=== PATIENT | male | born 1940 | race Caucasian/White ===

== ENCOUNTER → 2016-07-16 | Outpatient (CLI) | payer BC, OTHER ==
[~2016-07-16] MED LIST: ACET-1311 PO; ALUMSUS2 PO; ASPI1TAB83 PO; BISA10SU3 PR; CLOP1TAB5 PO; CYAN10002 IM; DOCU-94 PO; DONE10TA12 PO; HALO5INJ IM; ISOS-11 PO; LPR25 PO; MELATAB2 PO; MOML PO; MULT-260 PO; PRT/20 PO; QUET1TAB34 PO; QUET1TAB37 PO; SODIENE PR
[2016-07-16 10:56] LABS: ALT/SGPT 56 U/L (12-78); BLOOD UREA NITROGEN 22 mg/dl (7-18); BUN/CREATININE RATIO 13.4 (10-20); CARBON DIOXIDE 26 mmol/L (21-32); CHLORIDE 104 mmol/L (98-107); CHOLESTEROL 128 mg/dl (0-200); GLUCOSE 92 mg/dl (70-99); POTASSIUM 3.9 mmol/L (3.5-5.1); SODIUM 143 mmol/L (136-145); TRIGLYCERIDES 216 mg/dl (0-150); VERY LOW DENSITY LIPOPROT CALC 43 mg/dl
[2016-07-16 11:06] LABS: ALKALINE PHOSPHATASE 90 U/L (45-117); AST/SGOT 75 U/L (15-37); CHOLESTEROL/HDL RATIO 3.7; HDL CHOLESTEROL 35 mg/dl; LDL CHOLESTEROL CALCULATED 50 mg/dl
[2016-07-16 11:24] LABS: ESTIMATED AVERAGE GLUCOSE 134 mg/dl; HA1C FLAG Normal (Normal)
--- NOTE | 2016-07-20 09:55 | CODING QUERY MEDICAL NECESSITY ---
SUPPORTING DIAGNOSIS NEEDED A supporting diagnosis is required for the test/procedure performed on this patient in order for us to be reimbursed by the patient's insurance. Please provide a supporting diagnosis for the following test/procedure listed below next to the test name along with your signature. *If there is no additional diagnosis for this patient that would support the following test/procedure please document that below next to the test/procedure. Test(s)/Procedure(s) that require a supporting diagnosis: DOS 07/16 * Vitamin D DIAGNOSIS: * Vitamin B12 DIAGNOSIS: * Hba1c DIAGNOSIS: Provider Signature: Date: Thank you Marina Eaton Health Information Management Once completed, please kindly fax back to [phone] For questions please call [phone]
== END ==
LOC: C.LABUPUNI 10:24
PROVIDERS: ATTEND Family Medicine
DX: R68.2 Dry mouth, unspecified (principal); R26.2 Difficulty in walking, not elsewhere classified; E78.5 Hyperlipidemia, unspecified; F29 Unspecified psychosis not due to a substance or known physiological condition; M62.81 Muscle weakness (generalized)

== ENCOUNTER → 2016-08-03 | Outpatient (CLI) | payer BC, OTHER ==
[2016-08-03 09:04] LABS: BLOOD UREA NITROGEN 28 mg/dl (7-18); BUN/CREATININE RATIO 18.3 (10-20); CALCIUM 9.1 mg/dl (8.5-10.1); CARBON DIOXIDE 25 mmol/L (21-32); CHLORIDE 105 mmol/L (98-107); GLUCOSE 105 mg/dl (70-99); POTASSIUM 4.1 mmol/L (3.5-5.1); SODIUM 141 mmol/L (136-145)
== END | disposition home or self-care (01) ==
LOC: C.LABUPUNI 08:30
PROVIDERS: ATTEND Family Medicine
DX: L10.9 Pemphigus, unspecified (principal)

== ENCOUNTER → 2016-10-29 | Outpatient (CLI) | payer BC, OTHER ==
[2016-10-29 08:49] LABS: HEMATOCRIT 37.1 % (42-52); MEAN CELL VOLUME 99.2 fL (80-100); MEAN CORPUSCULAR HEMOGLOBIN 33.7 pg (25-34); MEAN PLATELET VOLUME 9.7 fL (7.4-10.4); PLATELET COUNT 204 K/uL (130-400); RED BLOOD COUNT 3.74 M/uL (4.7-6.1); WHITE BLOOD COUNT 5.19 K/uL (4.8-10.8)
[2016-10-29 08:53] LABS: ALT/SGPT 33 U/L (12-78); BLOOD UREA NITROGEN 23 mg/dl (7-18); CARBON DIOXIDE 28 mmol/L (21-32); CHLORIDE 106 mmol/L (98-107); CHOLESTEROL 122 mg/dl (0-200); GLUCOSE 93 mg/dl (70-99); POTASSIUM 3.8 mmol/L (3.5-5.1); SODIUM 142 mmol/L (136-145); TRIGLYCERIDES 188 mg/dl (0-150); VERY LOW DENSITY LIPOPROT CALC 38 mg/dl
[2016-10-29 09:04] LABS: ALB/GLOB RATIO 1.2 (0.9-2); ALKALINE PHOSPHATASE 68 U/L (45-117); AST/SGOT 50 U/L (15-37); CHOLESTEROL/HDL RATIO 3.4; HDL CHOLESTEROL 36 mg/dl; LDL CHOLESTEROL CALCULATED 48 mg/dl
--- NOTE | 2016-11-03 12:05 | CODING QUERY MEDICAL NECESSITY ---
SUPPORTING DIAGNOSIS NEEDED A supporting diagnosis is required for the test/procedure performed on this patient in order for us to be reimbursed by the patient's insurance. Please provide a supporting diagnosis for the following test/procedure listed below next to the test name along with your signature. *If there is no additional diagnosis for this patient that would support the following test/procedure please document that below next to the test/procedure. Test(s)/Procedure(s) that require a supporting diagnosis: DOS 10/29 * Vitamin D DIAGNOSIS: Provider Signature: Date: Thank you Marina Eaton Health Information Management Once completed, please kindly fax back to [phone] For questions please call [phone]
== END ==
LOC: C.LABUPUNI 08:14
PROVIDERS: ATTEND Family Medicine
DX: I10 Essential (primary) hypertension (principal); E78.5 Hyperlipidemia, unspecified; E56.8 Deficiency of other vitamins; E55.9 Vitamin D deficiency, unspecified

== ENCOUNTER → 2017-07-20 | Outpatient (CLI) | payer BC, OTHER ==
[2017-07-20 08:24] LABS: HEMATOCRIT 38.9 % (42-52); HEMOGLOBIN 13.3 g/dL (14.0-18.0); MEAN CELL VOLUME 97.3 fL (80-100); MEAN CORPUSCULAR HEMOGLOBIN 33.3 pg (25-34); MEAN CORPUSCULAR HGB CONC 34.2 g/dl (32-36); MEAN PLATELET VOLUME 9.7 fL (7.4-10.4); PLATELET COUNT 205 K/uL (130-400); RED CELL DISTRIBUTION WIDTH CV 13.7 % (11.5-14.5); RED CELL DISTRIBUTION WIDTH SD 48.7 fL (36.4-46.3); WHITE BLOOD COUNT 7.14 K/uL (4.8-10.8)
[2017-07-20 09:11] LABS: HEMOGLOBIN A1C 6.1 % (4.5-5.6)
[2017-07-20 10:36] LABS: ALBUMIN 3.5 gm/dl (3.4-5.0); ALT/SGPT 37 U/L (12-78); AST/SGOT 48 U/L (15-37); BLOOD UREA NITROGEN 23 mg/dl (7-18); CALCIUM 8.8 mg/dl (8.5-10.1); CARBON DIOXIDE 28 mmol/L (21-32); CREATININE 1.48 mg/dl (0.60-1.40); GLUCOSE 98 mg/dl (70-99); POTASSIUM 3.5 mmol/L (3.5-5.1); SODIUM 138 mmol/L (136-145)
[2017-07-20 10:47] LABS: ALKALINE PHOSPHATASE 73 U/L (45-117); TOTAL PROTEIN 6.9 gm/dl (6.4-8.2)
== END | disposition home or self-care (01) ==
LOC: C.LABUPUNI 08:09
PROVIDERS: ATTEND Nurse Practitioner Family
DX: M62.81 Muscle weakness (generalized) (principal); I10 Essential (primary) hypertension; I25.10 Atherosclerotic heart disease of native coronary artery without angina pectoris; E56.8 Deficiency of other vitamins

== ENCOUNTER → 2017-08-19 | Outpatient (CLI) | payer BC, OTHER | LOC: C.LABUPUNI 08:56 | PROVIDERS: ATTEND Nurse Practitioner Family | DX: I10 Essential (primary) hypertension (principal) ==

== ENCOUNTER → 2017-11-03 | Outpatient (CLI) | payer BC, OTHER ==
[2017-11-03 08:27] LABS: HEMATOCRIT 42.2 % (42-52); HEMOGLOBIN 14.5 g/dL (14.0-18.0); MEAN CELL VOLUME 96.6 fL (80-100); MEAN CORPUSCULAR HEMOGLOBIN 33.2 pg (25-34); MEAN CORPUSCULAR HGB CONC 34.4 g/dl (32-36); PLATELET COUNT 231 K/uL (130-400); RED CELL DISTRIBUTION WIDTH CV 13.4 % (11.5-14.5); RED CELL DISTRIBUTION WIDTH SD 47.4 fL (36.4-46.3); WHITE BLOOD COUNT 7.96 K/uL (4.8-10.8)
[2017-11-03 08:37] LABS: ALBUMIN 3.5 gm/dl (3.4-5.0); ALT/SGPT 51 U/L (12-78); AST/SGOT 67 U/L (15-37); BLOOD UREA NITROGEN 21 mg/dl (7-18); CALCIUM 8.9 mg/dl (8.5-10.1); CARBON DIOXIDE 26 mmol/L (21-32); CREATININE 1.52 mg/dl (0.60-1.40); GLUCOSE 110 mg/dl (70-99); POTASSIUM 3.7 mmol/L (3.5-5.1); SODIUM 141 mmol/L (136-145)
[2017-11-03 08:47] LABS: ALKALINE PHOSPHATASE 76 U/L (45-117)
== END | disposition home or self-care (01) ==
LOC: C.LABUPUNI 08:01
PROVIDERS: ATTEND Nurse Practitioner Family
DX: F33.8 Other recurrent depressive disorders (principal); I25.10 Atherosclerotic heart disease of native coronary artery without angina pectoris; M62.81 Muscle weakness (generalized); E56.8 Deficiency of other vitamins

== ENCOUNTER → 2017-11-11 | Outpatient (CLI) | payer BC, OTHER ==
[2017-11-11 10:35] LABS: ALBUMIN 3.2 gm/dl (3.4-5.0); TOTAL PROTEIN 6.9 gm/dl (6.4-8.2)
== END | disposition home or self-care (01) ==
LOC: C.LABUPUNI 09:02
PROVIDERS: ATTEND Nurse Practitioner Family
DX: G89.29 Other chronic pain (principal)

== ENCOUNTER → 2018-02-22 | Outpatient (CLI) | payer BC, OTHER ==
[2018-02-22 08:31] LABS: HEMOGLOBIN 13.8 g/dL (14.0-18.0); MEAN CELL VOLUME 97.1 fL (80-100); MEAN CORPUSCULAR HEMOGLOBIN 33.5 pg (25-34); MEAN CORPUSCULAR HGB CONC 34.5 g/dl (32-36); MEAN PLATELET VOLUME 10.3 fL (7.4-10.4); PLATELET COUNT 197 K/uL (130-400); RED CELL DISTRIBUTION WIDTH CV 14.1 % (11.5-14.5); RED CELL DISTRIBUTION WIDTH SD 50.1 fL (36.4-46.3); WHITE BLOOD COUNT 15.12 K/uL (4.8-10.8)
[2018-02-22 08:35] LABS: BLOOD UREA NITROGEN 21 mg/dl (7-18); CALCIUM 8.9 mg/dl (8.5-10.1); CARBON DIOXIDE 26 mmol/L (21-32); CREATININE 1.64 mg/dl (0.60-1.40); GLUCOSE 130 mg/dl (70-99); POTASSIUM 3.4 mmol/L (3.5-5.1); SODIUM 139 mmol/L (136-145)
== END ==
LOC: C.LABUPUNI 07:41
PROVIDERS: ATTEND Nurse Practitioner Family
DX: R50.9 Fever, unspecified (principal); I25.10 Atherosclerotic heart disease of native coronary artery without angina pectoris; I10 Essential (primary) hypertension

== ENCOUNTER 2020-05-02 16:29 | Inpatient (IN) ==
--- NOTE | 2020-05-02 16:46 | Emergency Department Note ---
Impression & Plan Acute respiratory failure with hypoxia, Elevated troponin, COVID-19, Acute hypernatremia, Elevated lactic acid level ED Provider Note NAME: DIPIKA LOZANO AGE: 79 SEX: M : 1940 ARRIVES VIA: Ambulance INFORMANT: Patient ED PROVIDER(S): Joey Gordon DO CHIEF COMPLAINT: Shortness of breath HPI: Patient is an 79-year-old gentleman with a past medical history of Alzheimer's and psychosis the presents the ER for hypoxia. He was diagnosed with coronavirus and has had respiratory symptoms for the past 7 days per report. He was found to be lethargic and confused today. He was hypoxic and placed on 15 L nonrebreather and brought in by EMS. They note he has been unresponsive. He is a full code per report from EMS. He got Decadron which started yesterday. He has been on antibiotics at the [facility]. Remainder of history is fairly limited as he is able to say yes and no but uncertain to the validity of his answers. ROS: Limited secondary to mentation PAST MEDICAL HISTORY:See Below PAST SURGICAL HISTORY:See Below FAMILY HISTORY:See Below SOCIAL HISTORY:See Below HOME MEDICATIONS:See Below ALLERGIES:See Below VITALS:See Below PHYSICAL EXAMINATION: GENERAL: Sitting up in bed, alert, ill-appearing, answering yes/no questions on nonrebreather EYE EXAM: normal conjunctiva. PERRL and EOM's grossly intact. OROPHARYNX: mucous membranes are dry NECK: supple, no nuchal rigidity, no adenopathy, non-tender LUNGS: Diminished bilaterally. Normal chest wall mechanics HEART: no murmurs, S1 normal and S2 normal ABDOMEN: abdomen soft, non-tender, normo-active bowel sounds, no masses, no rebound or guarding. SKIN: no rashes and no bruising UPPER EXTREMITIES: upper extremities are grossly normal. LOWER EXTREMITIES: No pitting edema. NEURO EXAM: Awake oriented to person and place answering yes and no moving extremities MEDICAL DECISION MAKING: Patient is an 79-year-old male who presents ER from heart side. He was Covid positive. He has had increased confusion and shortness of breathFor the past 24 to 48 hours. He was brought in by EMS on a 15 L nasal cannula. He was still hypoxic at about 86%. IV was established blood work was obtained. He was placed on Covid precautions. Appropriate PPE was worn throughout the entire stay. Labs showed no significant leukocytosis but a mild anemia. VBG was fairly unremarkable with a pH of 7.45. BMP with a significant hyponatremia 154. Creatinine was significantly elevated at 3. Do favor that this is consistent with dehydration. Previous creatinines around 1. He was given IV fluids. Lactate was up as well likely consistent with dehydration. Question if the troponin secondary to SHERRIE versus demand ischemia from the hypoxia; Favor this is multifactorial. LFTs bilirubin was unremarkable. UA was negative. Chest x-ray with multifocal pneumonia. Upon arrival he was placed on high flow nasal cannula at 100% FiO2 and 40 L/min. On high flow patient was 92%. Prolonged conversation with his son who wants him to be a full code. Patient was given IV Decadron and IV Levaquin as well. Updated admitted after discussion with Dr. Young. Triage Nursing notes reviewed. Prior medical records reviewed Vital Signs: reviewed and remarkable for no significant abnormalities Differential diagnosis: Differential diagnosis includes etiologies such as sepsis, UTI, pneumonia, metabolic, electrolyte abnormalities, cardiac sources, intracerebral event, toxicologic, neurological, as well as others were entertained. ER treatment provided: See below Diagnostics interpreted by me: ECG: Sinus rhythm rate of 66 first-degree AV block No PVCs. Normal QTC Cardiac Monitoring: An order was placed for continuous cardiac monitoring. The monitor shows a rate of 70 with sinus rhythm. Laboratory studies: As stated above and show below. Imaging studies: Portable AP upright 1 view of the chest shows multifocal pneumonia Consultation(s): Discussed with Dr. Abilio Young for further evaluation ED COURSE: Procedures: none Critical Care: I have personally spent 50 minutes of critical care time in the direct management of this patient. This includes bedside care, interpretation of diagnostic studies, and testing, discussion with consultants, patient, and family members, and other required patient management activities. This 50 minutes is in excess of all separately billable procedures. Past Med/Surg History Social History (Updated 05/02/20 @ 19:52 by Eduin Young MD) Smoking Status: Unknown if ever smoked Preferred Language: Irish Allergies Allergies Allergy/AdvReac Type Severity Reaction Status Date / Time sulfadiazine Allergy Unknown Unknown Verified 05/02/20 17:55 Home Meds Home Medications Medication Instructions Recorded Confirmed acetaminophen 650 mg PO BID MDD 3 GMS APAP/24 05/02/20 05/02/20 HOURS acetaminophen 650 mg PO Q6H PRN MDD 3 GMS 05/02/20 05/02/20 APAP/24 HOURS amlodipine 5 mg PO DAILY 05/02/20 05/02/20 aspirin [Aspirin Low Dose] 81 mg PO DAILY 05/02/20 05/02/20 azithromycin 250 mg PO DAILY 05/02/20 05/02/20 bisacodyl [Dulcolax (bisacodyl)] 10 mg FL DIRECTED PRN 05/02/20 05/02/20 cholecalciferol (vitamin D3) 5,000 unit PO DAILY 05/02/20 05/02/20 [Vitamin D3] dexamethasone sodium phosphate 6 mg IV DIRECTED 05/02/20 05/02/20 divalproex 250 mg PO HS 05/02/20 05/02/20 duloxetine 20 mg PO DAILY 05/02/20 05/02/20 isosorbide mononitrate 30 mg PO HS 05/02/20 05/02/20 magnesium hydroxide [Milk Of 10 ml PO DIRECTED PRN 05/02/20 05/02/20 Magnesia Concentrated] meloxicam 7.5 mg PO QAM 05/02/20 05/02/20 metoprolol tartrate 25 mg PO BID 05/02/20 05/02/20 multivitamin,tx-minerals [Thera M] 1 tab PO DAILY 05/02/20 05/02/20 ondansetron HCl 4 mg PO Q6H PRN 05/02/20 05/02/20 potassium chloride 20 meq PO DAILY 05/02/20 05/02/20 pregabalin 100 mg PO TID 05/02/20 05/02/20 quetiapine 50 mg PO BID 05/02/20 05/02/20 sennosides [senna] 8.6 mg PO DAILY 05/02/20 05/02/20 sodium phosphates [Fleet Enema] 197 ml FL DIRECTED PRN 05/02/20 05/02/20 zinc 100 mg PO DAILY 05/02/20 05/02/20 Results & Data (ED) Vital Signs Vital Signs - 24 hr 05/02/20 16:48 05/02/20 17:04 05/02/20 17:31 Temperature 36.5 C Temperature Source Oral Pulse Rate 71 66 Pulse Rate [Right Finger] 68 Pulse Rate from SpO2 Sensor 65 Pulse Rhythm Regular Pulse Strength Normal Respiratory Rate 26 H 16 22 Respiratory Effort / Characteristics Spontaneous Short of Breath Non-Labored Spontaneous Blood Pressure 133/74 139/68 Blood Pressure Mean 93 87 Blood Pressure Position Sitting Pulse Oximetry 86 L 93 93 Oxygen Delivery Method High Flow Nasal Cannula Non-rebreather High Flow Nasal Cannula High Flow Nasal Cannula Oxygen Flow Rate 15 40 40 Fraction of Inspired Oxygen 100 100 SaO2/FiO2 Ratio 95 Sepsis Recent Fever Within 48 Hours No Sepsis New/Unexplained Change in Mental Status Yes Sepsis Action Taken by Nursing Physician Notified Oxygen Flow Rate - Titration 40 Fraction of Inspired Oxygen - Titration 100 Pulse Oximetry Post Tiitration 93 05/02/20 17:45 05/02/20 18:00 05/02/20 18:15 Temperature Temperature Source Pulse Rate 64 66 61 Pulse Rate [Right Finger] Pulse Rate from SpO2 Sensor 61 Pulse Rhythm Pulse Strength Respiratory Rate 19 23 15 Respiratory Effort / Characteristics Blood Pressure 126/84 120/64 119/60 Blood Pressure Mean 99 71 83 Blood Pressure Position Pulse Oximetry 98 Oxygen Delivery Method High Flow Nasal Cannula Oxygen Flow Rate 40 Fraction of Inspired Oxygen 100 SaO2/FiO2 Ratio Sepsis Recent Fever Within 48 Hours Sepsis New/Unexplained Change in Mental Status Sepsis Action Taken by Nursing Oxygen Flow Rate - Titration Fraction of Inspired Oxygen - Titration Pulse Oximetry Post Tiitration 05/02/20 18:16 05/02/20 18:30 05/02/20 19:01 Temperature Temperature Source Pulse Rate 65 66 66 Pulse Rate [Right Finger] Pulse Rate from SpO2 Sensor 61 64 66 Pulse Rhythm Pulse Strength Respiratory Rate 29 H 20 26 H Respiratory Effort / Characteristics Blood Pressure 126/87 123/62 Blood Pressure Mean 102 92 Blood Pressure Position Pulse Oximetry 96 93 96 Oxygen Delivery Method High Flow Nasal Cannula Oxygen Flow Rate 40 Fraction of Inspired Oxygen 100 SaO2/FiO2 Ratio Sepsis Recent Fever Within 48 Hours Sepsis New/Unexplained Change in Mental Status Sepsis Action Taken by Nursing Oxygen Flow Rate - Titration Fraction of Inspired Oxygen - Titration Pulse Oximetry Post Tiitration 05/02/20 19:15 05/02/20 19:30 05/02/20 19:57 Temperature Temperature Source Pulse Rate 66 66 61 Pulse Rate [Right Finger] Pulse Rate from SpO2 Sensor 66 67 62 Pulse Rhythm Pulse Strength Respiratory Rate 29 H 23 20 Respiratory Effort / Characteristics Blood Pressure 112/76 180/80 H Blood Pressure Mean 87 135 Blood Pressure Position Pulse Oximetry 92 90 94 Oxygen Delivery Method High Flow Nasal Cannula Oxygen Flow Rate 40 Fraction of Inspired Oxygen 100 SaO2/FiO2 Ratio Sepsis Recent Fever Within 48 Hours Sepsis New/Unexplained Change in Mental Status Sepsis Action Taken by Nursing Oxygen Flow Rate - Titration Fraction of Inspired Oxygen - Titration Pulse Oximetry Post Tiitration 05/02/20 20:00 Temperature Temperature Source Pulse Rate 63 Pulse Rate [Right Finger] Pulse Rate from SpO2 Sensor 62 Pulse Rhythm Pulse Strength Respiratory Rate 21 Respiratory Effort / Characteristics Blood Pressure 165/78 H Blood Pressure Mean 131 Blood Pressure Position Pulse Oximetry 94 Oxygen Delivery Method High Flow Nasal Cannula Oxygen Flow Rate 40 Fraction of Inspired Oxygen 100 SaO2/FiO2 Ratio Sepsis Recent Fever Within 48 Hours Sepsis New/Unexplained Change in Mental Status Sepsis Action Taken by Nursing Oxygen Flow Rate - Titration Fraction of Inspired Oxygen - Titration Pulse Oximetry Post Tiitration Laboratory Data Result diagrams: 05/02/20 17:15 05/02/20 17:15 Lab Results 05/02/20 05/02/20 05/02/20 Range/Units 17:15 17:15 17:15 WBC 6.34 (4.8-10.8) K/uL RBC 3.50 L (4.7-6.1) M/uL Hgb 11.4 L (14.0-18.0) g/dL Hct 34.7 L (42-52) % MCV 99.1 (80-100) fL MCH 32.6 (25-34) pg MCHC 32.9 (32-36) g/dL RDW Std Deviation 55.8 H (36.4-46.3) fL RDW Coeff of Ailin 15.6 H (11.5-14.5) % Plt Count 225 (130-400) K/uL MPV 10.7 H (7.4-10.4) fL Immature Gran % (Auto) 0.8 % Neut % (Auto) 71.4 % Lymph % (Auto) 19.9 % [place] % (Auto) 7.4 % Eos % (Auto) 0.0 % Baso % (Auto) 0.5 % Neut # (Auto) 4.53 (1.4-6.5) K/uL Lymph # (Auto) 1.26 (1.2-3.4) K/uL [place] # (Auto) 0.47 (0.11-0.59) K/uL Eos # (Auto) 0.00 (0-0.5) K/uL Baso # (Auto) 0.03 (0-0.2) K/uL Immature Gran # (Auto) 0.05 H (0.00-0.02) K/uL Absolute Nucleated RBC 0.15 H (0-0) K/uL Nucleated RBC % (auto) 2.4 % RBC Morphology Unremarkable PT 11.4 (9.0-12.0) Seconds INR 1.1 (0.9-1.1) APTT 26.8 (21.0-31.0) Seconds PTT Ratio 1.0 VBG pH (7.36-7.41) VBG pCO2 (38-50) mmHg VBG pO2 mmHg VBG HCO3 mmol/L VBG O2 Saturation % VBG Base Excess mEq/L Barometric Pressure mm/Hg Sodium 154 H (136-145) mmol/L Potassium 3.6 (3.5-5.1) mmol/L Chloride 122 H (98-107) mmol/L Carbon Dioxide 26 (21-32) mmol/L Anion Gap 6.0 (3-11) BUN 73 H (7-18) mg/dl Creatinine 3.10 H (0.6-1.4) mg/dl Est Cr Clr Drug Dosing 23.7 ml/min Est GFR ( Amer) 20.9 Est GFR (Non-Af Amer) 18.0 BUN/Creatinine Ratio 23.5 H (10-20) Glucose 130 H (70-99) mg/dl Lactate (0.4-2.0) mmol/L Calcium 9.4 (8.5-10.1) mg/dl Magnesium 3.6 H (1.8-2.4) mg/dl Total Bilirubin 0.6 (0.2-1) mg/dl AST 156 H (15-37) U/L ALT 70 (12-78) U/L Alkaline Phosphatase 72 (45-117) U/L Troponin I 0.062 H* (0-0.045) ng/ml Total Protein 8.2 (6.4-8.2) gm/dl Albumin 3.3 L (3.4-5.0) gm/dl Globulin 4.9 H (2.5-4.0) gm/dl Albumin/Globulin Ratio 0.7 L (0.9-2) Urine Color Urine Appearance (Clear) Urine pH (4.5-7.5) Ur Specific [place] (1.000-1.030) Urine Protein (Negative) Urine Glucose (UA) (Negative) Urine Ketones (Negative) Urine Blood (Negative) Urine Nitrite (Negative) Urine Bilirubin (Negative) Urine Urobilinogen (Negative) Ur Leukocyte Esterase (Negative) Urine WBC (Auto) (0-5) /hpf Urine RBC (Auto) (0-4) /hpf U Hyaline Cast (Auto) (0-5) /lpf U Epithel Cells (Auto) (0-5) /lpf Urine Bacteria (Auto) (Negative) 05/02/20 05/02/20 05/02/20 Range/Units 17:15 17:15 19:27 WBC (4.8-10.8) K/uL RBC (4.7-6.1) M/uL Hgb (14.0-18.0) g/dL Hct (42-52) % MCV (80-100) fL MCH (25-34) pg MCHC (32-36) g/dL RDW Std Deviation (36.4-46.3) fL RDW Coeff of Ailin (11.5-14.5) % Plt Count (130-400) K/uL MPV (7.4-10.4) fL Immature Gran % (Auto) % Neut % (Auto) % Lymph % (Auto) % [place] % (Auto) % Eos % (Auto) % Baso % (Auto) % Neut # (Auto) (1.4-6.5) K/uL Lymph # (Auto) (1.2-3.4) K/uL [place] # (Auto) (0.11-0.59) K/uL Eos # (Auto) (0-0.5) K/uL Baso # (Auto) (0-0.2) K/uL Immature Gran # (Auto) (0.00-0.02) K/uL Absolute Nucleated RBC (0-0) K/uL Nucleated RBC % (auto) % RBC Morphology PT (9.0-12.0) Seconds INR (0.9-1.1) APTT (21.0-31.0) Seconds PTT Ratio VBG pH 7.45 H (7.36-7.41) VBG pCO2 38 (38-50) mmHg VBG pO2 60 mmHg VBG HCO3 26 mmol/L VBG O2 Saturation 89.1 % VBG Base Excess 1.7 mEq/L Barometric Pressure 737.5 mm/Hg Sodium (136-145) mmol/L Potassium (3.5-5.1) mmol/L Chloride (98-107) mmol/L Carbon Dioxide (21-32) mmol/L Anion Gap (3-11) BUN (7-18) mg/dl Creatinine (0.6-1.4) mg/dl Est Cr Clr Drug Dosing ml/min Est GFR ( Amer) Est GFR (Non-Af Amer) BUN/Creatinine Ratio (10-20) Glucose (70-99) mg/dl Lactate 2.1 H* (0.4-2.0) mmol/L Calcium (8.5-10.1) mg/dl Magnesium (1.8-2.4) mg/dl Total Bilirubin (0.2-1) mg/dl AST (15-37) U/L ALT (12-78) U/L Alkaline Phosphatase (45-117) U/L Troponin I (0-0.045) ng/ml Total Protein (6.4-8.2) gm/dl Albumin (3.4-5.0) gm/dl Globulin (2.5-4.0) gm/dl Albumin/Globulin Ratio (0.9-2) Urine Color Dark Yellow Urine Appearance Clear (Clear) Urine pH 5.0 (4.5-7.5) Ur Specific [place] 1.028 (1.000-1.030) Urine Protein 1+ H (Negative) Urine Glucose (UA) Negative (Negative) Urine Ketones Trace H (Negative) Urine Blood Negative (Negative) Urine Nitrite Negative (Negative) Urine Bilirubin Negative (Negative) Urine Urobilinogen Negative (Negative) Ur Leukocyte Esterase Negative (Negative) Urine WBC (Auto) 1-5 (0-5) /hpf Urine RBC (Auto) 0-4 (0-4) /hpf U Hyaline Cast (Auto) 10-30 H (0-5) /lpf U Epithel Cells (Auto) 20-30 H (0-5) /lpf Urine Bacteria (Auto) Negative (Negative) Administered Medications Dextrose (D5w) 1,000 mls @ 80 mls/hr IV .[id number] BECCA Stop: 05/03/20 19:29 Last Admin: 05/02/20 19:19 Dose: 80 mls/hr Documented by: [id number] Discontinued Medications Dexamethasone (Dexamethasone Sod Inj 10 Mg/Ml Vial) 6 mg IV NOW ONE Stop: 05/02/20 17:01 Last Admin: 05/02/20 18:07 Dose: 6 mg Documented by: [id number] Levofloxacin/Dextrose (Levaquin/D5w) 750 mg in 150 mls @ 100 mls/hr IV NOW STA Stop: 05/02/20 18:29 Last Infusion: 05/02/20 19:49 Dose: 0 mls/hr Documented by: [id number] Admin: 05/02/20 18:08 Dose: 100 mls/hr Documented by: [id number] Sodium Chloride (Nss 1000ml) 1,000 mls @ 999 mls/hr IV .Q1H1M ONE Stop: 05/02/20 19:01 Last Infusion: 05/02/20 19:49 Dose: 0 mls/hr Documented by: [id number] Admin: 05/02/20 18:08 Dose: 999 mls/hr Documented by: [id number] Discharge Plan Visit Data Chief Complaint: Shortness of Breath/Dyspnea Stated Complaint: SOB, COVID + ED Provider: Joey Gordon Discharge Problem: Acute respiratory failure with hypoxia, Elevated troponin, COVID-19, Acute hypernatremia, Elevated lactic acid level Forms Stand Alone Forms: My [facility] Prescriptions Prescriptions: No Action sennosides [senna] 8.6 mg Tablet 8.6 mg PO DAILY RF: 0 acetaminophen 325 mg Tablet 650 mg PO Q6H MDD 3 GMS APAP/24 HOURS PRN (Reason: Fever Or Pain) RF: 0 acetaminophen 325 mg Tablet 650 mg PO BID MDD 3 GMS APAP/24 HOURS RF: 0 divalproex 250 mg tablet,delayed release (DR/EC) 250 mg PO HS RF: 0 azithromycin 250 mg tablet 250 mg PO DAILY RF: 0 ondansetron HCl 4 mg tablet 4 mg PO Q6H PRN (Reason: Nausea) RF: 0 isosorbide mononitrate 30 mg tablet extended release 24 hr 30 mg PO HS RF: 0 amlodipine 5 mg tablet 5 mg PO DAILY RF: 0 aspirin [Aspirin Low Dose] 81 mg Tablet,Delayed Release (Dr/Ec) 81 mg PO DAILY RF: 0 meloxicam 7.5 mg tablet 7.5 mg PO QAM RF: 0 potassium chloride 20 mEq tablet,ER particles/crystals 20 meq PO DAILY RF: 0 zinc 50 mg Tablet 100 mg PO DAILY RF: 0 dexamethasone sodium phosphate 4 mg/mL solution 6 mg IV DIRECTED RF: 0 Thera M Tablet 1 tab PO DAILY RF: 0 metoprolol tartrate 25 mg tablet 25 mg PO BID RF: 0 duloxetine 20 mg capsule,delayed release(DR/EC) 20 mg PO DAILY RF: 0 pregabalin 100 mg capsule 100 mg PO TID RF: 0 quetiapine 50 mg tablet 50 mg PO BID RF: 0 cholecalciferol (vitamin D3) [Vitamin D3] 125 mcg (5,000 unit) Tablet 5,000 unit PO DAILY RF: 0 bisacodyl [Dulcolax (bisacodyl)] 10 mg Suppository 10 mg FL DIRECTED PRN (Reason: Constipation) RF: 0 Fleet Enema 19-7 gram/118 mL Enema 197 ml FL DIRECTED PRN (Reason: Constipation) RF: 0 magnesium hydroxide [Milk Of Magnesia Concentrated] 2,400 mg/10 mL Suspension 10 ml PO DIRECTED PRN (Reason: Constipation) RF: 0
--- NOTE | 2020-05-02 16:54 | XRay Report ---
XR chest 1V portable CLINICAL HISTORY: SEPSIS COMPARISON STUDY: 01/23/2015 FINDINGS: The heart is borderline enlarged. There are bilateral mixed interstitial and alveolar airsp myra opacities. Clinical correlation in regards to an atypical infectious process is recommended. Ther e are no significant pleural effusions.[ IMPRESSION: 1. Bilateral mixed interstitial and alveolar airspace opacities, suspicious for a multifocal pneumoni a. Clinical and radiographic follow-up is recommended. ACT 112: Negative or not required by law. Electronically signed by: Marc Dunaway M.D. 05/02/2020 4:53 PM
[2020-05-02] MEDS ORDERED: DEXAMETHASONE SOD INJ 10 MG/ML VIAL IV ONE (17:00)
[2020-05-02] MEDS ORDERED: levoFLOXacin/D5W 750 MG/150 ML BAG IV STA (17:00)
[2020-05-02 17:34] LABS: Basophils # (auto) 0.03 K/uL (0-0.2); Basophils % (auto) 0.5 %; Hematocrit (blood only) 34.7 % (42-52); Hemoglobin 11.4 g/dL (14.0-18.0); Immature Granulocytes # (auto) 0.05 K/uL (0.00-0.02); Immature Granulocytes % (auto) 0.8 %; Lymphocytes # (auto) 1.26 K/uL (1.2-3.4); Lymphocytes % (auto) 19.9 %; Mean Corpuscular Hemoglobin 32.6 pg (25-34); Mean Corpuscular Hgb Conc 32.9 g/dL (32-36); Mean Corpuscular Volume 99.1 fL (80-100); Mean Platelet Volume 10.7 fL (7.4-10.4); Monocytes # (auto) 0.47 K/uL (0.11-0.59); Monocytes % (auto) 7.4 %; Neutrophils # (auto) 4.53 K/uL (1.4-6.5); Neutrophils % (auto) 71.4 %; Nucleated RBC # (auto) 0.15 K/uL (0-0); Nucleated RBC % (auto) 2.4 %; Platelet Count 225 K/uL (130-400); RDW Coefficient of Variation 15.6 % (11.5-14.5); RDW Standard Deviation 55.8 fL (36.4-46.3); White Blood Count 6.34 K/uL (4.8-10.8)
[2020-05-02 17:36] LABS: Base Excess VBG 1.7 mEq/L; Oxygen Saturation VBG 89.1 %; pH VBG 7.45 (7.36-7.41)
[2020-05-02 17:48] LABS: INR 1.1 (0.9-1.1); Partial Thromboplastin Time 26.8 Seconds (21.0-31.0); Prothrombin Time 11.4 Seconds (9.0-12.0)
[2020-05-02 17:52] LABS: Albumin Level 3.3 gm/dl (3.4-5.0); BUN Creatinine Ratio 23.5 (10-20); Calcium 9.4 mg/dl (8.5-10.1); Creatinine Clr Calc Pharmacy 23.7 ml/min; Est GFR (African American) 20.9; Magnesium 3.6 mg/dl (1.8-2.4); Potassium 3.6 mmol/L (3.5-5.1)
[2020-05-02 17:59] LABS: RBC Morphology Unremarkable
[2020-05-02 18:01] LABS: Albumin Globulin Ratio 0.7 (0.9-2); Bilirubin,Total 0.6 mg/dl (0.2-1); Globulin 4.9 gm/dl (2.5-4.0); Total Protein 8.2 gm/dl (6.4-8.2); Troponin I 0.062 ng/ml (0-0.045)
[2020-05-02] MEDS ORDERED: SODIUM CHLORIDE 0.9% 1000ML 1,000 ML IV ONE (18:01)
[2020-05-02] MEDS ORDERED: DEXTROSE 5% 1,000 ML IV SCH (19:15)
[2020-05-02] MEDS: DEXTROSE 5% 1,000 ML IV SCH (19:19)
[2020-05-02] MEDS ORDERED: ASCORBIC ACID 1,500 MG, THIAMINE HCL 100 MG in 0.9 % SODIUM CHLORIDE 100 ML IV SCH (19:30)
[2020-05-02 19:47] LABS: Appearance Urine Clear (Clear); Bacteria Urine Automated Negative (Negative); Bilirubin Urine Negative (Negative); Blood Urine Negative (Negative); Color Urine Dark Yellow; Epithelial Cell Urine Auto 20-30 /lpf (0-5); Glucose Urine UA Negative (Negative); Ketones Urine Trace (Negative); Leukocyte Esterase Urine Negative (Negative); Nitrite Urine Negative (Negative); Protein Urine 1+ (Negative); RBC Urine Automated 0-4 /hpf (0-4); Specific Gravity Urine 1.028 (1.000-1.030); Urobilinogen Urine Negative (Negative)
--- NOTE | 2020-05-02 20:01 | History & Physical Report ---
Date of Service May 02, 2020 Assessment & Plan (1) Acute respiratory failure with hypoxia: Patient with acute hypoxic respiratory failure secondary to COVID-19 pneumonia. Patient is acute kidney injury prohibits him from using remdesivir. Patient supported with high flow oxygen he will be given convalescent plasma dexamethasone and zinc family confirms he is a full code at this time believe his mental status will permit us to do prone breathing. Patient (2) Coronary artery disease: Patient be maintained on his metoprolol to prevent rebound tachycardia however if his blood pressure is low this will also be held isosorbide will be held with variable blood pressure currently (3) Hypertension: In addition to above medications patient is also amlodipine this will be held (4) Alzheimer disease: Patient has some previous history of dementia there is also psychosis with a suicide attempt. He is frequently on doses of Seroquel duloxetine due to his mental status we will try to minimize oral medications at this time these are all being held (5) Elevated troponin: Patient has a mildly elevated troponin 0 0.062. He is on isosorbide. We do not have any significant records on this patient. Subsequently is felt he may have coronary disease. He however denies any chest discomfort but his profound hypoxia could make this demand ischemia. We will repeat a troponin in the morning. As mentioned below anticoagulation may be considered an EKG is also not been present on his admitting orders we will try to minimize exposure of staff to Covid but if he develops continued trending upward of his troponin or chest pain we will perform an EKG (6) DVT prophylaxis: Patient currently on Lovenox 40 every 12 hours there is a pending D-dimer if it significantly elevated consideration for therapeutic anticoagulation will be undertaken History of Present Illness Primary Care Provider: [facility] 79-year-old male from outside retirement who was diagnosed with Covid 04/26. According to the family did not start exhibiting symptoms until 04/29. Unclear why was tested so much earlier. He presents tonight with profound hypoxic respiratory failure is now on high flow oxygen 40 L 100% does have some bibasilar chest infiltrates got marked hypernatremia of 154 and creatinine 3.1 with previous creatinine in February of this year of 1.3 troponin is elevated 0.062 early pending D-dimer Allergies Allergy/AdvReac Type Severity Reaction Status Date / Time sulfadiazine Allergy Unknown Unknown Verified 05/02/20 17:55 Home Medications Home Medications Medication Instructions Recorded Confirmed Type acetaminophen 650 mg PO BID MDD 3 GMS APAP/24 05/02/20 05/02/20 History HOURS acetaminophen 650 mg PO Q6H PRN MDD 3 GMS 05/02/20 05/02/20 History APAP/24 HOURS amlodipine 5 mg PO DAILY 05/02/20 05/02/20 History aspirin [Aspirin Low Dose] 81 mg PO DAILY 05/02/20 05/02/20 History azithromycin 250 mg PO DAILY 05/02/20 05/02/20 History bisacodyl [Dulcolax (bisacodyl)] 10 mg OR DIRECTED PRN 05/02/20 05/02/20 History cholecalciferol (vitamin D3) 5,000 unit PO DAILY 05/02/20 05/02/20 History [Vitamin D3] dexamethasone sodium phosphate 6 mg IV DIRECTED 05/02/20 05/02/20 History divalproex 250 mg PO HS 05/02/20 05/02/20 History duloxetine 20 mg PO DAILY 05/02/20 05/02/20 History isosorbide mononitrate 30 mg PO HS 05/02/20 05/02/20 History magnesium hydroxide [Milk Of 10 ml PO DIRECTED PRN 05/02/20 05/02/20 History Magnesia Concentrated] meloxicam 7.5 mg PO QAM 05/02/20 05/02/20 History metoprolol tartrate 25 mg PO BID 05/02/20 05/02/20 History multivitamin,tx-minerals [Thera M] 1 tab PO DAILY 05/02/20 05/02/20 History ondansetron HCl 4 mg PO Q6H PRN 05/02/20 05/02/20 History potassium chloride 20 meq PO DAILY 05/02/20 05/02/20 History pregabalin 100 mg PO TID 05/02/20 05/02/20 History quetiapine 50 mg PO BID 05/02/20 05/02/20 History sennosides [senna] 8.6 mg PO DAILY 05/02/20 05/02/20 History sodium phosphates [Fleet Enema] 197 ml OR DIRECTED PRN 05/02/20 05/02/20 History zinc 100 mg PO DAILY 05/02/20 05/02/20 History Past Med/Surg History Social History (Updated 05/02/20 @ 19:52 by Eduin Young MD) Smoking Status: Unknown if ever smoked Preferred Language: Maltese Review of Systems Review of Systems: Unobtainable due to cognitive status Physical Exam Physical Exam: The patient appeared bewildered hard of hearing Vital signs as documented. Marked hypoxia requiring high flow oxygen Head exam is normocephalic atraumatic no scleral icterus Neck is without JVD, thyromegaly, or carotid bruits. Lungs are bibasilar rales accessory muscles or respiration are being used patient is also belly breathing at this time Cardiac exam, Rhythm is regular.. No murmurs, rubs or gallops. Abdominal exam reveals normal bowel sounds, soft non tender, no masses Extremities are nonedematous and both pedal pulses are present Neurologic exam is alert and spots to questioning and voice is confused hard of hearing Results & Data Results & Data ([facility]) Vital Signs (Past 12 Hours) Vital Signs Temp Pulse Pulse Resp BP Pulse Ox 05/02/20 19:30 66 23 90 05/02/20 19:15 66 29 H 112/76 92 05/02/20 19:01 66 26 H 123/62 96 05/02/20 18:30 66 20 126/87 93 05/02/20 18:16 65 29 H 96 05/02/20 18:15 61 15 119/60 98 05/02/20 18:00 66 23 120/64 05/02/20 17:45 64 19 126/84 05/02/20 17:31 66 22 139/68 93 05/02/20 17:04 68 16 93 05/02/20 16:48 97.7 F 71 26 H 133/74 86 L chest x-ray shows bibasilar infiltrates Code Status & VTE Plan VTE Prophylaxis Plan VTE Prophylaxis will be ordered: Yes PG Care Time/CCT Total # of Minutes Spent Total Time Spent with Patient: Total time spent is greater than 50% in coordination of care (as documented) at patient's floor/unit and/or counseling patient: Coding Level of Care Code 30625 Initial Inpt Care Lvl 3 Diagnoses Acute respiratory failure with hypoxia J96.01 Coronary artery disease I25.10 Hypertension I10 Alzheimer disease G30.9; F02.80 Elevated troponin R77.8 DVT prophylaxis Z29.9
[2020-05-02] MEDS ORDERED: ENOXAPARIN INJ 40 MG/0.4 ML SYR SQ SCH (23:00)
[2020-05-02] MEDS: ENOXAPARIN INJ 30 MG/0.3 ML SYR SQ SCH (23:42)
[2020-05-03 00:02] LABS: Fibrinogen 522 mg/dl (184-400)
[2020-05-03 00:09] LABS: D Dimer 1390 ug/L FEU (0-500)
[2020-05-03] MEDS: ENOXAPARIN INJ 30 MG/0.3 ML SYR SQ SCH ×2 (08:12→20:58)
[2020-05-03] MEDS: DEXAMETHASONE SOD PHOSPHATE 6 MG in SYRINGE 0 ML IV SCH (08:13)
[2020-05-03] MEDS: ZINC SULFATE 220 MG CAPSULE PO SCH (08:13)
[2020-05-03] MEDS: DEXTROSE 5% 1,000 ML IV SCH ×2 (08:22→22:41)
--- NOTE | 2020-05-03 08:28 | Electrocardiogram Report ---
Test Reason : Blood Pressure : / mmHG Vent. Rate : 066 BPM Atrial Rate : 066 BPM P-R Int : 154 ms QRS Dur : 096 ms QT Int : 426 ms P-R-T Axes : -03 011 080 degrees QTc Int : 446 ms Normal sinus rhythm Diffuse Nonspecific T wave abnormality Abnormal ECG When compared with ECG of 23-JAN-2015 15:37, Nonspecific T wave abnormality now present Confirmed by Mahesh Van ([id number]) on 05/03/2020 8:28:05 AM Referred By: [facility] Confirmed By:Mahesh Van
[2020-05-03 08:45] LABS: Basophils # (auto) 0.02 K/uL (0-0.2); Basophils % (auto) 0.2 %; Hemoglobin 10.9 g/dL (14.0-18.0); Immature Granulocytes # (auto) 0.18 K/uL (0.00-0.02); Immature Granulocytes % (auto) 1.4 %; Lymphocytes # (auto) 1.33 K/uL (1.2-3.4); Lymphocytes % (auto) 10.5 %; Mean Corpuscular Hemoglobin 32.4 pg (25-34); Mean Corpuscular Hgb Conc 32.1 g/dL (32-36); Mean Corpuscular Volume 101.2 fL (80-100); Mean Platelet Volume 11.1 fL (7.4-10.4); Monocytes # (auto) 0.37 K/uL (0.11-0.59); Monocytes % (auto) 2.9 %; Neutrophils # (auto) 10.79 K/uL (1.4-6.5); Nucleated RBC # (auto) 0.17 K/uL (0-0); Nucleated RBC % (auto) 1.3 %; Platelet Count 252 K/uL (130-400); RDW Coefficient of Variation 15.6 % (11.5-14.5); RDW Standard Deviation 56.8 fL (36.4-46.3); Red Blood Count 3.36 M/uL (4.7-6.1); White Blood Count 12.69 K/uL (4.8-10.8)
[2020-05-03 08:54] LABS: iSTAT Allen Test Pass; iSTAT Arterial Blood Gas HCO3 23 meg/L (19-24); iSTAT Arterial Blood Gas pCO2 35 mmHg (35-46); iSTAT Arterial Blood Gas pH 7.42 (7.35-7.45); iSTAT Arterial Blood Gas pO2 61 mmHg (80-95); iSTAT Carbon Dioxide 24 mmol/L (24-31); iSTAT FiO2 100 %; iSTAT Site L Radial
[2020-05-03 08:55] LABS: Albumin Level 2.9 gm/dl (3.4-5.0); C Reactive Protein 6.61 mg/dl (0-0.29); Calcium 8.8 mg/dl (8.5-10.1); Creatinine Clr Calc Pharmacy 28.4 ml/min; Est GFR (African American) 26.3; Est GFR (Non-African American) 22.7; Magnesium 3.3 mg/dl (1.8-2.4); Potassium 3.6 mmol/L (3.5-5.1)
[2020-05-03 08:59] LABS: Albumin Globulin Ratio 0.6 (0.9-2); Bilirubin,Total 0.5 mg/dl (0.2-1); Globulin 4.7 gm/dl (2.5-4.0); Phosphorus 2.9 mg/dl (2.5-4.9); Total Protein 7.6 gm/dl (6.4-8.2)
[2020-05-03] MEDS ORDERED: DEXAMETHASONE SOD INJ 10 MG/ML VIAL IV SCH (09:00)
[2020-05-03 09:22] LABS: D Dimer 1810 ug/L FEU (0-500)
--- NOTE | 2020-05-03 09:25 | Pulmonary Consultation ---
Date of Consultation May 03, 2020 Assessment & Plan (1) COVID-19: 79-year-old male with dementia and a history of psychosis presenting to the hospital with acute metabolic encephalopathy and acute hypoxemic respiratory failure secondary to COVID-19 pneumonia. Continue Decadron 6 mg daily for 10 days. He is not a candidate for remdesivir given his renal failure and his transaminitis. Continue high-dose Lovenox. His D-dimer is elevated. He is unstable for transport to a CT chest. I suspect that his severe hypoxemia is related to multifocal opacities from the COVID-19 pneumonitis. An order is placed for convalescent plasma and will likely arrive later today. He is at high risk for aspiration given his altered mental status and his underlying dementia. I think his overall prognosis is very poor. He appears to be ventilating reasonably well based on the most recent blood gas. Aim for a PO2 of 55-80 on the ABG and oxygen saturations of 88 to 92%. Hopefully, we can avoid intubation or mechanical ventilation unless absolutely necessary. We are hoping that his mental status continues to clear as his sodium improves and BUN improves. I tried to get a hold of the son to discuss CODE STATUS further. Palliative care consultation will be ordered. I discussed the case with the respiratory therapist, bedside RN and hospitalist. (2) Acute hypernatremia: (3) Elevated lactic acid level: (4) Acute respiratory failure with hypoxia: (5) Coronary artery disease: History of Present Illness Reason for Consultation: Covid pneumonitis Requesting Physician: Dr. Rebecca Saba Attending Physician: Rebecca Saba MD History of Present Illness 79-year-old male with a past medical history of dementia and coronary artery disease who [facility] due to increasing shortness of breath and confusion. History was obtained from chart review and discussion with the hospitalist due to the COVID-19 pandemic and due to the patient's acute encephalopathy. It appears that he was diagnosed with coronavirus and has had respiratory symptoms for the past 7 days. He was lethargic and confused yesterday. He was brought by EMS and was requiring 15 L nonrebreather. He received Decadron in the [facility]. He was desaturating on 100% FiO2 and 40 L high flow nasal cannula and he is now currently on BiPAP. Most recent ABG suggest a respiratory alkalosis with severe hypoxemia with a PaO2 of 61 on 100% BiPAP. Chest x-ray from yesterday demonstrated bilateral mixed interstitial and alveolar airspace opacities suspicious for multifocal pneumonia. His labs are concerning for leukocytosis of 12,690. D-dimer is elevated to 1390. His creatinine is elevated to 2.56 and BUN of 72. Sodium is 153. Ferritin was 1840. Lactate of 2.1. Procalcitonin 0.38. CRP of 6.61. He is receiving Decadron. He has not yet received convalescent plasma. He is not a candidate for remdesivir given his renal failure and given that he is at least 7 days out from acute symptoms. Allergies Allergy/AdvReac Type Severity Reaction Status Date / Time sulfadiazine Allergy Unknown Unknown Verified 05/02/20 17:55 Home Medications Home Medications Medication Instructions Recorded Confirmed Type acetaminophen 650 mg PO BID MDD 3 GMS APAP/24 05/02/20 05/02/20 History HOURS acetaminophen 650 mg PO Q6H PRN MDD 3 GMS 05/02/20 05/02/20 History APAP/24 HOURS amlodipine 5 mg PO DAILY 05/02/20 05/02/20 History aspirin [Aspirin Low Dose] 81 mg PO DAILY 05/02/20 05/02/20 History azithromycin 250 mg PO DAILY 05/02/20 05/02/20 History bisacodyl [Dulcolax (bisacodyl)] 10 mg [place] DIRECTED PRN 05/02/20 05/02/20 History cholecalciferol (vitamin D3) 5,000 unit PO DAILY 05/02/20 05/02/20 History [Vitamin D3] dexamethasone sodium phosphate 6 mg IV DIRECTED 05/02/20 05/02/20 History divalproex 250 mg PO HS 05/02/20 05/02/20 History duloxetine 20 mg PO DAILY 05/02/20 05/02/20 History isosorbide mononitrate 30 mg PO HS 05/02/20 05/02/20 History magnesium hydroxide [Milk Of 10 ml PO DIRECTED PRN 05/02/20 05/02/20 History Magnesia Concentrated] meloxicam 7.5 mg PO QAM 05/02/20 05/02/20 History metoprolol tartrate 25 mg PO BID 05/02/20 05/02/20 History multivitamin,tx-minerals [Thera M] 1 tab PO DAILY 05/02/20 05/02/20 History ondansetron HCl 4 mg PO Q6H PRN 05/02/20 05/02/20 History potassium chloride 20 meq PO DAILY 05/02/20 05/02/20 History pregabalin 100 mg PO TID 05/02/20 05/02/20 History quetiapine 50 mg PO BID 05/02/20 05/02/20 History sennosides [senna] 8.6 mg PO DAILY 05/02/20 05/02/20 History sodium phosphates [Fleet Enema] 197 ml [place] DIRECTED PRN 05/02/20 05/02/20 History zinc 100 mg PO DAILY 05/02/20 05/02/20 History Patient History Social History Smoking Status: Unknown if ever smoked Preferred Language: Malian 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 The patient is also notably encephalopathic. Physical Exam Physical Exam: Physical exam is deferred due to the COVID-19 pandemic. I did evaluate the patient through the doorway and he looked to be tachypneic. He had a BiPAP in place. Results & Data Results & Data ([facility]) Vital Signs (Past 12 Hours) Vital Signs Temp Pulse Pulse Pulse Resp BP BP 05/03/20 08:50 79 21 05/03/20 08:09 73 18 05/03/20 07:27 97.9 F 69 18 164/86 H 05/03/20 06:30 18 05/03/20 05:51 18 05/03/20 05:30 05/03/20 05:00 18 05/03/20 04:30 18 05/03/20 04:00 05/03/20 03:35 69 22 05/03/20 03:30 20 05/03/20 03:17 97.9 F 67 20 155/84 H 05/03/20 03:00 18 05/03/20 02:30 18 05/03/20 02:00 20 05/03/20 01:43 70 20 05/03/20 01:30 20 05/03/20 01:00 20 05/03/20 00:30 18 05/03/20 00:00 20 05/02/20 23:48 65 05/02/20 23:30 20 05/02/20 23:23 97.5 F L 62 14 151/85 H 05/02/20 22:30 97.7 F 66 20 165/82 H 05/02/20 22:25 97.9 F 65 20 05/02/20 22:00 20 05/02/20 21:31 65 23 193/81 H Pulse Ox 05/03/20 08:50 92 05/03/20 08:09 82 L 05/03/20 07:27 85 L 05/03/20 06:30 05/03/20 05:51 90 05/03/20 05:30 88 L 05/03/20 05:00 90 05/03/20 04:30 91 05/03/20 04:00 90 05/03/20 03:35 88 L 05/03/20 03:30 94 05/03/20 03:17 90 05/03/20 03:00 91 05/03/20 02:30 91 05/03/20 02:00 91 05/03/20 01:43 92 05/03/20 01:30 83 L 05/03/20 01:00 93 05/03/20 00:30 91 05/03/20 00:00 93 05/02/20 23:48 05/02/20 23:30 92 05/02/20 23:23 100 05/02/20 22:30 89 L 05/02/20 22:25 92 05/02/20 22:00 100 05/02/20 21:31 93 I reviewed the vital signs, labs and imaging PG Care Time/CCT Total # of Minutes Spent Total Time Spent with Patient: Total time spent is greater than 50% in coordination of care (as documented) at patient's floor/unit and/or counseling patient: Coding Level of Care Code 56499 Inpt Consult Level 4 Diagnoses COVID-19 U07.1 Acute hypernatremia E87.0 Elevated lactic acid level R79.89 Acute respiratory failure with hypoxia J96.01 Coronary artery disease I25.10 Time Spent (min) 53
--- NOTE | 2020-05-03 17:53 | Hospitalist Progress Note ---
Date of Service May 03, 2020 Assessment & Plan (1) Acute respiratory failure with hypoxia: Patient with acute hypoxic respiratory failure secondary to COVID-19 pneumonia. -Worsening this morning with pulse ox of 82% on high flow nasal cannula 40 L with 100% FiO2 Transitioned to BiPAP initially and then CPAP ABG on BiPAP 7.4 on 100% FiO2 After much discussion with son/healthcare power of propagation manager, he would like him to be intubated if needed Consulted pulmonary/critical care-appreciate consultation-no need for intubation at this time Aim for PaO2 of 55-80 and oxygen saturation 88-92% Follow ABG in the morning Follow chest x-ray periodically (2) COVID-19: Diagnosed with Covid-19 on 04/26 on a screening test-he was asymptomatic at that time Developed symptoms of shortness of breath and hypoxia at the snf on 04/29 Presented to the hospital on 05/02 with altered mental status and worsening hypoxia requiring 15 L nonrebreather With pneumonia present on chest x-ray Procalcitonin is only minimally elevated at 0.63 on admission and now down to 0.38, doubt secondary bacterial pneumonia-he did receive 1 dose of levofloxacin in the ER -we will follow procalcitonin and if becomes elevated, would consider adding on antibiotics With elevated markers of inflammation i.e. ferritin, ESR, D-dimer, LDH, CRP all significantly elevated. Increase in transaminases as well Now on BiPAP as above With acute kidney injury, not a candidate for remdesivir Received 1 dose of convalescent plasma on 05/03 Continue on dexamethasone 6 mg IV once daily x10-day course Zinc is ordered but is not able to take p.o. right now -Continue enoxaparin 30 mg SQ every 12 hours for high-dose DVT prophylaxis -Overall prognosis quite poor-discussed care with son and peplaoas-jj-joe on the phone multiple times (3) Acute metabolic encephalopathy: Metabolic encephalopathy in setting of COVID pneumonia, acute hypoxic respiratory failure and sepsis -Continue to treat hypoxia, supportive care for Covid Follow (4) Sepsis: Sepsis in setting of COVID19 pneumonia e/b a SOFA score >4 79-year-old male who was found lethargic, confused, and hypoxic. Found to be positive for Covid pneumonia. The medical record reflects the following clinical evidence: Clinical Indicators: O2 SAT 86% on 15 L nonrebreather, Creatinine 3.10, serum lactate 2.1, Troponin 0.062, paO2 / FIO2= 52.0, SOFA score >4 Was given IV fluids, IV Dexamethasone, IV Levaquin, IV Vitamin C and Thiamine, Convalescent Plasma, and Remdesivir for Covid as above (5) SHERRIE (acute kidney injury): Creatinine up to 3 on admission, BUN 73, along with hypernatremia with sodium 154 likely secondary to severe dehydration, prerenal SHERRIE Continue D5W Creatinine improved to 2.56 Follow BMP in the morning Renally dose medications (6) Acute hypernatremia: As above secondary to severe dehydration Slightly improved today Continue D5W Follow BMP in the morning (7) Elevated troponin: Patient has a mildly elevated troponin 0 0.062 and now down to normal range Likely myocardial demand ischemia in the setting of sepsis with underlying known severe CAD Patient is unable to say if he has chest pain as he is altered in his mental status ECG with normal sinus rhythm, rate 66, nonspecific T wave flattening throughout leads I, 2, 3, aVL, aVF, and precordial leads (8) Elevated lactic acid level: Lactate elevated 2.1, likely secondary to hypoxia and sepsis (9) Mood disorder: Presumably he is on Depakote, duloxetine, Seroquel, and Lyrica for some sort of mood disorder Holding all medications at this time as he cannot take p.o. Unclear if the Depakote is as a mood stabilizer. His family did not mention that he has any history of seizure disorder when I reviewed his history today (10) Coronary artery disease: Family reports patient had cardiac catheterization several years ago which showed severe coronary artery disease and stents were not able to be placed at that time He is medically managed Typically he is on aspirin, metoprolol, amlodipine These are all held right now as he is unable to take p.o. Start IV Lopressor 2.5 mg IV every 4 hours scheduled (11) Hypertension: Holding home medications as above IV Lopressor scheduled while n.p.o. (12) Alzheimer disease: Sounds moderate to severe in nature At baseline, can recognize family members, is mostly nonambulatory, resides in a snf Has a history of agitation and auditory hallucinations Requiring a one-to-one right now to keep BiPAP on his face Supportive care (13) DVT prophylaxis: Lovenox 30 mg SQ every 12 hours Disposition-continued stay in PCU and Covid precaution room Overall prognosis is quite guarded which was discussed with the family and hide dyer in detail Remains full code at this time as per multiple discussions with family Admission and Anticipated Discharge Date Admission Date: May 02, 2020 Subjective I was contacted by respiratory therapy early this morning when the patient was with a pulse ox of 82% on 100% FiO2 on high flow nasal cannula. An ABG was obtained which was significant for a PaO2 of 61 on 100% FiO2 on BiPAP. After being on BiPAP, his oxygenation did improve but he was requiring 80-100% FiO2 all day long. He remained obtunded when I saw him. I discussed his care on multiple occasions with the hide dyer today. I also discussed his care with his son, Lacho and his kjuzkolb-ee-ezw Sanaz on 3 different occasions on the phone. Ultimately, his son decided that he wanted his dad to be a full code and to go on the ventilator if needed. Son reports that typically at baseline with his dementia, patient can still recognize his own family members, but does have episodes of agitation and auditory hallucinations. He is ambulatory dysfunction and a history of multiple falls. Review of Systems Review of Systems: Unobtainable due to reduced consciousness Physical Exam Constitutional: WD/WN, vitals as above ENMT: BiPAP in place Neck: trachea midline, no thyromegaly Respiratory: no respiratory distress and does not use accessory muscles Auscultation: + diminished lung sounds (Bilaterally) and + rhonchi (Bilaterally at the bases); no wheezes Cardiovascular: RRR, no murmur, no edema Chest (Breasts): Chest: normal inspection of chest Gastrointestinal (Abdomen): normal bowel sounds, soft, nontender, no hepatosplenomegaly Musculoskeletal: Extremities: extremities normal to inspection; no cyanosis and no clubbing Skin: no rashes, warm and dry Neurologic: + not awake (Does stir to verbal stimulus but I did not 1 to wake him up as he is been pulling his BiPAP mask off when he is awake) Genitourinary: Kasper catheter in place draining dark yellow urine Lymphatic: no lymphedema Results & Data Results & Data ([facility]) Vital Signs (Past 12 Hours) Vital Signs Temp Pulse Pulse Pulse Resp BP BP 05/03/20 17:24 65 28 H 163/86 H 05/03/20 15:57 76 05/03/20 15:29 68 05/03/20 15:23 36.4 C L 64 24 05/03/20 15:13 36.4 C L 73 24 163/90 H 05/03/20 15:01 65 18 05/03/20 14:46 68 18 05/03/20 14:30 68 70 18 05/03/20 14:20 36.4 C L 68 28 H 163/90 H 05/03/20 14:10 72 26 H 163/89 H 05/03/20 14:05 36.6 C 70 24 154/68 H 05/03/20 13:54 36.6 C 70 24 05/03/20 12:36 69 14 05/03/20 12:01 70 20 05/03/20 11:39 68 20 05/03/20 08:50 79 21 05/03/20 08:09 73 18 05/03/20 08:00 68 05/03/20 07:27 36.6 C 69 18 05/03/20 06:30 18 BP Pulse Ox Pulse Ox 05/03/20 17:24 100 05/03/20 15:57 100 05/03/20 15:29 05/03/20 15:23 163/90 H 100 05/03/20 15:13 97 05/03/20 15:01 168/82 H 100 05/03/20 14:46 180/83 H 99 05/03/20 14:30 153/80 H 99 05/03/20 14:20 97 05/03/20 14:10 99 05/03/20 14:05 96 05/03/20 13:54 154/80 H 96 05/03/20 12:36 96 05/03/20 12:01 156/84 H 96 05/03/20 11:39 99 05/03/20 08:50 92 05/03/20 08:09 82 L 05/03/20 08:00 82 L 05/03/20 07:27 164/86 H 85 L 05/03/20 06:30 Laboratory Results 05/03/20 05/03/20 05/03/20 Range/Units 08:40 08:25 07:42 WBC (4.8-10.8) K/uL RBC (4.7-6.1) M/uL Hgb (14.0-18.0) g/dL Hct (42-52) % MCV (80-100) fL MCH (25-34) pg MCHC (32-36) g/dL RDW Std Deviation (36.4-46.3) fL RDW Coeff of Ailin (11.5-14.5) % Plt Count (130-400) K/uL MPV (7.4-10.4) fL Immature Gran % (Auto) % Neut % (Auto) % Lymph % (Auto) % Mcmullen % (Auto) % Eos % (Auto) % Baso % (Auto) % Neut # (Auto) (1.4-6.5) K/uL Lymph # (Auto) (1.2-3.4) K/uL Mcmullen # (Auto) (0.11-0.59) K/uL Eos # (Auto) (0-0.5) K/uL Baso # (Auto) (0-0.2) K/uL Immature Gran # (Auto) (0.00-0.02) K/uL Absolute Nucleated RBC (0-0) K/uL Nucleated RBC % (auto) % ESR (0-14) mm/hr Fibrinogen (184-400) mg/dl D-Dimer (0-500) ug/L FEU Sample Site L Radial POC pH 7.42 (7.35-7.45) POC pCO2 35 (35-46) mmHg POC pO2 61 L (80-95) mmHg POC HCO3 23 (19-24) tracey/L POC Total CO2 24 (24-31) mmol/L POC Base Excess -2.0 (-9-1.8) tracey/L POC ABG O2 Sat 92.0 (90-95) % Vaibhav Test Pass O2 Delivery Device BIPAP POC O2 Rate 12 POC FiO2 100 % IPAP 15 Sodium (136-145) mmol/L Potassium (3.5-5.1) mmol/L Chloride (98-107) mmol/L Carbon Dioxide (21-32) mmol/L Anion Gap (3-11) BUN (7-18) mg/dl Creatinine (0.6-1.4) mg/dl Est Cr Clr Drug Dosing ml/min Est GFR ( Amer) Est GFR (Non-Af Amer) BUN/Creatinine Ratio (10-20) Glucose (70-99) mg/dl Calcium (8.5-10.1) mg/dl Phosphorus (2.5-4.9) mg/dl Magnesium (1.8-2.4) mg/dl Ferritin (8-388) ng/ml Total Bilirubin (0.2-1) mg/dl AST (15-37) U/L ALT (12-78) U/L Alkaline Phosphatase (45-117) U/L Lactate Dehydrogenase (87-241) U/L Troponin I (0-0.045) ng/ml C-Reactive Protein (0-0.29) mg/dl Total Protein (6.4-8.2) gm/dl Albumin (3.4-5.0) gm/dl Globulin (2.5-4.0) gm/dl Albumin/Globulin Ratio (0.9-2) Procalcitonin 0.38 (0-0.5) ng/ml Nasal Screen MRSA (PCR) Negative (Negative) Blood Type Antibody Screen 05/03/20 05/03/20 05/03/20 Range/Units 07:42 07:42 07:42 WBC (4.8-10.8) K/uL RBC (4.7-6.1) M/uL Hgb (14.0-18.0) g/dL Hct (42-52) % MCV (80-100) fL MCH (25-34) pg MCHC (32-36) g/dL RDW Std Deviation (36.4-46.3) fL RDW Coeff of Ailin (11.5-14.5) % Plt Count (130-400) K/uL MPV (7.4-10.4) fL Immature Gran % (Auto) % Neut % (Auto) % Lymph % (Auto) % Mcmullen % (Auto) % Eos % (Auto) % Baso % (Auto) % Neut # (Auto) (1.4-6.5) K/uL Lymph # (Auto) (1.2-3.4) K/uL Mcmullen # (Auto) (0.11-0.59) K/uL Eos # (Auto) (0-0.5) K/uL Baso # (Auto) (0-0.2) K/uL Immature Gran # (Auto) (0.00-0.02) K/uL Absolute Nucleated RBC (0-0) K/uL Nucleated RBC % (auto) % ESR 90 H (0-14) mm/hr Fibrinogen (184-400) mg/dl D-Dimer 1810 H* (0-500) ug/L FEU Sample Site POC pH (7.35-7.45) POC pCO2 (35-46) mmHg POC pO2 (80-95) mmHg POC HCO3 (19-24) tracey/L POC Total CO2 (24-31) mmol/L POC Base Excess (-9-1.8) tracey/L POC ABG O2 Sat (90-95) % Vaibhav Test O2 Delivery Device POC O2 Rate POC FiO2 % IPAP Sodium (136-145) mmol/L Potassium (3.5-5.1) mmol/L Chloride (98-107) mmol/L Carbon Dioxide (21-32) mmol/L Anion Gap (3-11) BUN (7-18) mg/dl Creatinine (0.6-1.4) mg/dl Est Cr Clr Drug Dosing ml/min Est GFR ( Amer) Est GFR (Non-Af Amer) BUN/Creatinine Ratio (10-20) Glucose (70-99) mg/dl Calcium (8.5-10.1) mg/dl Phosphorus (2.5-4.9) mg/dl Magnesium (1.8-2.4) mg/dl Ferritin (8-388) ng/ml Total Bilirubin (0.2-1) mg/dl AST (15-37) U/L ALT (12-78) U/L Alkaline Phosphatase (45-117) U/L Lactate Dehydrogenase 940 H (87-241) U/L Troponin I (0-0.045) ng/ml C-Reactive Protein (0-0.29) mg/dl Total Protein (6.4-8.2) gm/dl Albumin (3.4-5.0) gm/dl Globulin (2.5-4.0) gm/dl Albumin/Globulin Ratio (0.9-2) Procalcitonin (0-0.5) ng/ml Nasal Screen MRSA (PCR) (Negative) Blood Type Antibody Screen 05/03/20 05/03/20 05/03/20 Range/Units 07:42 07:42 07:34 WBC 12.69 H (4.8-10.8) K/uL RBC 3.36 L (4.7-6.1) M/uL Hgb 10.9 L (14.0-18.0) g/dL Hct 34.0 L (42-52) % MCV 101.2 H (80-100) fL MCH 32.4 (25-34) pg MCHC 32.1 (32-36) g/dL RDW Std Deviation 56.8 H (36.4-46.3) fL RDW Coeff of Ailin 15.6 H (11.5-14.5) % Plt Count 252 (130-400) K/uL MPV 11.1 H (7.4-10.4) fL Immature Gran % (Auto) 1.4 % Neut % (Auto) 85.0 % Lymph % (Auto) 10.5 % Mcmullen % (Auto) 2.9 % Eos % (Auto) 0.0 % Baso % (Auto) 0.2 % Neut # (Auto) 10.79 H (1.4-6.5) K/uL Lymph # (Auto) 1.33 (1.2-3.4) K/uL Mcmullen # (Auto) 0.37 (0.11-0.59) K/uL Eos # (Auto) 0.00 (0-0.5) K/uL Baso # (Auto) 0.02 (0-0.2) K/uL Immature Gran # (Auto) 0.18 H (0.00-0.02) K/uL Absolute Nucleated RBC 0.17 H (0-0) K/uL Nucleated RBC % (auto) 1.3 % ESR (0-14) mm/hr Fibrinogen (184-400) mg/dl D-Dimer (0-500) ug/L FEU Sample Site POC pH (7.35-7.45) POC pCO2 (35-46) mmHg POC pO2 (80-95) mmHg POC HCO3 (19-24) tracey/L POC Total CO2 (24-31) mmol/L POC Base Excess (-9-1.8) tracey/L POC ABG O2 Sat (90-95) % Vaibhav Test O2 Delivery Device POC O2 Rate POC FiO2 % IPAP Sodium 153 H (136-145) mmol/L Potassium 3.6 (3.5-5.1) mmol/L Chloride 121 H (98-107) mmol/L Carbon Dioxide 24 (21-32) mmol/L Anion Gap 8.0 (3-11) BUN 72 H (7-18) mg/dl Creatinine 2.56 H D (0.6-1.4) mg/dl Est Cr Clr Drug Dosing 28.4 ml/min Est GFR ( Amer) 26.3 Est GFR (Non-Af Amer) 22.7 BUN/Creatinine Ratio 28.0 H (10-20) Glucose 181 H (70-99) mg/dl Calcium 8.8 (8.5-10.1) mg/dl Phosphorus 2.9 (2.5-4.9) mg/dl Magnesium 3.3 H (1.8-2.4) mg/dl Ferritin 1840.0 H (8-388) ng/ml Total Bilirubin 0.5 (0.2-1) mg/dl AST 141 H (15-37) U/L ALT 60 (12-78) U/L Alkaline Phosphatase 74 (45-117) U/L Lactate Dehydrogenase (87-241) U/L Troponin I 0.037 (0-0.045) ng/ml C-Reactive Protein 6.61 H (0-0.29) mg/dl Total Protein 7.6 (6.4-8.2) gm/dl Albumin 2.9 L (3.4-5.0) gm/dl Globulin 4.7 H (2.5-4.0) gm/dl Albumin/Globulin Ratio 0.6 L (0.9-2) Procalcitonin (0-0.5) ng/ml Nasal Screen MRSA (PCR) (Negative) Blood Type Antibody Screen 05/02/20 05/02/20 05/02/20 Range/Units 23:30 23:30 17:15 WBC (4.8-10.8) K/uL RBC (4.7-6.1) M/uL Hgb (14.0-18.0) g/dL Hct (42-52) % MCV (80-100) fL MCH (25-34) pg MCHC (32-36) g/dL RDW Std Deviation (36.4-46.3) fL RDW Coeff of Ailin (11.5-14.5) % Plt Count (130-400) K/uL MPV (7.4-10.4) fL Immature Gran % (Auto) % Neut % (Auto) % Lymph % (Auto) % Mcmullen % (Auto) % Eos % (Auto) % Baso % (Auto) % Neut # (Auto) (1.4-6.5) K/uL Lymph # (Auto) (1.2-3.4) K/uL Mcmullen # (Auto) (0.11-0.59) K/uL Eos # (Auto) (0-0.5) K/uL Baso # (Auto) (0-0.2) K/uL Immature Gran # (Auto) (0.00-0.02) K/uL Absolute Nucleated RBC (0-0) K/uL Nucleated RBC % (auto) % ESR (0-14) mm/hr Fibrinogen 522 H (184-400) mg/dl D-Dimer 1390 H* (0-500) ug/L FEU Sample Site POC pH (7.35-7.45) POC pCO2 (35-46) mmHg POC pO2 (80-95) mmHg POC HCO3 (19-24) tracey/L POC Total CO2 (24-31) mmol/L POC Base Excess (-9-1.8) tracey/L POC ABG O2 Sat (90-95) % Vaibhav Test O2 Delivery Device POC O2 Rate POC FiO2 % IPAP Sodium (136-145) mmol/L Potassium (3.5-5.1) mmol/L Chloride (98-107) mmol/L Carbon Dioxide (21-32) mmol/L Anion Gap (3-11) BUN (7-18) mg/dl Creatinine (0.6-1.4) mg/dl Est Cr Clr Drug Dosing ml/min Est GFR ( Amer) Est GFR (Non-Af Amer) BUN/Creatinine Ratio (10-20) Glucose (70-99) mg/dl Calcium (8.5-10.1) mg/dl Phosphorus (2.5-4.9) mg/dl Magnesium (1.8-2.4) mg/dl Ferritin (8-388) ng/ml Total Bilirubin (0.2-1) mg/dl AST (15-37) U/L ALT (12-78) U/L Alkaline Phosphatase (45-117) U/L Lactate Dehydrogenase (87-241) U/L Troponin I (0-0.045) ng/ml C-Reactive Protein (0-0.29) mg/dl Total Protein (6.4-8.2) gm/dl Albumin (3.4-5.0) gm/dl Globulin (2.5-4.0) gm/dl Albumin/Globulin Ratio (0.9-2) Procalcitonin 0.63 H (0-0.5) ng/ml Nasal Screen MRSA (PCR) (Negative) Blood Type A Positive Antibody Screen NEGATIVE PG Care Time/CCT Total # of Minutes Spent Total Time Spent with Patient: Total time spent is greater than 50% in coordination of care (as documented) at patient's floor/unit and/or counseling patient: Coding Level of Care Code 58498 Subseq Hosp Care Lvl 3 Diagnoses Acute respiratory failure with hypoxia J96.01 COVID-19 U07.1 Acute metabolic encephalopathy G93.41 Sepsis A41.9 SHERRIE (acute kidney injury) N17.9 Acute hypernatremia E87.0 Elevated troponin R77.8 Elevated lactic acid level R79.89 Mood disorder F39 Coronary artery disease I25.10 Hypertension I10 Alzheimer disease G30.9; F02.80 DVT prophylaxis Z29.9
[2020-05-03] MEDS ORDERED: METOPROLOL TARTRATE 1 MG/ML VIAL IV ONE (18:15)
[2020-05-03] MEDS: METOPROLOL TARTRATE 1 MG/ML VIAL IV SCH ×2 (20:50→23:32)
[2020-05-04] MEDS: METOPROLOL TARTRATE 1 MG/ML VIAL IV SCH ×6 (04:39→23:30)
[2020-05-04 06:30] LABS: Hematocrit (blood only) 32.6 % (42-52); Hemoglobin 10.7 g/dL (14.0-18.0); Mean Corpuscular Hemoglobin 32.7 pg (25-34); Mean Corpuscular Hgb Conc 32.8 g/dL (32-36); Mean Corpuscular Volume 99.7 fL (80-100); Nucleated RBC # (auto) 0.15 K/uL (0-0); Platelet Count 261 K/uL (130-400); RDW Coefficient of Variation 15.4 % (11.5-14.5); RDW Standard Deviation 55.3 fL (36.4-46.3); Red Blood Count 3.27 M/uL (4.7-6.1); White Blood Count 14.16 K/uL (4.8-10.8)
[2020-05-04 06:34] LABS: Base Excess ABG 0.8 mEq/L (-9-1.8); HCO3 ABG 24 mmol/L (19-24); Oxygen Saturation ABG 89.5 % (90-95); PCO2 ABG 34 mmHg (35-46); PO2 ABG 58 mmHg (80-95); pH ABG 7.47 (7.35-7.45)
[2020-05-04 06:39] LABS: Allen Test Y (Pos)
[2020-05-04 07:05] LABS: BUN Creatinine Ratio 30.9 (10-20); C Reactive Protein 5.91 mg/dl (0-0.29); Calcium 8.8 mg/dl (8.5-10.1); Creatinine Clr Calc Pharmacy 37.9 ml/min; Est GFR (African American) 37.3; Est GFR (Non-African American) 32.2; Magnesium 3.2 mg/dl (1.8-2.4); Potassium 3.3 mmol/L (3.5-5.1)
[2020-05-04 07:17] LABS: INR 1.1 (0.9-1.1); Prothrombin Time 11.3 Seconds (9.0-12.0)
[2020-05-04 07:20] LABS: Albumin Globulin Ratio 0.6 (0.9-2); Bilirubin,Total 0.8 mg/dl (0.2-1); Ferritin 2232.8 ng/ml (8-388); Globulin 4.8 gm/dl (2.5-4.0); Phosphorus 3.2 mg/dl (2.5-4.9); Total Protein 7.8 gm/dl (6.4-8.2)
[2020-05-04] MEDS: ENOXAPARIN INJ 30 MG/0.3 ML SYR SQ SCH ×2 (07:25→19:59)
[2020-05-04 07:32] LABS: Basophils # (auto) 0.03 K/uL (0-0.2); Basophils % (auto) 0.2 %; Immature Granulocytes # (auto) 0.09 K/uL (0.00-0.02); Immature Granulocytes % (auto) 0.6 %; Lymphocytes # (auto) 1.18 K/uL (1.2-3.4); Lymphocytes % (auto) 8.3 %; Monocytes % (auto) 2.8 %; Neutrophils # (auto) 12.46 K/uL (1.4-6.5); Neutrophils % (auto) 88.1 %
[2020-05-04 07:39] LABS: D Dimer 2070 ug/L FEU (0-500)
[2020-05-04] MEDS: DEXAMETHASONE SOD PHOSPHATE 6 MG in SYRINGE 0 ML IV SCH (08:47)
[2020-05-04] MEDS: ZINC SULFATE 220 MG CAPSULE PO SCH (08:49)
[2020-05-04] MEDS: DEXTROSE 5% 1,000 ML IV SCH ×2 (09:56→19:59)
[2020-05-04] MEDS: POTASSIUM CHLORIDE / WTR 10 MEQ/100 ML PLCT IV SCH ×2 (09:57→10:58)
[2020-05-04] MEDS ORDERED: LORazepam 0.5 MG/1 ML VIAL IV STA ×2 (14:53→15:12)
[2020-05-04] MEDS ORDERED: LORazepam 2 MG/4 ML VIAL ONE (14:56)
[2020-05-04] MEDS: HALOPERIDOL LACTATE 5 MG/ML 1 ML VIAL IM PRN (19:58)
--- NOTE | 2020-05-04 19:58 | Hospitalist Progress Note ---
Date of Service May 04, 2020 Assessment & Plan (1) Acute respiratory failure with hypoxia: Patient with acute hypoxic respiratory failure secondary to COVID-19 pneumonia. -Worsened on the morning of 05/03 with pulse ox of 82% on high flow nasal cannula 40 L with 100% FiO2 Transitioned to BiPAP initially and then CPAP ABG on BiPAP 7.4 on 100% FiO2 After much discussion with son/healthcare power of employment attorney, he would like him to be intubated if needed Patient is more agitated today and when he pulls his CPAP off, his pulse ox at 1 point was 51% today and he was cyanotic Using sedation with IV Ativan and Haldol as needed in order to keep CPAP mask in place Consulted pulmonary/critical care-appreciate consultation-no need for intubation at this time, FiO2 has been weaned down today while on CPAP Aim for PaO2 of 55-80 and oxygen saturation 88-92% ABG this morning 7.4 Follow ABG again in the morning Follow chest x-ray periodically -Asked respiratory therapy to attempt high flow nasal cannula again to give his face of break from the CPAP however he was not oxygenating well enough on this previously (2) COVID-19: Diagnosed with Covid-19 on 04/26 on a screening test-he was asymptomatic at that time Developed symptoms of shortness of breath and hypoxia at the assisted on 04/29 Presented to the hospital on 05/02 with altered mental status and worsening hypoxia requiring 15 L nonrebreather and now on CPAP as above With pneumonia present on chest x-ray Procalcitonin is only minimally elevated at 0.63 on admission and now down to 0.24, doubt secondary bacterial pneumonia-he did receive 1 dose of levofloxacin in the ER -we will follow procalcitonin and if becomes elevated, would consider adding on antibiotics With elevated markers of inflammation i.e. ferritin, ESR, D-dimer, LDH, CRP all significantly elevated. Increase in transaminases as well Now on CPAP as above With acute kidney injury, not a candidate for remdesivir Received 1 dose of convalescent plasma on 05/03 Continue on dexamethasone 6 mg IV once daily x10-day course Zinc is ordered but is not able to take p.o. right now -Continue enoxaparin 30 mg SQ every 12 hours for high-dose DVT prophylaxis -Overall prognosis quite poor-discussed care with son and [id number] on the phone multiple times (3) Acute metabolic encephalopathy: Metabolic encephalopathy in setting of COVID pneumonia, acute hypoxic respiratory failure and sepsis -Continue to treat hypoxia, supportive care for Covid With agitation and is very strong, taking swings at nurses and wrapping his CPAP mask off and becoming severely hypoxic IV Ativan was given and was not helpful Haldol 2.5 mg IM twice daily as needed agitation as ordered (4) Sepsis: Sepsis in setting of COVID19 pneumonia e/b a SOFA score >4 79-year-old male who was found lethargic, confused, and hypoxic. Found to be positive for Covid pneumonia. The medical record reflects the following clinical evidence: Clinical Indicators: O2 SAT 86% on 15 L nonrebreather, Creatinine 3.10, serum lactate 2.1, Troponin 0.062, paO2 / FIO2= 52.0, SOFA score >4 Was given IV fluids, IV Dexamethasone, IV Levaquin, IV Vitamin C and Thiamine, Convalescent Plasma for Covid as above -Son is requesting that patient be continued on IV vitamin C-we will give IV thiamine/vitamin C 1 dose now (5) SHERRIE (acute kidney injury): Creatinine up to 3 on admission, BUN 73, along with hypernatremia with sodium 154 likely secondary to severe dehydration, prerenal SHERRIE Continue D5W Creatinine improved to 1.9 today, sodium continues to improve slightly to 151 Follow BMP in the morning Renally dose medications (6) Acute hypernatremia: As above secondary to severe dehydration Continues to improve today Continue D5W Follow BMP in the morning (7) Coronary artery disease: Family reports patient had cardiac catheterization several years ago which showed severe coronary artery disease and stents were not able to be placed at that time He is medically managed Typically he is on aspirin, metoprolol, amlodipine These are all held right now as he is unable to take p.o. -Continue IV Lopressor but will increase to 5 mg IV every 4 hours scheduled as blood pressure is quite elevated (8) Hypertension: Holding home medications as above IV Lopressor scheduled while n.p.o. BPs elevated likely secondary to agitation-increase IV Lopressor (9) Alzheimer disease: Sounds moderate to severe in nature At baseline, can recognize family members, is mostly nonambulatory, resides in a assisted Has a history of agitation and auditory hallucinations Requiring a one-to-one right now to keep BiPAP on his face and antipsychotics and benzodiazepines for severe agitation for safety Supportive care (10) Hypokalemia: Replace with IV potassium chloride Follow potassium and magnesium levels in the morning and replace as needed (11) Hyperglycemia: With some hyperglycemia here secondary to corticosteroids We will hold off on Accu-Cheks now as this may cause more agitation If remains significantly elevated on morning lab work, could start low-dose Lantus once daily (12) Elevated troponin: Patient has a mildly elevated troponin 0 0.062 and now down to normal range Likely myocardial demand ischemia in the setting of sepsis with underlying known severe CAD Patient is unable to say if he has chest pain as he is altered in his mental status ECG with normal sinus rhythm, rate 66, nonspecific T wave flattening throughout leads I, 2, 3, aVL, aVF, and precordial leads (13) Elevated lactic acid level: Lactate elevated 2.1, likely secondary to hypoxia and sepsis (14) Mood disorder: Presumably he is on Depakote, duloxetine, Seroquel, and Lyrica for some sort of mood disorder Holding all medications at this time as he cannot take p.o. Unclear if the Depakote is as a mood stabilizer. His family did not mention that he has any history of seizure disorder when I reviewed his history with him Given son's reports of significant agitation, suspect this is used as a mood stabilizer -We will hold off on Depakote for now anyway given renal failure (15) DVT prophylaxis: Lovenox 30 mg SQ every 12 hours Disposition-continued stay in PCU and Covid precaution room Overall prognosis is quite guarded which was discussed with the son again in detail on the phone 05/04 Remains full code at this time as per multiple discussions with family Admission and Anticipated Discharge Date Admission Date: May 02, 2020 Subjective Patient is a little bit more awake today and quite agitated at times. He has been taking swings at staff and ripping his CPAP mask off and becoming extremely hypoxic with doing so. He remains on CPAP all day and was given IV Ativan later in the day which did not help a whole lot. He remains on one-to-one. When I saw him, he did open his eyes but did not answer any questions. He was able to be redirected to not grab at the facemask. He had a bowel movement today. He has not eaten or drank all day as he is n .p.o. He will not keep his telemetry leads on but prior to that, he was in normal sinus rhythm with PVCs, rates in the 70s with a burst of atrial tachycardia I discussed his care with his son on the phone. When told that his father had been agitated, he stated "that sounds like him." He was in agreement with giving a sedative as needed to keep the BiPAP in place. Patient son was also requesting that he be put back on IV vitamin C. I discussed his care with the pulmonary/critical care physician Review of Systems Review of Systems: Unobtainable due to cognitive status Physical Exam Constitutional: WD/WN, vitals as above Eyes: + anicteric sclerae ENMT: Ears: no external ear abnormality Nose: no external nose abnormality (CPAP facemask in place) Neck: trachea midline, no thyromegaly Respiratory: no respiratory distress and does not use accessory muscles Auscultation: + diminished lung sounds (Bilaterally); no wheezes Cardiovascular: RRR, no murmur, no edema Chest (Breasts): Chest: normal inspection of chest Gastrointestinal (Abdomen): normal bowel sounds, soft, nontender, no hepatosp lenomegaly Musculoskeletal: Extremities: extremities normal to inspection; no cyanosis and no clubbing Skin: no rashes, warm and dry Neurologic: awake and + confused Speech / Cognition: + abnormal cognition Motor/Sensory: no tremor Genitourinary: Kasper catheter in place draining clear yellow urine Lymphatic: no lymphedema Results & Data Results & Data ([facility]) Vital Signs (Past 12 Hours) Vital Signs Temp Pulse Pulse Pulse Resp BP BP 05/04/20 19:03 73 41 H 05/04/20 19:02 74 36 H 05/04/20 18:27 74 28 H 05/04/20 16:05 74 151/119 H 05/04/20 15:31 74 41 H 05/04/20 15:26 36.4 C L 76 22 151/119 H 05/04/20 13:21 69 164/83 H 05/04/20 12:06 36.5 C 69 22 164/83 H 05/04/20 11:56 69 24 05/04/20 08:48 67 160/87 H 05/04/20 08:29 36.8 C 67 16 160/87 H 05/04/20 08:00 71 Pulse Ox 05/04/20 19:03 91 05/04/20 19:02 83 L 05/04/20 18:27 89 L 05/04/20 16:05 05/04/20 15:31 94 05/04/20 15:26 92 05/04/20 13:21 05/04/20 12:06 94 05/04/20 11:56 94 05/04/20 08:48 05/04/20 08:29 92 05/04/20 08:00 Laboratory Results 05/04/20 05/04/20 05/04/20 Range/Units 06:11 06:11 06:11 WBC (4.8-10.8) K/uL RBC (4.7-6.1) M/uL Hgb (14.0-18.0) g/dL Hct (42-52) % MCV (80-100) fL MCH (25-34) pg MCHC (32-36) g/dL RDW Std Deviation (36.4-46.3) fL RDW Coeff of Ailin (11.5-14.5) % Plt Count (130-400) K/uL MPV (7.4-10.4) fL Immature Gran % (Auto) % Neut % (Auto) % Lymph % (Auto) % Titus % (Auto) % Eos % (Auto) % Baso % (Auto) % Neut # (Auto) (1.4-6.5) K/uL Lymph # (Auto) (1.2-3.4) K/uL Titus # (Auto) (0.11-0.59) K/uL Eos # (Auto) (0-0.5) K/uL Baso # (Auto) (0-0.2) K/uL Immature Gran # (Auto) (0.00-0.02) K/uL Absolute Nucleated RBC (0-0) K/uL Nucleated RBC % (auto) % ESR (0-14) mm/hr PT (9.0-12.0) Seconds INR (0.9-1.1) D-Dimer (0-500) ug/L FEU ABG pH 7.47 H (7.35-7.45) ABG pCO2 34 L (35-46) mmHg ABG pO2 58 L (80-95) mmHg ABG HCO3 24 (19-24) mmol/L ABG O2 Saturation 89.5 L (90-95) % ABG Base Excess 0.8 (-9-1.8) mEq/L Vaibhav Test Y (Pos) Barometric Pressure 732.6 mm/Hg Oxygen Given 50% Sodium (136-145) mmol/L Potassium (3.5-5.1) mmol/L Chloride (98-107) mmol/L Carbon Dioxide (21-32) mmol/L Anion Gap (3-11) BUN (7-18) mg/dl Creatinine (0.6-1.4) mg/dl Est Cr Clr Drug Dosing ml/min Est GFR ( Amer) Est GFR (Non-Af Amer) BUN/Creatinine Ratio (10-20) Glucose (70-99) mg/dl Calcium (8.5-10.1) mg/dl Phosphorus (2.5-4.9) mg/dl Magnesium (1.8-2.4) mg/dl Ferritin (8-388) ng/ml Total Bilirubin (0.2-1) mg/dl AST (15-37) U/L ALT (12-78) U/L Alkaline Phosphatase (45-117) U/L Lactate Dehydrogenase 1050 H (87-241) U/L Total Creatine Kinase (39-308) U/L C-Reactive Protein (0-0.29) mg/dl Total Protein (6.4-8.2) gm/dl Albumin (3.4-5.0) gm/dl Globulin (2.5-4.0) gm/dl Albumin/Globulin Ratio (0.9-2) Procalcitonin 0.24 (0-0.5) ng/ml 05/04/20 05/04/20 05/04/20 Range/Units 06:11 06:11 06:11 WBC (4.8-10.8) K/uL RBC (4.7-6.1) M/uL Hgb (14.0-18.0) g/dL Hct (42-52) % MCV (80-100) fL MCH (25-34) pg MCHC (32-36) g/dL RDW Std Deviation (36.4-46.3) fL RDW Coeff of Ailin (11.5-14.5) % Plt Count (130-400) K/uL MPV (7.4-10.4) fL Immature Gran % (Auto) % Neut % (Auto) % Lymph % (Auto) % Titus % (Auto) % Eos % (Auto) % Baso % (Auto) % Neut # (Auto) (1.4-6.5) K/uL Lymph # (Auto) (1.2-3.4) K/uL Titus # (Auto) (0.11-0.59) K/uL Eos # (Auto) (0-0.5) K/uL Baso # (Auto) (0-0.2) K/uL Immature Gran # (Auto) (0.00-0.02) K/uL Absolute Nucleated RBC (0-0) K/uL Nucleated RBC % (auto) % ESR 85 H (0-14) mm/hr PT 11.3 (9.0-12.0) Seconds INR 1.1 (0.9-1.1) D-Dimer 2070 H* (0-500) ug/L FEU ABG pH (7.35-7.45) ABG pCO2 (35-46) mmHg ABG pO2 (80-95) mmHg ABG HCO3 (19-24) mmol/L ABG O2 Saturation (90-95) % ABG Base Excess (-9-1.8) mEq/L Vaibhav Test (Pos) Barometric Pressure mm/Hg Oxygen Given Sodium 151 H (136-145) mmol/L Potassium 3.3 L (3.5-5.1) mmol/L Chloride 119 H (98-107) mmol/L Carbon Dioxide 26 (21-32) mmol/L Anion Gap 7.0 (3-11) BUN 59 H (7-18) mg/dl Creatinine 1.92 H D (0.6-1.4) mg/dl Est Cr Clr Drug Dosing 37.9 ml/min Est GFR ( Amer) 37.3 Est GFR (Non-Af Amer) 32.2 BUN/Creatinine Ratio 30.9 H (10-20) Glucose 175 H (70-99) mg/dl Calcium 8.8 (8.5-10.1) mg/dl Phosphorus 3.2 (2.5-4.9) mg/dl Magnesium 3.2 H (1.8-2.4) mg/dl Ferritin 2232.8 H (8-388) ng/ml Total Bilirubin 0.8 (0.2-1) mg/dl AST 146 H (15-37) U/L ALT 64 (12-78) U/L Alkaline Phosphatase 81 (45-117) U/L Lactate Dehydrogenase (87-241) U/L Total Creatine Kinase 193 (39-308) U/L C-Reactive Protein 5.91 H (0-0.29) mg/dl Total Protein 7.8 (6.4-8.2) gm/dl Albumin 3.0 L (3.4-5.0) gm/dl Globulin 4.8 H (2.5-4.0) gm/dl Albumin/Globulin Ratio 0.6 L (0.9-2) Procalcitonin (0-0.5) ng/ml 05/04/20 Range/Units 06:11 WBC 14.16 H (4.8-10.8) K/uL RBC 3.27 L (4.7-6.1) M/uL Hgb 10.7 L (14.0-18.0) g/dL Hct 32.6 L (42-52) % MCV 99.7 (80-100) fL MCH 32.7 (25-34) pg MCHC 32.8 (32-36) g/dL RDW Std Deviation 55.3 H (36.4-46.3) fL RDW Coeff of Ailin 15.4 H (11.5-14.5) % Plt Count 261 (130-400) K/uL MPV 11.0 H (7.4-10.4) fL Immature Gran % (Auto) 0.6 % Neut % (Auto) 88.1 % Lymph % (Auto) 8.3 % Titus % (Auto) 2.8 % Eos % (Auto) 0.0 % Baso % (Auto) 0.2 % Neut # (Auto) 12.46 H (1.4-6.5) K/uL Lymph # (Auto) 1.18 L (1.2-3.4) K/uL Titus # (Auto) 0.40 (0.11-0.59) K/uL Eos # (Auto) 0.00 (0-0.5) K/uL Baso # (Auto) 0.03 (0-0.2) K/uL Immature Gran # (Auto) 0.09 H (0.00-0.02) K/uL Absolute Nucleated RBC 0.15 H (0-0) K/uL Nucleated RBC % (auto) 1.0 % ESR (0-14) mm/hr PT (9.0-12.0) Seconds INR (0.9-1.1) D-Dimer (0-500) ug/L FEU ABG pH (7.35-7.45) ABG pCO2 (35-46) mmHg ABG pO2 (80-95) mmHg ABG HCO3 (19-24) mmol/L ABG O2 Saturation (90-95) % ABG Base Excess (-9-1.8) mEq/L Vaibhav Test (Pos) Barometric Pressure mm/Hg Oxygen Given Sodium (136-145) mmol/L Potassium (3.5-5.1) mmol/L Chloride (98-107) mmol/L Carbon Dioxide (21-32) mmol/L Anion Gap (3-11) BUN (7-18) mg/dl Creatinine (0.6-1.4) mg/dl Est Cr Clr Drug Dosing ml/min Est GFR ( Amer) Est GFR (Non-Af Amer) BUN/Creatinine Ratio (10-20) Glucose (70-99) mg/dl Calcium (8.5-10.1) mg/dl Phosphorus (2.5-4.9) mg/dl Magnesium (1.8-2.4) mg/dl Ferritin (8-388) ng/ml Total Bilirubin (0.2-1) mg/dl AST (15-37) U/L ALT (12-78) U/L Alkaline Phosphatase (45-117) U/L Lactate Dehydrogenase (87-241) U/L Total Creatine Kinase (39-308) U/L C-Reactive Protein (0-0.29) mg/dl Total Protein (6.4-8.2) gm/dl Albumin (3.4-5.0) gm/dl Globulin (2.5-4.0) gm/dl Albumin/Globulin Ratio (0.9-2) Procalcitonin (0-0.5) ng/ml PG Care Time/CCT Total # of Minutes Spent Total Time Spent with Patient: Total time spent is greater than 50% in coordination of care (as documented) at patient's floor/unit and/or counseling patient: Coding Level of Care Code 22517 Subseq Hosp Care Lvl 3 Diagnoses Acute respiratory failure with hypoxia J96.01 COVID-19 U07.1 Acute metabolic encephalopathy G93.41 Sepsis A41.9 SHERRIE (acute kidney injury) N17.9 Acute hypernatremia E87.0 Coronary artery disease I25.10 Hypertension I10 Alzheimer disease G30.9; F02.80 Hypokalemia E87.6 Hyperglycemia R73.9 Elevated troponin R77.8 Elevated lactic acid level R79.89 Mood disorder F39 DVT prophylaxis Z29.9
[2020-05-04] MEDS ORDERED: ASCORBIC ACID 1,500 MG, THIAMINE HCL 100 MG in 0.9 % SODIUM CHLORIDE 100 ML IV SCH (20:15)
[2020-05-05] MEDS: LORazepam 1 MG/2 ML VIAL IV PRN ×3 (03:03→15:51)
[2020-05-05] MEDS: METOPROLOL TARTRATE 1 MG/ML VIAL IV SCH ×6 (04:44→23:13)
[2020-05-05 05:49] LABS: Hematocrit (blood only) 29.9 % (42-52); Hemoglobin 10.4 g/dL (14.0-18.0); Mean Corpuscular Hemoglobin 33.9 pg (25-34); Mean Corpuscular Hgb Conc 34.8 g/dL (32-36); Mean Corpuscular Volume 97.4 fL (80-100); Nucleated RBC # (auto) 0.13 K/uL (0-0); Nucleated RBC % (auto) 0.9 %; Platelet Count 246 K/uL (130-400); RDW Coefficient of Variation 15.4 % (11.5-14.5); RDW Standard Deviation 53.7 fL (36.4-46.3); Red Blood Count 3.07 M/uL (4.7-6.1); White Blood Count 14.18 K/uL (4.8-10.8)
[2020-05-05 05:52] LABS: Base Excess ABG 0.4 mEq/L (-9-1.8); HCO3 ABG 23 mmol/L (19-24); Oxygen Saturation ABG 92.4 % (90-95); PCO2 ABG 31 mmHg (35-46); PO2 ABG 65 mmHg (80-95); pH ABG 7.49 (7.35-7.45)
[2020-05-05 05:54] LABS: Allen Test Pos (Pos)
[2020-05-05 06:19] LABS: Albumin Level 2.9 gm/dl (3.4-5.0); BUN Creatinine Ratio 29.2 (10-20); C Reactive Protein 5.17 mg/dl (0-0.29); Calcium 8.5 mg/dl (8.5-10.1); Est GFR (African American) 47.5; Potassium 3.5 mmol/L (3.5-5.1)
[2020-05-05 06:22] LABS: D Dimer 2840 ug/L FEU (0-500)
[2020-05-05 06:29] LABS: ALC (manual) 0.37 K/uL (1.2-3.4); ANC (manual) 13.19 K/uL (1.4-6.5); Lymphocytes # (manual) 0.37 K/uL (1.2-3.4); Lymphocytes % (manual) 2.6 %; Monocytes % (manual) 3.5 %; Myelocytes # (manual) 0.13 K/uL (0-0); Myelocytes % (manual) 0.9 %; Neutrophils # (manual) 13.19 K/uL (1.4-6.5); RBC Morphology Unremarkable
[2020-05-05 06:42] LABS: Albumin Globulin Ratio 0.6 (0.9-2); Bilirubin,Total 1.1 mg/dl (0.2-1); Ferritin 2397.2 ng/ml (8-388); Globulin 4.6 gm/dl (2.5-4.0); Phosphorus 2.3 mg/dl (2.5-4.9); Total Protein 7.5 gm/dl (6.4-8.2)
[2020-05-05] MEDS: HALOPERIDOL LACTATE 5 MG/ML 1 ML VIAL IM PRN (07:33)
[2020-05-05] MEDS ORDERED: HALOPERIDOL LACTATE 5 MG/ML 1 ML VIAL IM PRN (07:47)
[2020-05-05] MEDS ORDERED: HALOPERIDOL LACTATE 5 MG/ML 1 ML VIAL IM STA (07:47)
[2020-05-05] MEDS ORDERED: POTASSIUM PHOS 3 MMOL/1 ML INFUSION IV STA (07:54)
[2020-05-05] MEDS ORDERED: POTASSIUM PHOSPHATE 21 MMOL in SODIUM CHLORIDE 0.9% 500 ML IV ONE (08:30)
[2020-05-05] MEDS: ENOXAPARIN INJ 30 MG/0.3 ML SYR SQ SCH ×2 (08:33→20:46)
[2020-05-05] MEDS: DEXAMETHASONE SOD PHOSPHATE 6 MG in SYRINGE 0 ML IV SCH (08:34)
[2020-05-05] MEDS: ZINC SULFATE 220 MG CAPSULE PO SCH (08:41)
[2020-05-05] MEDS: DEXTROSE 5% 1,000 ML IV SCH ×2 (09:34→20:46)
[2020-05-05] MEDS ORDERED: STAT IV Infusion **Titration per Protocol STA (15:55)
--- NOTE | 2020-05-05 15:59 | Hospitalist Progress Note ---
Date of Service May 05, 2020 Assessment & Plan (1) Acute respiratory failure with hypoxia: Patient with acute hypoxic respiratory failure secondary to COVID-19 pneumonia. -Worsened on the morning of 05/03 with pulse ox of 82% on high flow nasal cannula 40 L with 100% FiO2 Transitioned to BiPAP initially and then CPAP at 14 cm H2O ABG on BiPAP 7.42/35/61 on 100% FiO2 initially, now somewhat improved oxygenation with ABG 7.49/31/65 on 50% FiO2 After much discussion with son/healthcare power of research attorney, he would like him to be intubated if needed Patient continues to be severely agitated today and becomes significantly hypoxic when tries to pull off CPAP mask and was taking swings at nursing and staff Using sedation with IV Ativan and Haldol as needed was not effective. He is in soft restraints and decision was made to place him on Precedex drip on afternoon of 05/04 as he was significantly tachypneic/respiratory distress, hypertensive, tachycardic Now much improved on Precedex drip, keeping CPAP mask in place and oxygenating well Consulted pulmonary/critical care-appreciate consultation Aim for PaO2 of 55-80 and oxygen saturation 88-92% Follow ABG again in the morning Follow chest x-ray in the morning -If calm on Precedex, can try switching to high flow nasal cannula again to give his face of break from the CPAP which he has been on since the morning of 05/03 Monitor for need for intubation (2) COVID-19: Diagnosed with Covid-19 on 04/26 on a screening test at his senior care- he was asymptomatic at that time Developed symptoms of shortness of breath and hypoxia at the senior care on 04/29 Presented to the hospital on 05/02 with altered mental status and worsening hypoxia requiring 15 L nonrebreather and now on CPAP as above With pneumonia present on chest x-ray Procalcitonin is only minimally elevated at 0.63 on admission and then down to 0.24, doubt secondary bacterial pneumonia-he did receive 1 dose of levofloxacin in the ER No antibiotics indicated With elevated markers of inflammation i.e. ferritin, ESR, D-dimer, LDH, CRP all significantly elevated but now starting to trend downward. Increase in transaminases as well Now on CPAP as above With acute kidney injury, not a candidate for remdesivir Received 1 dose of convalescent plasma on 05/03 Continue on dexamethasone 6 mg IV once daily x10-day course Zinc is ordered but is not able to take p.o. right now -Continue enoxaparin 30 mg SQ every 12 hours for high-dose DVT prophylaxis -Overall prognosis quite poor-discussed care with son and [id number] on the phone multiple times on 05/03 on 05/04 -Follow CBC, CMP, ESR, CRP, D-dimer, LDH, ferritin (3) Acute metabolic encephalopathy: Metabolic encephalopathy in setting of COVID pneumonia, acute hypoxic respiratory failure and sepsis. Also with underlying dementia -Continue to treat hypoxia, supportive care for Covid With ongoing severe agitation and is very strong, taking swings at nurses and taking his CPAP mask off and becoming severely hypoxic IV Ativan was given on multiple occasions and was not helpful Haldol 5 mg IM was given without much effect Now on Precedex drip (4) Sepsis: Sepsis in setting of COVID19 pneumonia e/b a SOFA score >4 -Son is requesting that patient be continued on IV vitamin C-he has received 2 doses of IV thiamine/vitamin C (5) SHERRIE (acute kidney injury): Creatinine up to 3 on admission, BUN 73, along with hypernatremia with sodium 154 likely secondary to severe dehydration, prerenal SHERRIE Creatinine improving today further down to 1.57, making urine, other electrolytes acceptable Continue D5W Follow BMP in the morning Renally dose medications (6) Acute hypernatremia: As above secondary to severe dehydration Continues to improve today down to 150 Continue D5W but increase to 100 mL/h Follow BMP in the morning (7) Coronary artery disease: Family reports patient had cardiac catheterization several years ago which showed severe coronary artery disease and stents were not able to be placed at that time He is medically managed as an outpatient Typically he is on aspirin, metoprolol, amlodipine These are all held right now as he is unable to take p.o. -Continue IV Lopressor but will increase to 5 mg IV every 4 hours scheduled as blood pressure is quite elevated-hold for while on Precedex (8) Hypertension: Holding home medications as above IV Lopressor scheduled while n.p.o. BPs elevated likely secondary to agitation-now improved on Precedex (9) Alzheimer disease: Sounds moderate to severe in nature At baseline, can recognize family members, is mostly nonambulatory, resides in a senior care Has a history of agitation and auditory hallucinations Requiring a one-to-one right now for safety Supportive care (10) Hypokalemia: Replaced and resolved Follow potassium and magnesium levels in the morning and replace as needed (11) Hyperglycemia: With some hyperglycemia here secondary to corticosteroids We will hold off on Accu-Cheks now as this may cause more agitation If remains significantly elevated greater than 180 on morning lab work, could start low-dose Lantus once daily (12) Elevated troponin: Patient has a mildly elevated troponin 0.062 and then down to normal range Likely myocardial demand ischemia in the setting of sepsis with underlying known severe CAD Patient is unable to say if he has chest pain as he is altered in his mental status ECG with normal sinus rhythm, rate 66, nonspecific T wave flattening throughout leads I, 2, 3, aVL, aVF, and precordial leads (13) Elevated lactic acid level: Lactate elevated 2.1, likely secondary to hypoxia and sepsis (14) Mood disorder: Presumably he is on Depakote, duloxetine, Seroquel, and Lyrica for some sort of mood disorder Holding all medications at this time as he cannot take p.o. Unclear if the Depakote is as a mood stabilizer. His family did not mention that he has any history of seizure disorder when I reviewed his history with him Given son's reports of significant agitation, suspect this is used as a mood stabilizer -We will hold off on Depakote for now anyway given renal failure (15) Hypomagnesemia: Magnesium low at 1.6 today Replace with magnesium sulfate 1 g IV x1 Follow magnesium level in the morning (16) Hypophosphatemia: Phosphorus low today at 2.3 Replace with potassium phosphate Follow phosphorus level in the morning (17) DVT prophylaxis: Lovenox 30 mg SQ every 12 hours Disposition-transition to ICU status, continue Covid-19 precautions Overall prognosis remains quite guarded Care was discussed with his son, Lacho, in detail on the phone 05/04 Remains full code at this time as per multiple discussions with family Admission and Anticipated Discharge Date Admission Date: May 02, 2020 Subjective Patient remained severely agitated and restless this morning and was in respiratory distress with it. He was given Haldol and 3 doses of Ativan throughout the day without much relief. He was placed in soft restraints as he was a danger to himself and others around him. He continuously tries to take off his BiPAP and pulling at leads and tubing delivering his medications and fluids. He continued to be tachypneic, tachycardic, and hypertensive. I discussed his care with the medical transcription supervisor/critical care physician and decision was made to place him on Precedex drip and transferred to ICU status. Patient was unable to answer any my questions and was continuously moaning and was lethargic, kept his eyes closed Review of Systems Review of Systems: Unobtainable due to cognitive status Physical Exam Constitutional: WD/WN, vitals as above + acute distress, + ill appearing, + altered mental status and + lethargic Eyes: + anicteric sclerae ENMT: Ears: no external ear abnormality Nose: no external nose abnormality (CPAP facemask in place) Neck: trachea midline, no thyromegaly Respiratory: + respiratory distress, + labored breathing, + tachypneic and + grunting Auscultation: + crackles (Bilaterally); no wheezes Cardiovascular: Rate/Rhythm: regular rhythm and + tachycardic Heart Sounds: no murmur Extremities: no edema Gastrointestinal (Abdomen): normal bowel sounds, soft, nontender, no hepatosplenomegaly Musculoskeletal: Extremities: extremities normal to inspection; no cyanosis and no clubbing Skin: no rashes, warm and dry Neurologic: Motor/Sensory: no tremor Psychiatric: Orientation: + not alert and + uncooperative Eye Contact: + poor eye contact Genitourinary: Kasper catheter in place draining medium yellow clear urine Lymphatic: no lymphedema Results & Data Results & Data ([facility]) Vital Signs (Past 12 Hours) Vital Signs Temp Pulse Pulse Pulse Resp BP BP 05/05/20 15:53 89 26 H 175/88 H 05/05/20 13:30 75 33 H 05/05/20 13:21 67 179/84 H 05/05/20 11:34 67 34 H 05/05/20 11:22 36.5 C 70 20 179/84 H 05/05/20 08:32 105 H 180/94 H 05/05/20 08:00 88 05/05/20 07:41 105 H 05/05/20 07:33 37.1 C 88 18 180/94 H 05/05/20 04:44 87 180/79 H Pulse Ox Pulse Ox 05/05/20 15:53 91 05/05/20 13:30 93 05/05/20 13:21 05/05/20 11:34 96 05/05/20 11:22 95 05/05/20 08:32 05/05/20 08:00 93 05/05/20 07:41 95 05/05/20 07:33 93 05/05/20 04:44 Laboratory Results 05/05/20 05/05/20 05/05/20 Range/Units 05:26 05:26 05:26 WBC (4.8-10.8) K/uL RBC (4.7-6.1) M/uL Hgb (14.0-18.0) g/dL Hct (42-52) % MCV (80-100) fL MCH (25-34) pg MCHC (32-36) g/dL RDW Std Deviation (36.4-46.3) fL RDW Coeff of Ailin (11.5-14.5) % Plt Count (130-400) K/uL MPV (7.4-10.4) fL Absolute Nucleated RBC (0-0) K/uL Nucleated RBC % (auto) % Neutrophils % (Manual) % Lymphocytes % (Manual) % Monocytes % (Manual) % Myelocytes % (Man) % Neutrophils # (Manual) (1.4-6.5) K/uL Total Absolute Neuts (1.4-6.5) K/uL Lymphocytes # (Manual) (1.2-3.4) K/uL Total Abs Lymphocytes (1.2-3.4) K/uL Monocytes # (Manual) (0.11-0.59) K/uL Myelocytes # (Manual) (0-0) K/uL RBC Morphology ESR (0-14) mm/hr D-Dimer 2840 H* (0-500) ug/L FEU ABG pH 7.49 H (7.35-7.45) ABG pCO2 31 L (35-46) mmHg ABG pO2 65 L (80-95) mmHg ABG HCO3 23 (19-24) mmol/L ABG O2 Saturation 92.4 (90-95) % ABG Base Excess 0.4 (-9-1.8) mEq/L Vaibhav Test Pos (Pos) Barometric Pressure 739.0 mm/Hg Oxygen Given 50% Sodium 150 H (136-145) mmol/L Potassium 3.5 (3.5-5.1) mmol/L Chloride 118 H (98-107) mmol/L Carbon Dioxide 24 (21-32) mmol/L Anion Gap 8.0 (3-11) BUN 46 H (7-18) mg/dl Creatinine 1.57 H D (0.6-1.4) mg/dl Est Cr Clr Drug Dosing 46.0 ml/min Est GFR ( Amer) 47.5 Est GFR (Non-Af Amer) 41.0 BUN/Creatinine Ratio 29.2 H (10-20) Glucose 162 H (70-99) mg/dl Calcium 8.5 (8.5-10.1) mg/dl Phosphorus 2.3 L (2.5-4.9) mg/dl Magnesium 3.0 H (1.8-2.4) mg/dl Ferritin 2397.2 H (8-388) ng/ml Total Bilirubin 1.1 H (0.2-1) mg/dl AST 179 H (15-37) U/L ALT 83 H (12-78) U/L Alkaline Phosphatase 84 (45-117) U/L Total Creatine Kinase 500 H (39-308) U/L C-Reactive Protein 5.17 H (0-0.29) mg/dl Total Protein 7.5 (6.4-8.2) gm/dl Albumin 2.9 L (3.4-5.0) gm/dl Globulin 4.6 H (2.5-4.0) gm/dl Albumin/Globulin Ratio 0.6 L (0.9-2) 05/05/20 05/05/20 Range/Units 05:26 05:26 WBC 14.18 H (4.8-10.8) K/uL RBC 3.07 L (4.7-6.1) M/uL Hgb 10.4 L (14.0-18.0) g/dL Hct 29.9 L (42-52) % MCV 97.4 (80-100) fL MCH 33.9 (25-34) pg MCHC 34.8 (32-36) g/dL RDW Std Deviation 53.7 H (36.4-46.3) fL RDW Coeff of Ailin 15.4 H (11.5-14.5) % Plt Count 246 (130-400) K/uL MPV 11.0 H (7.4-10.4) fL Absolute Nucleated RBC 0.13 H (0-0) K/uL Nucleated RBC % (auto) 0.9 % Neutrophils % (Manual) 93.0 % Lymphocytes % (Manual) 2.6 % Monocytes % (Manual) 3.5 % Myelocytes % (Man) 0.9 % Neutrophils # (Manual) 13.19 H (1.4-6.5) K/uL Total Absolute Neuts 13.19 H (1.4-6.5) K/uL Lymphocytes # (Manual) 0.37 L (1.2-3.4) K/uL Total Abs Lymphocytes 0.37 L (1.2-3.4) K/uL Monocytes # (Manual) 0.50 (0.11-0.59) K/uL Myelocytes # (Manual) 0.13 H (0-0) K/uL RBC Morphology Unremarkable ESR 64 H (0-14) mm/hr D-Dimer (0-500) ug/L FEU ABG pH (7.35-7.45) ABG pCO2 (35-46) mmHg ABG pO2 (80-95) mmHg ABG HCO3 (19-24) mmol/L ABG O2 Saturation (90-95) % ABG Base Excess (-9-1.8) mEq/L Vaibhav Test (Pos) Barometric Pressure mm/Hg Oxygen Given Sodium (136-145) mmol/L Potassium (3.5-5.1) mmol/L Chloride (98-107) mmol/L Carbon Dioxide (21-32) mmol/L Anion Gap (3-11) BUN (7-18) mg/dl Creatinine (0.6-1.4) mg/dl Est Cr Clr Drug Dosing ml/min Est GFR ( Amer) Est GFR (Non-Af Amer) BUN/Creatinine Ratio (10-20) Glucose (70-99) mg/dl Calcium (8.5-10.1) mg/dl Phosphorus (2.5-4.9) mg/dl Magnesium (1.8-2.4) mg/dl Ferritin (8-388) ng/ml Total Bilirubin (0.2-1) mg/dl AST (15-37) U/L ALT (12-78) U/L Alkaline Phosphatase (45-117) U/L Total Creatine Kinase (39-308) U/L C-Reactive Protein (0-0.29) mg/dl Total Protein (6.4-8.2) gm/dl Albumin (3.4-5.0) gm/dl Globulin (2.5-4.0) gm/dl Albumin/Globulin Ratio (0.9-2) PG Care Time/CCT Total # of Minutes Spent Total Time Spent with Patient: Total time spent is greater than 50% in nutrition coordinator rdination of care (as documented) at patient's floor/unit and/or counseling patient: Critical Care Time: Yes Total Critical Care Time: 60 Coding Level of Care Code 67243 Subseq Hosp Care Lvl 3 (25 - SIGNIFICANT, SEPARATELY IDENTIFIABLE ) Diagnoses Acute respiratory failure with hypoxia J96.01 COVID-19 U07.1 Acute metabolic encephalopathy G93.41 Sepsis A41.9 SHERRIE (acute kidney injury) N17.9 Acute hypernatremia E87.0 Coronary artery disease I25.10 Hypertension I10 Alzheimer disease G30.9; F02.80 Hypokalemia E87.6 Hyperglycemia R73.9 Elevated troponin R77.8 Elevated lactic acid level R79.89 Mood disorder F39 Hypomagnesemia E83.42 Hypophosphatemia E83.39 DVT prophylaxis Z29.9 Additional Codes Critical Care Time - Critical Care Time: Yes ([id number])
[2020-05-05] MEDS: DEXMEDETOMIDINE HCL 200 MCG in SODIUM CHLORIDE 0.9% 48 ML IV SCH ×3 (16:45→23:13)
[2020-05-05] MEDS ORDERED: MAGNESIUM SULFATE / D5W 1 GM/100 ML BAG IV ONE (21:47)
[2020-05-06] MEDS: DEXMEDETOMIDINE HCL 200 MCG in SODIUM CHLORIDE 0.9% 48 ML IV SCH ×3 (04:16→20:04)
[2020-05-06] MEDS: METOPROLOL TARTRATE 1 MG/ML VIAL IV SCH ×2 (04:18→08:20)
[2020-05-06] MEDS: DEXTROSE 5% 1,000 ML IV SCH (06:13)
[2020-05-06 06:38] LABS: Hematocrit (blood only) 30.6 % (42-52); Hemoglobin 10.2 g/dL (14.0-18.0); Mean Corpuscular Hemoglobin 32.6 pg (25-34); Mean Corpuscular Hgb Conc 33.3 g/dL (32-36); Mean Corpuscular Volume 97.8 fL (80-100); Nucleated RBC # (auto) 0.06 K/uL (0-0); Nucleated RBC % (auto) 0.8 %; Platelet Count 231 K/uL (130-400); RDW Coefficient of Variation 15.3 % (11.5-14.5); RDW Standard Deviation 53.7 fL (36.4-46.3); Red Blood Count 3.13 M/uL (4.7-6.1); White Blood Count 6.84 K/uL (4.8-10.8)
[2020-05-06 06:39] LABS: Base Excess ABG 0.3 mEq/L (-9-1.8); HCO3 ABG 23 mmol/L (19-24); Oxygen Saturation ABG 87.4 % (90-95); PCO2 ABG 31 mmHg (35-46); PO2 ABG 52 mmHg (80-95)
[2020-05-06 06:42] LABS: Allen Test Pos (Pos)
[2020-05-06 06:59] LABS: Basophils # (auto) 0.02 K/uL (0-0.2); Basophils % (auto) 0.3 %; Immature Granulocytes # (auto) 0.08 K/uL (0.00-0.02); Immature Granulocytes % (auto) 1.2 %; Lymphocytes # (auto) 0.98 K/uL (1.2-3.4); Lymphocytes % (auto) 14.3 %; Monocytes # (auto) 0.33 K/uL (0.11-0.59); Monocytes % (auto) 4.8 %; Neutrophils # (auto) 5.43 K/uL (1.4-6.5); Neutrophils % (auto) 79.4 %
[2020-05-06 07:04] LABS: D Dimer 1940 ug/L FEU (0-500)
[2020-05-06 07:16] LABS: Albumin Level 2.8 gm/dl (3.4-5.0); BUN Creatinine Ratio 31.2 (10-20); Calcium 8.4 mg/dl (8.5-10.1); Creatinine Clr Calc Pharmacy 58.7 ml/min; Est GFR (African American) 63.2; Est GFR (Non-African American) 54.6; Magnesium 3.3 mg/dl (1.8-2.4); Potassium 3.5 mmol/L (3.5-5.1)
[2020-05-06 07:31] LABS: Albumin Globulin Ratio 0.6 (0.9-2); Bilirubin,Total 1.5 mg/dl (0.2-1); C Reactive Protein 4.13 mg/dl (0-0.29); Ferritin 2337.4 ng/ml (8-388); Globulin 4.5 gm/dl (2.5-4.0); Phosphorus 2.7 mg/dl (2.5-4.9); Total Protein 7.3 gm/dl (6.4-8.2)
[2020-05-06] MEDS: ENOXAPARIN INJ 30 MG/0.3 ML SYR SQ SCH ×2 (08:21→19:25)
[2020-05-06] MEDS: ZINC SULFATE 220 MG CAPSULE PO SCH (08:22)
[2020-05-06] MEDS: DEXAMETHASONE SOD PHOSPHATE 6 MG in SYRINGE 0 ML IV SCH (08:23)
--- NOTE | 2020-05-06 09:09 | Palliative Care Consultation ---
Date of Consultation May 06, 2020 Assessment & Plan (1) Palliative care encounter: This is an 79 year old patient who presented to the [facility] from [facility] with hypoxia. He was diagnosed with COVID-19 on 04/26 but did not start having symptoms until 04/29. He has been evaluated by Pulmonology and started on a 10 day course of Decadron. Additionally, he received convalescent plasma. He initially was on HiFlow O2 is now on BiPAP. He has become agitated pulling at his mask and is now requiring a 1:1. Haldol and Ativan were not effective for his behavioral disturbances, so he was started on Precedex. His creatinine levels are poor and therefore he was not a candidate for Remdesivir. Per hospitalist discussion with the family, patient to remain a Full Code. The Hospitalist had details conversation these past few days and they family indicated they wished for him to be intubated if necessary,, for which he did decline from a respiratory standpoint and was intubated this morning. Palliative Care was consulted to discuss goals of care. I did actually see the patient in the hallway as the patient was being transferred from the COVID unit to the ICU bed 105, negative pressure room. The patient was intubated, pallor, and sedated. No further assessment performed, de ferred to motor pool driver. The patient is currently receiving IV Decadron x 10 days. Due to SHERRIE, he was not a candidate for Remdesivir. I was able to have a lengthy conversation with Megan [phone] who stated that his brother, Lacho Bassett is the POA. Discussed care with him on the phone who did confirm that he would like to continue aggressive measures at this time, including vas oactive medications and hemodialysis if necessary. Pt to remain a Full Code. His uncle was in a covid unit for 30 days, the patients son states he has been 'through this ride before'. Advised that we would continue monitoring his progress with ventilator support. Set the expectation that his prognosis is poor and we would continue to offer supportive care as things progress. Set expectation that we would readdress goals of care over the next 48 hours. Lacho works third shift, but he said he is available any time to discuss his Dad's care. Anticipate that it is unlikely that he will show improvement and further discussions will be helpful. We will follow. PPS: 20% (2) COVID-19: (3) SHERRIE (acute kidney injury): (4) Mood disorder: History of Present Illness Reason for Consultation: Goals of care Requesting Physician: Dr. Milner Attending Physician: Grant Denny, DO History of Present Illness This is an 79 year old patient who presented to the [facility] from [facility] with hypoxia. He was diagnosed with COVID-19 on 04/26 but did not start having symptoms until 04/29. He has been evaluated by Pulmonology and started on a 10 day course of Decadron. Additionally, he received convalescent plasma. He initially was on HiFlow O2 is now on BiPAP. He has become agitated pulling at his mask and is now requiring a 1:1. Haldol and Ativan were not effective for his behavioral disturbances, so he was started on Precedex. His creatinine levels are poor and therefore he was not a candidate for Remdesivir. Per hospitalist discussion with the family, patient to remain a Full Code. The Hospitalist had details conversation these past few days and they family indicated they wished for him to be intubated if necessary, which he did decline from a respiratory standpoint and was intubated this morning. Palliative Care was consulted to discuss goals of care. Please see A/P for further details. Thank you kindly for involving the palliative care consultation service in the care of this patient. Allergies Allergy/AdvReac Type Severity Reaction Status Date / Time sulfadiazine Allergy Unknown Unknown Verified 05/02/20 17:55 Home Medications Home Medications Medication Instructions Recorded Confirmed Type acetaminophen 650 mg PO BID MDD 3 GMS APAP/24 05/02/20 05/02/20 History HOURS acetaminophen 650 mg PO Q6H PRN MDD 3 GMS 05/02/20 05/02/20 History APAP/24 HOURS amlodipine 5 mg PO DAILY 05/02/20 05/02/20 History aspirin [Aspirin Low Dose] 81 mg PO DAILY 05/02/20 05/02/20 History azithromycin 250 mg PO DAILY 05/02/20 05/02/20 History bisacodyl [Dulcolax (bisacodyl)] 10 mg NE DIRECTED PRN 05/02/20 05/02/20 History cholecalciferol (vitamin D3) 5,000 unit PO DAILY 05/02/20 05/02/20 History [Vitamin D3] dexamethasone sodium phosphate 6 mg IV DIRECTED 05/02/20 05/02/20 History divalproex 250 mg PO HS 05/02/20 05/02/20 History duloxetine 20 mg PO DAILY 05/02/20 05/02/20 History isosorbide mononitrate 30 mg PO HS 05/02/20 05/02/20 History magnesium hydroxide [Milk Of 10 ml PO DIRECTED PRN 05/02/20 05/02/20 History Magnesia Concentrated] meloxicam 7.5 mg PO QAM 05/02/20 05/02/20 History metoprolol tartrate 25 mg PO BID 05/02/20 05/02/20 History multivitamin,tx-minerals [Thera M] 1 tab PO DAILY 05/02/20 05/02/20 History ondansetron HCl 4 mg PO Q6H PRN 05/02/20 05/02/20 History potassium chloride 20 meq PO DAILY 05/02/20 05/02/20 History pregabalin 100 mg PO TID 05/02/20 05/02/20 History quetiapine 50 mg PO BID 05/02/20 05/02/20 History sennosides [senna] 8.6 mg PO DAILY 05/02/20 05/02/20 History sodium phosphates [Fleet Enema] 197 ml NE DIRECTED PRN 05/02/20 05/02/20 History zinc 100 mg PO DAILY 05/02/20 05/02/20 History Patient History Medical History Alzheimer disease Coronary artery disease Hypertension Mood disorder Palliative care encounter Social History Smoking Status: Unknown if ever smoked Preferred Language: Maltese Communication Ability: Impaired Repacker Required: No Beliefs That Will Affect Care: None Current Living Situation: Correction Other Information That Helps Us Care for You: No Feels Safe at Home: Yes Safety Concerns: Feels Safe At This Time Assistive Devices: CPAP Review of Systems Review of Systems: Unobtainable due to endotracheal tube deferred assessment as patient is covid + Physical Exam Physical Exam: deferred assessment and discussed with motor pool driver as patient is covid + and specialists are to avoid direct contact Results & Data ([place]) Vital Signs (Past 12 Hours) Vital Signs Temp Pulse Pulse Pulse Resp BP BP 05/06/20 08:20 46 L 190/76 H 05/06/20 08:01 76 29 H 05/06/20 08:00 36.9 C 63 46 L 24 190/76 H 05/06/20 06:00 50 L 31 H 135/71 05/06/20 05:52 44 L 31 H 130/70 05/06/20 05:07 48 L 26 H 05/06/20 04:18 43 L 145/79 H 05/06/20 04:00 36.9 C 41 L 31 H 145/79 H 05/06/20 03:00 51 L 31 H 148/78 H 05/06/20 02:31 22 05/06/20 02:00 36.6 C 49 L 31 H 158/81 H 05/06/20 01:29 24 05/06/20 01:00 36.6 C 44 L 37 H 164/80 H 05/06/20 00:00 36.8 C 45 L 45 L 22 155/85 H 05/05/20 23:13 47 L 164/84 H 05/05/20 22:00 36.6 C 47 L 47 L 28 H 163/83 H 05/05/20 21:50 53 L 18 Pulse Ox Pulse Ox 05/06/20 08:20 05/06/20 08:01 93 05/06/20 08:00 93 93 05/06/20 06:00 95 05/06/20 05:52 94 05/06/20 05:07 94 05/06/20 04:18 05/06/20 04:00 94 05/06/20 03:00 94 05/06/20 02:31 94 05/06/20 02:00 95 05/06/20 01:29 93 05/06/20 01:00 94 05/06/20 00:00 95 05/05/20 23:13 05/05/20 22:00 96 05/05/20 21:50 96 PG Care Time/CCT Total # of Minutes Spent Total Time Spent with Patient: Total time spent is greater than 50% in coordination of care (as documented) at patient's floor/unit and/or counseling patient: 100 Coding Level of Care Code 09832 Inpt Consult Level 4 Diagnoses Palliative care encounter Z51.5 COVID-19 U07.1 SHERRIE (acute kidney injury) N17.9 Mood disorder F39 Time Spent (min) 100 Time Spent Midlevel Total time spent 100 minutes with > 50% of that time spent assessing the patient, discussing goals of care with the family and collaborating with the IDT.
[2020-05-06] MEDS ORDERED: RAPID SEQUENCE INDUCTION BAG ONE (09:17)
[2020-05-06] MEDS ORDERED: STAT IV Infusion **Titration per Protocol STA (10:25)
[2020-05-06] MEDS ORDERED: fentaNYL citrate 100 MCG/2 ML VIAL ONE (10:28)
--- NOTE | 2020-05-06 10:35 | XRay Report ---
XR chest 1V portable CLINICAL HISTORY: Follow-up pneumonia COMPARISON STUDY: 05/02/2020 FINDINGS: The cardiac and mediastinal contours remain stable. There is been interval insertion of an endotracheal tube positioned 5.7 cm above the elke. There are persistent and slightly progressive b ilateral pulmonary airspace opacities.[There are equivocal trace pleural effusions. IMPRESSION: 1. Interval placement of endotracheal tube 5.7 cm above the elke 2. Persistent and minimally progressive bilateral pulmonary airspace opacities ACT 112: Negative or not required by law. Electronically signed by: Marc Dunaway M.D. 05/06/2020 10:33 AM
[2020-05-06] MEDS: propofoL 1,000 MG/100 ML VIAL IV SCH ×4 (10:43→23:57)
[2020-05-06] MEDS: SODIUM CHLORIDE 0.45 % 1,000 ML IV SCH ×2 (10:44→23:01)
--- NOTE | 2020-05-06 10:44 | Procedure Note ---
Procedure Note Date of Service May 06, 2020 Note INTUBATION PROCEDURE NOTE: Dr. Papa Milner A time-out was completed verifying correct patient, procedure, site, positioning. Patient was evaluated and required intubation for hypoxemic respiratory failure and altered mental status. Sedative agent used: 20 mg etomidate Paralysis agent used: 50 mg rocuronium Emergent consent was implied given patients rapidly declining clinical status and need for airway protection. Number of attempts: 1 Video laryngoscope was utilized The patient was prepared in the appropriate fashion. Sedation was achieved utilizing 20 mg etomidate and 50 mg rocuronium. The patient was easily caroline tilated using [id number] to achieve adequate oxygenation. A 7.5 Nepali endotracheal tube was placed under video laryngoscope to 22 cm at the lip. The stylette was removed and balloon was inflated with 10mL of air. Appropriate Colorimetric change was appreciated. Bilateral breath sounds were heard without air sounds in the abdomen. Post Intubation Chest X-ray ordered Patient tolerated the procedure well and there were no immediate complications. Coding CPT Codes Resuscitation - Resuscitation: 60762 Endotracheal Intubation, emergency ([id number]) [facility] [place] Procedure Codes (Charges) Resuscitation Resuscitation: 93913 Endotracheal Intubation, emergency
--- NOTE | 2020-05-06 10:55 | Critical Care Consultation ---
Date of Consultation May 06, 2020 Assessment & Plan (1) COVID-19: Neurologic: Patient with evidence of acute encephalopathy. Likely related to sepsis and hypernatremia. He does have dementia. Continue to correct the hyper natremia. We will start him on propofol and fentanyl for control of his agitation while intubated. Pulmonary: Continue ventilator. We will proceed with lung protective ventilation. Continue Decadron for a total of 10 days. DuoNebs as needed every 4 hours. We will obtain a blood gas after intubation. Cardiovascular: Blood pressure is severely elevated due to agitation discomfort from the endotracheal tube. This should be better controlled with propofol. Gastrointestinal: We will try to place an NG tube and start him on tube feeds. Continue Protonix 40 mg IV daily. Renal: Continue to correct hypernatremia. I started her on 80 mL of half-normal saline. Kidney function is stable. Infectious disease: He has Covid pneumonia. We are continuing Decadron. He received convalescent plasma. Procalcitonin was negative at 0.24 today. Holding broad-spectrum antibiotics at this time. Inflammatory markers are elevated. He is not a candidate for remdesivir at this time due to his initially elevated creatinine. He is now he is out of the window for remdesivir. Hematologic: Mild anemia likely of chronic disease. No significant issues otherwise. Continue Lovenox 30 mg twice daily. Endocrine: Hyperglycemia protocol. F/E/N: NPO. Will attempt OG placement after he is more sedated. We will likely start tube feeds once OG was placed. Lines and tubes: Peripheral IVs and Kasper in place VTE prophylaxis: Lovenox twice daily as noted above CODE STATUS: Full code Family at bedside: None available bedside due to the COVID-19 pandemic Disposition: Remain in the ICU. I have personally spent 57 minutes of critical care time in the direct management of this patient. This is a life/limb threatening event. This includes time spent evaluating patient, direct bedside care, chart review, placing orders, interpretation of diagnostic studies, discussion with consultants, patient, and family members, as well as other required patient management activities. This time is exclusive of all separately billable procedures, and teaching time and separate from and in addition to any other critical care service time. Thank you for allowing us to participate in the care of this patient. (2) Acute hypernatremia: (3) Elevated lactic acid level: (4) Acute respiratory failure with hypoxia: (5) Coronary artery disease: History of Present Illness Reason for Consultation: Acute respiratory failure related to COVID-19 Requesting Physician: Dr. Grant Denny Attending Physician: Grant Denny, DO History of Present Illness This is an 79-year-old male with a past medical history of dementia, hypertension and mood disorder who was previously seen by me on pulmonary consultation. Due to worsening mental status and increasing oxygen demands, the patient was emergently intubated. Patient was unable to give any history. He was on a Precedex drip. He was breathing very rapidly with a respiratory rate of 40-50. Nursing notes that he had a heart rate in the 40s. He is currently on CPAP of 14 with an FiO2 of 50% saturating in the mid 80s. Allergies Allergy/AdvReac Type Severity Reaction Status Date / Time sulfadiazine Allergy Unknown Unknown Verified 05/02/20 17:55 Home Medications Home Medications Medication Instructions Recorded Confirmed Type acetaminophen 650 mg PO BID MDD 3 GMS APAP/24 05/02/20 05/02/20 History HOURS acetaminophen 650 mg PO Q6H PRN MDD 3 GMS 05/02/20 05/02/20 History APAP/24 HOURS amlodipine 5 mg PO DAILY 05/02/20 05/02/20 History aspirin [Aspirin Low Dose] 81 mg PO DAILY 05/02/20 05/02/20 History azithromycin 250 mg PO DAILY 05/02/20 05/02/20 History bisacodyl [Dulcolax (bisacodyl)] 10 mg MD DIRECTED PRN 05/02/20 05/02/20 History cholecalciferol (vitamin D3) 5,000 unit PO DAILY 05/02/20 05/02/20 History [Vitamin D3] dexamethasone sodium phosphate 6 mg IV DIRECTED 05/02/20 05/02/20 History divalproex 250 mg PO HS 05/02/20 05/02/20 History duloxetine 20 mg PO DAILY 05/02/20 05/02/20 History isosorbide mononitrate 30 mg PO HS 05/02/20 05/02/20 History magnesium hydroxide [Milk Of 10 ml PO DIRECTED PRN 05/02/20 05/02/20 History Magnesia Concentrated] meloxicam 7.5 mg PO QAM 05/02/20 05/02/20 History metoprolol tartrate 25 mg PO BID 05/02/20 05/02/20 History multivitamin,tx-minerals [Thera M] 1 tab PO DAILY 05/02/20 05/02/20 History ondansetron HCl 4 mg PO Q6H PRN 05/02/20 05/02/20 History potassium chloride 20 meq PO DAILY 05/02/20 05/02/20 History pregabalin 100 mg PO TID 05/02/20 05/02/20 History quetiapine 50 mg PO BID 05/02/20 05/02/20 History sennosides [senna] 8.6 mg PO DAILY 05/02/20 05/02/20 History sodium phosphates [Fleet Enema] 197 ml MD DIRECTED PRN 05/02/20 05/02/20 History zinc 100 mg PO DAILY 05/02/20 05/02/20 History Patient History Medical History Alzheimer disease Coronary artery disease Hypertension Mood disorder Palliative care encounter Social History Smoking Status: Unknown if ever smoked Preferred Language: Wolof Communication Ability: Impaired Intermediate Project Manager Required: No Beliefs That Will Affect Care: None Current Living Situation: Prison Other Information That Helps Us Care for You: No Feels Safe at Home: Yes Safety Concerns: Feels Safe At This Time Assistive Devices: CPAP Review of Systems Review of Systems: Unobtainable due to cognitive status Physical Exam Constitutional: Patient has BiPAP in place. He is breathing at a rate of 40- 50. He is moaning at times and trying to sit up. Eyes: PERRL, conjunctivae normal, anicteric sclerae ENMT: external ear and nose normal, oropharynx normal Neck: normal visual inspection Respiratory: Diffuse rhonchi and wheezes bilaterally. Tachypneic. Cardiovascular: RRR, no murmur, no edema Gastrointestinal (Abdomen): normal bowel sounds, soft, nontender, no hepatosplenomegaly Musculoskeletal: no cyanosis or clubbing, extremities motor strength 5/5 Skin: no rashes, warm and dry Neurologic: Unable to assess fully due to altered mental status Psychiatric: Unable to assess due to altered mental status Results & Data Results & Data ([facility]) Vital Signs (Past 12 Hours) Vital Signs Temp Pulse Pulse Pulse Resp BP BP 05/06/20 10:32 05/06/20 09:40 106 H 21 05/06/20 08:20 46 L 190/76 H 05/06/20 08:01 76 29 H 05/06/20 08:00 98.4 F 63 46 L 24 190/76 H 05/06/20 06:00 50 L 31 H 135/71 05/06/20 05:52 44 L 31 H 130/70 05/06/20 05:07 48 L 26 H 05/06/20 04:18 43 L 145/79 H 05/06/20 04:00 98.4 F 41 L 31 H 145/79 H 05/06/20 03:00 51 L 31 H 148/78 H 05/06/20 02:31 22 05/06/20 02:00 97.9 F 49 L 31 H 158/81 H 05/06/20 01:29 24 05/06/20 01:00 97.9 F 44 L 37 H 164/80 H 05/06/20 00:00 98.2 F 45 L 45 L 22 155/85 H 05/05/20 23:13 47 L 164/84 H BP Pulse Ox Pulse Ox 05/06/20 10:32 215/110 H 05/06/20 09:40 91 05/06/20 08:20 05/06/20 08:01 93 05/06/20 08:00 93 93 05/06/20 06:00 95 05/06/20 05:52 94 05/06/20 05:07 94 05/06/20 04:18 05/06/20 04:00 94 05/06/20 03:00 94 05/06/20 02:31 94 05/06/20 02:00 95 05/06/20 01:29 93 05/06/20 01:00 94 05/06/20 00:00 95 05/05/20 23:13 I reviewed vital signs, labs and imaging Coding Level of Care Code Critical Care 1st 30-74 mins Diagnoses COVID-19 U07.1 Acute hypernatremia E87.0 Elevated lactic acid level R79.89 Acute respiratory failure with hypoxia J96.01 Coronary artery disease I25.10 Time Spent (min) 57
[2020-05-06] MEDS: fentaNYL DRIP 1,250 MCG/250 ML BAG IV SCH (11:12)
[2020-05-06 12:31] LABS: iSTAT Allen Test Pass; iSTAT Art Bld Gas pCO2 Correct 32 mmHg (35-46); iSTAT Art Bld Gas pH Corrected 7.445 (7.35-7.45); iSTAT Arterial Blood Gas HCO3 22 meg/L (19-24); iSTAT Arterial Blood Gas pCO2 33 mmHg (35-46); iSTAT Arterial Blood Gas pH 7.44 (7.35-7.45); iSTAT Arterial Blood Gas pO2 74 mmHg (80-95); iSTAT Arterial Blood Gas pO2 C 71; iSTAT Carbon Dioxide 23 mmol/L (24-31); iSTAT FiO2 100 %; iSTAT Hematocrit 29 % (42-52); iSTAT Hemoglobin 9.9 g/dl (14.0-18.0); iSTAT Potassium 3.3 mmol/L (3.3-5.0); iSTAT Site R Radial; iSTAT Sodium 147 mmol/L (135-144)
[2020-05-06] MEDS ORDERED: INSULIN PROTOCOL GOAL RANGE ONE (12:48)
[2020-05-06] MEDS ORDERED: SEVERE STRESS LEVEL ONE (12:48)
[2020-05-06] MEDS ORDERED: NovoLIN-R BOLUS FROM BAG IV ONE (13:15)
[2020-05-06] MEDS ORDERED: INSULIN REGULAR 250 UNITS in SODIUM CHLORIDE 0.9% 247.5 ML IV SCH (13:15)
[2020-05-06] MEDS: PANTOprazole 40 MG in SYRINGE 0 ML IV SCH (13:29)
[2020-05-06] MEDS ORDERED: PEPTAMEN 1.5 CAL 1,000 ML BAG PO SCH (13:30)
[2020-05-06] MEDS ORDERED: ROCURONIUM BROMIDE 10 MG/ML 5 ML VIAL IV ONE (13:54)
[2020-05-06] MEDS ORDERED: fentaNYL citrate 100 MCG/2 ML CARP IV ONE (13:54)
[2020-05-06] MEDS ORDERED: ETOMIDATE 2 MG/ML 20 ML VIAL IV ONE (13:54)
[2020-05-06] MEDS: INSULIN ASPART 100 UNITS/ML 3 ML PEN SC SCH ×2 (16:27→21:13)
--- NOTE | 2020-05-06 17:07 | XRay Report ---
KUB HISTORY: kub [place] sump check placement COMPARISON: Chest radiograph of same day FINDINGS: Urinary frequency project of the right inguinal tissues. There is a catheter lead projectin g over the midline lower pelvis soft tissues. Endotracheal tube distal tip terminates over the expect ed location of the mid gastric lumen. Cholecystectomy. Moderate fecal retention. Nonobstructive bowel gas pattern. No definite urolith, pneumatosis or pneumoperitoneum. Degenerative changes of the pelvi s, hips and spine. IMPRESSION: 1. Moderate fecal retention with nonobstructive bowel gas pattern. 2. Distal tips of enteric tube projects over the expected location of the mid gastric body. ACT 112: Negative or not required by law. The above report was generated using voice recognition software. It may contain grammatical, syntax o r spelling errors. Electronically signed by: Wally Meza M.D. 05/06/2020 5:05 PM
--- NOTE | 2020-05-06 17:08 | Hospitalist Progress Note ---
Date of Service May 06, 2020 Assessment & Plan (1) Acute respiratory failure with hypoxia: Patient with acute hypoxic respiratory failure secondary to COVID-19 pneumonia. -Worsened on the morning of 05/03 with pulse ox of 82% on high flow nasal cannula 40 L with 100% FiO2 Transitioned to BiPAP initially and then CPAP at 14 cm H2O ABG on BiPAP 7.42/35/61 on 100% FiO2 initially, now somewhat improved oxygenation with ABG 7.49/31/65 on 50% FiO2 After much discussion with son/healthcare power of mergers and acquisitions attorney, he would like him to be intubated if needed patient intubated by Dr. Milner morning of 05/06, transferred to ICU sedation per ICU management per ICU staff palliative care spoke with patient's son, continue aggressive care at this time (2) COVID-19: Diagnosed with Covid-19 on 04/26 on a screening test at his snf- he was asymptomatic at that time Developed symptoms of shortness of breath and hypoxia at the snf on 04/29 Presented to the hospital on 05/02 with altered mental status and worsening hypoxia requiring 15 L nonrebreather and now on CPAP as above With pneumonia present on chest x-ray Procalcitonin is only minimally elevated at 0.63 on admission and then down to 0.24, doubt secondary bacterial pneumonia-he did receive 1 dose of levofloxacin in the ER No antibiotics indicated With elevated markers of inflammation i.e. ferritin, ESR, D-dimer, LDH, CRP all significantly elevated but now starting to trend downward. Increase in transaminases as well intubated on 05/06 and moved to ICU With acute kidney injury, not a candidate for remdesivir Received 1 dose of convalescent plasma on 05/03 Continue on dexamethasone 6 mg IV once daily x10-day course -Continue enoxaparin 30 mg SQ every 12 hours for high-dose DVT prophylaxis -Overall prognosis quite poor- care was discussed by palliative care on 05/06, family wants to continue all care at this time (3) Acute metabolic encephalopathy: Metabolic encephalopathy in setting of COVID pneumonia, acute hypoxic respiratory failure and sepsis. Also with underlying dementia -Continue to treat hypoxia, supportive care for Covid now that he is intubated, full sedation (4) Sepsis: Sepsis in setting of COVID19 pneumonia e/b a SOFA score >4 -Son is requesting that patient be continued on IV vitamin C-he has received 2 doses of IV thiamine/vitamin C (5) SHERRIE (acute kidney injury): Creatinine up to 3 on admission, BUN 73, along with hypernatremia with sodium 154 likely secondary to severe dehydration, prerenal SHERRIE Creatinine improved to 1.2 with IV fluids, continue Follow BMP in the morning Renally dose medications (6) Acute hypernatremia: As above secondary to severe dehydration Continues to improve today down to 148 Continue D5W Follow BMP in the morning (7) Coronary artery disease: Family reports patient had cardiac catheterization several years ago which showed severe coronary artery disease and stents were not able to be placed at that time He is medically managed as an outpatient Typically he is on aspirin, metoprolol, amlodipine These are all held right now as he is unable to take p.o. -Continue IV Lopressor but will increase to 5 mg IV every 4 hours scheduled as blood pressure is quite elevated-hold for while on Precedex (8) Hypertension: Holding home medications as above IV Lopressor scheduled while n.p.o. (9) Alzheimer disease: Sounds moderate to severe in nature At baseline, can recognize family members, is mostly nonambulatory, resides in a snf Has a history of agitation and auditory hallucinations Supportive care certainly would make prognosis poor, wean from ventilator would be difficult with constant confusion and agitation (10) Hypokalemia: Replaced and resolved Follow potassium and magnesium levels in the morning and replace as needed (11) Hyperglycemia: With some hyperglycemia here secondary to corticosteroids We will hold off on Accu-Cheks now as this may cause more agitation If remains significantly elevated greater than 180 on morning lab work, could start low-dose Lantus once daily (12) Elevated troponin: Patient has a mildly elevated troponin 0.062 and then down to normal range Likely myocardial demand ischemia in the setting of sepsis with underlying known severe CAD Patient is unable to say if he has chest pain as he is altered in his mental status ECG with normal sinus rhythm, rate 66, nonspecific T wave flattening throughout leads I, 2, 3, aVL, aVF, and precordial leads (13) Elevated lactic acid level: Lactate elevated 2.1, likely secondary to hypoxia and sepsis (14) Mood disorder: Presumably he is on Depakote, duloxetine, Seroquel, and Lyrica for some sort of mood disorder Holding all medications at this time as he cannot take p.o. could resume some of them via OG tube if possible (15) Hypophosphatemia: Phosphorus low today at 2.3 Replace with potassium phosphate Follow phosphorus level in the morning (16) DVT prophylaxis: Lovenox 30 mg SQ every 12 hours Disposition-transition to ICU status, continue Covid-19 precautions Overall prognosis remains quite guarded Admission and Anticipated Discharge Date Admission Date: May 02, 2020 Subjective patient intubated this morning as he was on CPAP and RR was in the 40's he was sedated and transferred to ICU defer management to Dr. Milner, I spoke with him at the bedside discussed with Alexa with palliative care, she spoke with the patient's son, he wants everything done for patient reviewed chart, reviewed labs Review of Systems Review of Systems: Unobtainable due to endotracheal tube and Unobtainable due to reduced consciousness Physical Exam Constitutional: + ill appearing, + thin and + mechanically ventilated; no acute distress Neck: trachea midline, no thyromegaly Respiratory: no respiratory distress Auscultation: no crackles, no rhonchi and no wheezes Cardiovascular: RRR, no murmur, no edema Gastrointestinal (Abdomen): normal bowel sounds, soft, nontender, no hepatosplenomegaly Musculoskeletal: Head/Neck/Chest: normocephalic, head atraumatic and neck supple Skin: no rashes, warm and dry Neurologic: + obtunded; no focal motor deficits Psychiatric: Orientation: + not oriented x 3 Results & Data Results & Data ([facility]) Vital Signs (Past 12 Hours) Vital Signs Temp Pulse Pulse Resp BP BP BP 05/06/20 16:00 55 L 05/06/20 15:15 77 27 H 05/06/20 15:00 35.9 C L 59 L 23 96/58 L 05/06/20 14:00 35.5 C L 62 24 96/58 L 05/06/20 13:00 35.8 C L 59 L 25 H 93/58 L 05/06/20 12:30 35.9 C L 73 28 H 97/58 L 05/06/20 12:25 77 31 H 05/06/20 12:10 80 33 H 117/72 05/06/20 11:10 36.5 C 114 H 47 H 131/80 05/06/20 11:00 116 H 32 H 175/88 H 05/06/20 10:35 124 H 25 H 179/88 H 05/06/20 10:32 215/110 H 05/06/20 10:20 124 H 27 H 215/110 H 05/06/20 10:05 129 H 32 H 227/139 H 05/06/20 09:50 122 H 24 238/142 H 05/06/20 09:40 106 H 21 05/06/20 09:35 123 H 20 238/142 H 05/06/20 08:20 46 L 190/76 H 05/06/20 08:01 76 29 H 05/06/20 08:00 36.9 C 63 46 L 24 190/76 H 05/06/20 06:00 50 L 31 H 135/71 05/06/20 05:52 44 L 31 H 130/70 05/06/20 05:07 48 L 26 H Pulse Ox Pulse Ox 05/06/20 16:00 05/06/20 15:15 91 05/06/20 15:00 91 05/06/20 14:00 96 05/06/20 13:00 97 05/06/20 12:30 94 05/06/20 12:25 94 05/06/20 12:10 95 05/06/20 11:10 88 L 05/06/20 11:00 86 L 05/06/20 10:35 89 L 05/06/20 10:32 05/06/20 10:20 97 05/06/20 10:05 95 05/06/20 09:50 94 05/06/20 09:40 91 05/06/20 09:35 94 05/06/20 08:20 05/06/20 08:01 93 05/06/20 08:00 93 93 05/06/20 06:00 95 05/06/20 05:52 94 05/06/20 05:07 94 Laboratory Results Laboratory Results - last 24 hr 05/06/20 05/06/20 05/06/20 05:54 05:54 05:54 WBC 6.84 RBC 3.13 L Hgb 10.2 L POC Hgb Hct 30.6 L POC Hct MCV 97.8 MCH 32.6 MCHC 33.3 RDW Std Deviation 53.7 H RDW Coeff of Ailin 15.3 H Plt Count 231 MPV 11.0 H Immature Gran % (Auto) 1.2 Neut % (Auto) 79.4 Lymph % (Auto) 14.3 [place] % (Auto) 4.8 Eos % (Auto) 0.0 Baso % (Auto) 0.3 Neut # (Auto) 5.43 Lymph # (Auto) 0.98 L [place] # (Auto) 0.33 Eos # (Auto) 0.00 Baso # (Auto) 0.02 Immature Gran # (Auto) 0.08 H Absolute Nucleated RBC 0.06 H Nucleated RBC % (auto) 0.8 ESR 58 H D-Dimer 1940 H* Sample Site POC pH POC pCO2 POC pO2 POC HCO3 POC Total CO2 POC Base Excess ABG pH ABG pH (Temp Correct) ABG pCO2 ABG pCO2 (Temp Corrct ABG pO2 POC ABG pO2 at Pt Temp ABG HCO3 POC ABG O2 Sat ABG O2 Saturation ABG Base Excess Vaibhav Test Barometric Pressure Oxygen Given O2 Delivery Device POC O2 Rate POC FiO2 Tidal Volume PEEP POC Sodium Sodium POC Potassium Potassium Chloride Carbon Dioxide Anion Gap BUN Creatinine Est Cr Clr Drug Dosing Est GFR ( Amer) Est GFR (Non-Af Amer) BUN/Creatinine Ratio Glucose POC Glucose Calcium Phosphorus Magnesium Ferritin Total Bilirubin AST ALT Alkaline Phosphatase Lactate Dehydrogenase C-Reactive Protein Total Protein Albumin Globulin Albumin/Globulin Ratio Procalcitonin 05/06/20 05/06/20 05/06/20 05:54 05:54 05:54 WBC RBC Hgb POC Hgb Hct POC Hct MCV MCH MCHC RDW Std Deviation RDW Coeff of Ailin Plt Count MPV Immature Gran % (Auto) Neut % (Auto) Lymph % (Auto) [place] % (Auto) Eos % (Auto) Baso % (Auto) Neut # (Auto) Lymph # (Auto) [place] # (Auto) Eos # (Auto) Baso # (Auto) Immature Gran # (Auto) Absolute Nucleated RBC Nucleated RBC % (auto) ESR D-Dimer Sample Site POC pH POC pCO2 POC pO2 POC HCO3 POC Total CO2 POC Base Excess ABG pH ABG pH (Temp Correct) ABG pCO2 ABG pCO2 (Temp Corrct ABG pO2 POC ABG pO2 at Pt Temp ABG HCO3 POC ABG O2 Sat ABG O2 Saturation ABG Base Excess Vaibhav Test Barometric Pressure Oxygen Given O2 Delivery Device POC O2 Rate POC FiO2 Tidal Volume PEEP POC Sodium Sodium 148 H POC Potassium Potassium 3.5 Chloride 114 H Carbon Dioxide 26 Anion Gap 8.0 BUN 39 H Creatinine 1.24 D Est Cr Clr Drug Dosing 58.7 Est GFR ( Amer) 63.2 Est GFR (Non-Af Amer) 54.6 BUN/Creatinine Ratio 31.2 H Glucose 184 H POC Glucose Calcium 8.4 L Phosphorus 2.7 Magnesium 3.3 H Ferritin 2337.4 H Total Bilirubin 1.5 H AST 128 H ALT 87 H Alkaline Phosphatase 84 Lactate Dehydrogenase 1034 H C-Reactive Protein 4.13 H Total Protein 7.3 Albumin 2.8 L Globulin 4.5 H Albumin/Globulin Ratio 0.6 L Procalcitonin 0.24 05/06/20 05/06/20 05/06/20 06:22 07:53 12:16 WBC RBC Hgb POC Hgb Hct POC Hct MCV MCH MCHC RDW Std Deviation RDW Coeff of Ailin Plt Count MPV Immature Gran % (Auto) Neut % (Auto) Lymph % (Auto) [place] % (Auto) Eos % (Auto) Baso % (Auto) Neut # (Auto) Lymph # (Auto) [place] # (Auto) Eos # (Auto) Baso # (Auto) Immature Gran # (Auto) Absolute Nucleated RBC Nucleated RBC % (auto) ESR D-Dimer Sample Site POC pH POC pCO2 POC pO2 POC HCO3 POC Total CO2 POC Base Excess ABG pH 7.50 H ABG pH (Temp Correct) ABG pCO2 31 L ABG pCO2 (Temp Corrct ABG pO2 52 L POC ABG pO2 at Pt Temp ABG HCO3 23 POC ABG O2 Sat ABG O2 Saturation 87.4 L ABG Base Excess 0.3 Vaibhav Test Pos Barometric Pressure 738.0 Oxygen Given 50% FiO2 O2 Delivery Device POC O2 Rate POC FiO2 Tidal Volume PEEP POC Sodium Sodium POC Potassium Potassium Chloride Carbon Dioxide Anion Gap BUN Creatinine Est Cr Clr Drug Dosing Est GFR ( Amer) Est GFR (Non-Af Amer) BUN/Creatinine Ratio Glucose POC Glucose 163 H 236 H Calcium Phosphorus Magnesium Ferritin Total Bilirubin AST ALT Alkaline Phosphatase Lactate Dehydrogenase C-Reactive Protein Total Protein Albumin Globulin Albumin/Globulin Ratio Procalcitonin 05/06/20 05/06/20 05/06/20 12:18 13:54 14:55 WBC RBC Hgb POC Hgb 9.9 L Hct POC Hct 29 L MCV MCH MCHC RDW Std Deviation RDW Coeff of Ailin Plt Count MPV Immature Gran % (Auto) Neut % (Auto) Lymph % (Auto) [place] % (Auto) Eos % (Auto) Baso % (Auto) Neut # (Auto) Lymph # (Auto) [place] # (Auto) Eos # (Auto) Baso # (Auto) Immature Gran # (Auto) Absolute Nucleated RBC Nucleated RBC % (auto) ESR D-Dimer Sample Site R Radial POC pH 7.44 POC pCO2 33 L POC pO2 74 L POC HCO3 22 POC Total CO2 23 L POC Base Excess -2.0 ABG pH ABG pH (Temp Correct) 7.445 ABG pCO2 ABG pCO2 (Temp Corrct 32 L ABG pO2 POC ABG pO2 at Pt Temp 71 ABG HCO3 POC ABG O2 Sat 95.0 ABG O2 Saturation ABG Base Excess Vaibhav Test Pass Barometric Pressure Oxygen Given O2 Delivery Device Ventilator POC O2 Rate 20 POC FiO2 100 Tidal Volume 450 PEEP 5 POC Sodium 147 H Sodium POC Potassium 3.3 Potassium Chloride Carbon Dioxide Anion Gap BUN Creatinine Est Cr Clr Drug Dosing Est GFR ( Amer) Est GFR (Non-Af Amer) BUN/Creatinine Ratio Glucose POC Glucose 217 H 192 H Calcium Phosphorus Magnesium Ferritin Total Bilirubin AST ALT Alkaline Phosphatase Lactate Dehydrogenase C-Reactive Protein Total Protein Albumin Globulin Albumin/Globulin Ratio Procalcitonin 05/06/20 15:52 WBC RBC Hgb POC Hgb Hct POC Hct MCV MCH MCHC RDW Std Deviation RDW Coeff of Ailin Plt Count MPV Immature Gran % (Auto) Neut % (Auto) Lymph % (Auto) [place] % (Auto) Eos % (Auto) Baso % (Auto) Neut # (Auto) Lymph # (Auto) [place] # (Auto) Eos # (Auto) Baso # (Auto) Immature Gran # (Auto) Absolute Nucleated RBC Nucleated RBC % (auto) ESR D-Dimer Sample Site POC pH POC pCO2 POC pO2 POC HCO3 POC Total CO2 POC Base Excess ABG pH ABG pH (Temp Correct) ABG pCO2 ABG pCO2 (Temp Corrct ABG pO2 POC ABG pO2 at Pt Temp ABG HCO3 POC ABG O2 Sat ABG O2 Saturation ABG Base Excess Vaibhav Test Barometric Pressure Oxygen Given O2 Delivery Device POC O2 Rate POC FiO2 Tidal Volume PEEP POC Sodium Sodium POC Potassium Potassium Chloride Carbon Dioxide Anion Gap BUN Creatinine Est Cr Clr Drug Dosing Est GFR ( Amer) Est GFR (Non-Af Amer) BUN/Creatinine Ratio Glucose POC Glucose 176 H Calcium Phosphorus Magnesium Ferritin Total Bilirubin AST ALT Alkaline Phosphatase Lactate Dehydrogenase C-Reactive Protein Total Protein Albumin Globulin Albumin/Globulin Ratio Procalcitonin Medications Administered Current Inpatient Medications Enoxaparin Sodium (Enoxaparin Inj 30 Mg/0.3 Ml Syr) 30 mg SQ Q12H [facility] Stop: 06/01/20 22:59 Last Admin: 05/06/20 08:21 Dose: 30 mg Documented by: Enteral Nutritional Formula (Peptamen 1.5 Gus 1,000 Ml Bag) 1,000 ml PO UD [facility]; Protocol Stop: 06/05/20 13:29 Fentanyl Citrate (Fentanyl Bolus From Bag) 50 mcg IV Q60M PRN PRN Reason: Pain or Agitation Stop: 05/20/20 10:24 Dexamethasone Sodium Phosphate (6 mg/ Syringe) 1.5 mls @ 1 mls/min IV DAILY [facility] Stop: 06/02/20 08:59 Last Admin: 05/06/20 08:23 Dose: 1 mls/min Documented by: Propofol (Diprivan) 1,000 mg in 100 mls @ 24.504 mls/hr IV .Q4H5M [facility]; Protocol Stop: 05/09/20 10:29 Last Titration: 05/06/20 16:27 Dose: 30 mcg/kg/min, 18.4 mls/hr Documented by: Fentanyl Citrate (Fentanyl Drip) 1,250 mcg in 250 mls @ 5 mls/hr IV .Q50H [facility]; Protocol Stop: 05/20/20 10:29 Last Admin: 05/06/20 11:12 Dose: 25 mcg/hr, 5 mls/hr Documented by: Sodium Chloride (1/2 Nss) 1,000 mls @ 80 mls/hr IV .[id number] [facility] Stop: 06/05/20 10:29 Last Admin: 05/06/20 10:44 Dose: 80 mls/hr Documented by: Pantoprazole Sodium 40 mg/ (Syringe) 10 mls @ 5 mls/min IV DAILY@1100 [facility] Stop: 06/05/20 10:59 Last Admin: 05/06/20 13:29 Dose: 5 mls/min Documented by: Insulin Human Regular 250 (units/ Sodium Chloride) 250 mls @ 3.8 mls/hr IV .Q24H [facility]; Protocol Stop: 06/05/20 13:14 Last Admin: 05/06/20 13:29 Dose: 3.8 units/hr, 3.8 mls/hr Documented by: Insulin Aspart (Insulin Aspart 100 Units/Ml 3 Ml Pen) 0 units SC ACHS [facility] Stop: 06/05/20 16:29 Last Admin: 05/06/20 16:27 Dose: Not Given Documented by: Propofol (Propofol Bolus From Bag) 20 mg IV Q5M PRN PRN Reason: Sedation Stop: 05/09/20 10:24 PG Care Time/CCT Total # of Minutes Spent Total Time Spent with Patient: Total time spent is greater than 50% in coord ination of care (as documented) at patient's floor/unit and/or counseling patient: Coding Level of Care Code 81882 Subseq Hosp Care Lvl 2 Diagnoses Acute respiratory failure with hypoxia J96.01 COVID-19 U07.1 Acute metabolic encephalopathy G93.41 Sepsis A41.9 SHERRIE (acute kidney injury) N17.9 Acute hypernatremia E87.0 Coronary artery disease I25.10 Hypertension I10 Alzheimer disease G30.9; F02.80 Hypokalemia E87.6 Hyperglycemia R73.9 Elevated troponin R77.8 Elevated lactic acid level R79.89 Mood disorder F39 Hypophosphatemia E83.39 DVT prophylaxis Z29.9
[2020-05-06] MEDS ORDERED: PEPTAMEN INTENSE VHP 1.0 CAL 1,000 ML BAG OG SCH (18:00)
[2020-05-06] MEDS: SENNA 8.6 MG TAB PO SCH (18:25)
[2020-05-06] MEDS: PEPTAMEN INTENSE VHP 1.0 CAL 1,000 ML BAG OG SCH (18:26)
[2020-05-07] MEDS: PROPOFOL BOLUS FROM BAG IV PRN ×2 (01:30→02:07)
[2020-05-07] MEDS: propofoL 1,000 MG/100 ML VIAL IV SCH ×4 (04:26→20:21)
[2020-05-07 04:57] LABS: Basophils # (auto) 0.02 K/uL (0-0.2); Basophils % (auto) 0.2 %; Hematocrit (blood only) 26.7 % (42-52); Hemoglobin 8.9 g/dL (14.0-18.0); Immature Granulocytes % (auto) 1.1 %; Lymphocytes # (auto) 0.89 K/uL (1.2-3.4); Lymphocytes % (auto) 9.7 %; Mean Corpuscular Hemoglobin 32.7 pg (25-34); Mean Corpuscular Hgb Conc 33.3 g/dL (32-36); Mean Corpuscular Volume 98.2 fL (80-100); Mean Platelet Volume 11.2 fL (7.4-10.4); Monocytes # (auto) 0.24 K/uL (0.11-0.59); Monocytes % (auto) 2.6 %; Neutrophils % (auto) 86.4 %; Nucleated RBC % (auto) 2.2 %; Platelet Count 226 K/uL (130-400); RDW Coefficient of Variation 15.5 % (11.5-14.5); RDW Standard Deviation 54.7 fL (36.4-46.3); Red Blood Count 2.72 M/uL (4.7-6.1); White Blood Count 9.15 K/uL (4.8-10.8)
[2020-05-07 05:22] LABS: BUN Creatinine Ratio 33.4 (10-20); Calcium 7.6 mg/dl (8.5-10.1); Creatinine Clr Calc Pharmacy 50.6 ml/min; Est GFR (African American) 52.8; Est GFR (Non-African American) 45.5; Magnesium 3.2 mg/dl (1.8-2.4); Potassium 3.5 mmol/L (3.5-5.1)
[2020-05-07 05:52] LABS: RBC Morphology Unremarkable
[2020-05-07 06:25] LABS: Phosphorus 3.6 mg/dl (2.5-4.9)
[2020-05-07] MEDS: INSULIN ASPART 100 UNITS/ML 3 ML PEN SC SCH ×5 (08:42→20:22)
[2020-05-07] MEDS: ENOXAPARIN INJ 30 MG/0.3 ML SYR SQ SCH ×2 (08:42→20:20)
[2020-05-07] MEDS: SENNA 8.6 MG TAB PO SCH (08:43)
[2020-05-07] MEDS: DEXAMETHASONE SOD PHOSPHATE 6 MG in SYRINGE 0 ML IV SCH (08:45)
--- NOTE | 2020-05-07 10:29 | Critical Care Progress Note ---
Date of Service May 07, 2020 Assessment & Plan (1) COVID-19: Neurologic: Patient with evidence of acute encephalopathy. Likely related to sepsis and hypernatremia. Hypernatremia is improving. He does have dementia. Continue propofol and fentanyl. Pulmonary: Continue ventilator. I have decreased his FiO2 to 65% and increase PEEP to 10. Continue Decadron for a total of 10 days. DuoNebs as needed every 4 hours. Maintain O2 sats of 90 to 92%. Cardiovascular: No significant issues currently. Will defer obtaining an echocardiogram for the time being. Maintain mean interpressure above 65. Gastrointestinal: Continue tube feeds. Continue Protonix 40 mg IV daily. He does have evidence of mild LFT derangements that are improving. Likely related to Covid. Renal: Continue to correct hypernatremia. Renal function slightly worsened today. Hypernatremia improving. Holding IV fluids at this time as tube feeds were initiated. Trend BMP. Replace electrolytes as needed. Infectious disease: He has Covid pneumonia. We are continuing Decadron. He received convalescent plasma. Negative procalcitonin. Holding broad-spectrum antibiotics at this time. Inflammatory markers are elevated. He is not a candidate for remdesivir at this time due to his initially elevated creatinine. He is now he is out of the window for remdesivir. Hematologic: Recheck a hemoglobin as his hemoglobin 1 g. If his hemoglobin is stable, we will start him on half a milligram per kilogram of Lovenox twice daily which would be an intermediate dose of Lovenox. Endocrine: Hyperglycemia protocol. F/E/N: Continue tube feeds. Lines and tubes: Peripheral IVs and condom catheter in place. Will place intraurethral [place]. VTE prophylaxis: Lovenox twice daily as noted above CODE STATUS: Full code Family at bedside: None available bedside due to the COVID-19 pandemic Disposition: Remain in the ICU. Prognosis remains very poor. I have personally spent 44 minutes of critical care time in the direct management of this patient. This is a life/limb threatening event. This includes time spent evaluating patient, direct bedside care, chart review, placing orders, interpretation of diagnostic studies, discussion with consultants, patient, and family members, as well as other required patient management activities. This time is exclusive of all separately billable procedures, and teaching time and separate from and in addition to any other critical care service time. Thank you for allowing us to participate in the care of this patient. (2) Acute hypernatremia: (3) Elevated lactic acid level: (4) Acute respiratory failure with hypoxia: (5) Coronary artery disease: Admission and Anticipated Discharge Date Admission Date: May 02, 2020 Subjective Patient is currently intubated and sedated. He is not responsive to commands. He is on propofol and fentanyl. I wean down his FiO2 to 65%. PEEP of 10. No significant events overnight. Review of Systems Review of Systems: Unobtainable due to endotracheal tube and Unobtainable due to reduced consciousness Physical Exam Constitutional: Patient has BiPAP in place. He is breathing at a rate of 40- 50. He is moaning at times and trying to sit up. Eyes: PERRL, conjunctivae normal, anicteric sclerae ENMT: external ear and nose normal, oropharynx normal Neck: normal visual inspection Respiratory: Diffuse rhonchi and wheezes bilaterally. Tachypneic. Cardiovascular: RRR, no murmur, no edema Gastrointestinal (Abdomen): normal bowel sounds, soft, nontender, no hepatosplenomegaly Musculoskeletal: no cyanosis or clubbing, extremities motor strength 5/5 Skin: no rashes, warm and dry Neurologic: Unable to assess fully due to altered mental status Psychiatric: Unable to assess due to altered mental status Results & Data Results & Data ([facility]) Vital Signs (Past 12 Hours) Vital Signs Temp Pulse Resp BP Pulse Ox 05/07/20 07:12 55 L 24 95 05/07/20 07:00 98.1 F 56 L 16 95 05/07/20 06:57 98.1 F 56 L 20 105/60 95 05/07/20 06:30 98.1 F 57 L 19 94 05/07/20 06:27 98.1 F 56 L 19 114/53 L 94 05/07/20 06:00 98.1 F 66 24 95 05/07/20 05:57 97.9 F 65 21 123/57 L 94 05/07/20 05:30 97.9 F 60 15 95 05/07/20 05:27 97.9 F 61 17 118/62 94 05/07/20 05:10 59 L 25 H 94 05/07/20 05:00 98.1 F 59 L 17 94 05/07/20 04:57 97.9 F 57 L 18 112/62 94 05/07/20 04:30 98.1 F 60 15 94 05/07/20 04:27 98.1 F 56 L 20 114/61 94 05/07/20 04:00 98.1 F 60 19 95 05/07/20 03:57 98.1 F 60 18 119/64 95 05/07/20 03:30 98.1 F 61 18 94 05/07/20 03:27 98.1 F 58 L 20 110/57 L 94 05/07/20 03:00 98.1 F 61 17 94 05/07/20 02:57 98.1 F 63 20 105/54 L 94 05/07/20 02:32 70 35 H 92 05/07/20 02:30 98.1 F 69 26 H 91 05/07/20 02:27 97.9 F 69 28 H 134/69 92 05/07/20 02:00 97.9 F 74 30 H 92 05/07/20 01:57 97.7 F 73 43 H 142/73 H 91 05/07/20 01:30 97.7 F 66 28 H 93 05/07/20 01:27 97.5 F L 61 18 124/61 95 05/07/20 01:00 97.5 F L 69 32 H 96 05/07/20 00:57 97.5 F L 65 27 H 133/83 97 05/07/20 00:27 97.3 F L 57 L 16 106/62 96 05/07/20 00:20 57 L 24 96 05/06/20 23:57 97.3 F L 58 L 22 114/61 96 05/06/20 23:27 97.5 F L 57 L 19 99/57 L 94 05/06/20 23:21 59 L 05/06/20 23:00 97.5 F L 61 24 93 05/06/20 22:57 97.5 F L 65 27 H 118/60 94 05/06/20 22:52 97.3 F L 62 26 H 93/70 L 94 05/06/20 22:28 97.3 F L 72 41 H 93/70 L 95 I reviewed the vital signs, labs and imaging Coding Level of Care Code Critical Care 1st 30-74 mins Diagnoses COVID-19 U07.1 Acute hypernatremia E87.0 Elevated lactic acid level R79.89 Acute respiratory failure with hypoxia J96.01 Coronary artery disease I25.10 Time Spent (min) 44
[2020-05-07 10:52] LABS: Hematocrit (blood only) 26.3 % (42-52); Hemoglobin 8.6 g/dL (14.0-18.0); Mean Corpuscular Hemoglobin 32.2 pg (25-34); Mean Corpuscular Hgb Conc 32.7 g/dL (32-36); Mean Corpuscular Volume 98.5 fL (80-100); Mean Platelet Volume 11.1 fL (7.4-10.4); Nucleated RBC # (auto) 0.21 K/uL (0-0); Nucleated RBC % (auto) 2.4 %; Platelet Count 238 K/uL (130-400); RDW Coefficient of Variation 15.5 % (11.5-14.5); RDW Standard Deviation 55.4 fL (36.4-46.3); Red Blood Count 2.67 M/uL (4.7-6.1)
[2020-05-07] MEDS ORDERED: POTASSIUM CHLORIDE PWD 20 MEQ PACK PO STA (11:04)
[2020-05-07] MEDS ORDERED: GLUCAGON FOR INJ 1 MG VIAL IM PRN (12:15)
[2020-05-07] MEDS ORDERED: CARBOHYDRATES FOR HYPOGLYCEMIA PO PRN (12:15)
[2020-05-07] MEDS ORDERED: DEXTROSE 50% 50 ML SYRINGE IV PRN (12:15)
[2020-05-07] MEDS ORDERED: GLUCOSE 10 TABS/TUBE PO PRN (12:15)
[2020-05-07] MEDS ORDERED: GLUCOSE 40% GEL 15 GM TUBE PO PRN (12:15)
[2020-05-07] MEDS: PANTOprazole 40 MG in SYRINGE 0 ML IV SCH (12:29)
[2020-05-07 12:45] LABS: Basophils # (auto) 0.02 K/uL (0-0.2); Basophils % (auto) 0.2 %; Hematocrit (blood only) 28.1 % (42-52); Hemoglobin 9.5 g/dL (14.0-18.0); Immature Granulocytes # (auto) 0.15 K/uL (0.00-0.02); Immature Granulocytes % (auto) 1.4 %; Lymphocytes # (auto) 0.79 K/uL (1.2-3.4); Lymphocytes % (auto) 7.6 %; Mean Corpuscular Hemoglobin 33.1 pg (25-34); Mean Corpuscular Hgb Conc 33.8 g/dL (32-36); Mean Corpuscular Volume 97.9 fL (80-100); Mean Platelet Volume 11.1 fL (7.4-10.4); Monocytes # (auto) 0.45 K/uL (0.11-0.59); Monocytes % (auto) 4.3 %; Neutrophils # (auto) 8.94 K/uL (1.4-6.5); Neutrophils % (auto) 86.5 %; Nucleated RBC # (auto) 0.32 K/uL (0-0); Nucleated RBC % (auto) 3.1 %; Platelet Count 212 K/uL (130-400); RDW Coefficient of Variation 15.5 % (11.5-14.5); RDW Standard Deviation 54.2 fL (36.4-46.3); Red Blood Count 2.87 M/uL (4.7-6.1); White Blood Count 10.35 K/uL (4.8-10.8)
[2020-05-07 13:19] LABS: Rouleaux 1+
[2020-05-07] MEDS: PEPTAMEN INTENSE VHP 1.0 CAL 1,000 ML BAG OG SCH (14:59)
[2020-05-07] MEDS: fentaNYL DRIP 1,250 MCG/250 ML BAG IV SCH ×2 (14:59→16:50)
--- NOTE | 2020-05-07 15:57 | Hospitalist Progress Note ---
Date of Service May 07, 2020 Assessment & Plan (1) Acute respiratory failure with hypoxia: Patient with acute hypoxic respiratory failure secondary to COVID-19 pneumonia. -Worsened on the morning of 05/03 with pulse ox of 82% on high flow nasal cannula 40 L with 100% FiO2 Transitioned to BiPAP initially and then CPAP at 14 cm H2O patient intubated by Dr. Milner morning of 05/06, transferred to ICU sedation per ICU management per ICU staff lung protective ventilation, FiO2 down to 65%, PEEP increased to 10 palliative care spoke with patient's son, continue aggressive care at this time (2) COVID-19: Diagnosed with Covid-19 on 04/26 on a screening test at his senior care- he was asymptomatic at that time Developed symptoms of shortness of breath and hypoxia at the senior care on 04/29 Presented to the hospital on 05/02 with altered mental status and worsening hypoxia requiring 15 L nonrebreather and now on CPAP as above With pneumonia present on chest x-ray intubated on 05/06 and moved to ICU With acute kidney injury, not a candidate for remdesivir Received 1 dose of convalescent plasma on 05/03 Continue on dexamethasone 6 mg IV once daily x10-day course -Continue enoxaparin 30 mg SQ every 12 hours for high-dose DVT prophylaxis -Overall prognosis quite poor- care was discussed by palliative care on 05/06, family wants to continue all care at this time will continue to update family (3) Acute metabolic encephalopathy: Metabolic encephalopathy in setting of COVID pneumonia, acute hypoxic respiratory failure and sepsis. Also with underlying dementia -Continue to treat hypoxia, supportive care for Covid now that he is intubated, full sedation (4) Sepsis: Sepsis in setting of COVID19 pneumonia e/b a SOFA score >4 (5) SHERRIE (acute kidney injury): Creatinine up to 3 on admission, BUN 73, along with hypernatremia with sodium 154 likely secondary to severe dehydration, prerenal SHERRIE Creatinine up slightly to 1.44 from 1.2, stop fluids, on tube feeds for hydration Follow BMP in the morning (6) Acute hypernatremia: As above secondary to severe dehydration Continues to improve today down to 146 Follow BMP in the morning (7) Coronary artery disease: Family reports patient had cardiac catheterization several years ago which showed severe coronary artery disease and stents were not able to be placed at that time He is medically managed as an outpatient Typically he is on aspirin, metoprolol, amlodipine These are all held right now as he is unable to take p.o. (8) Hypertension: Holding home medications as above (9) Alzheimer disease: Sounds moderate to severe in nature At baseline, can recognize family members, is mostly nonambulatory, resides in a senior care Has a history of agitation and auditory hallucinations Supportive care certainly would make prognosis poor, wean from ventilator would be difficult with constant confusion and agitation (10) Hypokalemia: Replaced and resolved Follow potassium and magnesium levels in the morning and replace as needed (11) Hyperglycemia: With some hyperglycemia here secondary to corticosteroids We will hold off on Accu-Cheks now as this may cause more agitation If remains significantly elevated greater than 180 on morning lab work, could start low-dose Lantus once daily (12) Elevated troponin: Patient has a mildly elevated troponin 0.062 and then down to normal range Likely myocardial demand ischemia in the setting of sepsis with underlying known severe CAD Patient is unable to say if he has chest pain as he is altered in his mental status ECG with normal sinus rhythm, rate 66, nonspecific T wave flattening throughout leads I, 2, 3, aVL, aVF, and precordial leads (13) Elevated lactic acid level: initial Lactate elevated 2.1, likely secondary to hypoxia and sepsis (14) Mood disorder: Presumably he is on Depakote, duloxetine, Seroquel, and Lyrica for some sort of mood disorder Holding all medications at this time as he cannot take p.o. could resume some of them via OG tube if possible (15) Hypophosphatemia: repleted, not checked today (16) DVT prophylaxis: Lovenox 30 mg SQ every 12 hours Disposition-transition to ICU status, continue Covid-19 precautions Overall prognosis remains poor Admission and Anticipated Discharge Date Admission Date: May 02, 2020 Subjective patient remains intubated decreased FiO2 and increased PEEP to 10 reviewed labs spoke with ICU staff, managing patient Review of Systems Review of Systems: Unobtainable due to endotracheal tube and Unobtainable due to reduced consciousness Physical Exam Constitutional: + ill appearing, + thin and + mechanically ventilated; no acute distress Neck: trachea midline, no thyromegaly Respiratory: no respiratory distress Auscultation: no crackles, no rhonchi and no wheezes Cardiovascular: RRR, no murmur, no edema Gastrointestinal (Abdomen): normal bowel sounds, soft, nontender, no hepatosplenomegaly Musculoskeletal: Head/Neck/Chest: normocephalic, head atraumatic and neck supple Skin: no rashes, warm and dry Neurologic: + obtunded; no focal motor deficits Psychiatric: Orientation: + not oriented x 3 Results & Data Results & Data ([facility]) Vital Signs (Past 12 Hours) Vital Signs Temp Pulse Resp BP Pulse Ox 05/07/20 14:27 36.8 C 56 L 17 113/58 L 93 05/07/20 14:00 36.7 C 57 L 16 92 05/07/20 13:58 36.7 C 58 L 15 113/60 91 05/07/20 13:28 36.6 C 98 H 37 H 172/73 H 92 05/07/20 12:58 36.5 C 69 26 H 143/60 H 92 05/07/20 12:27 36.5 C 65 29 H 154/93 H 95 05/07/20 12:00 36.5 C 53 L 16 93 05/07/20 11:57 36.5 C 54 L 15 114/55 L 93 05/07/20 11:27 36.5 C 53 L 17 106/59 L 93 05/07/20 11:15 54 L 23 93 05/07/20 10:57 36.5 C 54 L 19 111/54 L 93 05/07/20 10:27 36.5 C 56 L 17 115/59 L 93 05/07/20 10:00 36.5 C 55 L 20 91 05/07/20 09:57 36.5 C 55 L 19 104/56 L 91 05/07/20 09:28 36.5 C 58 L 20 123/59 L 91 05/07/20 08:58 36.6 C 80 30 H 156/79 H 95 05/07/20 08:27 36.6 C 58 L 20 126/61 92 05/07/20 08:00 36.6 C 56 L 17 95 05/07/20 07:57 36.6 C 57 L 17 121/60 95 05/07/20 07:27 36.7 C 56 L 17 115/62 95 05/07/20 07:12 55 L 24 95 05/07/20 07:00 36.7 C 56 L 16 95 05/07/20 06:57 36.7 C 56 L 20 105/60 95 05/07/20 06:30 36.7 C 57 L 19 94 05/07/20 06:27 36.7 C 56 L 19 114/53 L 94 05/07/20 06:00 36.7 C 66 24 95 05/07/20 05:57 36.6 C 65 21 123/57 L 94 05/07/20 05:30 36.6 C 60 15 95 05/07/20 05:27 36.6 C 61 17 118/62 94 05/07/20 05:10 59 L 25 H 94 05/07/20 05:00 36.7 C 59 L 17 94 05/07/20 04:57 36.6 C 57 L 18 112/62 94 05/07/20 04:30 36.7 C 60 15 94 05/07/20 04:27 36.7 C 56 L 20 114/61 94 05/07/20 04:00 36.7 C 60 19 95 05/07/20 03:57 36.7 C 60 18 119/64 95 Laboratory Results Laboratory Results - last 24 hr 05/06/20 05/06/20 05/06/20 15:52 18:01 19:19 WBC RBC Hgb Hct MCV MCH MCHC RDW Std Deviation RDW Coeff of Ailin Plt Count MPV Immature Gran % (Auto) Neut % (Auto) Lymph % (Auto) [place] % (Auto) Eos % (Auto) Baso % (Auto) Neut # (Auto) Lymph # (Auto) [place] # (Auto) Eos # (Auto) Baso # (Auto) Immature Gran # (Auto) Absolute Nucleated RBC Nucleated RBC % (auto) RBC Morphology Rouleaux Sodium Potassium Chloride Carbon Dioxide Anion Gap BUN Creatinine Est Cr Clr Drug Dosing Est GFR ( Amer) Est GFR (Non-Af Amer) BUN/Creatinine Ratio Glucose POC Glucose 176 H 115 H 100 H Calcium Phosphorus Magnesium 05/06/20 05/06/20 05/06/20 20:08 21:01 21:57 WBC RBC Hgb Hct MCV MCH MCHC RDW Std Deviation RDW Coeff of Ailin Plt Count MPV Immature Gran % (Auto) Neut % (Auto) Lymph % (Auto) [place] % (Auto) Eos % (Auto) Baso % (Auto) Neut # (Auto) Lymph # (Auto) [place] # (Auto) Eos # (Auto) Baso # (Auto) Immature Gran # (Auto) Absolute Nucleated RBC Nucleated RBC % (auto) RBC Morphology Rouleaux Sodium Potassium Chloride Carbon Dioxide Anion Gap BUN Creatinine Est Cr Clr Drug Dosing Est GFR ( Amer) Est GFR (Non-Af Amer) BUN/Creatinine Ratio Glucose POC Glucose 92 117 H 113 H Calcium Phosphorus Magnesium 05/06/20 05/07/20 05/07/20 23:03 00:05 01:08 WBC RBC Hgb Hct MCV MCH MCHC RDW Std Deviation RDW Coeff of Ailin Plt Count MPV Immature Gran % (Auto) Neut % (Auto) Lymph % (Auto) [place] % (Auto) Eos % (Auto) Baso % (Auto) Neut # (Auto) Lymph # (Auto) [place] # (Auto) Eos # (Auto) Baso # (Auto) Immature Gran # (Auto) Absolute Nucleated RBC Nucleated RBC % (auto) RBC Morphology Rouleaux Sodium Potassium Chloride Carbon Dioxide Anion Gap BUN Creatinine Est Cr Clr Drug Dosing Est GFR ( Amer) Est GFR (Non-Af Amer) BUN/Creatinine Ratio Glucose POC Glucose 94 109 H 114 H Calcium Phosphorus Magnesium 05/07/20 05/07/20 05/07/20 02:02 03:02 04:17 WBC 9.15 RBC 2.72 L Hgb 8.9 L Hct 26.7 L MCV 98.2 MCH 32.7 MCHC 33.3 RDW Std Deviation 54.7 H RDW Coeff of Ailin 15.5 H Plt Count 226 MPV 11.2 H Immature Gran % (Auto) 1.1 Neut % (Auto) 86.4 Lymph % (Auto) 9.7 [place] % (Auto) 2.6 Eos % (Auto) 0.0 Baso % (Auto) 0.2 Neut # (Auto) 7.90 H Lymph # (Auto) 0.89 L [place] # (Auto) 0.24 Eos # (Auto) 0.00 Baso # (Auto) 0.02 Immature Gran # (Auto) 0.10 H Absolute Nucleated RBC 0.20 H Nucleated RBC % (auto) 2.2 RBC Morphology Unremarkable Rouleaux Sodium Potassium Chloride Carbon Dioxide Anion Gap BUN Creatinine Est Cr Clr Drug Dosing Est GFR ( Amer) Est GFR (Non-Af Amer) BUN/Creatinine Ratio Glucose POC Glucose 115 H 113 H Calcium Phosphorus Magnesium 05/07/20 05/07/20 05/07/20 04:17 05:06 06:00 WBC RBC Hgb Hct MCV MCH MCHC RDW Std Deviation RDW Coeff of Ailin Plt Count MPV Immature Gran % (Auto) Neut % (Auto) Lymph % (Auto) [place] % (Auto) Eos % (Auto) Baso % (Auto) Neut # (Auto) Lymph # (Auto) [place] # (Auto) Eos # (Auto) Baso # (Auto) Immature Gran # (Auto) Absolute Nucleated RBC Nucleated RBC % (auto) RBC Morphology Rouleaux Sodium 146 H Potassium 3.5 Chloride 116 H Carbon Dioxide 25 Anion Gap 5.0 BUN 48 H Creatinine 1.44 H Est Cr Clr Drug Dosing 50.6 Est GFR ( Amer) 52.8 Est GFR (Non-Af Amer) 45.5 BUN/Creatinine Ratio 33.4 H Glucose 98 POC Glucose 104 H 121 H Calcium 7.6 L Phosphorus 3.6 Magnesium 3.2 H 05/07/20 05/07/20 05/07/20 07:00 09:22 10:36 WBC 8.80 RBC 2.67 L Hgb 8.6 L Hct 26.3 L MCV 98.5 MCH 32.2 MCHC 32.7 RDW Std Deviation 55.4 H RDW Coeff of Ailin 15.5 H Plt Count 238 MPV 11.1 H Immature Gran % (Auto) Neut % (Auto) Lymph % (Auto) [place] % (Auto) Eos % (Auto) Baso % (Auto) Neut # (Auto) Lymph # (Auto) [place] # (Auto) Eos # (Auto) Baso # (Auto) Immature Gran # (Auto) Absolute Nucleated RBC 0.21 H Nucleated RBC % (auto) 2.4 RBC Morphology Rouleaux Sodium Potassium Chloride Carbon Dioxide Anion Gap BUN Creatinine Est Cr Clr Drug Dosing Est GFR ( Amer) Est GFR (Non-Af Amer) BUN/Creatinine Ratio Glucose POC Glucose 113 H 125 H Calcium Phosphorus Magnesium 05/07/20 05/07/20 05/07/20 12:28 12:36 15:20 WBC 10.35 RBC 2.87 L Hgb 9.5 L Hct 28.1 L MCV 97.9 MCH 33.1 MCHC 33.8 RDW Std Deviation 54.2 H RDW Coeff of Ailin 15.5 H Plt Count 212 MPV 11.1 H Immature Gran % (Auto) 1.4 Neut % (Auto) 86.5 Lymph % (Auto) 7.6 [place] % (Auto) 4.3 Eos % (Auto) 0.0 Baso % (Auto) 0.2 Neut # (Auto) 8.94 H Lymph # (Auto) 0.79 L [place] # (Auto) 0.45 Eos # (Auto) 0.00 Baso # (Auto) 0.02 Immature Gran # (Auto) 0.15 H Absolute Nucleated RBC 0.32 H Nucleated RBC % (auto) 3.1 RBC Morphology Rouleaux 1+ Sodium Potassium Chloride Carbon Dioxide Anion Gap BUN Creatinine Est Cr Clr Drug Dosing Est GFR ( Amer) Est GFR (Non-Af Amer) BUN/Creatinine Ratio Glucose POC Glucose 161 H 206 H Calcium Phosphorus Magnesium Medications Administered Current Inpatient Medications Dextrose (Dextrose 50% 50 Ml Syringe) 25 - 50 ml IV UD PRN; Protocol PRN Reason: Hypoglycemia Protocol Stop: 06/06/20 12:14 Enoxaparin Sodium (Enoxaparin Inj 30 Mg/0.3 Ml Syr) 30 mg SQ Q12H BECCA Stop: 06/01/20 22:59 Last Admin: 05/07/20 08:42 Dose: 30 mg Documented by: Fentanyl Citrate (Fentanyl Bolus From Bag) 50 mcg IV Q60M PRN PRN Reason: Pain or Agitation Stop: 05/20/20 10:24 Glucagon (Glucagon For Inj 1 Mg Vial) 1 mg IM UD PRN; Protocol PRN Reason: Hypoglycemia Protocol Stop: 06/06/20 12:14 Glucose (Glucose 40% Gel 15 Gm Tube) 15 - 30 gm PO UD PRN; Protocol PRN Reason: Hypoglycemia Protocol Stop: 06/06/20 12:14 Glucose (Glucose 10 Tabs/Tube) 4 - 8 tabs PO UD PRN; Protocol PRN Reason: Hypoglycemia Protocol Stop: 06/06/20 12:14 Dexamethasone Sodium Phosphate (6 mg/ Syringe) 1.5 mls @ 1 mls/min IV DAILY BECCA Stop: 05/12/20 09:02 Last Admin: 05/07/20 08:45 Dose: 1 mls/min Documented by: Propofol (Diprivan) 1,000 mg in 100 mls @ 18.378 mls/hr IV .Q5H27M [facility] [place]; Pro tocol Stop: 05/09/20 10:29 Last Admin: 05/07/20 08:47 Dose: 30 mcg/kg/min, 18.4 mls/hr Documented by: Fentanyl Citrate (Fentanyl Drip) 1,250 mcg in 250 mls @ 10 mls/hr IV .Q25H [facility] [place]; Protocol Stop: 05/20/20 10:29 Last Titration: 05/07/20 07:23 Dose: 50 mcg/hr, 10 mls/hr Documented by: Pantoprazole Sodium 40 mg/ (Syringe) 10 mls @ 5 mls/min IV DAILY@1100 [facility] [place] Stop: 06/05/20 10:59 Last Admin: 05/07/20 12:29 Dose: 5 mls/min Documented by: Insulin Aspart (Insulin Aspart 100 Units/Ml 3 Ml Pen) 0 units SC Q4 [facility] [place] Stop: 06/06/20 12:29 Last Admin: 05/07/20 12:52 Dose: 2 units Documented by: Miscellaneous (Carbohydrates For Hypoglycemia ) 15 - 30 gm PO UD PRN PRN Reason: Hypoglycemia Treatment Stop: 06/06/20 12:14 Nutritional Formula (Peptamen Intense Vhp 1.0 Gus 1,000 Ml Bag) 1,000 ml OG TODAY@1800 [facility] [place]; Protocol Stop: 06/05/20 17:59 Last Admin: 05/06/20 18:26 Dose: 1,000 ml Documented by: Propofol (Propofol Bolus From Bag) 20 mg IV Q5M PRN PRN Reason: Sedation Stop: 05/09/20 10:24 Last Admin: 05/07/20 02:07 Dose: 20 mg Documented by: Sennosides (Senna 8.6 Mg Tab) 17.2 mg PO DAILY [facility] Stop: 06/05/20 17:44 Last Admin: 05/07/20 08:43 Dose: Not Given Documented by: PG Care Time/CCT Total # of Minutes Spent Total Time Spent with Patient: Total time spent is greater than 50% in coordination of care (as documented) at patient's floor/unit and/or counseling patient: Coding Level of Care Code 00626 Subseq Hosp Care Lvl 2 Diagnoses Acute respiratory failure with hypoxia J96.01 COVID-19 U07.1 Acute metabolic encephalopathy G93.41 Sepsis A41.9 SHERRIE (acute kidney injury) N17.9 Acute hypernatremia E87.0 Coronary artery disease I25.10 Hypertension I10 Alzheimer disease G30.9; F02.80 Hypokalemia E87.6 Hyperglycemia R73.9 Elevated troponin R77.8 Elevated lactic acid level R79.89 Mood disorder F39 Hypophosphatemia E83.39 DVT prophylaxis Z29.9
[2020-05-08] MEDS: propofoL 1,000 MG/100 ML VIAL IV SCH ×14 (00:08→22:59)
[2020-05-08] MEDS: INSULIN ASPART 100 UNITS/ML 3 ML PEN SC SCH ×6 (00:10→19:49)
[2020-05-08] MEDS: PEPTAMEN INTENSE VHP 1.0 CAL 1,000 ML BAG OG SCH (04:48)
[2020-05-08 05:13] LABS: Basophils # (auto) 0.01 K/uL (0-0.2); Basophils % (auto) 0.1 %; Hematocrit (blood only) 26.3 % (42-52); Hemoglobin 8.5 g/dL (14.0-18.0); Immature Granulocytes # (auto) 0.16 K/uL (0.00-0.02); Immature Granulocytes % (auto) 1.9 %; Lymphocytes # (auto) 0.63 K/uL (1.2-3.4); Lymphocytes % (auto) 7.6 %; Mean Corpuscular Hemoglobin 32.1 pg (25-34); Mean Corpuscular Hgb Conc 32.3 g/dL (32-36); Mean Corpuscular Volume 99.2 fL (80-100); Mean Platelet Volume 11.4 fL (7.4-10.4); Monocytes # (auto) 0.25 K/uL (0.11-0.59); Neutrophils % (auto) 87.4 %; Nucleated RBC # (auto) 0.37 K/uL (0-0); Nucleated RBC % (auto) 4.5 %; Platelet Count 252 K/uL (130-400); RDW Coefficient of Variation 15.4 % (11.5-14.5); RDW Standard Deviation 54.6 fL (36.4-46.3); Red Blood Count 2.65 M/uL (4.7-6.1); White Blood Count 8.25 K/uL (4.8-10.8)
[2020-05-08 05:35] LABS: BUN Creatinine Ratio 32.1 (10-20); Calcium 7.7 mg/dl (8.5-10.1); Creatinine Clr Calc Pharmacy 48.2 ml/min; Est GFR (African American) 48.7; Magnesium 3.4 mg/dl (1.8-2.4); Phosphorus 3.5 mg/dl (2.5-4.9)
[2020-05-08 05:37] LABS: iSTAT Allen Test Pass; iSTAT Art Bld Gas pCO2 Correct 40 mmHg (35-46); iSTAT Art Bld Gas pH Corrected 7.375 (7.35-7.45); iSTAT Arterial Blood Gas HCO3 24 meg/L (19-24); iSTAT Arterial Blood Gas pCO2 42 mmHg (35-46); iSTAT Arterial Blood Gas pH 7.36 (7.35-7.45); iSTAT Arterial Blood Gas pO2 72 mmHg (80-95); iSTAT Arterial Blood Gas pO2 C 68; iSTAT Carbon Dioxide 25 mmol/L (24-31); iSTAT FiO2 70 %; iSTAT Hematocrit 44 % (42-52); iSTAT Potassium 3.8 mmol/L (3.3-5.0); iSTAT Site R Radial; iSTAT Sodium 142 mmol/L (135-144)
[2020-05-08 05:53] LABS: RBC Morphology Unremarkable
[2020-05-08 05:57] LABS: Estimated Average Glucose 137 mg/dl; Hemoglobin A1C 6.4 % (4.5-5.6)
[2020-05-08] MEDS: fentaNYL DRIP 1,250 MCG/250 ML BAG IV SCH ×3 (07:52→19:39)
[2020-05-08] MEDS: DEXAMETHASONE SOD PHOSPHATE 6 MG in SYRINGE 0 ML IV SCH (07:53)
[2020-05-08] MEDS: SENNA 8.6 MG TAB PO SCH (07:53)
[2020-05-08] MEDS: ENOXAPARIN INJ 30 MG/0.3 ML SYR SQ SCH (07:53)
[2020-05-08] MEDS: PANTOprazole 40 MG in SYRINGE 0 ML IV SCH (11:29)
--- NOTE | 2020-05-08 13:05 | Critical Care Progress Note ---
Date of Service May 08, 2020 Assessment & Plan (1) COVID-19: Neurologic: Unable to fully assess mental status at this present time given that he is sedated with propofol and fentanyl. He was very agitated and delirious prior to the intubation. He does have a history of significant dementia and resides in a prison for the last 4 years. Continue daily sedation vacations as able and as oxygenation allows. Pulmonary: Continue full ventilatory support. We will try to maintain saturations of 86 to 90%. He has excellent lung compliance at present. He does have profound hypoxemia from his COVID-19 infection. Continue Decadron for a total of 10 days. DuoNebs as needed every 4 hours. Cardiovascular: No significant issues currently. Will defer obtaining an echocardiogram for the time being. Maintain mean arterial pressures above 65 millimeters Hg. Gastrointestinal: Continue tube feeds. Continue Protonix 40 mg IV daily. He does have evidence of mild LFT derangements that are improving. Likely related to Covid. Renal: His hyponatremia has improved. His renal function has worsened slightly. Continue to follow trend. Follow urine output. Infectious disease: He has Covid pneumonia. We are continuing Decadron. He received convalescent plasma. Negative procalcitonin. Holding broad-spectrum antibiotics at this time. Inflammatory markers are elevated. He is not a candidate for remdesivir at this time due to his initially elevated creatinine. He is now he is out of the window for remdesivir, regardless. Hematologic: Hemoglobin is stable. Continue prophylactic Lovenox. We decreased it from 30 mg twice daily. D-dimer is trending downwards. Unclear whether a higher dose of Lovenox would be beneficial at this time. His oxygenation is stable. Endocrine: Hyperglycemia protocol. F/E/N: Continue tube feeds. Lines and tubes: Peripheral IVs and condom catheter in place. Will place intraurethral [place]. VTE prophylaxis: Lovenox 40 mg daily CODE STATUS: Full code, will need to continue to address CODE STATUS with the family Family at bedside: None available bedside due to the COVID-19 pandemic Disposition: Remain in the ICU. Prognosis remains very poor and he is unlikely to survive this hospitalization without very significant deficits. I have personally spent 32 minutes of critical care time in the direct management of this patient. This is a life/limb threatening event. This includes time spent evaluating patient, direct bedside care, chart review, placing orders, interpretation of diagnostic studies, discussion with consultants, patient, and family members, as well as other required patient management activities. This time is exclusive of all separately billable procedures, and teaching time and separate from and in addition to any other critical care service time. Thank you for allowing us to participate in the care of this patient. (2) Acute hypernatremia: (3) Elevated lactic acid level: (4) Acute respiratory failure with hypoxia: (5) Coronary artery disease: Admission and Anticipated Discharge Date Admission Date: May 02, 2020 Subjective Patient continues to be intubated and sedated on propofol/fentanyl. No significant event overnight. He was desaturating to the mid 80s on 60% FiO2 and a PEEP of 10. Hemodynamically stable overnight. Review of Systems Review of Systems: Unobtainable due to endotracheal tube Physical Exam Constitutional: Patient is intubated and sedated. No apparent distress currently. Appears elderly. Eyes: PERRL, conjunctivae normal, anicteric sclerae ENMT: Endotracheal tube in place. Neck: normal visual inspection Respiratory: Course breath sounds bilaterally on the ventilator. Cardiovascular: Rate/Rhythm: + bradycardic Heart Sounds: normal S1 and normal S2 Extremities: no edema Gastrointestinal (Abdomen): normal bowel sounds, soft, nontender, no hepatosplenomegaly Musculoskeletal: no cyanosis or clubbing, extremities motor strength 5/5 Skin: no rashes, warm and dry Neurologic: + obtunded Psychiatric: Unable to assess due to the patient intubated status. Results & Data Results & Data ([facility]) Vital Signs (Past 12 Hours) Vital Signs Temp Pulse Resp BP Pulse Ox Pulse Ox 05/08/20 11:28 97.9 F 54 L 17 132/65 94 05/08/20 10:58 97.7 F 55 L 16 127/63 92 05/08/20 10:45 58 L 23 92 05/08/20 10:28 97.7 F 59 L 16 136/66 87 L 05/08/20 09:58 97.5 F L 56 L 17 125/63 87 L 05/08/20 09:28 97.5 F L 55 L 17 131/75 85 L 05/08/20 08:58 97.3 F L 56 L 18 127/61 86 L 05/08/20 08:50 97.3 F L 05/08/20 08:28 97.3 F L 54 L 17 125/57 L 90 05/08/20 08:00 56 L 87 L 05/08/20 07:58 97.5 F L 62 17 131/58 L 87 L 05/08/20 07:28 97.3 F L 54 L 17 127/60 92 05/08/20 07:27 55 L 23 92 05/08/20 05:05 54 L 22 92 05/08/20 04:58 97.3 F L 53 L 19 128/58 L 91 05/08/20 04:28 97.3 F L 53 L 17 120/57 L 90 05/08/20 03:58 97.3 F L 53 L 22 113/56 L 91 05/08/20 03:28 97.5 F L 54 L 19 120/58 L 92 05/08/20 02:58 97.5 F L 53 L 15 120/56 L 93 05/08/20 02:28 97.5 F L 52 L 19 127/59 L 92 05/08/20 01:58 97.7 F 54 L 21 123/59 L 92 05/08/20 01:30 58 L 24 92 05/08/20 01:28 97.7 F 54 L 18 120/59 L 90 05/08/20 00:58 97.7 F 54 L 21 122/64 91 I reviewed the vital signs, labs and imaging Coding Level of Care Code Critical Care 1st 30-74 mins Diagnoses COVID-19 U07.1 Acute hypernatremia E87.0 Elevated lactic acid level R79.89 Acute respiratory failure with hypoxia J96.01 Coronary artery disease I25.10 Time Spent (min) 32
[2020-05-08] MEDS: PROPOFOL BOLUS FROM BAG IV PRN (13:23)
[2020-05-08] MEDS ORDERED: CISATRACURIUM BESYLATE IV SOLN 2 MG/ML 10 ML VIAL IV STA (15:48)
[2020-05-08] MEDS ORDERED: VECURONIUM BROMIDE 10 MG VIAL IV ONE (15:51)
[2020-05-08] MEDS ORDERED: VECURONIUM BROMIDE 10 MG VIAL IV STA ×2 (15:52→16:40)
[2020-05-08] MEDS ORDERED: LABETALOL HCL IV 5 MG/ML 20ML IV STA (16:18)
[2020-05-08] MEDS: CISATRACURIUM BESYLATE 40 MG in 0.9 % SODIUM CHLORIDE 80 ML IV SCH (16:21)
[2020-05-08 16:48] LABS: iSTAT Allen Test Pass; iSTAT Arterial Blood Gas HCO3 24 meg/L (19-24); iSTAT Arterial Blood Gas pCO2 51 mmHg (35-46); iSTAT Arterial Blood Gas pH 7.28 (7.35-7.45); iSTAT Arterial Blood Gas pO2 80 mmHg (80-95); iSTAT Carbon Dioxide 25 mmol/L (24-31); iSTAT FiO2 70 %; iSTAT Site R Radial
--- NOTE | 2020-05-08 16:50 | XRay Report ---
XR chest 1V portable HISTORY: 79 years-old Male hypoxia acute hypoxia COMPARISON: Chest radiograph 05/06/2020 TECHNIQUE: Supine AP view of the chest FINDINGS: Endotracheal tube overlies the midline, 5.2 cm superior to the elke. Enteric tube courses below the diaphragm outside the [id number]. Cardiac silhouette is mildly enlarged. Pulmonary vascular conge stion with interstitial coarsening. Superimposed airspace opacities of the mid and lower lung zones r edemonstrated along with mild right hemidiaphragmatic elevation. Small pleural effusions. Degenerativ e changes of the shoulders and spine. IMPRESSION: 1. Endotracheal and enteric tubes as above. 2. Bilateral mixed interstitial and alveolar opacities redemonstrated. 3. Small pleural effusions. ACT 112: Negative or not required by law. The above report was generated using voice recognition software. It may contain grammatical, syntax o r spelling errors. Electronically signed by: aWlly Meza M.D. 05/08/2020 4:48 PM
--- NOTE | 2020-05-08 16:52 | Hospitalist Progress Note ---
Date of Service May 08, 2020 Assessment & Plan (1) Acute respiratory failure with hypoxia: Patient with acute hypoxic respiratory failure secondary to COVID-19 pneumonia. -Worsened on the morning of 05/03 with pulse ox of 82% on high flow nasal cannula 40 L with 100% FiO2 Transitioned to BiPAP initially and then CPAP at 14 cm H2O patient intubated by Dr. Milner morning of 05/06, transferred to ICU sedation per ICU, propofol and fentanyl management per ICU staff lung protective ventilation, lung compliance is good, very hypoxic palliative care spoke with patient's son, continue aggressive care at this time (2) COVID-19: Diagnosed with Covid-19 on 04/26 on a screening test at his group home- he was asymptomatic at that time Developed symptoms of shortness of breath and hypoxia at the group home on 04/29 Presented to the hospital on 05/02 with altered mental status and worsening hypoxia requiring 15 L nonrebreather and now on CPAP as above With pneumonia present on chest x-ray intubated on 05/06 and moved to ICU With acute kidney injury, not a candidate for remdesivir Received 1 dose of convalescent plasma on 05/03 Continue on dexamethasone 6 mg IV once daily x10-day course -Continue enoxaparin 30 mg SQ every 12 hours for high-dose DVT prophylaxis -Overall prognosis quite poor- care was discussed by palliative care on 05/06, family wants to continue all care at this time will continue to update family (3) Acute metabolic encephalopathy: Metabolic encephalopathy in setting of COVID pneumonia, acute hypoxic respiratory failure and sepsis. Also with underlying dementia -Continue to treat hypoxia, supportive care for Covid now that he is intubated, full sedation (4) Sepsis: Sepsis in setting of COVID19 pneumonia e/b a SOFA score >4 (5) SHERRIE (acute kidney injury): Creatinine up to 3 on admission, BUN 73, along with hypernatremia with sodium 154 likely secondary to severe dehydration, prerenal SHERRIE Creatinine up slightly to 1.44 from 1.2, stop fluids, on tube feeds for hydration Follow BMP in the morning (6) Acute hypernatremia: As above secondary to severe dehydration Continues to improve today down to 146 Follow BMP in the morning (7) Coronary artery disease: Family reports patient had cardiac catheterization several years ago which showed severe coronary artery disease and stents were not able to be placed at that time He is medically managed as an outpatient Typically he is on aspirin, metoprolol, amlodipine These are all held right now as he is unable to take p.o. (8) Hypertension: Holding home medications as above (9) Alzheimer disease: Sounds moderate to severe in nature At baseline, can recognize family members, is mostly nonambulatory, resides in a group home Has a history of agitation and auditory hallucinations Supportive care certainly would make prognosis poor, wean from ventilator would be difficult with constant confusion and agitation (10) Hypokalemia: Replaced and resolved Follow potassium and magnesium levels in the morning and replace as needed (11) Hyperglycemia: With some hyperglycemia here secondary to corticosteroids We will hold off on Accu-Cheks now as this may cause more agitation If remains significantly elevated greater than 180 on morning lab work, could start low-dose Lantus once daily (12) Elevated troponin: Patient has a mildly elevated troponin 0.062 and then down to normal range Likely myocardial demand ischemia in the setting of sepsis with underlying known severe CAD Patient is unable to say if he has chest pain as he is altered in his mental status ECG with normal sinus rhythm, rate 66, nonspecific T wave flattening throughout leads I, 2, 3, aVL, aVF, and precordial leads (13) Elevated lactic acid level: initial Lactate elevated 2.1, likely secondary to hypoxia and sepsis (14) Mood disorder: Presumably he is on Depakote, duloxetine, Seroquel, and Lyrica for some sort of mood disorder Holding all medications at this time as he cannot take p.o. could resume some of them via OG tube if possible (15) Hypophosphatemia: repleted, not checked today (16) DVT prophylaxis: Lovenox 30 mg SQ every 12 hours Disposition-transition to ICU status, continue Covid-19 precautions Overall prognosis remains poor Admission and Anticipated Discharge Date Admission Date: May 02, 2020 Subjective no major changes today labs reviewed discussed with ICU staff, they are managing Review of Systems Review of Systems: Unobtainable due to cognitive status and Unobtainable due to endotracheal tube Physical Exam Constitutional: + ill appearing, + thin and + mechanically ventilated; no acute distress Neck: trachea midline, no thyromegaly Respiratory: no respiratory distress Auscultation: no crackles, no rhonchi and no wheezes Cardiovascular: RRR, no murmur, no edema Gastrointestinal (Abdomen): normal bowel sounds, soft, nontender, no hepatosplenomegaly Musculoskeletal: Head/Neck/Chest: normocephalic, head atraumatic and neck supple Skin: no rashes, warm and dry Neurologic: + obtunded; no focal motor deficits Psychiatric: Orientation: + not oriented x 3 Results & Data Results & Data ([facility]) Vital Signs (Past 12 Hours) Vital Signs Temp Pulse Resp BP Pulse Ox Pulse Ox 05/08/20 16:00 100 H 18 92 05/08/20 15:00 36.9 C 69 140/64 92 05/08/20 14:29 37.0 C 66 149/76 H 90 05/08/20 13:59 37.0 C 70 154/107 H 88 L 05/08/20 13:28 36.9 C 66 143/68 H 89 L 05/08/20 13:26 68 20 89 L 05/08/20 12:59 36.8 C 78 161/72 H 88 L 05/08/20 12:28 36.7 C 62 131/58 L 91 05/08/20 11:58 36.7 C 57 L 137/65 92 05/08/20 11:28 36.6 C 54 L 17 132/65 94 05/08/20 10:58 36.5 C 55 L 16 127/63 92 05/08/20 10:45 58 L 23 92 05/08/20 10:28 36.5 C 59 L 16 136/66 87 L 05/08/20 09:58 36.4 C L 56 L 17 125/63 87 L 05/08/20 09:28 36.4 C L 55 L 17 131/75 85 L 05/08/20 08:58 36.3 C L 56 L 18 127/61 86 L 05/08/20 08:50 36.3 C L 05/08/20 08:28 36.3 C L 54 L 17 125/57 L 90 05/08/20 08:00 56 L 87 L 05/08/20 07:58 36.4 C L 62 17 131/58 L 87 L 05/08/20 07:28 36.3 C L 54 L 17 127/60 92 05/08/20 07:27 55 L 23 92 05/08/20 05:05 54 L 22 92 05/08/20 04:58 36.3 C L 53 L 19 128/58 L 91 Laboratory Results Laboratory Results - last 24 hr 05/08/20 05/08/20 05/08/20 00:14 04:23 04:32 WBC 8.25 RBC 2.65 L Hgb 8.5 L POC Hgb Hct 26.3 L POC Hct MCV 99.2 MCH 32.1 MCHC 32.3 RDW Std Deviation 54.6 H RDW Coeff of Ailin 15.4 H Plt Count 252 MPV 11.4 H Immature Gran % (Auto) 1.9 Neut % (Auto) 87.4 Lymph % (Auto) 7.6 [place] % (Auto) 3.0 Eos % (Auto) 0.0 Baso % (Auto) 0.1 Neut # (Auto) 7.20 H Lymph # (Auto) 0.63 L [place] # (Auto) 0.25 Eos # (Auto) 0.00 Baso # (Auto) 0.01 Immature Gran # (Auto) 0.16 H Absolute Nucleated RBC 0.37 H Nucleated RBC % (auto) 4.5 RBC Morphology Unremarkable Sample Site POC pH POC pCO2 POC pO2 POC HCO3 POC Total CO2 POC Base Excess ABG pH (Temp Correct) ABG pCO2 (Temp Corrct POC ABG pO2 at Pt Temp POC ABG O2 Sat Vaibhav Test O2 Delivery Device POC O2 Rate Minute Ventilation POC FiO2 Tidal Volume PEEP POC Sodium Sodium POC Potassium Potassium Chloride Carbon Dioxide Anion Gap BUN Creatinine Est Cr Clr Drug Dosing Est GFR ( Amer) Est GFR (Non-Af Amer) BUN/Creatinine Ratio Glucose POC Glucose 215 H 192 H Estimat Average Glucose Hemoglobin A1c Lactate Calcium Phosphorus Magnesium Lactate Dehydrogenase Troponin I NT-Pro-B Natriuret Pep 05/08/20 05/08/20 05/08/20 04:32 04:32 05:23 WBC RBC Hgb POC Hgb 15.0 Hct POC Hct 44 MCV MCH MCHC RDW Std Deviation RDW Coeff of Ailin Plt Count MPV Immature Gran % (Auto) Neut % (Auto) Lymph % (Auto) [place] % (Auto) Eos % (Auto) Baso % (Auto) Neut # (Auto) Lymph # (Auto) [place] # (Auto) Eos # (Auto) Baso # (Auto) Immature Gran # (Auto) Absolute Nucleated RBC Nucleated RBC % (auto) RBC Morphology Sample Site R Radial POC pH 7.36 POC pCO2 42 POC pO2 72 L POC HCO3 24 POC Total CO2 25 POC Base Excess -2.0 ABG pH (Temp Correct) 7.375 ABG pCO2 (Temp Corrct 40 POC ABG pO2 at Pt Temp 68 POC ABG O2 Sat 94.0 Vaibhav Test Pass O2 Delivery Device Ventilator POC O2 Rate 20 Minute Ventilation 8.6 POC FiO2 70 Tidal Volume 450 PEEP 10 POC Sodium 142 Sodium 144 POC Potassium 3.8 Potassium 4.0 Chloride 115 H Carbon Dioxide 24 Anion Gap 5.0 BUN 49 H Creatinine 1.54 H Est Cr Clr Drug Dosing 48.2 Est GFR ( Amer) 48.7 Est GFR (Non-Af Amer) 42.0 BUN/Creatinine Ratio 32.1 H Glucose 185 H POC Glucose Estimat Average Glucose 137 Hemoglobin A1c 6.4 H Lactate Calcium 7.7 L Phosphorus 3.5 Magnesium 3.4 H Lactate Dehydrogenase Troponin I NT-Pro-B Natriuret Pep 05/08/20 05/08/20 05/08/20 08:05 11:34 15:27 WBC RBC Hgb POC Hgb Hct POC Hct MCV MCH MCHC RDW Std Deviation RDW Coeff of Ailin Plt Count MPV Immature Gran % (Auto) Neut % (Auto) Lymph % (Auto) [place] % (Auto) Eos % (Auto) Baso % (Auto) Neut # (Auto) Lymph # (Auto) [place] # (Auto) Eos # (Auto) Baso # (Auto) Immature Gran # (Auto) Absolute Nucleated RBC Nucleated RBC % (auto) RBC Morphology Sample Site POC pH POC pCO2 POC pO2 POC HCO3 POC Total CO2 POC Base Excess ABG pH (Temp Correct) ABG pCO2 (Temp Corrct POC ABG pO2 at Pt Temp POC ABG O2 Sat Vaibhav Test O2 Delivery Device POC O2 Rate Minute Ventilation POC FiO2 Tidal Volume PEEP POC Sodium Sodium POC Potassium Potassium Chloride Carbon Dioxide Anion Gap BUN Creatinine Est Cr Clr Drug Dosing Est GFR ( Amer) Est GFR (Non-Af Amer) BUN/Creatinine Ratio Glucose POC Glucose 186 H 203 H 202 H Estimat Average Glucose Hemoglobin A1c Lactate Calcium Phosphorus Magnesium Lactate Dehydrogenase Troponin I NT-Pro-B Natriuret Pep 05/08/20 05/08/20 05/08/20 16:31 16:40 16:40 WBC 15.49 H RBC 3.40 L Hgb 11.3 L POC Hgb Hct 33.8 L POC Hct MCV 99.4 MCH 33.2 MCHC 33.4 RDW Std Deviation 54.3 H RDW Coeff of Ailin 15.7 H Plt Count 315 MPV 11.5 H Immature Gran % (Auto) Neut % (Auto) Lymph % (Auto) [place] % (Auto) Eos % (Auto) Baso % (Auto) Neut # (Auto) Lymph # (Auto) [place] # (Auto) Eos # (Auto) Baso # (Auto) Immature Gran # (Auto) Absolute Nucleated RBC 0.58 H Nucleated RBC % (auto) 3.7 RBC Morphology Sample Site R Radial POC pH 7.28 L POC pCO2 51 H POC pO2 80 POC HCO3 24 POC Total CO2 25 POC Base Excess -3.0 ABG pH (Temp Correct) ABG pCO2 (Temp Corrct POC ABG pO2 at Pt Temp POC ABG O2 Sat 94.0 Vaibhav Test Pass O2 Delivery Device Ventilator POC O2 Rate 18 Minute Ventilation POC FiO2 70 Tidal Volume 450 PEEP 12 POC Sodium Sodium 142 POC Potassium Potassium 4.2 Chloride 112 H Carbon Dioxide 25 Anion Gap 5.0 BUN 49 H Creatinine 1.62 H Est Cr Clr Drug Dosing 45.8 Est GFR ( Amer) 45.8 Est GFR (Non-Af Amer) 39.5 BUN/Creatinine Ratio 30.3 H Glucose 199 H POC Glucose Estimat Average Glucose Hemoglobin A1c Lactate Calcium 8.7 Phosphorus 3.5 Magnesium 3.1 H Lactate Dehydrogenase Troponin I < 0.015 NT-Pro-B Natriuret Pep 652 05/08/20 05/08/20 05/08/20 16:40 16:40 19:47 WBC RBC Hgb POC Hgb Hct POC Hct MCV MCH MCHC RDW Std Deviation RDW Coeff of Ailin Plt Count MPV Immature Gran % (Auto) Neut % (Auto) Lymph % (Auto) [place] % (Auto) Eos % (Auto) Baso % (Auto) Neut # (Auto) Lymph # (Auto) [place] # (Auto) Eos # (Auto) Baso # (Auto) Immature Gran # (Auto) Absolute Nucleated RBC Nucleated RBC % (auto) RBC Morphology Sample Site POC pH POC pCO2 POC pO2 POC HCO3 POC Total CO2 POC Base Excess ABG pH (Temp Correct) ABG pCO2 (Temp Corrct POC ABG pO2 at Pt Temp POC ABG O2 Sat Vaibhav Test O2 Delivery Device POC O2 Rate Minute Ventilation POC FiO2 Tidal Volume PEEP POC Sodium Sodium POC Potassium Potassium Chloride Carbon Dioxide Anion Gap BUN Creatinine Est Cr Clr Drug Dosing Est GFR ( Amer) Est GFR (Non-Af Amer) BUN/Creatinine Ratio Glucose POC Glucose 191 H Estimat Average Glucose Hemoglobin A1c Lactate 1.3 Calcium Phosphorus Magnesium Lactate Dehydrogenase 928 H Troponin I NT-Pro-B Natriuret Pep Medications Administered Current Inpatient Medications Dextrose (Dextrose 50% 50 Ml Syringe) 25 - 50 ml IV UD PRN; Protocol PRN Reason: Hypoglycemia Protocol Stop: 06/06/20 12:14 Enoxaparin Sodium (Enoxaparin Inj 40 Mg/0.4 Ml Syr) 40 mg SQ QAM BECCA Stop: 06/08/20 08:59 Fentanyl Citrate (Fentanyl Bolus From Bag) 50 mcg IV Q60M PRN PRN Reason: Pain or Agitation Stop: 05/20/20 10:24 Last Admin: 05/08/20 16:03 Dose: 50 mcg Documented by: Glucagon (Glucagon For Inj 1 Mg Vial) 1 mg IM UD PRN; Protocol PRN Reason: Hypoglycemia Protocol Stop: 06/06/20 12:14 Glucose (Glucose 40% Gel 15 Gm Tube) 15 - 30 gm PO UD PRN; Protocol PRN Reason: Hypoglycemia Protocol Stop: 06/06/20 12:14 Glucose (Glucose 10 Tabs/Tube) 4 - 8 tabs PO UD PRN; Protocol PRN Reason: Hypoglycemia Protocol Stop: 06/06/20 12:14 Dexamethasone Sodium Phosphate (6 mg/ Syringe) 1.5 mls @ 1 mls/min IV DAILY BECCA Stop: 05/12/20 09:02 Last Admin: 05/08/20 07:53 Dose: 1 mls/min Documented by: Propofol (Diprivan) 1,000 mg in 100 mls @ 24.504 mls/hr IV .Q4H5M BECCA; Protocol Stop: 05/10/20 10:29 Last Titration: 05/08/20 20:25 Dose: 40 mcg/kg/min, 24.5 mls/hr Documented by: Fentanyl Citrate (Fentanyl Drip) 1,250 mcg in 250 mls @ 25 mls/hr IV .Q10H BECCA; Protocol Stop: 05/20/20 10:29 Last Admin: 05/08/20 19:39 Dose: 125 mcg/hr, 25 mls/hr Documented by: Pantoprazole Sodium 40 mg/ (Syringe) 10 mls @ 5 mls/min IV DAILY@1100 BECCA Stop: 06/05/20 10:59 Last Admin: 05/08/20 11:29 Dose: 5 mls/min Documented by: Cisatracurium Besylate 40 mg/ (Sodium Chloride) 100 mls @ 5.82 mls/hr IV .[id number] [facility], [facility]1983; Protocol Stop: 06/07/20 15:59 Last Titration: 05/08/20 19:45 Dose: 0.5 mcg/kg/min, 5.8 mls/hr Documented by: Insulin Aspart (Insulin Aspart 100 Units/Ml 3 Ml Pen) 0 units SC Q4 [facility], [facility]1983 Stop: 06/06/20 12:29 Last Admin: 05/08/20 19:49 Dose: 3 units Documented by: Miscellaneous (Carbohydrates For Hypoglycemia ) 15 - 30 gm PO UD PRN PRN Reason: Hypoglycemia Treatment Stop: 06/06/20 12:14 Nutritional Formula (Peptamen Intense Vhp 1.0 Gus 1,000 Ml Bag) 1,000 ml OG TODAY@1800 [facility], [facility]1983; Protocol Stop: 06/05/20 17:59 Last Admin: 05/08/20 04:48 Dose: 1,000 ml Documented by: Propofol (Propofol Bolus From Bag) 20 mg IV Q5M PRN PRN Reason: Sedation Stop: 05/10/20 10:24 Last Admin: 05/08/20 13:23 Dose: 20 mg Documented by: Sennosides (Senna 8.6 Mg Tab) 17.2 mg PO DAILY [facility], [facility]1983 Stop: 06/05/20 17:44 Last Admin: 05/08/20 07:53 Dose: 17.2 mg Documented by: PG Care Time/CCT Total # of Minutes Spent Total Time Spent with Patient: Total time spent is greater than 50% in coordination of care (as documented) at patient's floor/unit and/or counseling patient: Coding Level of Care Code 97341 Subseq Hosp Care Lvl 1 Diagnoses Acute respiratory failure with hypoxia J96.01 COVID-19 U07.1 Acute metabolic encephalopathy G93.41 Sepsis A41.9 SHERRIE (acute kidney injury) N17.9 Acute hypernatremia E87.0 Coronary artery disease I25.10 Hypertension I10 Alzheimer disease G30.9; F02.80 Hypokalemia E87.6 Hyperglycemia R73.9 Elevated troponin R77.8 Elevated lactic acid level R79.89 Mood disorder F39 Hypophosphatemia E83.39 DVT prophylaxis Z29.9
[2020-05-08 16:55] LABS: Hematocrit (blood only) 33.8 % (42-52); Hemoglobin 11.3 g/dL (14.0-18.0); Mean Corpuscular Hemoglobin 33.2 pg (25-34); Mean Corpuscular Volume 99.4 fL (80-100); Mean Platelet Volume 11.5 fL (7.4-10.4); Nucleated RBC # (auto) 0.58 K/uL (0-0); Nucleated RBC % (auto) 3.7 %; Platelet Count 315 K/uL (130-400); RDW Coefficient of Variation 15.7 % (11.5-14.5); RDW Standard Deviation 54.3 fL (36.4-46.3); White Blood Count 15.49 K/uL (4.8-10.8)
[2020-05-08 16:57] LABS: Mean Corpuscular Hgb Conc 33.4 g/dL (32-36)
[2020-05-08 17:19] LABS: BUN Creatinine Ratio 30.3 (10-20); Blood Urea Nitrogen 49 mg/dl (7-18); Calcium 8.7 mg/dl (8.5-10.1); Carbon Dioxide 25 mmol/L (21-32); Chloride 112 mmol/L (98-107); Creatinine Clr Calc Pharmacy 45.8 ml/min; Est GFR (African American) 45.8; Est GFR (Non-African American) 39.5; Glucose 199 mg/dl (70-99); Magnesium 3.1 mg/dl (1.8-2.4); NT Pro B Type Natriuretic Pept 652 pg/ml (0-1800); Phosphorus 3.5 mg/dl (2.5-4.9); Potassium 4.2 mmol/L (3.5-5.1); Sodium 142 mmol/L (136-145); Troponin I < 0.015 ng/ml (0-0.045)
[2020-05-08] MEDS ORDERED: LABETALOL HCL IV 5 MG/ML 20ML IV ONE (21:04)
[2020-05-08] MEDS: LABETALOL HCL IV 5 MG/ML 20ML IV PRN (21:12)
[2020-05-09] MEDS: INSULIN ASPART 100 UNITS/ML 3 ML PEN SC SCH ×7 (00:09→23:53)
[2020-05-09] MEDS: CISATRACURIUM BESYLATE 40 MG in 0.9 % SODIUM CHLORIDE 80 ML IV SCH ×7 (00:46→23:45)
[2020-05-09 03:25] LABS: iSTAT Allen Test Pass; iSTAT Art Bld Gas pCO2 Correct 39 mmHg (35-46); iSTAT Art Bld Gas pH Corrected 7.365 (7.35-7.45); iSTAT Arterial Blood Gas HCO3 23 meg/L (19-24); iSTAT Arterial Blood Gas pCO2 41 mmHg (35-46); iSTAT Arterial Blood Gas pH 7.35 (7.35-7.45); iSTAT Arterial Blood Gas pO2 59 mmHg (80-95); iSTAT Arterial Blood Gas pO2 C 55; iSTAT Carbon Dioxide 24 mmol/L (24-31); iSTAT FiO2 60 %; iSTAT Hematocrit 25 % (42-52); iSTAT Hemoglobin 8.5 g/dl (14.0-18.0); iSTAT Potassium 4.2 mmol/L (3.3-5.0); iSTAT Site R Radial; iSTAT Sodium 145 mmol/L (135-144)
[2020-05-09] MEDS: propofoL 1,000 MG/100 ML VIAL IV SCH ×3 (03:56→10:57)
[2020-05-09] MEDS: fentaNYL DRIP 1,250 MCG/250 ML BAG IV SCH ×3 (05:36→23:45)
[2020-05-09 05:50] LABS: Hematocrit (blood only) 27.2 % (42-52); Mean Corpuscular Hemoglobin 33.2 pg (25-34); Mean Corpuscular Hgb Conc 33.1 g/dL (32-36); Mean Corpuscular Volume 100.4 fL (80-100); Mean Platelet Volume 11.5 fL (7.4-10.4); Nucleated RBC # (auto) 0.32 K/uL (0-0); Nucleated RBC % (auto) 3.1 %; Platelet Count 233 K/uL (130-400); RDW Standard Deviation 56.2 fL (36.4-46.3); Red Blood Count 2.71 M/uL (4.7-6.1); White Blood Count 10.62 K/uL (4.8-10.8)
[2020-05-09 06:09] LABS: BUN Creatinine Ratio 31.6 (10-20); Calcium 7.8 mg/dl (8.5-10.1); Creatinine Clr Calc Pharmacy 51.9 ml/min; Est GFR (African American) 53.2; Est GFR (Non-African American) 45.9; Potassium 4.3 mmol/L (3.5-5.1)
[2020-05-09 06:19] LABS: Phosphorus 4.3 mg/dl (2.5-4.9)
[2020-05-09 06:35] LABS: ANC (manual) 9.49 K/uL (1.4-6.5); Lymphocytes % (manual) 6.6 %; Metamyelocytes # (manual) 0.17 K/uL (0-0); Metamyelocytes % (manual) 1.6 %; Monocytes # (manual) 0.08 K/uL (0.11-0.59); Monocytes % (manual) 0.8 %; Myelocytes # (manual) 0.17 K/uL (0-0); Myelocytes % (manual) 1.6 %; Neutrophils # (manual) 9.49 K/uL (1.4-6.5); Neutrophils % (manual) 89.4 %; Tear Drop Cells 1+
--- NOTE | 2020-05-09 08:29 | Critical Care Progress Note ---
Date of Service May 09, 2020 Assessment & Plan (1) COVID-19: Neurologic: Acute metabolic encephalopathy: Secondary to SIRS Sedation converted from propofol to Versed given hypertriglyceridemia Longstanding history of Alzheimer's disease Pulmonary: Severe hypoxemic respiratory failure secondary to COVID-19 Proning protocol: 18 hours Continue Nimbex for additional 24 hours to facilitate proning High PEEP low FiO2 -Has moved down boxes since prone positioning. Cardiovascular: Coronary artery disease: Medical management Hypertension: Metoprolol as needed Gastrointestinal: Hypertriglyceridemia secondary to propofol N.p.o given proning protocol. Transaminitis: Likely secondary to Covid 19 Renal: Acute kidney injury: Mild improvement Hypermagnesemia secondary to acute kidney injury Infectious disease: Sepsis: Secondary to COVID-19 Pneumonia: Viral: COVID-19 -Received convalescent plasma -Negative procalcitonin, continue to hold broad-spectrum antibiotics, inflammatory markers elevated -Not a candidate for remdesivir at time due to elevated creatinine now out of window Hematologic: Anemia secondary to sepsis Endocrine: Hyperglycemia Hyperglycemia protocol. -Increase correction factor to 30 units Lines and tubes: Kasper and peripheral IVs -Contacted son to discuss central line and arterial line given aggressive measures VTE prophylaxis: Lovenox 40 mg daily CODE STATUS: Full code Family at bedside: None available bedside due to the COVID-19 pandemic Disposition: Remain in the ICU. Prognosis remains very poor and he is unlikely to survive this hospitalization without very significant deficits. (2) Acute hypernatremia: (3) Elevated lactic acid level: (4) Acute respiratory failure with hypoxia: (5) Coronary artery disease: Admission and Anticipated Discharge Date Admission Date: May 02, 2020 Subjective No significant overnight events Review of Systems Review of Systems: Unobtainable due to reduced consciousness Physical Exam Physical Exam: General: GCS 3 TP Skin: Small area of stage I decubiti in the upper gluteal cleft Head: Atraumatic Ears, nose, mouth and throat: Obscured by endotracheal tube Cardiovascular: Normal peripheral perfusion Respiratory: Coarse sounds Gastrointestinal: Non distended Musculoskeletal: No deformity Results & Data Results & Data ([facility]) Vital Signs (Past 12 Hours) Vital Signs Pulse Resp Pulse Ox 05/09/20 03:28 56 L 22 93 05/08/20 23:26 56 L 22 90 05/08/20 20:40 66 22 93 Coding Level of Care Code Critical Care 1st 30-74 mins Diagnoses COVID-19 U07.1 Acute hypernatremia E87.0 Elevated lactic acid level R79.89 Acute respiratory failure with hypoxia J96.01 Coronary artery disease I25.10 Time Spent (min) 105
[2020-05-09] MEDS: ENOXAPARIN INJ 40 MG/0.4 ML SYR SQ SCH (09:27)
[2020-05-09] MEDS: DEXAMETHASONE SOD PHOSPHATE 6 MG in SYRINGE 0 ML IV SCH (09:27)
[2020-05-09] MEDS ORDERED: STAT IV Infusion **Titration per Protocol STA (10:49)
[2020-05-09] MEDS: SENNA 8.6 MG TAB PO SCH (10:50)
[2020-05-09] MEDS: MIDAZOLAM HCL 125 MG/250 ML BAG IV SCH (10:53)
[2020-05-09] MEDS: PANTOprazole 40 MG in SYRINGE 0 ML IV SCH (10:54)
--- NOTE | 2020-05-09 11:12 | Palliative Care Progress Note ---
Date of Service May 09, 2020 Assessment & Plan (1) Palliative care encounter: The patient remains intubated and ventilated in the ICU. He is sedated and was showing agitation, delirium, and stacking ventilator breaths; therefore was started on Nimbix as a paralytic. He also has a BIS monitor in the 40s and is 2/4 on train of four. He continues to have profound hypoxic episodes related to COVID-19. This gentleman was discussed at ICU rounds, including the families frustration with the treatment protocols and wish for him to remain a full code and receive aggressive measures. As we are unable to wean his ventilation, it was discussed and planned that he will be placed in a proning position to assist with treatment of his ARDS and he plan is to prone this individual until tomorrow 05/10/20 at 0630. Depending on how this patient tolerates and progresses, will be additional information for us to all discuss with the patients Megan yee and Lacho Tineo. To recap; he continues to receive Decadron. He has received convalescent plasma. His procalcitonin is negative. He continues to not be a candidate for Remdesivir as he is out of the treatment window. Prognosis remains very poor and he is unlikely to survive this hospitalization without very significant deficits. For now, patient to remain a Full Code. Will readdress patients progress over the next 24 hours and will reach out to family to continue goals of care discussion at that time. Addendum: Patient seen with ANDRÉS Bradley. Discussed with ICU attending physician. Prognosis is poor despite aggressive treatment. Will continue to work with family during this difficult time. Kalli Emmanuel MD (2) COVID-19: (3) SHERRIE (acute kidney injury): (4) Mood disorder: Admission and Anticipated Discharge Date Admission Date: May 02, 2020 Subjective Pt intubated. Patient requiring paralytics. Family wishes he remain a Full Code. Plan to prone patient today until 630 on 05/10 See A/P for further details Review of Systems Review of Systems: deferred assessment as patient is covid + Physical Exam Physical Exam: deferred assessment and discussed with oyster shucker as patient is covid + and specialists are to avoid direct contact Results & Data ([facility]) Vital Signs (Past 12 Hours) Vital Signs Temp Pulse Resp BP Pulse Ox 05/09/20 08:46 36.6 C 58 L 136/65 89 L 05/09/20 08:17 36.6 C 60 139/67 90 05/09/20 07:47 36.6 C 60 145/71 H 90 05/09/20 07:46 36.6 C 61 145/71 H 90 05/09/20 07:26 62 23 90 05/09/20 07:16 36.6 C 58 L 122/59 L 89 L 05/09/20 03:28 56 L 22 93 05/08/20 23:26 56 L 22 90 PG Care Time/CCT Total # of Minutes Spent Total Time Spent with Patient: Total time spent is greater than 50% in coordination of care (as documented) at patient's floor/unit and/or counseling patient: 25 Coding Level of Care Code 62720 Subseq Hosp Care Lvl 2 Diagnoses Palliative care encounter Z51.5 COVID-19 U07.1 SHERRIE (acute kidney injury) N17.9 Mood disorder F39 Time Spent (min) 25 Time Spent Midlevel Total time spent 25 minutes with > 50 % of that time spent assessing the patient from the window and discussing plan of care with IDT
[2020-05-09] MEDS: ARTIFICIAL TEARS OP OINT 3.5 GM TUBE OP PRN (11:41)
[2020-05-09] MEDS: MIDAZOLAM BOLUS FROM BAG IV PRN ×3 (11:41→22:36)
--- NOTE | 2020-05-09 15:53 | XRay Report ---
XR chest 1V portable CLINICAL HISTORY: Respiratory failure. Intubation. COMPARISON STUDY: 05/08/2020 FINDINGS: There is an endotracheal tube 7 cm above the elke. There is a nasogastric tube which pass es into the stomach. No pneumothorax is visualized on this prone x-ray. The heart is borderline enlar ged. There are bilateral granular pulmonary airspace opacities.[ IMPRESSION: 1. Persistent bilateral granular pulmonary airspace opacities 2. Endotracheal tube 7 cm above the elke 2. Nasogastric tube passing into the stomach ACT 112: Negative or not required by law. Electronically signed by: Marc Dunaway M.D. 05/09/2020 3:52 PM
[2020-05-09] MEDS: PEPTAMEN INTENSE VHP 1.0 CAL 1,000 ML BAG OG SCH (16:33)
--- NOTE | 2020-05-09 19:57 | XRay Report ---
SINGLE VIEW CHEST CLINICAL HISTORY: Central venous catheter placement. FINDINGS: A prone chest radiograph is compared to study dated 05/09/2020. The examination is degraded by apical lordotic positioning and patient rotation. Endotracheal and enteric tubes are unchanged in position. A right internal jugular central venous catheter has been placed. The tip projects over th e right apex. The heart is enlarged noting atherosclerotic calcification of the thoracic aorta. Hazy bilateral airspace opacities are similar to previous. No large pleural effusion or Pneumothorax is se en. The skeletal structures are osteopenic. The bony thorax is grossly intact. IMPRESSION: 1. A right internal jugular central venous catheter has been placed as above. No pneumothorax is seen post procedure. 2. Cardiomegaly. 3. Hazy bilateral airspace opacities are similar to previous. This could represent multifocal pneumon ia and/or pulmonary edema. Clinical correlation will be required. 4. No large pleural effusion is identified. 5. Endotracheal and enteric tubes are unchanged in position. ACT 112: Negative or not required by law. Electronically signed by: Peter Rossi M.D. 05/09/2020 7:55 PM
--- NOTE | 2020-05-09 20:01 | Procedure Note ---
Procedure Note Date of Service May 09, 2020 Procedure date: Noted above Procedure: Central venous access Pre-procedure indication: Poor vascular access, need for secure site administration given proning and severe hypoxemia Post-procedure Diagnosis: same as above Prior to Procedure: Informed Consent: The risks, benefits, indications, potential complications, and alternatives were explained to the patient's power of metal grinder and informed consent obtained. Attending Staff: Ervin Wright DO Resident/APC: Not applicable Skin Prep: Chlorhexidine Anesthesia: 4 mL 1% lidocaine without epinephrine The identity of the patient was confirmed and a bedside time out was performed. Description of Procedure: After sterile prep and sterile drape utilizing standard sterile technique the superficial skin of the right internal jugular area was anesthetized. The target vessel was identified and entered with an 18- gauge needle. Dark venous blood return was noted. A guidewire was inserted through the needle and into the vessel. The needle was withdrawn and a skin mone was made. A tissue dilator was advanced via Seldinger technique and removed. A triple lumen catheter was inserted via Seldinger technique and the guidewire removed. All ports melinda and flushed easily. A Biopatch was placed, and the catheter was secured via silk suture at 16 cm. A sterile dressing was then applied. Complications: None Estimated blood loss: Trace Patient tolerated the procedure well. Chest x-ray was reviewed, no pneumothorax was noted central line is somewhat superior however in adequate position for use. Procedure Date: Noted Above Procedure: Procedural Ultrasound Indication: Central venous access Attending: Ervin Wright DO Resident/Physician Stuffer: Not applicable Artery visualized: Yes Vein visualized: Yes Compressible Vein: Yes Vein patent: Yes Guidewire or Short Catheter seen in vein prior to dilation: Yes Line confirmed in Vein with ultrasound: Yes Lung Sliding on side of attempt (if applicable): NA If no lung sliding or not obtained has CXR been ordered: Yes Impression: Successful central venous access placement Images obtained are saved for permanent record Coding CPT Codes Tubes, Drains, and Vasc Access - Tubes, Drains, and Vasc Access: [id number] Insertion Of Non-tunneled Catheter Age 4 Yrs> ([id number]) Tubes, Drains, and Vasc Access - Tubes, Drains, and Vasc Access: [id number] Ultrasound Guidance For Vascular ([id number]) [facility] Procedure Codes (Charges) Tubes, Drains, and Vasc Access Procedure 1: Tubes, Drains, and Vasc Access: [id number] Insertion Of Non-tunneled Catheter Age 4 Yrs> Procedure 2: Tubes, Drains, and Vasc Access: [id number] Ultrasound Guidance For Vascular
--- NOTE | 2020-05-09 20:02 | Procedure Note ---
Procedure Note Date of Service May 09, 2020 Procedure date: Noted above Procedure: Radial artery cannulation Pre-procedure Diagnosis: Need for invasive monitoring frequent blood draws given refractory hypoxemia Post-procedure Diagnosis: same as above Prior to Procedure: Informed Consent: The risks, benefits, indications, potential complications, and alternatives were explained to the patient and informed consent obtained. Attending Staff: Ervin Wright DO Skin Prep: Chlorhexidine Anesthesia: 3 mL 1% lidocaine without epinephrine The identity of the patient was confirmed and a bedside time out was performed. Description of Procedure: After sterile prep and sterile drape utilizing standard sterile technique the superficial skin of the right radial artery was anesthetized. The target artery was identified via dynamic ultrasound guidance and entered with a 20-gauge arrow Angiocath. Pulsatile bright red blood return was noted. Via modified Seldinger technique the self-contained guidewire was advanced and the Angiocath advanced over the guidewire. The guidewire was removed and brisk arterial blood return was noted. The pressure monitor was connected, and the arterial line was secured via silk suture. A sterile dressing was then applied. Complications: None Estimated blood loss: Trace Patient tolerated the procedure well. Procedure Date: May 09, 2020 Procedure: Procedural Ultrasound Indication: Arterial access for invasive monitoring Attending: Ervin Wright DO Artery visualized: Yes Pulsatility of artery: Yes Artery patent: Yes Line confirmed in artery with ultrasound: Yes Impression: Successful arterial cannulation Images obtained are saved for permanent record Coding CPT Codes Tubes, Drains, and Vasc Access - Tubes, Drains, and Vasc Access: [id number] Place Catheter In Artery ([id number]) Tubes, Drains, and Vasc Access - Tubes, Drains, and Vasc Access: [id number] Ultrasound Guidance For Vascular ([id number]) [facility] [place] Procedure Codes (Charges) Tubes, Drains, and Vasc Access Procedure 2: Tubes, Drains, and Vasc Access: [id number] Place Catheter In Artery Procedure 1: Tubes, Drains, and Vasc Access: [id number] Ultrasound Guidance For Vascular
--- NOTE | 2020-05-09 20:57 | Hospitalist Progress Note ---
Date of Service May 09, 2020 Assessment & Plan (1) Acute respiratory failure with hypoxia: Patient with acute hypoxic respiratory failure secondary to COVID-19 pneumonia. -Worsened on the morning of 05/03 with pulse ox of 82% on high flow nasal cannula 40 L with 100% FiO2 Transitioned to BiPAP initially and then CPAP at 14 cm H2O patient intubated by Dr. Milner morning of 05/06, transferred to ICU sedation per ICU, propofol and fentanyl now on Nimbix for paralysis, placed in prone position today and will remain prone until 630am tomorrow management per ICU staff lung protective ventilation, very hypoxic palliative care and ICU involved in speaking with patient's sons about goals of care patient is critically ill, not improving, unlikely to survive hospitalization (2) COVID-19: Diagnosed with Covid-19 on 04/26 on a screening test at his intermediate- he was asymptomatic at that time Developed symptoms of shortness of breath and hypoxia at the intermediate on 04/29 Presented to the hospital on 05/02 with altered mental status and worsening hypoxia requiring 15 L nonrebreather and now on CPAP as above With pneumonia present on chest x-ray intubated on 05/06 and moved to ICU With acute kidney injury, not a candidate for remdesivir Received 1 dose of convalescent plasma on 05/03 Continue on dexamethasone 6 mg IV once daily x10-day course -Continue enoxaparin 30 mg SQ every 12 hours for high-dose DVT prophylaxis -Overall prognosis very poor (3) Acute metabolic encephalopathy: Metabolic encephalopathy in setting of COVID pneumonia, acute hypoxic respiratory failure and sepsis. Also with underlying dementia -Continue to treat hypoxia, supportive care for Covid now that he is intubated, full sedation (4) Sepsis: Sepsis in setting of COVID19 pneumonia e/b a SOFA score >4 (5) SHERRIE (acute kidney injury): Creatinine up to 3 on admission, BUN 73, along with hypernatremia with sodium 154 likely secondary to severe dehydration, prerenal SHERRIE Creatinine is stable at 1.4 over the past 48 hours Follow BMP in the morning (6) Acute hypernatremia: As above secondary to severe dehydration Continues to improve today down to 145 Follow BMP in the morning (7) Coronary artery disease: Family reports patient had cardiac catheterization several years ago which showed severe coronary artery disease and stents were not able to be placed at that time He is medically managed as an outpatient Typically he is on aspirin, metoprolol, amlodipine These are all held right now as he is unable to take p.o. (8) Hypertension: Holding home medications as above (9) Alzheimer disease: Sounds moderate to severe in nature At baseline, can recognize family members, is mostly nonambulatory, resides in a intermediate Has a history of agitation and auditory hallucinations Supportive care certainly would make prognosis poor, wean from ventilator would be difficult with constant confusion and agitation (10) Hypokalemia: Replaced and resolved K 4.2 today (11) Hyperglycemia: With some hyperglycemia here secondary to corticosteroids glycemic protocol in ICU (12) Elevated troponin: Patient has a mildly elevated troponin 0.062 and then down to normal range Likely myocardial demand ischemia in the setting of sepsis with underlying known severe CAD (13) Elevated lactic acid level: initial Lactate elevated 2.1, likely secondary to hypoxia and sepsis (14) Mood disorder: Presumably he is on Depakote, duloxetine, Seroquel, and Lyrica for some sort of mood disorder (15) Hypophosphatemia: 4.3 today (16) DVT prophylaxis: Lovenox 30 mg SQ every 12 hours Disposition-transition to ICU status, continue Covid-19 precautions Overall prognosis remains poor ICU and palliative care will discuss with patient's family tomorrow after 24 hours of prone positioning Admission and Anticipated Discharge Date Admission Date: May 02, 2020 Subjective patient doing poorly on the ventilator placed in prone position today and will remain in prone until 630am tomorrow discussions held with family by ICU staff and palliative care his prognosis remains very poor Review of Systems Review of Systems: Unobtainable due to cognitive status and Unobtainable due to endotracheal tube Physical Exam Constitutional: + ill appearing, + thin and + mechanically ventilated (prone position); no acute distress Neck: trachea midline, no thyromegaly Respiratory: Auscultation: no crackles, no rhonchi and no wheezes Cardiovascular: RRR, no murmur, no edema Gastrointestinal (Abdomen): normal bowel sounds, soft, nontender, no hepatosplenomegaly Musculoskeletal: Head/Neck/Chest: normocephalic, head atraumatic and neck supple Skin: no rashes, warm and dry Neurologic: + obtunded Psychiatric: Orientation: + not oriented x 3 Results & Data Results & Data ([facility]) Vital Signs (Past 12 Hours) Vital Signs Temp Pulse Resp BP Pulse Ox 05/09/20 19:14 36.3 C L 81 150/75 H 94 05/09/20 18:58 36.4 C L 87 133/76 93 05/09/20 18:44 36.4 C L 98 H 198/88 H 95 05/09/20 18:14 36.5 C 88 173/84 H 94 05/09/20 18:00 36.5 C 96 H 94 05/09/20 17:44 36.5 C 98 H 175/96 H 94 05/09/20 17:14 36.6 C 102 H 178/103 H 93 05/09/20 16:43 36.7 C 102 H 186/93 H 94 05/09/20 16:36 36.7 C 108 H 262/110 H 94 05/09/20 16:26 36.7 C 103 H 233/116 H 93 05/09/20 16:00 36.8 C 99 H 88 L 05/09/20 15:45 36.8 C 100 H 262/89 H 94 05/09/20 15:41 105 H 23 90 05/09/20 15:00 36.9 C 100 H 95 05/09/20 14:00 37.0 C 105 H 94 05/09/20 12:41 37.1 C 114 H 225/97 H 93 05/09/20 11:29 112 H 24 93 05/09/20 11:18 37.0 C 113 H 245/116 H 90 05/09/20 10:17 36.6 C 67 184/86 H 93 05/09/20 09:46 36.6 C 63 164/80 H 91 05/09/20 09:16 36.6 C 60 146/78 H 89 L Laboratory Results Laboratory Results - last 24 hr 05/09/20 05/09/20 05/09/20 00:09 03:11 03:58 WBC RBC Hgb POC Hgb 8.5 L Hct POC Hct 25 L MCV MCH MCHC RDW Std Deviation RDW Coeff of Ailin Plt Count MPV Absolute Nucleated RBC Nucleated RBC % (auto) Neutrophils % (Manual) Lymphocytes % (Manual) Monocytes % (Manual) Metamyelocytes % (Man) Myelocytes % (Man) Neutrophils # (Manual) Total Absolute Neuts Lymphocytes # (Manual) Total Abs Lymphocytes Monocytes # (Manual) Metamyelocytes # (Man) Myelocytes # (Manual) Tear Drop Cells Sample Site R Radial POC pH 7.35 POC pCO2 41 POC pO2 59 L POC HCO3 23 POC Total CO2 24 POC Base Excess -3.0 ABG pH (Temp Correct) 7.365 ABG pCO2 (Temp Corrct 39 POC ABG pO2 at Pt Temp 55 POC ABG O2 Sat 89.0 L Vaibhav Test Pass O2 Delivery Device Ventilator POC O2 Rate 22 POC FiO2 60 Tidal Volume 475 PEEP 12 POC Sodium 145 H Sodium POC Potassium 4.2 Potassium Chloride Carbon Dioxide Anion Gap BUN Creatinine Est Cr Clr Drug Dosing Est GFR ( Amer) Est GFR (Non-Af Amer) BUN/Creatinine Ratio Glucose POC Glucose 167 H 148 H Calcium Phosphorus Magnesium Triglycerides 05/09/20 05/09/20 05/09/20 05:22 05:22 07:40 WBC 10.62 RBC 2.71 L Hgb 9.0 L POC Hgb Hct 27.2 L POC Hct MCV 100.4 H MCH 33.2 MCHC 33.1 RDW Std Deviation 56.2 H RDW Coeff of Ailin 16.0 H Plt Count 233 MPV 11.5 H Absolute Nucleated RBC 0.32 H Nucleated RBC % (auto) 3.1 Neutrophils % (Manual) 89.4 Lymphocytes % (Manual) 6.6 Monocytes % (Manual) 0.8 Metamyelocytes % (Man) 1.6 Myelocytes % (Man) 1.6 Neutrophils # (Manual) 9.49 H Total Absolute Neuts 9.49 H Lymphocytes # (Manual) 0.70 L Total Abs Lymphocytes 0.70 L Monocytes # (Manual) 0.08 L Metamyelocytes # (Man) 0.17 H Myelocytes # (Manual) 0.17 H Tear Drop Cells 1+ Sample Site POC pH POC pCO2 POC pO2 POC HCO3 POC Total CO2 POC Base Excess ABG pH (Temp Correct) ABG pCO2 (Temp Corrct POC ABG pO2 at Pt Temp POC ABG O2 Sat Vaibhav Test O2 Delivery Device POC O2 Rate POC FiO2 Tidal Volume PEEP POC Sodium Sodium 144 POC Potassium Potassium 4.3 Chloride 116 H Carbon Dioxide 26 Anion Gap 2.0 L BUN 45 H Creatinine 1.43 H Est Cr Clr Drug Dosing 51.9 Est GFR ( Amer) 53.2 Est GFR (Non-Af Amer) 45.9 BUN/Creatinine Ratio 31.6 H Glucose 134 H POC Glucose 127 H Calcium 7.8 L Phosphorus 4.3 Magnesium 3.0 H Triglycerides 404 H 05/09/20 05/09/20 05/09/20 11:20 16:19 19:58 WBC RBC Hgb POC Hgb Hct POC Hct MCV MCH MCHC RDW Std Deviation RDW Coeff of Ailin Plt Count MPV Absolute Nucleated RBC Nucleated RBC % (auto) Neutrophils % (Manual) Lymphocytes % (Manual) Monocytes % (Manual) Metamyelocytes % (Man) Myelocytes % (Man) Neutrophils # (Manual) Total Absolute Neuts Lymphocytes # (Manual) Total Abs Lymphocytes Monocytes # (Manual) Metamyelocytes # (Man) Myelocytes # (Manual) Tear Drop Cells Sample Site POC pH POC pCO2 POC pO2 POC HCO3 POC Total CO2 POC Base Excess ABG pH (Temp Correct) ABG pCO2 (Temp Corrct POC ABG pO2 at Pt Temp POC ABG O2 Sat Vaibhav Test O2 Delivery Device POC O2 Rate POC FiO2 Tidal Volume PEEP POC Sodium Sodium POC Potassium Potassium Chloride Carbon Dioxide Anion Gap BUN Creatinine Est Cr Clr Drug Dosing Est GFR ( Amer) Est GFR (Non-Af Amer) BUN/Creatinine Ratio Glucose POC Glucose 163 H 262 H 233 H Calcium Phosphorus Magnesium Triglycerides Medications Administered Current Inpatient Medications Dextrose (Dextrose 50% 50 Ml Syringe) 25 - 50 ml IV UD PRN; Protocol PRN Reason: Hypoglycemia Protocol Stop: 06/06/20 12:14 Enoxaparin Sodium (Enoxaparin Inj 40 Mg/0.4 Ml Syr) 40 mg SQ QAM BECCA Stop: 06/08/20 08:59 Last Admin: 05/09/20 09:27 Dose: 40 mg Documented by: Fentanyl Citrate (Fentanyl Bolus From Bag) 50 mcg IV Q60M PRN PRN Reason: Pain or Agitation Stop: 05/20/20 10:24 Last Admin: 05/08/20 16:03 Dose: 50 mcg Documented by: Glucagon (Glucagon For Inj 1 Mg Vial) 1 mg IM UD PRN; Protocol PRN Reason: Hypoglycemia Protocol Stop: 06/06/20 12:14 Glucose (Glucose 40% Gel 15 Gm Tube) 15 - 30 gm PO UD PRN; Protocol PRN Reason: Hypoglycemia Protocol Stop: 06/06/20 12:14 Glucose (Glucose 10 Tabs/Tube) 4 - 8 tabs PO UD PRN; Protocol PRN Reason: Hypoglycemia Protocol Stop: 06/06/20 12:14 Dexamethasone Sodium Phosphate (6 mg/ Syringe) 1.5 mls @ 1 mls/min IV DAILY [facility] Stop: 05/12/20 09:02 Last Admin: 05/09/20 09:27 Dose: 1 mls/min Documented by: Fentanyl Citrate (Fentanyl Drip) 1,250 mcg in 250 mls @ 25 mls/hr IV .Q10H [facility]; Protocol Stop: 05/20/20 10:29 Last Admin: 05/09/20 15:45 Dose: 125 mcg/hr, 25 mls/hr Documented by: Pantoprazole Sodium 40 mg/ (Syringe) 10 mls @ 5 mls/min IV DAILY@1100 [facility] Stop: 06/05/20 10:59 Last Admin: 05/09/20 10:54 Dose: 5 mls/min Documented by: Cisatracurium Besylate 40 mg/ (Sodium Chloride) 100 mls @ 23.28 mls/hr IV .Q4H18M [facility]; Protocol Stop: 05/10/20 07:00 Last Admin: 05/09/20 18:28 Dose: 2 mcg/kg/min, 23.3 mls/hr Documented by: Midazolam HCl (Versed) 125 mg in 250 mls @ 2 mls/hr IV .Q96H [facility]; Protocol Stop: 06/08/20 10:59 Last Titration: 05/09/20 15:07 Dose: 2 mg/hr, 4 mls/hr Documented by: Insulin Aspart (Insulin Aspart 100 Units/Ml 3 Ml Pen) 0 units SC Q4 [facility] Stop: 06/06/20 12:29 Last Admin: 05/09/20 20:05 Dose: 7 units Documented by: Labetalol HCl (Labetalol Hcl Iv 5 Mg/Ml 20ml) 10 mg IV Q2H PRN PRN Reason: Blood Pressure - High Stop: 06/07/20 21:06 Last Admin: 05/08/20 21:12 Dose: 10 mg Documented by: Midazolam HCl (Midazolam Bolus From Bag) 2 mg IV Q60M PRN PRN Reason: Sedation Stop: 06/08/20 10:48 Last Admin: 05/09/20 11:41 Dose: 2 mg Documented by: Miscellaneous (Carbohydrates For Hypoglycemia ) 15 - 30 gm PO UD PRN PRN Reason: Hypoglycemia Treatment Stop: 06/06/20 12:14 Multi-Ingredient Cream (Artificial Tears Op Oint 3.5 Gm Tube) 1 appln OP QID PRN PRN Reason: Undecided Stop: 06/08/20 10:37 Last Admin: 05/09/20 11:41 Dose: 1 appln Documented by: Nutritional Formula (Peptamen Intense Vhp 1.0 Gus 1,000 Ml Bag) 1,000 ml OG TODAY@1800 [facility]; Protocol Stop: 06/05/20 17:59 Last Admin: 05/09/20 16:33 Dose: Not Given Documented by: Sennosides (Senna 8.6 Mg Tab) 17.2 mg PO DAILY [facility] Stop: 06/05/20 17:44 Last Admin: 05/09/20 10:50 Dose: 17.2 mg Documented by: PG Care Time/CCT Total # of Minutes Spent Total Time Spent with Patient: Total time spent is greater than 50% in coordination of care (as documented) at patient's floor/unit and/or counseling patient: Coding Level of Care Code 85413 Subseq Hosp Care Lvl 2 Diagnoses Acute respiratory failure with hypoxia J96.01 COVID-19 U07.1 Acute metabolic encephalopathy G93.41 Sepsis A41.9 SHERRIE (acute kidney injury) N17.9 Acute hypernatremia E87.0 Coronary artery disease I25.10 Hypertension I10 Alzheimer disease G30.9; F02.80 Hypokalemia E87.6 Hyperglycemia R73.9 Elevated troponin R77.8 Elevated lactic acid level R79.89 Mood disorder F39 Hypophosphatemia E83.39 DVT prophylaxis Z29.9
--- NOTE | 2020-05-09 22:15 | Electrocardiogram Report ---
Test Reason : Blood Pressure : / mmHG Vent. Rate : 071 BPM Atrial Rate : 071 BPM P-R Int : 156 ms QRS Dur : 096 ms QT Int : 398 ms P-R-T Axes : 043 020 024 degrees QTc Int : 432 ms Sinus rhythm with Premature atrial complexes Otherwise normal ECG When compared with ECG of 02-MAY-2020 16:46, Premature atrial complexes are now Present Nonspecific T wave abnormality no longer evident in Anterolateral leads Confirmed by Donnie Dockery ([id number]) on 05/09/2020 10:15:02 PM Referred By: [facility] Confirmed By:Donnie Dockery
[2020-05-09] MEDS: LABETALOL HCL IV 5 MG/ML 20ML IV PRN (23:45)
[2020-05-10] MEDS: MIDAZOLAM BOLUS FROM BAG IV PRN ×3 (01:35→10:17)
[2020-05-10] MEDS: INSULIN ASPART 100 UNITS/ML 3 ML PEN SC SCH ×5 (03:36→21:27)
[2020-05-10] MEDS: CISATRACURIUM BESYLATE 40 MG in 0.9 % SODIUM CHLORIDE 80 ML IV SCH (03:37)
[2020-05-10 05:20] LABS: Hematocrit (blood only) 28.3 % (42-52); Mean Corpuscular Hemoglobin 32.6 pg (25-34); Mean Corpuscular Hgb Conc 31.8 g/dL (32-36); Mean Corpuscular Volume 102.5 fL (80-100); Mean Platelet Volume 11.2 fL (7.4-10.4); Nucleated RBC % (auto) 2.4 %; Platelet Count 241 K/uL (130-400); RDW Coefficient of Variation 16.7 % (11.5-14.5); RDW Standard Deviation 58.2 fL (36.4-46.3); Red Blood Count 2.76 M/uL (4.7-6.1); White Blood Count 12.17 K/uL (4.8-10.8)
[2020-05-10 05:59] LABS: iSTAT Allen Test Pass; iSTAT Art Bld Gas pCO2 Correct 54 mmHg (35-46); iSTAT Art Bld Gas pH Corrected 7.288 (7.35-7.45); iSTAT Arterial Blood Gas HCO3 26 meg/L (19-24); iSTAT Arterial Blood Gas pCO2 56 mmHg (35-46); iSTAT Arterial Blood Gas pH 7.28 (7.35-7.45); iSTAT Arterial Blood Gas pO2 63 mmHg (80-95); iSTAT Arterial Blood Gas pO2 C 59; iSTAT Carbon Dioxide 28 mmol/L (24-31); iSTAT FiO2 40 %; iSTAT Hematocrit 28 % (42-52); iSTAT Hemoglobin 9.5 g/dl (14.0-18.0); iSTAT Potassium 4.6 mmol/L (3.3-5.0); iSTAT Site Art Line; iSTAT Sodium 147 mmol/L (135-144)
[2020-05-10 06:00] LABS: ALC (manual) 0.74 K/uL (1.2-3.4); ANC (manual) 11.21 K/uL (1.4-6.5); Basophilic Stippling 1+; Lymphocytes # (manual) 0.74 K/uL (1.2-3.4); Lymphocytes % (manual) 6.1 %; Metamyelocytes # (manual) 0.22 K/uL (0-0); Metamyelocytes % (manual) 1.8 %; Neutrophils # (manual) 11.21 K/uL (1.4-6.5); Neutrophils % (manual) 92.1 %; Polychromasia 1+
[2020-05-10 06:04] LABS: BUN Creatinine Ratio 35.2 (10-20); Calcium 7.7 mg/dl (8.5-10.1); Creatinine Clr Calc Pharmacy 57.3 ml/min; Est GFR (African American) 59.7; Est GFR (Non-African American) 51.5; Magnesium 2.7 mg/dl (1.8-2.4); Potassium 4.5 mmol/L (3.5-5.1)
[2020-05-10 06:05] LABS: Phosphorus 4.1 mg/dl (2.5-4.9)
[2020-05-10] MEDS: SENNA 8.6 MG TAB PO SCH (07:33)
--- NOTE | 2020-05-10 07:55 | XRay Report ---
XR chest 1V portable HISTORY: follow up pneumonia COMPARISON: Chest 05/09/2020. FINDINGS: Endotracheal tube terminates approximately 5.7 cm from the elke. Nasogastric tube termina tyler below the diaphragm. Right jugular central venous catheter terminates at the right brachiocephali c vein. This remains unchanged. No pneumothorax. No pleural effusions. Interstitial thickening and pa tchy hazy airspace opacities are stable to slightly improved. IMPRESSION: 1. Satisfactory support line placement. 2. Stable to slight improvement in the interstitial thickening and hazy bilateral airspace opacities. ACT 112: Negative or not required by law. Electronically signed by: Shawn Cervantes M.D. 05/10/2020 7:53 AM
[2020-05-10] MEDS: ENOXAPARIN INJ 40 MG/0.4 ML SYR SQ SCH (08:20)
[2020-05-10] MEDS: DEXAMETHASONE SOD PHOSPHATE 6 MG in SYRINGE 0 ML IV SCH (08:21)
[2020-05-10] MEDS ORDERED: POTASSIUM CHLORIDE 20 MEQ/15 ML UDC PO STA (08:26)
--- NOTE | 2020-05-10 08:29 | Critical Care Progress Note ---
Date of Service May 10, 2020 Assessment & Plan (1) COVID-19: Neurologic: Acute metabolic encephalopathy: Secondary to SIRS Sedation converted from propofol to Versed given hypertriglyceridemia -Discontinue Nimbex/neuromuscular blockade. -Feel the patient is at high risk for severe functional decline for continued neuromuscular blockade Longstanding history of Alzheimer's disease Pulmonary: Severe hypoxemic respiratory failure secondary to COVID-19 -Goal oxygen saturation 88-92, acceptable pH 7.35-7.25 -Day 5 of mechanical ventilation -Current ventilator settings: Tidal volume 400 PEEP 16 FiO2 40 % rate 22 Proning protocol: Completed 18 hours High PEEP low FiO2 -FiO2 has decreased to 40% he is still requiring 16 of PEEP -There was no significant improvement in the patient's com pliance with prone positioning Cardiovascular: Coronary artery disease: Medical management Hypertension: Metoprolol IV 5 mg every 6 hours and as a unsure if the patient will be up taking his normal antihypertensive regimen -Hold for systolic blood pressure 110 or less for heart rate less than 60 Gastrointestinal: Hypertriglyceridemia secondary to propofol -Reinstitute tube feeding Transaminitis: Likely secondary to Covid 19: Improving Renal: Acute kidney injury: Resolved Hypernatremia -Hypervolemic hypernatremia, will gently diurese with chlorothiazide Hypermagnesemia secondary to acute kidney injury Infectious disease: Sepsis: Secondary to COVID-19 Pneumonia: Viral: COVID-19 -Received convalescent plasma -Negative procalcitonin, continue to hold broad-spectrum antibiotics, inflammatory markers elevated -Not a candidate for remdesivir at time due to elevated creatinine now out of window Hematologic: Anemia secondary to sepsis -Transition to 30 mg twice daily Lovenox given propensity for thromboembolic disease in the setting of Covid -We will continue to observe for worsening anemia, I believe this is secondary to viral bone marrow suppression and not occult bleeding at this time. -Son declined consent for blood transfusion as of 1028 will anticipate rediscussing this today. Endocrine: Hyperglycemia Hyperglycemia protocol. -Increase correction factor. Receiving Decadron therapy, today is day 9, we will discontinue the steroid therapy based off of CDC recommendations. Lines and tubes: Kasper and peripheral IVs -Right internal jugular central venous access placed 05/09 -Right radial arterial line placed 05/09 VTE prophylaxis: Lovenox 30 mg twice daily, based off of expert opinion guidelines for COVID-19 CODE STATUS: Full code Family at bedside: None available bedside due to the COVID-19 pandemic Disposition: Remain in the ICU. Prognosis remains very poor and he is unlikely to survive this hospitalization without very significant deficits. (2) Acute hypernatremia: (3) Elevated lactic acid level: (4) Acute respiratory failure with hypoxia: (5) Coronary artery disease: Admission and Anticipated Discharge Date Admission Date: May 02, 2020 Supervising Physician Co-Signing Physician Notes Patient was discussed on multidisciplinary rounds Update 1500 spoke with power of corporate associate attorney son Lacho, had long discussions regarding prognosis, need for blood transfusion, prognosis in event of cardiac arrest, they have decided that if the patient were to suffer cardiac arrest they would not want heroic measures undertaken. I also updated the family of possible gastric hemorrhage and the patient's son agreed with one blood transfusion and if he continued to get worse day family would likely be progressing towards terminal extubation. I felt it appropriate to offer for the family to come and see the father's current state through the windows. Obvio usly this is difficult given the COVID-19 pandemic and the fact that the patient is Covid positive and a negative pressure room. They will be unable to make it tonight however they will attempts to calm and see the patient through the windows tomorrow. At this time the patient is DNR in event of cardiac arrest, we will continue current level of care and will transfuse 1 unit of packed red blood cells. Subjective No overnight events, patient was rotated to supine position this morning Review of Systems Review of Systems: Unable to obtain due to intubation, patient also reported baseline moderate to severe Alzheimer's disease. Physical Exam Physical Exam: General: GCS 3 TP Skin: Small area of stage I decubiti in the upper gluteal cleft Head: Atraumatic Ears, nose, mouth and throat: Obscured by endotracheal tube Cardiovascular: Normal peripheral perfusion Respiratory: Coarse sounds Gastrointestinal: Non distended Musculoskeletal: No deformity +1 peripheral edema Results & Data Results & Data ([facility]) Vital Signs (Past 12 Hours) Vital Signs Temp Pulse Resp BP Pulse Ox 05/10/20 07:00 70 22 89 L 05/10/20 06:00 36.1 C L 59 L 91 05/10/20 05:48 59 L 22 91 05/10/20 05:45 36.1 C L 61 91 05/10/20 05:16 36.1 C L 63 90 05/10/20 05:15 36.1 C L 63 179/79 H 90 05/10/20 04:15 36.1 C L 63 167/80 H 90 05/10/20 04:00 36.0 C L 66 90 05/10/20 03:45 36.1 C L 65 158/76 H 89 L 05/10/20 03:30 66 22 90 05/10/20 03:15 36.1 C L 66 129/57 L 92 05/10/20 02:46 36.1 C L 67 92 05/10/20 02:45 36.1 C L 65 129/59 L 92 05/10/20 02:15 36.1 C L 65 132/61 92 05/10/20 02:00 36.0 C L 64 93 05/10/20 01:45 36.0 C L 63 132/55 L 94 05/10/20 01:15 35.9 C L 65 123/55 L 94 05/10/20 01:00 35.9 C L 65 94 05/10/20 00:56 65 22 93 05/10/20 00:44 35.9 C L 64 168/94 H 91 05/10/20 00:15 36.0 C L 62 151/89 H 90 05/10/20 00:00 36.0 C L 65 91 05/09/20 23:59 62 05/09/20 23:00 35.9 C L 68 91 05/09/20 22:44 35.9 C L 68 177/90 H 91 05/09/20 22:25 71 22 91 05/09/20 22:14 35.9 C L 70 143/68 H 97 05/09/20 22:00 36.0 C L 68 97 05/09/20 21:46 36.0 C L 70 97 05/09/20 21:45 36.0 C L 72 132/67 97 05/09/20 21:14 36.0 C L 74 161/68 H 97 05/09/20 20:44 36.1 C L 75 151/71 H 97 Laboratory Results 05/10/20 05/10/20 05/10/20 Range/Units 08:15 05:44 04:45 WBC 12.17 H (4.8-10.8) K/uL RBC 2.76 L (4.7-6.1) M/uL Hgb 9.0 L (14.0-18.0) g/dL POC Hgb 9.5 L (14.0-18.0) g/dl Hct 28.3 L (42-52) % POC Hct 28 L (42-52) % MCV 102.5 H (80-100) fL MCH 32.6 (25-34) pg MCHC 31.8 L (32-36) g/dL RDW Std Deviation 58.2 H (36.4-46.3) fL RDW Coeff of Ailin 16.7 H (11.5-14.5) % Plt Count 241 (130-400) K/uL MPV 11.2 H (7.4-10.4) fL Absolute Nucleated RBC 0.30 H (0-0) K/uL Nucleated RBC % (auto) 2.4 % Neutrophils % (Manual) 92.1 % Lymphocytes % (Manual) 6.1 % Metamyelocytes % (Man) 1.8 % Neutrophils # (Manual) 11.21 H (1.4-6.5) K/uL Total Absolute Neuts 11.21 H (1.4-6.5) K/uL Lymphocytes # (Manual) 0.74 L (1.2-3.4) K/uL Total Abs Lymphocytes 0.74 L (1.2-3.4) K/uL Metamyelocytes # (Man) 0.22 H (0-0) K/uL Polychromasia 1+ Basophilic Stippling 1+ Sample Site Art Line POC pH 7.28 L (7.35-7.45) POC pCO2 56 H (35-46) mmHg POC pO2 63 L (80-95) mmHg POC HCO3 26 H (19-24) tracey/L POC Total CO2 28 (24-31) mmol/L POC Base Excess -1.0 (-9-1.8) tracey/L ABG pH (Temp Correct) 7.288 L (7.35-7.45) ABG pCO2 (Temp Corrct 54 H (35-46) mmHg POC ABG pO2 at Pt Temp 59 POC ABG O2 Sat 88.0 L (90-95) % Vaibhav Test Pass O2 Delivery Device Ventilator POC O2 Rate 22 Minute Ventilation 8.8 POC FiO2 40 % Tidal Volume 400 PEEP 16 POC Sodium 147 H (135-144) mmol/L Sodium (136-145) mmol/L POC Potassium 4.6 (3.3-5.0) mmol/L Potassium (3.5-5.1) mmol/L Chloride (98-107) mmol/L Carbon Dioxide (21-32) mmol/L Anion Gap (3-11) BUN (7-18) mg/dl Creatinine (0.6-1.4) mg/dl Est Cr Clr Drug Dosing ml/min Est GFR ( Amer) Est GFR (Non-Af Amer) BUN/Creatinine Ratio (-20) Glucose (70-99) mg/dl POC Glucose 110 H (70-99) mg/dl Calcium (8.5-10.1) mg/dl Phosphorus (2.5-4.9) mg/dl Magnesium (1.8-2.4) mg/dl AST (15-37) U/L ALT (12-78) U/L 05/10/20 05/10/20 05/09/20 Range/Units 04:45 03:31 23:52 WBC (4.8-10.8) K/uL RBC (4.7-6.1) M/uL Hgb (14.0-18.0) g/dL POC Hgb (14.0-18.0) g/dl Hct (42-52) % POC Hct (42-52) % MCV (80-100) fL MCH (25-34) pg MCHC (32-36) g/dL RDW Std Deviation (36.4-46.3) fL RDW Coeff of Ailin (11.5-14.5) % Plt Count (130-400) K/uL MPV (7.4-10.4) fL Absolute Nucleated RBC (0-0) K/uL Nucleated RBC % (auto) % Neutrophils % (Manual) % Lymphocytes % (Manual) % Metamyelocytes % (Man) % Neutrophils # (Manual) (1.4-6.5) K/uL Total Absolute Neuts (1.4-6.5) K/uL Lymphocytes # (Manual) (1.2-3.4) K/uL Total Abs Lymphocytes (1.2-3.4) K/uL Metamyelocytes # (Man) (0-0) K/uL Polychromasia Basophilic Stippling Sample Site POC pH (7.35-7.45) POC pCO2 (35-46) mmHg POC pO2 (80-95) mmHg POC HCO3 (19-24) tracey/L POC Total CO2 (24-31) mmol/L POC Base Excess (-9-1.8) tracey/L ABG pH (Temp Correct) (7.35-7.45) ABG pCO2 (Temp Corrct (35-46) mmHg POC ABG pO2 at Pt Temp POC ABG O2 Sat (90-95) % Vaibhav Test O2 Delivery Device POC O2 Rate Minute Ventilation POC FiO2 % Tidal Volume PEEP POC Sodium (135-144) mmol/L Sodium 145 (136-145) mmol/L POC Potassium (3.3-5.0) mmol/L Potassium 4.5 (3.5-5.1) mmol/L Chloride 115 H (98-107) mmol/L Carbon Dioxide 26 (21-32) mmol/L Anion Gap 5.0 (3-11) BUN 46 H (7-18) mg/dl Creatinine 1.30 (0.6-1.4) mg/dl Est Cr Clr Drug Dosing 57.3 ml/min Est GFR ( Amer) 59.7 Est GFR (Non-Af Amer) 51.5 BUN/Creatinine Ratio 35.2 H (10-20) Glucose 109 H (70-99) mg/dl POC Glucose 137 H 204 H (70-99) mg/dl Calcium 7.7 L (8.5-10.1) mg/dl Phosphorus 4.1 (2.5-4.9) mg/dl Magnesium 2.7 H (1.8-2.4) mg/dl AST 138 H (15-37) U/L ALT 205 H (12-78) U/L 05/09/20 05/09/20 05/09/20 Range/Units 19:58 16:19 11:20 WBC (4.8-10.8) K/uL RBC (4.7-6.1) M/uL Hgb (14.0-18.0) g/dL POC Hgb (14.0-18.0) g/dl Hct (42-52) % POC Hct (42-52) % MCV (80-100) fL MCH (25-34) pg MCHC (32-36) g/dL RDW Std Deviation (36.4-46.3) fL RDW Coeff of Ailin (11.5-14.5) % Plt Count (130-400) K/uL MPV (7.4-10.4) fL Absolute Nucleated RBC (0-0) K/uL Nucleated RBC % (auto) % Neutrophils % (Manual) % Lymphocytes % (Manual) % Metamyelocytes % (Man) % Neutrophils # (Manual) (1.4-6.5) K/uL Total Absolute Neuts (1.4-6.5) K/uL Lymphocytes # (Manual) (1.2-3.4) K/uL Total Abs Lymphocytes (1.2-3.4) K/uL Metamyelocytes # (Man) (0-0) K/uL Polychromasia Basophilic Stippling Sample Site POC pH (7.35-7.45) POC pCO2 (35-46) mmHg POC pO2 (80-95) mmHg POC HCO3 (19-24) tracey/L POC Total CO2 (24-31) mmol/L POC Base Excess (-9-1.8) tracey/L ABG pH (Temp Correct) (7.35-7.45) ABG pCO2 (Temp Corrct (35-46) mmHg POC ABG pO2 at Pt Temp POC ABG O2 Sat (90-95) % Vaibhav Test O2 Delivery Device POC O2 Rate Minute Ventilation POC FiO2 % Tidal Volume PEEP POC Sodium (135-144) mmol/L Sodium (136-145) mmol/L POC Potassium (3.3-5.0) mmol/L Potassium (3.5-5.1) mmol/L Chloride (98-107) mmol/L Carbon Dioxide (21-32) mmol/L Anion Gap (3-11) BUN (7-18) mg/dl Creatinine (0.6-1.4) mg/dl Est Cr Clr Drug Dosing ml/min Est GFR ( Amer) Est GFR (Non-Af Amer) BUN/Creatinine Ratio (10-20) Glucose (70-99) mg/dl POC Glucose 233 H 262 H 163 H (70-99) mg/dl Calcium (8.5-10.1) mg/dl Phosphorus (2.5-4.9) mg/dl Magnesium (1.8-2.4) mg/dl AST (15-37) U/L ALT (12-78) U/L Coding Level of Care Code Critical Care 1st 30-74 mins Diagnoses COVID-19 U07.1 Acute hypernatremia E87.0 Elevated lactic acid level R79.89 Acute respiratory failure with hypoxia J96.01 Coronary artery disease I25.10
[2020-05-10] MEDS: CHLOROTHIAZIDE SODIUM 500 MG in DEXTROSE 5% 50 ML IV SCH ×2 (09:08→20:39)
[2020-05-10] MEDS: fentaNYL DRIP 1,250 MCG/250 ML BAG IV SCH ×2 (10:16→22:46)
[2020-05-10] MEDS: ARTIFICIAL TEARS OP OINT 3.5 GM TUBE OP PRN (10:17)
[2020-05-10] MEDS ORDERED: METOPROLOL TARTRATE 1 MG/ML VIAL IV SCH (12:00)
[2020-05-10] MEDS: PANTOprazole 40 MG in SYRINGE 0 ML IV SCH (12:30)
[2020-05-10] MEDS: PEPTAMEN INTENSE VHP 1.0 CAL 1,000 ML BAG OG SCH (12:31)
[2020-05-10] MEDS ORDERED: SODIUM CHLORIDE 0.9% 250 ML IV PRN ×2 (12:59→16:02)
[2020-05-10 13:21] LABS: Hemoglobin 8.6 g/dL (14.0-18.0)
[2020-05-10] MEDS: METOPROLOL TARTRATE 1 MG/ML VIAL IV SCH ×2 (13:27→18:09)
[2020-05-10] MEDS: PANTOprazole 40 MG in DEXTROSE 5% 100 ML IV SCH ×3 (13:30→22:46)
[2020-05-10 13:45] LABS: Fibrinogen 378 mg/dl (184-400); Partial Thromboplastin Ratio 0.9; Prothrombin Time 10.9 Seconds (9.0-12.0)
--- NOTE | 2020-05-10 15:26 | Communication Note ---
Date of Service: May 10, 2020 On 05/10/20 I was present for the telephone conversation between Dr. Fahad Wright, Lacho Dionaide , and Sanaz Glenroy ( of Lacho Tim Jr.). Caryn redd Dionaide Bassett is the legal POA for our patient, Lacho Tim Sr. After an extensive conversation about Lacho Tim Sr.'s health and prognosis, his son stated that he would like to transition his father from a full code to a DNR/ DNI. After reviewing the risks, benefits and alternatives, Dr. Wright asked for consent to transfuse Lacho Tim Sr. with blood products (in the event this were to become medically necessary). Lacho Tim Jr. provided verbal consent for "one blood transfusion." Lacho Tim Jr. explicitly stated that if his father's health were to further deteriorate and he would be in need of additional blood products for survival, at that point, the family would prefer to transition Lacho Martinez to comfort measures only. Coding Level of Care Code None
[2020-05-10] MEDS: MIDAZOLAM HCL 125 MG/250 ML BAG IV SCH (16:30)
--- NOTE | 2020-05-10 16:58 | Hospitalist Progress Note ---
Date of Service May 10, 2020 Assessment & Plan (1) Acute respiratory failure with hypoxia: Patient with acute hypoxic respiratory failure secondary to COVID-19 pneumonia. -Worsened on the morning of 05/03 with pulse ox of 82% on high flow nasal cannula 40 L with 100% FiO2 Transitioned to BiPAP initially and then CPAP at 14 cm H2O patient intubated by Dr. Milner morning of 05/06, transferred to ICU sedation per ICU, propofol and fentanyl placed on Nimbix for paralysis, for prone positioning for 24 hours, now back to supine management per ICU staff lung protective ventilation, very hypoxic, difficult to maintain oxygen saturation > 90% palliative care and ICU involved in speaking with patient's sons about goals of care patient is critically ill, not improving, unlikely to survive hospitalization changed to DNR on 05/10, reassess daily, will talk about withdrawing care if appropriate (2) COVID-19: Diagnosed with Covid-19 on 04/26 on a screening test at his senior living- he was asymptomatic at that time Developed symptoms of shortness of breath and hypoxia at the senior living on 04/29 Presented to the hospital on 05/02 with altered mental status and worsening hypoxia requiring 15 L nonrebreather/CPAP With pneumonia present on chest x-ray intubated on 05/06 and moved to ICU With acute kidney injury, not a candidate for remdesivir Received 1 dose of convalescent plasma on 05/03 Continue on dexamethasone 6 mg IV once daily x10-day course -Continue enoxaparin 30 mg SQ every 12 hours for high-dose DVT prophylaxis -Overall prognosis very poor, difficult to ventilate, needs high levels of sedation DNR status, ICU continues to speak with family (3) Acute metabolic encephalopathy: Metabolic encephalopathy in setting of COVID pneumonia, acute hypoxic respiratory failure and sepsis. Also with underlying dementia -Continue to treat hypoxia, supportive care for Covid now that he is intubated, full sedation (4) Sepsis: Sepsis in setting of COVID19 pneumonia e/b a SOFA score >4 (5) SHERRIE (acute kidney injury): Creatinine up to 3 on admission, BUN 73, along with hypernatremia with sodium 154 likely secondary to severe dehydration, prerenal SHERRIE Creatinine is stable, 1.3 today, monitor UO via batres Follow BMP in the morning (6) Acute hypernatremia: As above secondary to severe dehydration stable at 147 today Follow BMP in the morning (7) Coronary artery disease: Family reports patient had cardiac catheterization several years ago which showed severe coronary artery disease and stents were not able to be placed at that time He is medically managed as an outpatient Typically he is on aspirin, metoprolol, amlodipine These are all held right now as he is unable to take p.o. (8) Hypertension: Holding home medications as above (9) Alzheimer disease: Sounds moderate to severe in nature At baseline, can recognize family members, is mostly nonambulatory, resides in a senior living Has a history of agitation and auditory hallucinations Supportive care certainly would make prognosis poor, wean from ventilator would be difficult with constant confusion and agitation (10) Hypokalemia: Replaced and resolved (11) Hyperglycemia: With some hyperglycemia here secondary to corticosteroids glycemic protocol in ICU (12) Elevated troponin: Patient has a mildly elevated troponin 0.062 and then down to normal range Likely myocardial demand ischemia in the setting of sepsis with underlying known severe CAD (13) Elevated lactic acid level: initial Lactate elevated 2.1, likely secondary to hypoxia and sepsis (14) Mood disorder: Presumably he is on Depakote, duloxetine, Seroquel, and Lyrica for some sort of mood disorder (15) Hypophosphatemia: stable (16) DVT prophylaxis: Lovenox 30 mg SQ every 12 hours Disposition-transition to ICU status, continue Covid-19 precautions Overall prognosis remains poor ICU and palliative care in communication with patient's family changed to DNR on 05/10 reassess status tomorrow (17) Anemia: Hb dropped to 8.6 today, unclear why it is dropping family consents to one unit of PRBC if needed Admission and Anticipated Discharge Date Admission Date: May 02, 2020 Subjective patient returned to supine position today after 24 hours of prone still difficult to oxygenate Hb dropping into the 8's today Dr. Wright had a conversation with patient's son and daughter in law over the phone, discussed poor prognosis they agreed to make patient DNR they would be open to transfusing one unit of PRBC if anemia gets worse will reassess tomorrow, discuss possible need to withdraw care Review of Systems Review of Systems: Unobtainable due to cognitive status and Unobtainable due to endotracheal tube Physical Exam Constitutional: + ill appearing, + thin and + mechanically ventilated; no acute distress Neck: trachea midline, no thyromegaly Respiratory: no respiratory distress Auscultation: no crackles, no rhonchi and no wheezes Cardiovascular: RRR, no murmur, no edema Gastrointestinal (Abdomen): normal bowel sounds, soft, nontender, no hepatosplenomegaly Musculoskeletal: Head/Neck/Chest: normocephalic, head atraumatic and neck supple Skin: no rashes, warm and dry Neurologic: + obtunded Psychiatric: Orientation: + not oriented x 3 Results & Data Results & Data ([facility]) Vital Signs (Past 12 Hours) Vital Signs Temp Pulse Resp BP Pulse Ox Pulse Ox 05/10/20 16:49 89 L 05/10/20 16:45 37.4 C 77 114/57 L 89 L 05/10/20 16:15 37.4 C 77 110/60 89 L 05/10/20 16:00 61 05/10/20 15:45 37.4 C 76 115/58 L 86 L 05/10/20 15:37 77 23 86 L 05/10/20 15:15 37.3 C 75 114/59 L 90 05/10/20 14:45 37.2 C 73 119/58 L 88 L 05/10/20 14:15 37.2 C 72 121/62 90 05/10/20 13:45 37.1 C 70 122/61 90 05/10/20 13:30 68 23 89 L 05/10/20 13:15 37.1 C 71 110/59 L 88 L 05/10/20 12:45 37.0 C 79 142/76 H 92 05/10/20 12:31 79 141/58 H 05/10/20 12:15 36.9 C 74 134/88 91 05/10/20 11:45 36.7 C 74 145/66 H 91 05/10/20 11:15 36.5 C 67 145/70 H 90 05/10/20 10:48 66 23 88 L 05/10/20 10:45 36.5 C 67 139/67 87 L 05/10/20 10:23 36.4 C L 68 122/66 88 L 05/10/20 10:15 36.4 C L 66 163/75 H 85 L 05/10/20 09:45 36.3 C L 71 183/84 H 89 L 05/10/20 09:25 36.2 C L 69 162/69 H 89 L 05/10/20 09:15 36.2 C L 73 159/88 H 90 05/10/20 08:45 36.2 C L 68 153/74 H 90 05/10/20 08:15 36.2 C L 72 173/86 H 91 05/10/20 08:00 75 05/10/20 07:45 36.2 C L 70 169/86 H 90 05/10/20 07:15 36.2 C L 71 150/77 H 86 L 05/10/20 07:00 70 22 89 L 05/10/20 06:00 36.1 C L 59 L 91 05/10/20 05:48 59 L 22 91 05/10/20 05:45 36.1 C L 61 91 05/10/20 05:16 36.1 C L 63 90 05/10/20 05:15 36.1 C L 63 179/79 H 90 Laboratory Results Laboratory Results - last 24 hr 05/09/20 05/09/20 05/10/20 19:58 23:52 03:31 WBC RBC Hgb POC Hgb Hct POC Hct MCV MCH MCHC RDW Std Deviation RDW Coeff of Ailin Plt Count MPV Absolute Nucleated RBC Nucleated RBC % (auto) Neutrophils % (Manual) Lymphocytes % (Manual) Metamyelocytes % (Man) Neutrophils # (Manual) Total Absolute Neuts Lymphocytes # (Manual) Total Abs Lymphocytes Metamyelocytes # (Man) Polychromasia Basophilic Stippling PT INR APTT PTT Ratio Fibrinogen Sample Site POC pH POC pCO2 POC pO2 POC HCO3 POC Total CO2 POC Base Excess ABG pH (Temp Correct) ABG pCO2 (Temp Corrct POC ABG pO2 at Pt Temp POC ABG O2 Sat Vaibhav Test O2 Delivery Device POC O2 Rate Minute Ventilation POC FiO2 Tidal Volume PEEP POC Sodium Sodium POC Potassium Potassium Chloride Carbon Dioxide Anion Gap BUN Creatinine Est Cr Clr Drug Dosing Est GFR ( Amer) Est GFR (Non-Af Amer) BUN/Creatinine Ratio Glucose POC Glucose 233 H 204 H 137 H Calcium Phosphorus Magnesium AST ALT Blood Type Antibody Screen Crossmatch 05/10/20 05/10/20 05/10/20 04:45 04:45 05:44 WBC 12.17 H RBC 2.76 L Hgb 9.0 L POC Hgb 9.5 L Hct 28.3 L POC Hct 28 L MCV 102.5 H MCH 32.6 MCHC 31.8 L RDW Std Deviation 58.2 H RDW Coeff of Ailin 16.7 H Plt Count 241 MPV 11.2 H Absolute Nucleated RBC 0.30 H Nucleated RBC % (auto) 2.4 Neutrophils % (Manual) 92.1 Lymphocytes % (Manual) 6.1 Metamyelocytes % (Man) 1.8 Neutrophils # (Manual) 11.21 H Total Absolute Neuts 11.21 H Lymphocytes # (Manual) 0.74 L Total Abs Lymphocytes 0.74 L Metamyelocytes # (Man) 0.22 H Polychromasia 1+ Basophilic Stippling 1+ PT INR APTT PTT Ratio Fibrinogen Sample Site Art Line POC pH 7.28 L POC pCO2 56 H POC pO2 63 L POC HCO3 26 H POC Total CO2 28 POC Base Excess -1.0 ABG pH (Temp Correct) 7.288 L ABG pCO2 (Temp Corrct 54 H POC ABG pO2 at Pt Temp 59 POC ABG O2 Sat 88.0 L Vaibhav Test Pass O2 Delivery Device Ventilator POC O2 Rate 22 Minute Ventilation 8.8 POC FiO2 40 Tidal Volume 400 PEEP 16 POC Sodium 147 H Sodium 145 POC Potassium 4.6 Potassium 4.5 Chloride 115 H Carbon Dioxide 26 Anion Gap 5.0 BUN 46 H Creatinine 1.30 Est Cr Clr Drug Dosing 57.3 Est GFR ( Amer) 59.7 Est GFR (Non-Af Amer) 51.5 BUN/Creatinine Ratio 35.2 H Glucose 109 H POC Glucose Calcium 7.7 L Phosphorus 4.1 Magnesium 2.7 H AST 138 H ALT 205 H Blood Type Antibody Screen Crossmatch 05/10/20 05/10/20 05/10/20 08:15 13:09 13:09 WBC RBC Hgb 8.6 L POC Hgb Hct 27.0 L POC Hct MCV MCH MCHC RDW Std Deviation RDW Coeff of Ailin Plt Count MPV Absolute Nucleated RBC Nucleated RBC % (auto) Neutrophils % (Manual) Lymphocytes % (Manual) Metamyelocytes % (Man) Neutrophils # (Manual) Total Absolute Neuts Lymphocytes # (Manual) Total Abs Lymphocytes Metamyelocytes # (Man) Polychromasia Basophilic Stippling PT INR APTT PTT Ratio Fibrinogen Sample Site POC pH POC pCO2 POC pO2 POC HCO3 POC Total CO2 POC Base Excess ABG pH (Temp Correct) ABG pCO2 (Temp Corrct POC ABG pO2 at Pt Temp POC ABG O2 Sat Vaibhav Test O2 Delivery Device POC O2 Rate Minute Ventilation POC FiO2 Tidal Volume PEEP POC Sodium Sodium POC Potassium Potassium Chloride Carbon Dioxide Anion Gap BUN Creatinine Est Cr Clr Drug Dosing Est GFR ( Amer) Est GFR (Non-Af Amer) BUN/Creatinine Ratio Glucose POC Glucose 110 H Calcium Phosphorus Magnesium AST ALT Blood Type A Positive Antibody Screen NEGATIVE Crossmatch See Detail 05/10/20 05/10/20 13:09 13:10 WBC RBC Hgb POC Hgb Hct POC Hct MCV MCH MCHC RDW Std Deviation RDW Coeff of Ailin Plt Count MPV Absolute Nucleated RBC Nucleated RBC % (auto) Neutrophils % (Manual) Lymphocytes % (Manual) Metamyelocytes % (Man) Neutrophils # (Manual) Total Absolute Neuts Lymphocytes # (Manual) Total Abs Lymphocytes Metamyelocytes # (Man) Polychromasia Basophilic Stippling PT 10.9 INR 1.0 APTT 26.0 PTT Ratio 0.9 Fibrinogen 378 Sample Site POC pH POC pCO2 POC pO2 POC HCO3 POC Total CO2 POC Base Excess ABG pH (Temp Correct) ABG pCO2 (Temp Corrct POC ABG pO2 at Pt Temp POC ABG O2 Sat Vaibhav Test O2 Delivery Device POC O2 Rate Minute Ventilation POC FiO2 Tidal Volume PEEP POC Sodium Sodium POC Potassium Potassium Chloride Carbon Dioxide Anion Gap BUN Creatinine Est Cr Clr Drug Dosing Est GFR ( Amer) Est GFR (Non-Af Amer) BUN/Creatinine Ratio Glucose POC Glucose 201 H Calcium Phosphorus Magnesium AST ALT Blood Type Antibody Screen Crossmatch Medications Administered Current Inpatient Medications Dextrose (Dextrose 50% 50 Ml Syringe) 25 - 50 ml IV UD PRN; Protocol PRN Reason: Hypoglycemia Protocol Stop: 06/06/20 12:14 Enoxaparin Sodium (Enoxaparin Inj 30 Mg/0.3 Ml Syr) 30 mg SQ BID [facility] Stop: 06/09/20 20:59 Last Admin: 05/10/20 15:20 Dose: Not Given Documented by: Fentanyl Citrate (Fentanyl Bolus From Bag) 50 mcg IV Q60M PRN PRN Reason: Pain or Agitation Stop: 05/20/20 10:24 Last Admin: 05/10/20 10:17 Dose: 50 mcg Documented by: Glucagon (Glucagon For Inj 1 Mg Vial) 1 mg IM UD PRN; Protocol PRN Reason: Hypoglycemia Protocol Stop: 06/06/20 12:14 Glucose (Glucose 40% Gel 15 Gm Tube) 15 - 30 gm PO UD PRN; Protocol PRN Reason: Hypoglycemia Protocol Stop: 06/06/20 12:14 Glucose (Glucose 10 Tabs/Tube) 4 - 8 tabs PO UD PRN; Protocol PRN Reason: Hypoglycemia Protocol Stop: 06/06/20 12:14 Dexamethasone Sodium Phosphate (6 mg/ Syringe) 1.5 mls @ 1 mls/min IV DAILY BECCA Stop: 05/11/20 09:02 Last Admin: 05/10/20 08:21 Dose: 1 mls/min Documented by: Fentanyl Citrate (Fentanyl Drip) 1,250 mcg in 250 mls @ 25 mls/hr IV .Q10H BECCA; Protocol Stop: 05/20/20 10:29 Last Admin: 05/10/20 10:16 Dose: 125 mcg/hr, 25 mls/hr Documented by: Midazolam HCl (Versed) 125 mg in 250 mls @ 11 mls/hr IV .[id number] BECCA; Protocol Stop: 06/08/20 10:59 Last Titration: 05/10/20 12:30 Dose: Infused Documented by: Chlorothiazide Sodium 500 mg/ (Dextrose) 68 mls @ 200 mls/hr IV BID BECCA Stop: 05/10/20 21:21 Last Infusion: 05/10/20 09:32 Dose: Infused Documented by: Sodium Chloride (Nss) 250 mls @ 15 mls/hr IV .[id number] PRN PRN Reason: For Transfusion Stop: 05/10/20 22:59 Pantoprazole Sodium 40 mg/ (Dextrose) 100 mls @ 20 mls/hr IV Q5H BECCA Stop: 06/09/20 13:14 Last Admin: 05/10/20 13:30 Dose: 8 mg/hr, 20 mls/hr Documented by: Sodium Chloride (Nss) 250 mls @ 15 mls/hr IV .[id number] PRN PRN Reason: For Transfusion Stop: 05/11/20 02:02 Insulin Aspart (Insulin Aspart 100 Units/Ml 3 Ml Pen) 0 units SC Q4 BECCA Stop: 06/06/20 12:29 Last Admin: 05/10/20 13:29 Dose: 5 units Documented by: Metoprolol Tartrate (Metoprolol Tartrate 1 Mg/Ml Vial) 5 mg IV Q6H BECCA Stop: 06/09/20 11:59 Last Admin: 05/10/20 13:27 Dose: Not Given Documented by: Midazolam HCl (Midazolam Bolus From Bag) 2 mg IV Q60M PRN PRN Reason: Sedation Stop: 06/08/20 10:48 Last Admin: 05/10/20 10:17 Dose: 2 mg Documented by: Miscellaneous (Carbohydrates For Hypoglycemia ) 15 - 30 gm PO UD PRN PRN Reason: Hypoglycemia Treatment Stop: 06/06/20 12:14 Multi-Ingredient Cream (Artificial Tears Op Oint 3.5 Gm Tube) 1 appln OP QID PRN PRN Reason: Undecided Stop: 06/08/20 10:37 Last Admin: 05/10/20 10:17 Dose: 1 appln Documented by: Nutritional Formula (Peptamen Intense Vhp 1.0 Gus 1,000 Ml Bag) 1,000 ml OG TODAY@1800 BECCA; Protocol Stop: 06/05/20 17:59 Last Admin: 05/10/20 12:31 Dose: 1,000 ml Documented by: Sennosides (Senna 8.6 Mg Tab) 17.2 mg PO DAILY BECCA Stop: 06/05/20 17:44 Last Admin: 05/10/20 07:33 Dose: 17.2 mg Documented by: PG Care Time/CCT Total # of Minutes Spent Total Time Spent with Patient: Total time spent is greater than 50% in coordination of care (as documented) at patient's floor/unit and/or counseling patient: Coding Level of Care Code 63989 Subseq Hosp Care Lvl 3 Diagnoses Acute respiratory failure with hypoxia J96.01 COVID-19 U07.1 Acute metabolic encephalopathy G93.41 Sepsis A41.9 SHERRIE (acute kidney injury) N17.9 Acute hypernatremia E87.0 Coronary artery disease I25.10 Hypertension I10 Alzheimer disease G30.9; F02.80 Hypokalemia E87.6 Hyperglycemia R73.9 Elevated troponin R77.8 Elevated lactic acid level R79.89 Mood disorder F39 Hypophosphatemia E83.39 DVT prophylaxis Z29.9 Anemia D64.9
[2020-05-10] MEDS ORDERED: ENOXAPARIN INJ 30 MG/0.3 ML SYR SQ SCH (21:00)
[2020-05-10 21:02] LABS: Hematocrit (blood only) 27.8 % (42-52)
[2020-05-11] MEDS: INSULIN ASPART 100 UNITS/ML 3 ML PEN SC SCH ×6 (00:49→19:42)
[2020-05-11] MEDS: METOPROLOL TARTRATE 1 MG/ML VIAL IV SCH ×2 (01:04→09:25)
[2020-05-11 01:19] LABS: Hematocrit (blood only) 27.6 % (42-52); Hemoglobin 9.1 g/dL (14.0-18.0)
[2020-05-11] MEDS ORDERED: VECURONIUM BROMIDE 10 MG VIAL IV ONE (03:14)
--- NOTE | 2020-05-11 03:50 | Procedure Note ---
Procedure Note Date of Service May 11, 2020 APC: Eliseo Jade PA-C. Attending: Dr. Wright A time-out was completed verifying correct patient, procedure, site, positioning. I was approached by nursing staff and respiratory staff and informed that the patient was having ongoing cuff leak. This resulted in decreased tidal volumes as well as worsening oxygenation. Initial attempts to maintain cuff pressure failed. At this point, decision to evaluate intubation with glide scope with possible need for tube exchange was agreed upon. Patient is a Covid positive individual with Covid pneumonia requiring aggressive airway intervention techniques. He was recently proned within the last 18 hours. Need to maintain adequate positive and expiratory pressures as well as tidal volumes is imperative to the ongoing management of the patient's COVID-19 pneumonia. Patient is currently intubated and sedated with Versed and fentanyl drips. Patient is under appropriate sedation, however he does have gag reflex when attempts to evaluate airway. Orders were placed for 10 mg IV vecuronium. This was administered by nursing staff. After appropriate effective drugs, the airway was assessed using glidescope. There does appear to be cuff leak. I was able to easily pass bougie through existing 8.0 ET tube. Cuff was deflated on existing tube and removed with the help of respiratory therapist at bedside. A new 8.0 [place] ET tube was exchanged over the bougie and was visualized passing through the vocal cords without issue. Cuff was inflated and bougie was removed. Appropriate colorimetric change was appreciated. Breath sounds were noted bilaterally. Patient was placed back on the ventilator with previous settings. Patient remained oxygenation in the mid to low 90s throughout procedure. Emergent consent was implied given patients rapidly declining clinical status and need for airway protection. Post ET Tube Exchange Chest X-ray confirms placement without pneumothorax. Patient tolerated the procedure well and there were no immediate complications. Coding CPT Codes Resuscitation - Resuscitation: [id number] Endotracheal Intubation, emergency ([id number]) [facility] [place] [facility] [place] Codes (Charges) Resuscitation Resuscitation: [id number] Endotracheal Intubation, emergency (ET Tube Exchange)
[2020-05-11] MEDS: PANTOprazole 40 MG in DEXTROSE 5% 100 ML IV SCH ×4 (03:59→19:38)
[2020-05-11 04:37] LABS: Basophils # (auto) 0.04 K/uL (0-0.2); Basophils % (auto) 0.3 %; Hematocrit (blood only) 28.9 % (42-52); Hemoglobin 9.1 g/dL (14.0-18.0); Lymphocytes # (auto) 1.25 K/uL (1.2-3.4); Lymphocytes % (auto) 8.3 %; Mean Corpuscular Hemoglobin 31.5 pg (25-34); Mean Corpuscular Hgb Conc 31.5 g/dL (32-36); Monocytes % (auto) 2.6 %; Neutrophils # (auto) 13.11 K/uL (1.4-6.5); Neutrophils % (auto) 86.8 %; Nucleated RBC # (auto) 0.96 K/uL (0-0); Nucleated RBC % (auto) 6.3 %; Platelet Count 272 K/uL (130-400); RDW Coefficient of Variation 19.3 % (11.5-14.5); RDW Standard Deviation 62.2 fL (36.4-46.3); Red Blood Count 2.89 M/uL (4.7-6.1)
[2020-05-11 04:56] LABS: Albumin Level 2.1 gm/dl (3.4-5.0); BUN Creatinine Ratio 40.4 (10-20); Bilirubin Direct 0.5 mg/dl (0-0.2); Calcium 7.6 mg/dl (8.5-10.1); Creatinine Clr Calc Pharmacy 40.1 ml/min; Est GFR (African American) 38.7; Est GFR (Non-African American) 33.4; Magnesium 3.2 mg/dl (1.8-2.4); Potassium 4.6 mmol/L (3.5-5.1)
[2020-05-11 04:58] LABS: Bilirubin,Total 0.9 mg/dl (0.2-1); Total Protein 6.3 gm/dl (6.4-8.2)
[2020-05-11 05:05] LABS: Polychromasia 1+
[2020-05-11 05:57] LABS: iSTAT Art Bld Gas pCO2 Correct 49 mmHg (35-46); iSTAT Art Bld Gas pH Corrected 7.276 (7.35-7.45); iSTAT Arterial Blood Gas HCO3 22 meg/L (19-24); iSTAT Arterial Blood Gas pCO2 46 mmHg (35-46); iSTAT Arterial Blood Gas pO2 75 mmHg (80-95); iSTAT Arterial Blood Gas pO2 C 82; iSTAT Carbon Dioxide 24 mmol/L (24-31); iSTAT Hematocrit 27 % (42-52); iSTAT Hemoglobin 9.2 g/dl (14.0-18.0); iSTAT Potassium 4.6 mmol/L (3.3-5.0); iSTAT Site Art Line; iSTAT Sodium 143 mmol/L (135-144)
[2020-05-11] MEDS: DEXAMETHASONE SOD PHOSPHATE 6 MG in SYRINGE 0 ML IV SCH (08:04)
[2020-05-11] MEDS: SENNA 8.6 MG TAB PO SCH (08:04)
[2020-05-11] MEDS: fentaNYL DRIP 1,250 MCG/250 ML BAG IV SCH ×7 (09:26→21:14)
--- NOTE | 2020-05-11 10:08 | XRay Report ---
SINGLE VIEW CHEST CLINICAL HISTORY: Endotracheal tube exchange. FINDINGS: An AP, portable, semierect chest radiograph is compared to study dated 05/10/2020. The exam ination is degraded by portable technique, apical lordotic positioning, and patient rotation. A right internal jugular central venous catheter is unchanged in position. The endotracheal tube has been pu lled back. The tip now projects at the level of the diaphragm. The tip of the endotracheal tube proje cts approximately 4.5 cm above the elke. The heart is enlarged noting atherosclerotic calcification of the thoracic aorta. Hazy bilateral airspace opacities are similar to previous, greatest in the le ft midlung. No large pleural effusion or pneumothorax is seen. The skeletal structures are osteopenic . The bony thorax is grossly intact. IMPRESSION: 1. The tip of the endotracheal tube projects 4.5 cm above the elke. 2. The enteric tube has been pulled back. The tip now projects at the level of the diaphragm. This sh ould be advanced 3. Cardiomegaly. 4. Hazy airspace opacities are similar to previous. 5. No large pleural effusion is identified. ACT 112: Negative or not required by law. Electronically signed by: Peter Rossi M.D. 05/11/2020 10:07 AM
[2020-05-11] MEDS: MIDAZOLAM HCL 125 MG/250 ML BAG IV SCH ×2 (10:13→19:38)
--- NOTE | 2020-05-11 11:28 | Critical Care Progress Note ---
Date of Service May 11, 2020 Assessment & Plan (1) COVID-19: -- Acute Hypoxic respiratory failure Likely sec to COVID-19 pneumonia Patient was initially on the floor high flow but was desaturating and was subsequently intubated on 05/06/2020, s/p proning (18 hours) and paralysis because of severe agitation and asynchrony with vent. Off paralysis since 05/10/2020 Patient was initially on propofol which was discontinued because of elevated triglycerides. It was changed to midazolam. Patient was on ARDS protocol, keep O2 saturation greater than 88% For COVID-19 Patient was not a candidate for remdesivir because of CKD He received 1 dose of convalescent plasma on 05/03 Continue total 10 doses of dexamethasone --New onset fever Patient has been in the hospital since 05/03 We will get septic work-up Fever could be from tracheobronchitis --Metabolic encephalopathy Patient does have underlying Alzheimer's dementia to begin with Patient was on Nimbex and then sedation could be playing a role on top of above Covid encephalopathy has also been found but I doubt that is playing a role here. Continue with aspiration precautions --SHERRIE on CKD Monitor BUN/creatinine Avoid nephrotoxic medication Strict in and out --Upper GI bleed On 05/10/2020 on NGT suction there was 200 cc of bright blood appreciated Lovenox held Patient got 1 unit of PRBC 05/10 Monitor H&H, transfuse if hemoglobin less than 7 --History of coronary artery disease and hypertension Continue with home medication --DNR --Overall prognosis is grave --Prophylaxis VTE: Lovenox on hold GI: Protonix drip Lines: Right IJ 05/09, right radial 05/09, positive Kasper Diet: OGT feeding Plan: In/out: +110, urine output 1315 AB.30/46/75 and 50% and PEEP of 16 Chest x-ray from today shows no significant pulmonary infiltrate. Bilateral costophrenic and cardiophrenic angles are clean. I will try to go down on PEEP to 8 as I do not think the patient underlying hypoxia is related to lung recruitment. Go up on the FiO2 if need be to keep O2 saturation greater than 88% Do septic work-up ESR/CRP as well as blood culture and UA. Patient has been new IJ and radial line placed in. I doubt that line infection is playing a role for fever. Tracheobronchitis can be playing a role. Chronic indwelling Kasper catheter could be a source as well Regarding mental status of the patient underlying dementia is of course playing a role. Patient is also on midazolam and fentanyl. We will try to titrated off as much as we can. Previously patient had issues with sedation he was bucking the vent. Patient's family is planning to visit and have a look at the patient from outside the room. We will discuss the goals of care going forward. Terminal extubation and keeping the patient comfortable will be discussed during that time. I have personally spent 46 minutes of critical care time in the direct management of this patient. This is a life/limb threatening event. This includes time spent evaluating patient, direct bedside care, chart review, placing orders, interpretation of diagnostic studies, discussion with consultants, patient, and family members, as well as other required patient management activities. This time is exclusive of all separately billable procedures, and teaching time and separate from and in addition to any other critical care service time. Please note the above document was generated using voice recognition software. It may contain grammatical, syntax or spelling errors. (2) Acute hypernatremia: (3) Elevated lactic acid level: (4) Acute respiratory failure with hypoxia: (5) Coronary artery disease: Admission and Anticipated Discharge Date Admission Date: May 02, 2020 Subjective Patient seen and examined at bedside. No acute distress. Patient had leak from the endotracheal cuff. The ETT was changed over the bougie. Patient was on 5.5 midazolam 125 fentanyl at the time of examination. He was on PEEP of 16 when I saw him saturating 92%. Chest x-ray today did not show any clear infiltrates. Patient has been spiking fever since today. Review of Systems Review of Systems: Unobtainable due to mental health condition, Unobtainable due to cognitive status and Unobtainable due to endotracheal tube Physical Exam Physical Exam: Constitutional: No acute distress HEENT: PERRLA, positive ETT Respiratory system: Decreased air entry bilaterally, no wheeze, rhonchi, minimal crackles bilateral lower lobes CVS: S1-S2 positive Abdomen: Soft, nontender, nondistended, positive bowel sounds x4 Extremities: +1 pulses bilaterally radialis/ dorsalis pedis, +2 pitting edema bilateral lower extremity, +1 pitting edema bilateral upper extremity, anasarca Neuro: Sluggish pupillary, no gag on ETT suction, no response on painful stimuli Psych: Unable to assess G/U: Positive Kasper Skin: no rashes, warm and dry Lymphatic: no cervical or axillary lymphadenopathy Results & Data Results & Data ([facility]) Vital Signs (Past 12 Hours) Vital Signs Temp Pulse Resp BP Pulse Ox 05/11/20 08:45 22 05/11/20 07:35 81 25 H 90 05/11/20 06:45 38.2 C H 85 118/61 92 05/11/20 05:35 92 H 24 92 05/11/20 04:32 93 H 24 91 05/11/20 04:00 38.6 C H 95 H 125/56 L 92 05/11/20 03:46 38.6 C H 102 H 149/81 H 91 05/11/20 03:15 38.7 C H 85 95/55 L 98 05/11/20 03:00 38.7 C H 84 92 05/11/20 02:45 38.6 C H 86 132/66 90 05/11/20 02:15 38.5 C H 82 133/67 91 05/11/20 02:00 38.5 C H 81 91 05/11/20 01:45 38.5 C H 82 128/60 91 05/11/20 01:15 38.4 C H 79 124/65 91 05/11/20 01:04 90 143/63 H 05/11/20 01:00 38.4 C H 89 91 05/11/20 00:45 38.3 C H 90 128/70 91 05/11/20 00:25 89 23 93 05/11/20 00:15 38.3 C H 84 140/64 87 L 05/11/20 00:00 38.3 C H 88 115/51 L 88 L 05/10/20 23:45 38.2 C H 89 145/70 H 88 L 05/10/20 23:43 38.2 C H 88 151/69 H 88 L 05/11/20 04:11 05/11/20 04:11 Coding Level of Care Code Critical Care 1st 30-74 mins Diagnoses COVID-19 U07.1 Acute hypernatremia E87.0 Elevated lactic acid level R79.89 Acute respiratory failure with hypoxia J96.01 Coronary artery disease I25.10 Time Spent (min) 46
[2020-05-11 15:10] LABS: Hematocrit (blood only) 25.1 % (42-52); Hemoglobin 8.1 g/dL (14.0-18.0)
--- NOTE | 2020-05-11 15:59 | Hospitalist Progress Note ---
Date of Service May 11, 2020 Assessment & Plan (1) Acute respiratory failure with hypoxia: Patient with acute hypoxic respiratory failure secondary to COVID-19 pneumonia. -Worsened on the morning of 05/03 with pulse ox of 82% on high flow nasal cannula 40 L with 100% FiO2 Transitioned to BiPAP initially and then CPAP at 14 cm H2O patient intubated by Dr. Milner morning of 05/06, transferred to ICU sedation per ICU, propofol and fentanyl placed on Nimbix for paralysis, for prone positioning for 24 hours, now back to supine management per ICU staff lung protective ventilation, very hypoxic, difficult to maintain oxygen saturation > 90% palliative care and ICU involved in speaking with patient's sons about goals of care patient is critically ill, not improving, unlikely to survive hospitalization changed to DNR on 05/10, reassess daily, will talk about withdrawing care if appropriate tentative plan to talk with family tomorrow about extubation, PEEP down to 8 today would not plan to intubate again (2) COVID-19: Diagnosed with Covid-19 on 04/26 on a [facility]- he was asymptomatic at that time Developed symptoms of shortness of breath and hypoxia at the jail on 04/29 Presented to the hospital on 05/02 with altered mental status and worsening hypoxia requiring 15 L nonrebreather/CPAP With pneumonia present on chest x-ray intubated on 05/06 and moved to ICU With acute kidney injury, not a candidate for remdesivir Received 1 dose of convalescent plasma on 05/03 dexamethasone 6 mg IV once daily x10-day course -Continue enoxaparin 30 mg SQ every 12 hours for high-dose DVT prophylaxis -Overall prognosis very poor DNR status, ICU continues to speak with family, consider extubation tomorrow to see how he does (3) Acute metabolic encephalopathy: Metabolic encephalopathy in setting of COVID pneumonia, acute hypoxic respiratory failure and sepsis. Also with underlying dementia -Continue to treat hypoxia, supportive care for Covid now that he is intubated, full sedation (4) Sepsis: Sepsis in setting of COVID19 pneumonia e/b a SOFA score >4 (5) SHERRIE (acute kidney injury): Creatinine up to 3 on admission, BUN 73, along with hypernatremia with sodium 154 likely secondary to severe dehydration, prerenal SHERRIE Creatinine up slightly at 1.8 today, monitor UO via batres Follow BMP in the morning (6) Acute hypernatremia: As above secondary to severe dehydration stable at 146 today Follow BMP in the morning (7) Coronary artery disease: Family reports patient had cardiac catheterization several years ago which showed severe coronary artery disease and stents were not able to be placed at that time He is medically managed as an outpatient Typically he is on aspirin, metoprolol, amlodipine These are all held right now as he is unable to take p.o. (8) Hypertension: Holding home medications as above (9) Alzheimer disease: Sounds moderate to severe in nature At baseline, can recognize family members, is mostly nonambulatory, resides in a jail Has a history of agitation and auditory hallucinations Supportive care certainly would make prognosis poor, wean from ventilator would be difficult with constant confusion and agitation (10) Hypokalemia: Replaced and resolved (11) Hyperglycemia: With some hyperglycemia here secondary to corticosteroids glycemic protocol in ICU (12) Elevated troponin: Patient has a mildly elevated troponin 0.062 and then down to normal range Likely myocardial demand ischemia in the setting of sepsis with underlying known severe CAD (13) Elevated lactic acid level: initial Lactate elevated 2.1, likely secondary to hypoxia and sepsis (14) Mood disorder: Presumably he is on Depakote, duloxetine, Seroquel, and Lyrica for some sort of mood disorder (15) Hypophosphatemia: stable (16) DVT prophylaxis: Lovenox 30 mg SQ every 12 hours Disposition-transition to ICU status, continue Covid-19 precautions Overall prognosis remains poor ICU and palliative care in communication with patient's family changed to DNR on 05/10 reassess status tomorrow (17) Anemia: Hb dropped to 8.6 but now 9.2 family consents to one unit of PRBC if needed Admission and Anticipated Discharge Date Admission Date: May 02, 2020 Subjective patient stable on the ventilator, PEEP down to 8 reviewed labs discussed with Dr. Cardoso, he will discuss with family about possible extubation tomorrow would not recommend intubation again Review of Systems Review of Systems: Unobtainable due to cognitive status and Unobtainable due to endotracheal tube Physical Exam Constitutional: + ill appearing, + thin and + mechanically ventilated; no acute distress Neck: trachea midline, no thyromegaly Respiratory: no respiratory distress Auscultation: no crackles, no rhonchi and no wheezes Cardiovascular: RRR, no murmur, no edema Gastrointestinal (Abdomen): normal bowel sounds, soft, nontender, no hepatosplenomegaly Musculoskeletal: Head/Neck/Chest: normocephalic, head atraumatic and neck supple Skin: no rashes, warm and dry Neurologic: + obtunded Psychiatric: Orientation: + not oriented x 3 Results & Data Results & Data ([facility]) Vital Signs (Past 12 Hours) Vital Signs Temp Pulse Resp BP Pulse Ox 05/11/20 11:31 77 28 H 88 L 05/11/20 11:16 37.6 C H 77 137/66 93 05/11/20 10:46 37.6 C H 74 144/62 H 93 05/11/20 10:16 37.6 C H 77 134/63 93 05/11/20 09:45 37.7 C H 75 137/61 92 05/11/20 09:16 37.8 C H 76 118/56 L 91 05/11/20 08:46 38.0 C H 77 119/58 L 91 05/11/20 08:45 22 05/11/20 08:16 38.1 C H 84 130/68 91 05/11/20 07:45 38.1 C H 86 119/66 89 L 05/11/20 07:35 81 25 H 90 05/11/20 07:15 38.2 C H 84 120/62 93 05/11/20 06:45 38.2 C H 85 118/61 92 05/11/20 05:35 92 H 24 92 05/11/20 04:32 93 H 24 91 05/11/20 04:00 38.6 C H 95 H 125/56 L 92 Laboratory Results Laboratory Results - last 24 hr 05/10/20 05/10/20 05/10/20 13:09 17:13 20:36 WBC RBC Hgb 9.0 L POC Hgb Hct 27.8 L POC Hct MCV MCH MCHC RDW Std Deviation RDW Coeff of Ailin Plt Count MPV Immature Gran % (Auto) Neut % (Auto) Lymph % (Auto) [place] % (Auto) Eos % (Auto) Baso % (Auto) Neut # (Auto) Lymph # (Auto) [place] # (Auto) Eos # (Auto) Baso # (Auto) Immature Gran # (Auto) Absolute Nucleated RBC Nucleated RBC % (auto) Polychromasia ESR Sample Site POC pH POC pCO2 POC pO2 POC HCO3 POC Total CO2 POC Base Excess ABG pH (Temp Correct) ABG pCO2 (Temp Corrct POC ABG pO2 at Pt Temp POC ABG O2 Sat Vaibhav Test O2 Delivery Device POC O2 Rate Tidal Volume PEEP POC Sodium Sodium POC Potassium Potassium Chloride Carbon Dioxide Anion Gap BUN Creatinine Est Cr Clr Drug Dosing Est GFR ( Amer) Est GFR (Non-Af Amer) BUN/Creatinine Ratio Glucose POC Glucose 209 H Calcium Phosphorus Magnesium Total Bilirubin Direct Bilirubin AST ALT Alkaline Phosphatase C-Reactive Protein Total Protein Albumin Procalcitonin Blood Type A Positive Antibody Screen NEGATIVE Crossmatch See Detail 05/10/20 05/10/20 05/11/20 21:11 22:54 01:02 WBC RBC Hgb 9.1 L POC Hgb Hct 27.6 L POC Hct MCV MCH MCHC RDW Std Deviation RDW Coeff of Ailin Plt Count MPV Immature Gran % (Auto) Neut % (Auto) Lymph % (Auto) [place] % (Auto) Eos % (Auto) Baso % (Auto) Neut # (Auto) Lymph # (Auto) [place] # (Auto) Eos # (Auto) Baso # (Auto) Immature Gran # (Auto) Absolute Nucleated RBC Nucleated RBC % (auto) Polychromasia ESR Sample Site POC pH POC pCO2 POC pO2 POC HCO3 POC Total CO2 POC Base Excess ABG pH (Temp Correct) ABG pCO2 (Temp Corrct POC ABG pO2 at Pt Temp POC ABG O2 Sat Vaibhav Test O2 Delivery Device POC O2 Rate Tidal Volume PEEP POC Sodium Sodium POC Potassium Potassium Chloride Carbon Dioxide Anion Gap BUN Creatinine Est Cr Clr Drug Dosing Est GFR ( Amer) Est GFR (Non-Af Amer) BUN/Creatinine Ratio Glucose POC Glucose 218 H 159 H Calcium Phosphorus Magnesium Total Bilirubin Direct Bilirubin AST ALT Alkaline Phosphatase C-Reactive Protein Total Protein Albumin Procalcitonin Blood Type Antibody Screen Crossmatch 05/11/20 05/11/20 05/11/20 03:42 04:11 04:11 WBC 15.10 H RBC 2.89 L Hgb 9.1 L POC Hgb Hct 28.9 L POC Hct MCV 100.0 MCH 31.5 MCHC 31.5 L RDW Std Deviation 62.2 H RDW Coeff of Ailin 19.3 H Plt Count 272 MPV 11.0 H Immature Gran % (Auto) 2.0 Neut % (Auto) 86.8 Lymph % (Auto) 8.3 [place] % (Auto) 2.6 Eos % (Auto) 0.0 Baso % (Auto) 0.3 Neut # (Auto) 13.11 H Lymph # (Auto) 1.25 [place] # (Auto) 0.40 Eos # (Auto) 0.00 Baso # (Auto) 0.04 Immature Gran # (Auto) 0.30 H Absolute Nucleated RBC 0.96 H Nucleated RBC % (auto) 6.3 Polychromasia 1+ ESR Sample Site POC pH POC pCO2 POC pO2 POC HCO3 POC Total CO2 POC Base Excess ABG pH (Temp Correct) ABG pCO2 (Temp Corrct POC ABG pO2 at Pt Temp POC ABG O2 Sat Vaibhav Test O2 Delivery Device POC O2 Rate Tidal Volume PEEP POC Sodium Sodium 146 H POC Potassium Potassium 4.6 Chloride 116 H Carbon Dioxide 26 Anion Gap 4.0 BUN 75 H D Creatinine 1.86 H D Est Cr Clr Drug Dosing 40.1 Est GFR ( Amer) 38.7 Est GFR (Non-Af Amer) 33.4 BUN/Creatinine Ratio 40.4 H Glucose 179 H POC Glucose 174 H Calcium 7.6 L Phosphorus 4.0 Magnesium 3.2 H Total Bilirubin 0.9 Direct Bilirubin 0.5 H AST 115 H ALT 176 H Alkaline Phosphatase 81 C-Reactive Protein Total Protein 6.3 L Albumin 2.1 L Procalcitonin Blood Type Antibody Screen Crossmatch 05/11/20 05/11/20 05/11/20 05:43 08:11 11:02 WBC RBC Hgb POC Hgb 9.2 L Hct POC Hct 27 L MCV MCH MCHC RDW Std Deviation RDW Coeff of Ailin Plt Count MPV Immature Gran % (Auto) Neut % (Auto) Lymph % (Auto) [place] % (Auto) Eos % (Auto) Baso % (Auto) Neut # (Auto) Lymph # (Auto) [place] # (Auto) Eos # (Auto) Baso # (Auto) Immature Gran # (Auto) Absolute Nucleated RBC Nucleated RBC % (auto) Polychromasia ESR Sample Site Art Line POC pH 7.30 L POC pCO2 46 POC pO2 75 L POC HCO3 22 POC Total CO2 24 POC Base Excess -4.0 ABG pH (Temp Correct) 7.276 L ABG pCO2 (Temp Corrct 49 H POC ABG pO2 at Pt Temp 82 POC ABG O2 Sat 93.0 Vaibhav Test NA O2 Delivery Device Ventilator POC O2 Rate 22 Tidal Volume 450 PEEP 16 POC Sodium 143 Sodium POC Potassium 4.6 Potassium Chloride Carbon Dioxide Anion Gap BUN Creatinine Est Cr Clr Drug Dosing Est GFR ( Amer) Est GFR (Non-Af Amer) BUN/Creatinine Ratio Glucose POC Glucose 195 H 242 H Calcium Phosphorus Magnesium Total Bilirubin Direct Bilirubin AST ALT Alkaline Phosphatase C-Reactive Protein Total Protein Albumin Procalcitonin Blood Type Antibody Screen Crossmatch 05/11/20 05/11/20 05/11/20 11:04 14:01 14:01 WBC RBC Hgb POC Hgb Hct POC Hct MCV MCH MCHC RDW Std Deviation RDW Coeff of Ailin Plt Count MPV Immature Gran % (Auto) Neut % (Auto) Lymph % (Auto) [place] % (Auto) Eos % (Auto) Baso % (Auto) Neut # (Auto) Lymph # (Auto) [place] # (Auto) Eos # (Auto) Baso # (Auto) Immature Gran # (Auto) Absolute Nucleated RBC Nucleated RBC % (auto) Polychromasia ESR 28 H Sample Site POC pH POC pCO2 POC pO2 POC HCO3 POC Total CO2 POC Base Excess ABG pH (Temp Correct) ABG pCO2 (Temp Corrct POC ABG pO2 at Pt Temp POC ABG O2 Sat Vaibhav Test O2 Delivery Device POC O2 Rate Tidal Volume PEEP POC Sodium Sodium POC Potassium Potassium Chloride Carbon Dioxide Anion Gap BUN Creatinine Est Cr Clr Drug Dosing Est GFR ( Amer) Est GFR (Non-Af Amer) BUN/Creatinine Ratio Glucose POC Glucose 218 H Calcium Phosphorus Magnesium Total Bilirubin Direct Bilirubin AST ALT Alkaline Phosphatase C-Reactive Protein 13.80 H Total Protein Albumin Procalcitonin Blood Type Antibody Screen Crossmatch 05/11/20 05/11/20 14:01 14:01 WBC RBC Hgb 8.1 L POC Hgb Hct 25.1 L POC Hct MCV MCH MCHC RDW Std Deviation RDW Coeff of Ailin Plt Count MPV Immature Gran % (Auto) Neut % (Auto) Lymph % (Auto) [place] % (Auto) Eos % (Auto) Baso % (Auto) Neut # (Auto) Lymph # (Auto) [place] # (Auto) Eos # (Auto) Baso # (Auto) Immature Gran # (Auto) Absolute Nucleated RBC Nucleated RBC % (auto) Polychromasia ESR Sample Site POC pH POC pCO2 POC pO2 POC HCO3 POC Total CO2 POC Base Excess ABG pH (Temp Correct) ABG pCO2 (Temp Corrct POC ABG pO2 at Pt Temp POC ABG O2 Sat Vaibhav Test O2 Delivery Device POC O2 Rate Tidal Volume PEEP POC Sodium Sodium POC Potassium Potassium Chloride Carbon Dioxide Anion Gap BUN Creatinine Est Cr Clr Drug Dosing Est GFR ( Amer) Est GFR (Non-Af Amer) BUN/Creatinine Ratio Glucose POC Glucose Calcium Phosphorus Magnesium Total Bilirubin Direct Bilirubin AST ALT Alkaline Phosphatase C-Reactive Protein Total Protein Albumin Procalcitonin 1.79 H Blood Type Antibody Screen Crossmatch Medications Administered Current Inpatient Medications Dextrose (Dextrose 50% 50 Ml Syringe) 25 - 50 ml IV UD PRN; Protocol PRN Reason: Hypoglycemia Protocol Stop: 06/06/20 12:14 Enoxaparin Sodium (Enoxaparin Inj 30 Mg/0.3 Ml Syr) 30 mg SQ BID BECCA Stop: 06/09/20 20:59 Last Admin: 05/10/20 15:20 Dose: Not Given Documented by: Fentanyl Citrate (Fentanyl Bolus From Bag) 50 mcg IV Q60M PRN PRN Reason: Pain or Agitation Stop: 05/20/20 10:24 Last Admin: 05/10/20 10:17 Dose: 50 mcg Documented by: Glucagon (Glucagon For Inj 1 Mg Vial) 1 mg IM UD PRN; Protocol PRN Reason: Hypoglycemia Protocol Stop: 06/06/20 12:14 Glucose (Glucose 40% Gel 15 Gm Tube) 15 - 30 gm PO UD PRN; Protocol PRN Reason: Hypoglycemia Protocol Stop: 06/06/20 12:14 Glucose (Glucose 10 Tabs/Tube) 4 - 8 tabs PO UD PRN; Protocol PRN Reason: Hypoglycemia Protocol Stop: 06/06/20 12:14 Heparin Sodium (Beef Lung) (Heparin 10 Unit/Ml 5 Ml Flush) 5 ml FLUSH PRN PRN PRN Reason: Flush Stop: 06/10/20 02:35 Fentanyl Citrate (Fentanyl Drip) 1,250 mcg in 250 mls @ 15 mls/hr IV .[id number] BECCA; Protocol Stop: 05/20/20 10:29 Last Titration: 05/11/20 11:09 Dose: 75 mcg/hr, 15 mls/hr Documented by: Midazolam HCl (Versed) 125 mg in 250 mls @ 6 mls/hr IV .[id number] [facility]; Protocol Stop: 06/08/20 10:59 Last Titration: 05/11/20 12:33 Dose: 3 mg/hr, 6 mls/hr Documented by: Pantoprazole Sodium 40 mg/ (Dextrose) 100 mls @ 20 mls/hr IV Q5H [facility] Stop: 06/09/20 13:14 Last Admin: 05/11/20 14:30 Dose: 8 mg/hr, 20 mls/hr Documented by: Insulin Aspart (Insulin Aspart 100 Units/Ml 3 Ml Pen) 0 units SC Q4 [facility] Stop: 06/06/20 12:29 Last Admin: 05/11/20 11:09 Dose: 6 units Documented by: Metoprolol Tartrate (Metoprolol Tartrate 1 Mg/Ml Vial) 2.5 mg IV Q8H PRN PRN Reason: SBP>150 Stop: 06/10/20 01:59 Midazolam HCl (Midazolam Bolus From Bag) 2 mg IV Q60M PRN PRN Reason: Sedation Stop: 06/08/20 10:48 Last Admin: 05/10/20 10:17 Dose: 2 mg Documented by: Miscellaneous (Carbohydrates For Hypoglycemia ) 15 - 30 gm PO UD PRN PRN Reason: Hypoglycemia Treatment Stop: 06/06/20 12:14 Multi-Ingredient Cream (Artificial Tears Op Oint 3.5 Gm Tube) 1 appln OP QID PRN PRN Reason: Undecided Stop: 06/08/20 10:37 Last Admin: 05/10/20 10:17 Dose: 1 appln Documented by: Nutritional Formula (Peptamen Intense Vhp 1.0 Gus 1,000 Ml Bag) 1,000 ml OG TODAY@1800 [facility]; Protocol Stop: 06/05/20 17:59 Last Admin: 05/10/20 12:31 Dose: 1,000 ml Documented by: Sennosides (Senna 8.6 Mg Tab) 17.2 mg PO DAILY [facility] Stop: 06/05/20 17:44 Last Admin: 05/11/20 08:04 Dose: Not Given Documented by: PG Care Time/CCT Total # of Minutes Spent Total Time Spent with Patient: Total time spent is greater than 50% in coordination of care (as documented) at patient's floor/unit and/or counseling patient: Coding Level of Care Code 97223 Subseq Hosp Care Lvl 2 Diagnoses Acute respiratory failure with hypoxia J96.01 COVID-19 U07.1 Acute metabolic encephalopathy G93.41 Sepsis A41.9 SHERRIE (acute kidney injury) N17.9 Acute hypernatremia E87.0 Coronary artery disease I25.10 Hypertension I10 Alzheimer disease G30.9; F02.80 Hypokalemia E87.6 Hyperglycemia R73.9 Elevated troponin R77.8 Elevated lactic acid level R79.89 Mood disorder F39 Hypophosphatemia E83.39 DVT prophylaxis Z29.9 Anemia D64.9
[2020-05-11 17:49] LABS: Appearance Urine Clear (Clear); Bacteria Urine Automated 2+ (Negative); Bilirubin Urine Negative (Negative); Blood Urine Trace (Negative); Color Urine Yellow; Epithelial Cell Urine Auto >30 /lpf (0-5); Glucose Urine UA Negative (Negative); Ketones Urine Negative (Negative); Leukocyte Esterase Urine 1+ (Negative); Nitrite Urine Positive (Negative); Protein Urine Trace (Negative); RBC Urine Automated 0-4 /hpf (0-4); Specific Gravity Urine 1.021 (1.000-1.030); Urobilinogen Urine Negative (Negative)
[2020-05-11 18:06] LABS: Creatinine Urine Random 63.7 mg/dl; Potassium Random Urine 44.3 mmol/L; Uric Acid Urine Random 44.9 mg/dl
[2020-05-11] MEDS ORDERED: PIPERACILL/TAZOBAC CONSULT ACTIVE PRN (18:17)
[2020-05-11] MEDS: PEPTAMEN INTENSE VHP 1.0 CAL 1,000 ML BAG OG SCH (18:28)
[2020-05-11] MEDS ORDERED: PIPERACILLIN/TAZOBACTAM 4.5 GM in DEXTROSE 5% 100 ML IV ONE (18:30)
[2020-05-12] MEDS ORDERED: PIPERACILLIN/TAZOBACTAM 3.375 GM in DEXTROSE 5% 100 ML IV SCH
[2020-05-12] MEDS: PANTOprazole 40 MG in DEXTROSE 5% 100 ML IV SCH ×5 (00:28→21:17)
[2020-05-12] MEDS: PIPERACILLIN/TAZOBACTAM 4.5 GM in DEXTROSE 5% 100 ML IV SCH ×3 (00:28→16:11)
[2020-05-12] MEDS: fentaNYL DRIP 1,250 MCG/250 ML BAG IV SCH ×4 (00:29→21:17)
[2020-05-12] MEDS: INSULIN ASPART 100 UNITS/ML 3 ML PEN SC SCH ×7 (00:34→23:49)
[2020-05-12 03:52] LABS: iSTAT Art Bld Gas pCO2 Correct 35 mmHg (35-46); iSTAT Art Bld Gas pH Corrected 7.433 (7.35-7.45); iSTAT Arterial Blood Gas HCO3 23 meg/L (19-24); iSTAT Arterial Blood Gas pCO2 35 mmHg (35-46); iSTAT Arterial Blood Gas pH 7.44 (7.35-7.45); iSTAT Arterial Blood Gas pO2 62 mmHg (80-95); iSTAT Arterial Blood Gas pO2 C 63; iSTAT Carbon Dioxide 24 mmol/L (24-31); iSTAT Hematocrit 22 % (42-52); iSTAT Hemoglobin 7.5 g/dl (14.0-18.0); iSTAT Potassium 3.9 mmol/L (3.3-5.0); iSTAT Site Art Line; iSTAT Sodium 145 mmol/L (135-144)
[2020-05-12 04:44] LABS: Basophils # (auto) 0.01 K/uL (0-0.2); Basophils % (auto) 0.1 %; Hematocrit (blood only) 24.2 % (42-52); Hemoglobin 7.7 g/dL (14.0-18.0); Immature Granulocytes # (auto) 0.18 K/uL (0.00-0.02); Immature Granulocytes % (auto) 1.3 %; Lymphocytes % (auto) 6.3 %; Mean Corpuscular Hemoglobin 31.8 pg (25-34); Mean Corpuscular Hgb Conc 31.8 g/dL (32-36); Mean Platelet Volume 11.5 fL (7.4-10.4); Monocytes % (auto) 2.1 %; Neutrophils # (auto) 12.82 K/uL (1.4-6.5); Neutrophils % (auto) 90.2 %; Nucleated RBC # (auto) 0.27 K/uL (0-0); Nucleated RBC % (auto) 1.9 %; Platelet Count 223 K/uL (130-400); RDW Coefficient of Variation 20.1 % (11.5-14.5); RDW Standard Deviation 63.9 fL (36.4-46.3); Red Blood Count 2.42 M/uL (4.7-6.1); White Blood Count 14.21 K/uL (4.8-10.8)
[2020-05-12 05:21] LABS: BUN Creatinine Ratio 43.3 (10-20); Basophilic Stippling 1+; Calcium 7.5 mg/dl (8.5-10.1); Creatinine Clr Calc Pharmacy 38.4 ml/min; Est GFR (African American) 36.8; Est GFR (Non-African American) 31.8; Magnesium 3.1 mg/dl (1.8-2.4); Phosphorus 3.3 mg/dl (2.5-4.9); Polychromasia 1+
[2020-05-12] MEDS: MIDAZOLAM HCL 125 MG/250 ML BAG IV SCH ×2 (06:48→10:30)
[2020-05-12] MEDS: SENNA 8.6 MG TAB PO SCH (07:08)
[2020-05-12 07:16] LABS: Potassium 3.8 mmol/L (3.5-5.1)
[2020-05-12] MEDS: METOPROLOL TARTRATE 1 MG/ML VIAL IV PRN ×2 (07:25→16:13)
[2020-05-12] MEDS: ARTIFICIAL TEARS OP OINT 3.5 GM TUBE OP PRN (07:25)
--- NOTE | 2020-05-12 08:05 | XRay Report ---
XR chest 1V portable HISTORY: 79 years-old Male f/u follow-up study in a patient with acute respiratory failure COMPARISON: Chest radiograph 05/11/2020, 05/10/2020 TECHNIQUE: Portable AP view of the chest FINDINGS: Cardiac silhouette is upper limits of normal in size. Endotracheal tube overlies the midline, 4.5 cm superior to the elke. An enteric tube is present, distal tip projected over the distal esophagus. R ight IJ central venous catheter is unchanged in positioning. There are numerous telemetry leads are c oiled over the chest. Subcutaneous lucencies project over the right neck suggestive of subcutaneous e mphysema. Additionally, lucency projected over the left heart border is suggestive of pneumomediastin um/pneumopericardium. Mild right hemidiaphragmatic elevation. No pneumothorax. Bilateral mixed inters titial and alveolar opacities have moderately worsened. Mild blunting of the costophrenic angles with out large pleural effusion. IMPRESSION: 1. Lines and tubes as above with enteric tube again noted projecting over the distal esophagus. Advan cement with follow-up imaging is recommended. 2. Subcutaneous lucencies over the right neck suggest subcutaneous emphysema. Additionally, there is suggestion of pneumomediastinum/pneumopericardium. 3. No pneumothorax. 4. Moderately worsened bilateral mixed interstitial and alveolar opacities. ACT 112: Negative or not required by law. The above report was generated using voice recognition software. It may contain grammatical, syntax o r spelling errors. Electronically signed by: Wally Meza M.D. 05/12/2020 8:04 AM
--- NOTE | 2020-05-12 08:45 | Critical Care Progress Note ---
Date of Service May 12, 2020 Assessment & Plan (1) COVID-19: -- Acute Hypoxic respiratory failure Likely sec to COVID-19 pneumonia Patient was initially on the floor high flow but was desaturating and was subsequently intubated on 05/06/2020, s/p proning (18 hours) and paralysis because of severe agitation and asynchrony with vent. Off paralysis since 05/10/2020 Patient was initially on propofol which was discontinued because of elevated triglycerides. It was changed to midazolam. Patient was on ARDS protocol, keep O2 saturation greater than 88% For COVID-19 Patient was not a candidate for remdesivir because of CKD He received 1 dose of convalescent plasma on 05/03 s/p total 10 doses of dexamethasone. last dose 05/11/20 --Possible pneumomediastinum Likely because of patient asynchrony with the vent while being on PEEP No intervention needed Continue with conservative management --New onset fever from UTI Patient has been in the hospital since 05/03 CRP 13.8, procalcitonin 1.79 Antibiotic started on 05/11 Follow-up urine culture. Kasper catheter changed 05/12 --Metabolic encephalopathy Patient does have underlying Alzheimer's dementia to begin with Patient was on Nimbex and then sedation could be playing a role on top of above Covid encephalopathy has also been found but I doubt that is playing a role here. Continue with aspiration precautions --SHERRIE on CKD Monitor BUN/creatinine Avoid nephrotoxic medication Strict in and out --Upper GI bleed On 05/10/2020 on NGT suction there was 200 cc of bright blood appreciated Lovenox held Patient got 1 unit of PRBC 05/10 Monitor H&H, transfuse if hemoglobin less than 7 --History of coronary artery disease and hypertension Continue with home medication --DNR --Overall prognosis is grave --Prophylaxis VTE: Lovenox on hold GI: Protonix drip Lines: Right IJ 05/09, right radial 05/09, positive Kasper Diet: OGT feeding Plan: In/out: + 421, urine output 1425 AB.45/35/62 and 40% and PEEP of 8 Chest x-ray 05/12/2020: Bilateral alveolar opacities appreciated. There is also small lucency around the cardiac silhouette this could represent pneumomediastinum versus an infiltrate. This opacity was also appreciated on chest x-ray done post changing of the tube 05/11/2020. Worsening in opacities because the PEEP is decreased from 16 to 8 yesterday Keep sedation as minimal as possible. Patient does start to have asynchrony with the vent if the sedation is taken down. Hemoglobin is trending down. Patient did have history of bright red blood appreciated from OGT on 05/10/2020 s/p 1 unit of PRBC. Family does not want any other blood transfusion. I would not trend H&H. Continue with Protonix drip and low rate feeding I try to reach the family yesterday and left a message. They are planning to come in today I will have [id number] talk with them to discuss the goals of care. I have personally spent 37 minutes of critical care time in the direct management of this patient. This is a life/limb threatening event. This includes time spent evaluating patient, direct bedside care, chart review, placing orders, interpretation of diagnostic studies, discussion with consultants, patient, and family members, as well as other required patient management activities. This time is exclusive of all separately billable procedures, and teaching time and separate from and in addition to any other critical care service time. Please note the above document was generated using voice recognition software. It may contain grammatical, syntax or spelling errors. (2) Acute hypernatremia: (3) Elevated lactic acid level: (4) Acute respiratory failure with hypoxia: (5) Coronary artery disease: Admission and Anticipated Discharge Date Admission Date: May 02, 2020 Subjective Patient seen and examined at bedside. No acute distress, no adverse events overnight. Patient was on midazolam 2, fentanyl 75 the time of examination. Breathing over the vent. Blood pressure a bit on the higher side. Patient is getting as needed metoprolol based on systolic blood pressure. Sluggish pupillary, no gag on suction, positive corneal, no response to painful stimuli. Tmax 37.7 Physical Exam Physical Exam: Constitutional: No acute distress HEENT: PERRLA, positive ETT, no subcu emphysema on physical exam Respiratory system: Decreased air entry bilaterally, no wheeze, rhonchi, minimal crackles bilateral lower lobes CVS: S1-S2 positive Abdomen: Soft, nontender, nondistended, positive bowel sounds x4 Extremities: +1 pulses bilaterally radialis/ dorsalis pedis, +2 pitting edema bilateral lower extremity, +1 pitting edema bilateral upper extremity, anasarca Neuro: Sluggish pupillary, no gag on ETT suction, no response on painful stimuli Psych: Unable to assess G/U: Positive Kasper Skin: no rashes, warm and dry Lymphatic: no cervical or axillary lymphadenopathy Results & Data Results & Data ([facility]) Vital Signs (Past 12 Hours) Vital Signs Temp Pulse Resp BP Pulse Ox 05/12/20 08:30 73 25 H 92 05/12/20 08:00 77 05/12/20 07:25 85 171/88 H 05/12/20 07:16 37.5 C 85 171/88 H 92 05/12/20 06:46 37.5 C 81 157/74 H 92 05/12/20 06:30 37.5 C 77 92 05/12/20 06:16 37.4 C 80 155/74 H 93 05/12/20 06:00 37.4 C 78 92 05/12/20 05:46 37.4 C 78 165/67 H 93 05/12/20 05:30 37.4 C 75 92 05/12/20 05:00 37.4 C 77 94 05/12/20 04:46 37.3 C 77 164/68 H 94 05/12/20 04:16 37.3 C 76 167/74 H 93 05/12/20 04:00 37.2 C 74 148/58 H 94 05/12/20 03:46 37.2 C 74 161/76 H 93 05/12/20 03:25 78 25 H 91 05/12/20 03:16 37.2 C 74 140/59 L 94 05/12/20 03:00 37.2 C 73 93 05/12/20 02:46 37.2 C 74 142/58 H 93 05/12/20 02:16 37.2 C 73 142/59 H 93 05/12/20 02:00 37.2 C 72 93 05/12/20 01:46 EST 37.3 C 73 143/63 H 93 05/12/20 01:16 EST 37.3 C 72 143/59 H 91 05/12/20 01:04 EST 37.3 C 71 143/63 H 94 05/12/20 01:02 EST 37.3 C 72 143/63 H 92 05/12/20 01:00 EST 37.3 C 74 92 05/12/20 00:46 37.3 C 75 144/62 H 92 05/12/20 00:16 37.3 C 73 136/54 L 92 05/12/20 00:00 37.3 C 72 120/49 L 93 05/11/20 23:46 37.4 C 72 141/58 H 92 05/11/20 23:25 73 25 H 92 05/11/20 23:16 37.4 C 72 135/63 92 05/11/20 23:00 37.4 C 72 96 05/11/20 22:46 37.4 C 75 134/66 95 05/11/20 22:16 37.4 C 74 126/59 L 95 05/11/20 22:00 37.4 C 75 94 05/12/20 04:28 05/12/20 04:28 Coding Level of Care Code Critical Care 1st 30-74 mins Diagnoses COVID-19 U07.1 Acute hypernatremia E87.0 Elevated lactic acid level R79.89 Acute respiratory failure with hypoxia J96.01 Coronary artery disease I25.10 Time Spent (min) 37
[2020-05-12] MEDS: MIDAZOLAM BOLUS FROM BAG IV PRN (11:46)
[2020-05-12] MEDS: ACETAMINOPHEN 325 MG TAB PO PRN (18:10)
[2020-05-12] MEDS: PEPTAMEN INTENSE VHP 1.0 CAL 1,000 ML BAG OG SCH (18:12)
[2020-05-13] MEDS: PIPERACILLIN/TAZOBACTAM 4.5 GM in DEXTROSE 5% 100 ML IV SCH ×2 (00:43→08:10)
[2020-05-13] MEDS: PANTOprazole 40 MG in DEXTROSE 5% 100 ML IV SCH ×3 (03:00→11:50)
[2020-05-13] MEDS: INSULIN ASPART 100 UNITS/ML 3 ML PEN SC SCH ×5 (03:04→20:20)
[2020-05-13 04:05] LABS: iSTAT Art Bld Gas pCO2 Correct 31 mmHg (35-46); iSTAT Art Bld Gas pH Corrected 7.513 (7.35-7.45); iSTAT Arterial Blood Gas HCO3 25 meg/L (19-24); iSTAT Arterial Blood Gas pCO2 29 mmHg (35-46); iSTAT Arterial Blood Gas pH 7.54 (7.35-7.45); iSTAT Arterial Blood Gas pO2 52 mmHg (80-95); iSTAT Arterial Blood Gas pO2 C 59; iSTAT Carbon Dioxide 25 mmol/L (24-31); iSTAT Hematocrit 24 % (42-52); iSTAT Hemoglobin 8.2 g/dl (14.0-18.0); iSTAT Potassium 3.5 mmol/L (3.3-5.0); iSTAT Site Art Line; iSTAT Sodium 148 mmol/L (135-144)
[2020-05-13 04:48] LABS: Basophils # (auto) 0.01 K/uL (0-0.2); Basophils % (auto) 0.1 %; Hematocrit (blood only) 23.6 % (42-52); Hemoglobin 7.6 g/dL (14.0-18.0); Immature Granulocytes # (auto) 0.13 K/uL (0.00-0.02); Immature Granulocytes % (auto) 0.9 %; Lymphocytes # (auto) 0.97 K/uL (1.2-3.4); Lymphocytes % (auto) 6.8 %; Mean Corpuscular Hemoglobin 32.6 pg (25-34); Mean Corpuscular Hgb Conc 32.2 g/dL (32-36); Mean Corpuscular Volume 101.3 fL (80-100); Mean Platelet Volume 11.1 fL (7.4-10.4); Monocytes # (auto) 0.31 K/uL (0.11-0.59); Monocytes % (auto) 2.2 %; Neutrophils # (auto) 12.86 K/uL (1.4-6.5); Nucleated RBC # (auto) 0.32 K/uL (0-0); Nucleated RBC % (auto) 2.2 %; Platelet Count 160 K/uL (130-400); RDW Coefficient of Variation 21.1 % (11.5-14.5); RDW Standard Deviation 68.7 fL (36.4-46.3); Red Blood Count 2.33 M/uL (4.7-6.1); White Blood Count 14.28 K/uL (4.8-10.8)
[2020-05-13 05:09] LABS: BUN Creatinine Ratio 41.1 (10-20); Calcium 7.5 mg/dl (8.5-10.1); Creatinine Clr Calc Pharmacy 43.1 ml/min; Est GFR (African American) 42.3; Est GFR (Non-African American) 36.5; Magnesium 2.8 mg/dl (1.8-2.4); Phosphorus 2.6 mg/dl (2.5-4.9); Potassium 3.5 mmol/L (3.5-5.1)
[2020-05-13 05:16] LABS: Anisocytosis Present; Polychromasia 1+
[2020-05-13] MEDS: METOPROLOL TARTRATE 1 MG/ML VIAL IV PRN ×4 (06:11→19:39)
[2020-05-13] MEDS: ACETAMINOPHEN 325 MG TAB PO PRN ×3 (06:11→19:39)
[2020-05-13] MEDS ORDERED: FUROSEMIDE 60 MG in SYRINGE 0 ML IV ONE (07:45)
[2020-05-13] MEDS: SENNA 8.6 MG TAB PO SCH (08:10)
--- NOTE | 2020-05-13 08:52 | XRay Report ---
XR chest 1V portable HISTORY: Acute respiratory failure. COMPARISON: Chest 05/12/2020. FINDINGS: No pneumothorax. The heart remains stable in size. Bilateral hazy airspace opacities have p rogressed. Suspect a trace left pleural effusion. Nasogastric tube terminates below the diaphragm. Th e tip is not included on this study. Endotracheal tube terminates approximately 3.4 cm from the chikis a. Right jugular central venous catheter terminates at the right brachiocephalic vein. This remains u nchanged. IMPRESSION: 1. Satisfactory support line placement. 2. Interval progression of bilateral hazy airspace opacities. ACT 112: Negative or not required by law. Electronically signed by: Shawn Cervantes M.D. 05/13/2020 8:51 AM
[2020-05-13] MEDS ORDERED: cefTRIAXone SODIUM 1,000 MG in DEXTROSE 5% 50 ML IV SCH (09:30)
--- NOTE | 2020-05-13 09:30 | Critical Care Progress Note ---
Date of Service May 13, 2020 Assessment & Plan (1) COVID-19: -- Acute Hypoxic respiratory failure Likely sec to COVID-19 pneumonia Patient was initially on the floor high flow but was desaturating and was subsequently intubated on 05/06/2020, s/p proning (18 hours) and paralysis because of severe agitation and asynchrony with vent. Off paralysis since 05/10/2020 Patient was initially on propofol which was discontinued because of elevated triglycerides. It was changed to midazolam. Patient was on ARDS protocol, keep O2 saturation greater than 88% For COVID-19 Patient was not a candidate for remdesivir because of CKD He received 1 dose of convalescent plasma on 05/03 s/p total 10 doses of dexamethasone. last dose 05/11/20 --Possible pneumomediastinum Likely because of patient asynchrony with the vent while being on PEEP No intervention needed Continue with conservative management --New onset fever from UTI Patient has been in the hospital since 05/03 CRP 13.8, procalcitonin 1.79 Antibiotic started on 05/11 Urine culture: E. coli pansensitive Kasper catheter changed 05/12 --Metabolic encephalopathy Patient does have underlying Alzheimer's dementia to begin with Patient was on Nimbex and then sedation could be playing a role on top of above Covid encephalopathy has also been found but I doubt that is playing a role here. Continue with aspiration precautions --SHERRIE on CKD Monitor BUN/creatinine Avoid nephrotoxic medication Strict in and out --Upper GI bleed On 05/10/2020 on NGT suction there was 200 cc of bright blood appreciated Lovenox held Patient got 1 unit of PRBC 05/10 Monitor H&H, transfuse if hemoglobin less than 7 --History of coronary artery disease and hypertension Continue with home medication --Hypernatremia with hyperchloremia Free water flushes through the NGT Repeat BMP --DNR --Overall prognosis is grave --Prophylaxis VTE: Lovenox on hold GI: Protonix drip Lines: Right IJ 05/09, right radial 05/09, positive Kasper changed 05/12 Diet: OGT feeding Plan: In/out: + 250, urine output 1460 AB.54/29/52 and 60% and PEEP of 8 Respiratory alkalosis is likely secondary to fever that the patient is having along with central component. Patient is getting Tylenol as needed if the temperature is still not controlled we will put the patient on cooling blanket. Patient is +8 L since coming to the hospital. We will start the patient on Lasix on a daily basis to see if he can get the patient negative balance. For patient's hyponatremia with hyperchloremia and will give 250 mL free water every 6 hours through NGT for total of 6 doses. Repeat BMP later today. Change antibiotic to Rocephin I did have a talk with the family which included 2 of his sons as well as one granddaughter. I relayed the grave prognosis and where we are headed right now. It is difficult to make the family understand regarding the poor prognosis. I will get palliative care involved so that they can have the same input. Patient son who is the POA did call last night and said that he would like to continue with the ventilator for the time being and if he is extubated, reintubation is okay. He also added that it is okay to give blood products if need be. I will give the family a call again and update of the current situation of the patient. I have personally spent 36 minutes of critical care time in the direct management of this patient. This is a life/limb threatening event. This includes time spent evaluating patient, direct bedside care, chart review, placing orders, interpretation of diagnostic studies, discussion with consultants, patient, and family members, as well as other required patient management activities. This time is exclusive of all separately billable procedures, and teaching time and separate from and in addition to any other critical care service time. Please note the above document was generated using voice recognition software. It may contain grammatical, syntax or spelling errors. (2) Acute hypernatremia: (3) Elevated lactic acid level: (4) Acute respiratory failure with hypoxia: (5) Coronary artery disease: Admission and Anticipated Discharge Date Admission Date: May 02, 2020 Subjective Patient seen and examined at bedside. No acute distress, no adverse events overnight. Patient is on 70% FiO2 right now He was breathing over the vent at the rate of 40. He had fever of 38.9. Patient was on midazolam 2 and fentanyl 75. Review of Systems Review of Systems: Unobtainable due to mental health condition, Unobtainable due to cognitive status and Unobtainable due to endotracheal tube Physical Exam Physical Exam: Constitutional: No acute distress HEENT: PERRLA, positive ETT, no subcu emphysema on physical exam Respiratory system: Decreased air entry bilaterally, no wheeze, rhonchi, minimal crackles bilateral lower lobes CVS: S1-S2 positive Abdomen: Soft, nontender, nondistended, positive bowel sounds x4 Extremities: +2 pulses bilaterally radialis/ dorsalis pedis, +2 pitting edema bilateral lower extremity, +1 pitting edema bilateral upper extremity, anasarca Neuro: Sluggish pupillary, positive gag on ETT suction, no response on painful stimuli Psych: Unable to assess G/U: Positive Kasper Skin: no rashes, warm and dry Lymphatic: no cervical or axillary lymphadenopathy Results & Data Results & Data ([facility]) Vital Signs (Past 12 Hours) Vital Signs Temp Pulse Resp BP Pulse Ox 05/13/20 09:00 38.7 C H 91 H 88 L 05/13/20 08:59 38.7 C H 91 H 157/62 H 88 L 05/13/20 08:30 38.7 C H 89 88 L 05/13/20 08:00 38.8 C H 98 H 87 L 05/13/20 07:59 38.8 C H 101 H 157/68 H 87 L 05/13/20 07:37 97 H 40 H 88 L 05/13/20 07:30 38.8 C H 95 H 88 L 05/13/20 07:00 38.8 C H 93 H 88 L 05/13/20 06:59 38.8 C H 92 H 154/67 H 88 L 05/13/20 06:30 38.9 C H 89 87 L 05/13/20 06:11 107 H 174/60 H 05/13/20 06:00 38.8 C H 106 H 86 L 05/13/20 05:59 38.8 C H 106 H 169/76 H 87 L 05/13/20 05:30 38.8 C H 104 H 87 L 05/13/20 05:00 38.9 C H 101 H 87 L 05/13/20 04:59 38.9 C H 102 H 160/77 H 87 L 05/13/20 04:04 96 H 29 H 88 L 05/13/20 04:00 38.8 C H 100 H 179/58 H 88 L 05/13/20 03:59 38.8 C H 98 H 175/74 H 87 L 05/13/20 03:00 38.7 C H 94 H 89 L 05/13/20 02:59 38.7 C H 96 H 165/74 H 89 L 05/13/20 02:00 38.6 C H 94 H 88 L 05/13/20 01:59 38.6 C H 97 H 162/69 H 88 L 05/13/20 01:00 38.4 C H 92 H 90 05/13/20 00:17 90 05/13/20 00:15 38.2 C H 93 H 84 L 05/13/20 00:01 38.2 C H 94 H 83 L 05/13/20 00:00 152/61 H 05/12/20 23:59 38.2 C H 93 H 157/74 H 83 L 05/12/20 23:50 38.2 C H 97 H 174/77 H 87 L 05/12/20 23:45 38.2 C H 94 H 87 L 05/12/20 23:30 38.1 C H 93 H 87 L 05/12/20 23:20 90 26 H 88 L 05/12/20 23:15 38.1 C H 88 94 05/12/20 23:00 38.1 C H 91 H 87 L 05/12/20 22:59 38.1 C H 90 167/73 H 87 L 05/12/20 22:45 38.1 C H 95 H 87 L 05/12/20 22:30 38.1 C H 91 H 86 L 05/12/20 22:15 38.0 C H 89 86 L 05/12/20 22:00 38.0 C H 90 86 L 05/12/20 21:59 38.0 C H 88 167/77 H 86 L 05/12/20 21:45 37.9 C H 87 86 L 05/12/20 21:30 37.9 C H 89 86 L 05/13/20 04:24 05/13/20 04:24 Coding Level of Care Code Critical Care 1st 30-74 mins Diagnoses COVID-19 U07.1 Acute hypernatremia E87.0 Elevated lactic acid level R79.89 Acute respiratory failure with hypoxia J96.01 Coronary artery disease I25.10 Time Spent (min) 36
[2020-05-13] MEDS: cefTRIAXone SODIUM 2,000 MG in DEXTROSE 5% 50 ML IV SCH (11:21)
[2020-05-13] MEDS: TUBE FEEDING WATER FLUSH GT SCH ×2 (11:53→18:23)
[2020-05-13 12:56] LABS: BUN Creatinine Ratio 35.7 (10-20); Creatinine Clr Calc Pharmacy 36.6 ml/min; Est GFR (African American) 34.6; Est GFR (Non-African American) 29.9; Potassium 3.2 mmol/L (3.5-5.1)
[2020-05-13] MEDS ORDERED: amLODIPine BESYLATE 5 MG TAB PO SCH (13:00)
[2020-05-13 13:32] LABS: Magnesium 2.8 mg/dl (1.8-2.4)
[2020-05-13] MEDS: POTASSIUM CHLORIDE / WTR 20 MEQ/100 ML PLCT IV SCH ×3 (13:37→18:23)
[2020-05-13] MEDS: fentaNYL DRIP 1,250 MCG/250 ML BAG IV SCH ×3 (13:38→16:50)
[2020-05-13] MEDS: amLODIPine BESYLATE 5 MG TAB PO SCH (13:38)
--- NOTE | 2020-05-13 13:52 | Palliative Care Progress Note ---
Date of Service May 13, 2020 Assessment & Plan (1) Palliative care encounter: The patient remains intubated and ventilated in the ICU. On 05/13/20, patient has been intubated for 8 days. He was prone for 18 hours on 05/06 and received Nimbex as a paralytic due to agitation and asynchronous ventilation. He has been off of paralysis since 05/10/20. To review, the patient is being treated for acute on chronic respiratory failure, related to exacerbation from COVID-19 infection. He has received 10 doses of Dexamethasone with the last dose on 05/11/20. He received one dose of convalescent plasma on 05/03. Unfortunately, this patient is not a candidate for Remdesivir due to chronic kidney disease. The patient is not a candidate for a second dose of convalescent plasma as we have not seen improvement since the first dose. This gentleman has been discussed at ICU rounds daily. Multiple conversations have been held by multiple pulmonology/editorial clerk providers, palliative care providers, nursing and case management. Ultimately, the patients family has agreed for him to be a DNR/DNI in the event of cardiac arrest; however would like to continue with aggressive treatment otherwise. The patients two sons, Lacho Bassett (POA) and Megan, along with a grand-daughter were able to visit the patient through the ICU window visually yesterday. Today, the editorial clerk plans on switching out the patients ETT. Moving forward difficult discussions need to be held regarding goals of care and next steps for aggressive treatment would eventually be a tracheostomy and peg tube. I discussed this case unofficially with Dr. Joey Mcdaniel from an ethical standpoint. This patient does not meet brain criteria as he does have a cough and brain wave activity. In review of this patient, he has a severe acute illness with COVID-19 complicating the illness. He has a poor baseline at best and realistically we do not feel it is this patients best interest to proceed with tracheotomy and peg placement should we get to this discussion. While the procedure can technically take place, we do not feel it would be in his best interest for intermodal dispatcher prognosis and outcome. Aside from COVID-19 this patient has baseline dementia and multiple risks outweigh benefits for PEG tube placement including but not limited to aspiration pneumonia, residual feeding, infection at site, behavior issues of pulling at PEG tube, and overall decreased caloric needs of an end stage dementia patient. This patient does have a bad narrow picture and anticipate he would do poorly. From a legal standpoint, as the procedure would be physically able to be completed, would suggest contacting a tertiary care center to discuss the possibility of transferring, if accepted, for additional aggressive care if a provider at [facility] does not wish to ethically proceed with additional aggressive treatment including a tracheostomy or PEG tube if conversation was held regarding these procedures with family. My goal is to discuss this patients care again with the patients son, Lacho to possibly establish a timeframe of allowing another 48-72 hours of aggressive care locally, and if no signs of improvement noted, hopefully be able to guide the family towards a compassionate extubation to comfort measures only. I did call out to Lacho Bassett and the phone rang and rang. He does work third shift. We will try again to reach the family tomorrow 05/14. Discussed the above with Dr. Cardoso and resident Dr. Soler in the ICU. (2) COVID-19: (3) SHERRIE (acute kidney injury): (4) Mood disorder: Admission and Anticipated Discharge Date Admission Date: May 02, 2020 Review of Systems Review of Systems: deferred assessment as patient is covid + Physical Exam Physical Exam: deferred assessment and discussed with editorial clerk as patient is covid + and specialists are to avoid direct contact Results & Data ([facility]) Vital Signs (Past 12 Hours) Vital Signs Temp Temp Temp Pulse Resp BP Pulse Ox 05/13/20 12:39 38.1 C H 05/13/20 12:01 38.3 C H 85 89 L 05/13/20 12:00 94 H 05/13/20 11:59 88 157/66 H 89 L 05/13/20 11:30 38.5 C H 92 H 87 L 05/13/20 11:23 94 H 40 H 88 L 05/13/20 11:01 102 H 87 L 05/13/20 11:00 38.8 C H 38.8 C H 05/13/20 10:59 100 H 179/69 H 89 L 05/13/20 10:30 38.6 C H 99 H 88 L 05/13/20 10:00 38.6 C H 101 H 88 L 05/13/20 09:59 38.6 C H 95 H 166/66 H 87 L 05/13/20 09:30 38.6 C H 93 H 88 L 05/13/20 09:00 38.7 C H 91 H 88 L 05/13/20 08:59 38.7 C H 91 H 157/62 H 88 L 05/13/20 08:30 38.7 C H 89 88 L 05/13/20 08:00 38.8 C H 98 H 87 L 05/13/20 07:59 38.8 C H 101 H 157/68 H 87 L 05/13/20 07:37 97 H 40 H 88 L 05/13/20 07:30 38.8 C H 95 H 88 L 05/13/20 07:00 38.8 C H 93 H 88 L 05/13/20 06:59 38.8 C H 92 H 154/67 H 88 L 05/13/20 06:30 38.9 C H 89 87 L 05/13/20 06:11 107 H 174/60 H 05/13/20 06:00 38.8 C H 106 H 86 L 05/13/20 05:59 38.8 C H 106 H 169/76 H 87 L 05/13/20 05:30 38.8 C H 104 H 87 L 05/13/20 05:00 38.9 C H 101 H 87 L 05/13/20 04:59 38.9 C H 102 H 160/77 H 87 L 05/13/20 04:04 96 H 29 H 88 L 05/13/20 04:00 38.8 C H 100 H 179/58 H 88 L 05/13/20 03:59 38.8 C H 98 H 175/74 H 87 L 05/13/20 03:00 38.7 C H 94 H 89 L 05/13/20 02:59 38.7 C H 96 H 165/74 H 89 L 05/13/20 02:00 38.6 C H 94 H 88 L 05/13/20 01:59 38.6 C H 97 H 162/69 H 88 L PG Care Time/CCT Total # of Minutes Spent Total Time Spent with Patient: Total time spent is greater than 50% in coordination of care (as documented) at patient's floor/unit and/or counseling patient: 35 Coding Level of Care Code 64013 Subseq Hosp Care Lvl 3 Diagnoses Palliative care encounter Z51.5 COVID-19 U07.1 SHERRIE (acute kidney injury) N17.9 Mood disorder F39 Time Spent (min) 35 Time Spent Midlevel Total time spent 35 minutes with > 50% of that time spent assessing the patient, discussing goals of care with IDT and consulting the ethics committee.
--- NOTE | 2020-05-13 14:31 | Hospitalist Progress Note ---
Date of Service May 13, 2020 Assessment & Plan (1) Acute respiratory failure with hypoxia: Patient with acute hypoxic respiratory failure secondary to COVID-19 pneumonia. -Worsened on the morning of 05/03 with pulse ox of 82% on high flow nasal cannula 40 L with 100% FiO2 Transitioned to BiPAP initially and then CPAP at 14 cm H2O patient intubated by Dr. Milner morning of 05/06, transferred to ICU, remains on vent sedation per ICU, versed and fentanyl placed on Nimbix for paralysis, for prone positioning for 24 hours, now back to supine management per ICU staff lung protective ventilation, very hypoxic, difficult to maintain oxygen saturation > 90% palliative care and ICU involved in speaking with patient's sons about goals of care patient is critically ill, not improving, unlikely to survive hospitalization -giving IV lasix x 1 today changed to DNR on 05/10, reassess daily, will talk about withdrawing care if appropriate (2) COVID-19: Diagnosed with Covid-19 on 04/26 on a screening test at his halfway- he was asymptomatic at that time Developed symptoms of shortness of breath and hypoxia at the halfway on 04/29 Presented to the hospital on 05/02 with altered mental status and worsening hypoxia requiring 15 L nonrebreather/CPAP With pneumonia present on chest x-ray intubated on 05/06 and moved to ICU With acute kidney injury, not a candidate for remdesivir Received 1 dose of convalescent plasma on 05/03 Completed dexamethasone 6 mg IV once daily x10-day course -was on enoxaparin 30 mg SQ every 12 hours for high-dose DVT prophylaxis but stopped due to UGI bleeding -Overall prognosis very poor DNR status, ICU and Palliative continues to speak with family (3) Acute metabolic encephalopathy: Metabolic encephalopathy in setting of COVID pneumonia, acute hypoxic respiratory failure and sepsis. Also with underlying dementia -Continue to treat hypoxia, supportive care for Covid now that he is intubated, full sedation (4) Sepsis: Sepsis in setting of COVID19 pneumonia e/b a SOFA score >4 With fevers again, now treating for UTI with ceftriaxone (5) SHERRIE (acute kidney injury): Creatinine up to 3 on admission, BUN 73, along with hypernatremia with sodium 154 likely secondary to severe dehydration, prerenal SHERRIE Creatinine up again to 2.0 today, monitor UO via batres Follow BMP in the morning -giving IV lasix, follow renal panel (6) Acute hypernatremia: As above secondary to severe dehydration worsening today adding free water flushes to tube feeds Follow BMP in the morning (7) Coronary artery disease: Family reports patient had cardiac catheterization several years ago which showed severe coronary artery disease and stents were not able to be placed at that time He is medically managed as an outpatient Typically he is on aspirin, metoprolol, amlodipine These are all held right now as he is unable to take p.o. (8) Hypertension: amlodipine 10mg daily IV lopressor prn (9) Alzheimer disease: Sounds moderate to severe in nature At baseline, can recognize family members, is mostly nonambulatory, resides in a halfway Has a history of agitation and auditory hallucinations Supportive care certainly would make prognosis poor, wean from ventilator would be difficult with constant confusion and agitation (10) Hypokalemia: Replaced again today follow BMP, Mag (11) Hyperglycemia: With some hyperglycemia here secondary to corticosteroids glycemic protocol in ICU (12) Elevated troponin: Patient has a mildly elevated troponin 0.062 and then down to normal range Likely myocardial demand ischemia in the setting of sepsis with underlying known severe CAD (13) Elevated lactic acid level: initial Lactate elevated 2.1, likely secondary to hypoxia and sepsis (14) Anemia: On 05/10/2020 on NGT suction there was 200 cc of bright blood appreciated Lovenox held Patient got 1 unit of PRBC 05/10 Monitor H&H, transfuse if hemoglobin less than 7 continue IV PPI hgb stable today at 7.6 (15) UTI (urinary tract infection): noted to be growing E. colii and Staph species on UA recently with recurrent fevers continue ceftriaxone (16) Hypophosphatemia: stable (17) Mood disorder: Presumably he is on Depakote, duloxetine, Seroquel, and Lyrica for some sort of mood disorder all meds continue to be on hold (18) DVT prophylaxis: Lovenox on hold for GI bleeding Disposition-tcontinued ICU status, continue Covid-19 precautions Overall prognosis remains poor ICU and palliative care in communication with patient's family changed to DNR on 05/10 reassess status daily Admission and Anticipated Discharge Date Admission Date: May 02, 2020 Subjective Pt not seen due ot being in full ICU status but observed through window and discussed care with ICU MD Remains on vent, pneumomediastinum has resolved on chest imaging. Still with fevers. Hypertensive and breathing over vent at times. Discussed care also with Palliative Review of Systems Review of Systems: Unobtainable due to cognitive status, Unobtainable due to endotracheal tube and Unobtainable due to reduced consciousness Physical Exam Constitutional: + mechanically ventilated Results & Data Results & Data ([facility]) Vital Signs (Past 12 Hours) Vital Signs Temp Temp Temp Pulse Resp BP Pulse Ox 05/13/20 14:18 79 28 H 88 L 05/13/20 14:13 37.9 C H 05/13/20 14:01 89 86 L 05/13/20 13:59 37.8 C H 89 172/79 H 86 L 05/13/20 13:46 93 H 177/77 H 86 L 05/13/20 13:30 38.0 C H 85 86 L 05/13/20 13:01 38.2 C H 84 86 L 05/13/20 12:59 84 174/68 H 86 L 05/13/20 12:39 38.1 C H 05/13/20 12:30 82 89 L 05/13/20 12:01 38.3 C H 85 89 L 05/13/20 12:00 94 H 05/13/20 11:59 88 157/66 H 89 L 05/13/20 11:30 38.5 C H 92 H 87 L 05/13/20 11:23 94 H 40 H 88 L 05/13/20 11:01 102 H 87 L 05/13/20 11:00 38.8 C H 38.8 C H 05/13/20 10:59 100 H 179/69 H 89 L 05/13/20 10:30 38.6 C H 99 H 88 L 05/13/20 10:00 38.6 C H 101 H 88 L 05/13/20 09:59 38.6 C H 95 H 166/66 H 87 L 05/13/20 09:30 38.6 C H 93 H 88 L 05/13/20 09:00 38.7 C H 91 H 88 L 05/13/20 08:59 38.7 C H 91 H 157/62 H 88 L 05/13/20 08:30 38.7 C H 89 88 L 05/13/20 08:00 38.8 C H 98 H 87 L 05/13/20 07:59 38.8 C H 101 H 157/68 H 87 L 05/13/20 07:37 97 H 40 H 88 L 05/13/20 07:30 38.8 C H 95 H 88 L 05/13/20 07:00 38.8 C H 93 H 88 L 05/13/20 06:59 38.8 C H 92 H 154/67 H 88 L 05/13/20 06:30 38.9 C H 89 87 L 05/13/20 06:11 107 H 174/60 H 05/13/20 06:00 38.8 C H 106 H 86 L 05/13/20 05:59 38.8 C H 106 H 169/76 H 87 L 05/13/20 05:30 38.8 C H 104 H 87 L 05/13/20 05:00 38.9 C H 101 H 87 L 05/13/20 04:59 38.9 C H 102 H 160/77 H 87 L 05/13/20 04:04 96 H 29 H 88 L 05/13/20 04:00 38.8 C H 100 H 179/58 H 88 L 05/13/20 03:59 38.8 C H 98 H 175/74 H 87 L 05/13/20 03:00 38.7 C H 94 H 89 L 05/13/20 02:59 38.7 C H 96 H 165/74 H 89 L PG Care Time/CCT Total # of Minutes Spent Total Time Spent with Patient: Total time spent is greater than 50% in coordination of care (as documented) at patient's floor/unit and/or counseling patient: Coding Level of Care Code 80291 Subseq Hosp Care Lvl 1 Diagnoses Acute respiratory failure with hypoxia J96.01 COVID-19 U07.1 Acute metabolic encephalopathy G93.41 Sepsis A41.9 SHERRIE (acute kidney injury) N17.9 Acute hypernatremia E87.0 Coronary artery disease I25.10 Hypertension I10 Alzheimer disease G30.9; F02.80 Hypokalemia E87.6 Hyperglycemia R73.9 Elevated troponin R77.8 Elevated lactic acid level R79.89 Anemia D64.9 UTI (urinary tract infection) N39.0 Hypophosphatemia E83.39 Mood disorder F39 DVT prophylaxis Z29.9
[2020-05-13] MEDS: hydrALAZINE TAB 50 MG TAB PO SCH (15:30)
[2020-05-13] MEDS: MIDAZOLAM BOLUS FROM BAG IV PRN ×4 (15:31→19:39)
[2020-05-13] MEDS: MIDAZOLAM HCL 125 MG/250 ML BAG IV SCH ×2 (16:50→19:40)
[2020-05-13] MEDS: PEPTAMEN INTENSE VHP 1.0 CAL 1,000 ML BAG OG SCH (18:23)
[2020-05-13] MEDS: PANTOprazole 40 MG in SYRINGE 0 ML IV SCH (20:44)
[2020-05-13] MEDS ORDERED: hydrALAZINE TAB 50 MG TAB PO SCH (22:00)
[2020-05-14] MEDS: INSULIN ASPART 100 UNITS/ML 3 ML PEN SC SCH ×7 (00:05→23:52)
[2020-05-14] MEDS: fentaNYL DRIP 1,250 MCG/250 ML BAG IV SCH ×3 (00:09→21:42)
[2020-05-14] MEDS: hydrALAZINE TAB 50 MG TAB PO SCH ×4 (00:09→23:22)
[2020-05-14] MEDS: TUBE FEEDING WATER FLUSH GT SCH ×4 (00:10→17:49)
[2020-05-14 04:00] LABS: iSTAT Art Bld Gas pCO2 Correct 34 mmHg (35-46); iSTAT Art Bld Gas pH Corrected 7.456 (7.35-7.45); iSTAT Arterial Blood Gas HCO3 24 meg/L (19-24); iSTAT Arterial Blood Gas pCO2 33 mmHg (35-46); iSTAT Arterial Blood Gas pH 7.47 (7.35-7.45); iSTAT Arterial Blood Gas pO2 69 mmHg (80-95); iSTAT Arterial Blood Gas pO2 C 72; iSTAT Carbon Dioxide 25 mmol/L (24-31); iSTAT Hematocrit 27 % (42-52); iSTAT Hemoglobin 9.2 g/dl (14.0-18.0); iSTAT Potassium 3.6 mmol/L (3.3-5.0); iSTAT Site Art Line; iSTAT Sodium 146 mmol/L (135-144)
[2020-05-14 05:19] LABS: Basophils # (auto) 0.01 K/uL (0-0.2); Basophils % (auto) 0.1 %; Eosinophils # (auto) 0.02 K/uL (0-0.5); Eosinophils % (auto) 0.1 %; Hematocrit (blood only) 24.4 % (42-52); Hemoglobin 7.6 g/dL (14.0-18.0); Immature Granulocytes # (auto) 0.06 K/uL (0.00-0.02); Immature Granulocytes % (auto) 0.4 %; Lymphocytes # (auto) 0.69 K/uL (1.2-3.4); Lymphocytes % (auto) 4.7 %; Mean Corpuscular Hemoglobin 31.7 pg (25-34); Mean Corpuscular Hgb Conc 31.1 g/dL (32-36); Mean Corpuscular Volume 101.7 fL (80-100); Monocytes # (auto) 0.22 K/uL (0.11-0.59); Monocytes % (auto) 1.5 %; Neutrophils % (auto) 93.2 %; Nucleated RBC # (auto) 0.09 K/uL (0-0); Nucleated RBC % (auto) 0.6 %; Platelet Count 132 K/uL (130-400); RDW Standard Deviation 73.1 fL (36.4-46.3)
[2020-05-14 05:43] LABS: BUN Creatinine Ratio 42.8 (10-20); Calcium 7.6 mg/dl (8.5-10.1); Creatinine Clr Calc Pharmacy 43.4 ml/min; Est GFR (African American) 42.6; Est GFR (Non-African American) 36.7; Magnesium 2.8 mg/dl (1.8-2.4); Potassium 3.5 mmol/L (3.5-5.1)
[2020-05-14 05:49] LABS: Phosphorus 4.9 mg/dl (2.5-4.9)
[2020-05-14 06:05] LABS: Anisocytosis Present; Polychromasia 1+
--- NOTE | 2020-05-14 08:35 | XRay Report ---
XR chest 1V portable HISTORY: Acute respiratory failure. COMPARISON: Chest 05/13/2020. FINDINGS: Endotracheal tube terminates approximately 3.4 cm from the elke. Right jugular central ve nous catheter terminate at the distal right brachiocephalic vein. This remains unchanged in position. Nasogastric tube terminates in the distal stomach. Prior cholecystectomy. Bilateral patchy airspace opacities are not significantly changed. Cardiac silhouette is stable in size. No pneumothorax. No pl eural effusions. IMPRESSION: 1. Satisfactory support line placement. 2. No change in the bilateral airspace opacities. ACT 112: Negative or not required by law. Electronically signed by: Shawn Cervantes M.D. 05/14/2020 8:33 AM
[2020-05-14] MEDS: FUROSEMIDE 60 MG in SYRINGE 0 ML IV SCH (09:03)
[2020-05-14] MEDS: SENNA 8.6 MG TAB PO SCH (09:03)
[2020-05-14] MEDS: PANTOprazole 40 MG in SYRINGE 0 ML IV SCH ×2 (09:03→20:14)
[2020-05-14] MEDS: POTASSIUM CHLORIDE / WTR 20 MEQ/100 ML PLCT IV SCH ×2 (09:03→11:01)
[2020-05-14] MEDS: amLODIPine BESYLATE 5 MG TAB PO SCH (09:03)
[2020-05-14] MEDS: cefTRIAXone SODIUM 2,000 MG in DEXTROSE 5% 50 ML IV SCH (09:04)
--- NOTE | 2020-05-14 09:26 | Critical Care Progress Note ---
Date of Service May 14, 2020 Assessment & Plan (1) COVID-19: -- Acute Hypoxic respiratory failure Likely sec to COVID-19 pneumonia Patient was initially on the floor high flow but was desaturating and was subsequently intubated on 05/06/2020, s/p proning (18 hours) and paralysis because of severe agitation and asynchrony with vent. Off paralysis since 05/10/2020 Patient was initially on propofol which was discontinued because of elevated triglycerides. It was changed to midazolam. Patient was on ARDS protocol, keep O2 saturation greater than 88% For COVID-19 Patient was not a candidate for remdesivir because of CKD He received 1 dose of convalescent plasma on 05/03 s/p total 10 doses of dexamethasone. last dose 05/11/20 --Possible pneumomediastinum Likely because of patient asynchrony with the vent while being on PEEP No intervention needed Continue with conservative management Resolved --New onset fever from UTI Patient has been in the hospital since 05/03 CRP 13.8, procalcitonin 1.79 Antibiotic started on 05/11 Urine culture: E. coli pansensitive Kasper catheter changed 05/12 --Metabolic encephalopathy Patient does have underlying Alzheimer's dementia to begin with Patient was on Nimbex and then sedation could be playing a role on top of above Covid encephalopathy has also been found but I doubt that is playing a role here. Continue with aspiration precautions --SHERRIE on CKD Monitor BUN/creatinine Avoid nephrotoxic medication Strict in and out --Upper GI bleed On 05/10/2020 on NGT suction there was 200 cc of bright blood appreciated Lovenox on hold Patient got 1 unit of PRBC 05/10 Monitor H&H, transfuse if hemoglobin less than 7 --History of coronary artery disease and hypertension Continue with home medication --Hypernatremia with hyperchloremia Continue with Free water flushes through the NGT Repeat BMP --DNR --Overall prognosis is grave --Prophylaxis VTE: Lovenox on hold GI: Protonix Lines: Right IJ 05/09, right radial 05/09, positive Kasper changed 05/12 Diet: OGT feeding Plan: In/out: -612, urine output 3575 AB.47/33/69 and 80% and PEEP of 10 Chest x-ray from today showing dense consolidation of the left lower lobe which was even evident yesterday. Possibility of VAP is also there. I will change Rocephin to Zosyn which should cover the UTI as well as VAP Change Protonix to 40 twice daily Continue with Lasix 60 mg on a daily basis to keep the patient negative balance. Palliative care tried to reach out family yesterday but no answer. We will try to reach out to family again today. I have personally spent 38 minutes of critical care time in the direct manag ement of this patient. This is a life/limb threatening event. This includes time spent evaluating p atient, direct bedside care, chart review, placing orders, interpretation of diagnostic studies, discussion with consultants, patient, and family members, as well as other required patient management activities. This time is exclusive of all separately billable procedures, and teaching time and separate from and in addition to any other critical care service time. Please note the above document was generated using voice recognition software. It may contain grammatical, syntax or spelling errors. (2) Acute hypernatremia: (3) Elevated lactic acid level: (4) Acute respiratory failure with hypoxia: (5) Coronary artery disease: Admission and Anticipated Discharge Date Admission Date: May 02, 2020 Subjective Patient seen and examined at bedside. No acute distress. No adverse events overnight. The patient was 125 of fentanyl, 4 of midazolam at the time of examination. He was breathing over the vent. Respiratory rate was around 26-28. T-max of 38.2. FiO2 has been bumped up to 80%. He was saturating 92% at the time of examination. Review of Systems Review of Systems: Unobtainable due to mental health condition, Unobtainable due to cognitive status and Unobtainable due to endotracheal tube Physical Exam Physical Exam: Constitutional: No acute distress HEENT: PERRLA, positive ETT, no subcu emphysema on physical exam Respiratory system: Decreased air entry bilaterally, no wheeze, rhonchi, minimal crackles bilateral lower lobes CVS: S1-S2 positive Abdomen: Soft, nontender, nondistended, positive bowel sounds x4 Extremities: +2 pulses bilaterally radialis/ dorsalis pedis, +2 pitting edema bilateral lower extremity, +1 pitting edema bilateral upper extremity, anasarca Neuro: Sluggish pupillary, positive gag on ETT suction, no response on painful stimuli, no corneal Psych: Unable to assess G/U: Positive Kasper Skin: no rashes, warm and dry Lymphatic: no cervical or axillary lymphadenopathy Results & Data Results & Data ([facility]) Vital Signs (Past 12 Hours) Vital Signs Temp Pulse Resp BP Pulse Ox 05/14/20 07:15 87 25 H 92 05/14/20 06:01 37 C 87 92 05/14/20 06:00 85 163/65 H 92 05/14/20 05:01 83 92 05/14/20 05:00 37.6 C H 85 160/66 H 92 05/14/20 04:01 37.6 C H 84 92 05/14/20 03:59 86 173/74 H 93 05/14/20 03:30 85 28 H 92 05/14/20 02:59 37.6 C H 86 156/67 H 92 05/14/20 02:01 37.6 C H 86 91 05/14/20 02:00 84 148/59 H 91 05/14/20 01:01 85 90 05/14/20 00:59 86 163/69 H 90 05/14/20 00:01 78 90 05/13/20 23:59 76 134/66 90 05/13/20 23:11 72 05/13/20 23:10 79 27 H 89 L 05/13/20 23:01 37.0 C 74 89 L 05/13/20 22:59 36.7 C 73 126/63 90 05/13/20 22:01 71 90 05/13/20 21:59 37 C 74 130/64 91 05/14/20 04:51 05/14/20 04:51 Coding Level of Care Code Critical Care 1st 30-74 mins Diagnoses COVID-19 U07.1 Acute hypernatremia E87.0 Elevated lactic acid level R79.89 Acute respiratory failure with hypoxia J96.01 Coronary artery disease I25.10 Time Spent (min) 38
[2020-05-14] MEDS ORDERED: LINEZOLID 600 MG/300 ML BAG IV SCH (10:00)
[2020-05-14] MEDS ORDERED: PIPERACILL/TAZOBAC CONSULT ACTIVE PRN (10:18)
[2020-05-14] MEDS ORDERED: PIPERACILLIN/TAZOBACTAM 4.5 GM in DEXTROSE 5% 100 ML IV ONE (11:00)
--- NOTE | 2020-05-14 13:04 | Hospitalist Progress Note ---
Date of Service May 14, 2020 Assessment & Plan (1) Acute respiratory failure with hypoxia: Patient with acute hypoxic respiratory failure secondary to COVID-19 pneumonia. -Worsened on the morning of 05/03 with pulse ox of 82% on high flow nasal cannula 40 L with 100% FiO2 Transitioned to BiPAP initially and then CPAP at 14 cm H2O patient intubated by Dr. Milner morning of 05/06, transferred to ICU, remains on vent sedation per ICU, versed and fentanyl placed on Nimbix for paralysis, for prone positioning for 24 hours, now back to supine management per ICU staff lung protective ventilation, very hypoxic, difficult to maintain oxygen saturation > 90% Now with VAP apparent on CXR and with persistent fevers-abx added 05/14 with linezolid and Zosyn palliative care and ICU involved in speaking with patient's sons about goals of care patient is critically ill, not improving, unlikely to survive hospitalization changed to DNR on 05/10, reassess daily, will talk about withdrawing care if appropriate-Senior Escrow Officer to discuss with family today (2) COVID-19: Diagnosed with Covid-19 on 04/26 on a screening test [facility]- he was asymptomatic at that time Developed symptoms of shortness of breath and hypoxia at the [facility] on 04/29 Presented to the hospital on 05/02 with altered mental status and worsening hypoxia requiring 15 L nonrebreather/CPAP With pneumonia present on chest x-ray on admission, now worsening with VAP as above intubated on 05/06 and moved to ICU, remains intubated With acute kidney injury, not a candidate for remdesivir Received 1 dose of convalescent plasma on 05/03 Completed dexamethasone 6 mg IV once daily x10-day course -was on enoxaparin 30 mg SQ every 12 hours for high-dose DVT prophylaxis but stopped due to UGI bleeding -Overall prognosis very poor DNR status, ICU and Palliative continues to speak with family (3) Acute metabolic encephalopathy: Metabolic encephalopathy in setting of COVID pneumonia, acute hypoxic respiratory failure and sepsis. Also with underlying dementia -Continue to treat hypoxia, supportive care for Covid now that he is intubated, full sedation (4) Sepsis: Sepsis in setting of COVID19 pneumonia e/b a SOFA score >4 With fevers again, now treating for UTI and also now VAP (5) SHERRIE (acute kidney injury): Creatinine up to 3 on admission, BUN 73, along with hypernatremia with sodium 154 likely secondary to severe dehydration, prerenal SHERRIE Creatinine down to 1.72 today, monitor UO via batres Follow BMP in the morning (6) Acute hypernatremia: As above secondary to severe dehydration improved now with increased free H2O flushes Follow BMP in the morning (7) Coronary artery disease: Family reports patient had cardiac catheterization several years ago which showed severe coronary artery disease and stents were not able to be placed at that time He is medically managed as an outpatient Typically he is on aspirin, metoprolol, amlodipine These are all held right now as he is unable to take p.o. (8) Hypertension: amlodipine 10mg daily IV lopressor prn -added on hydralazine viq OGT (9) Alzheimer disease: Sounds moderate to severe in nature At baseline, can recognize family members, is mostly nonambulatory, resides in a penit[facility]iary Has a history of agitation and auditory hallucinations Supportive care certainly would make prognosis poor, wean from ventilator would be difficult with constant confusion and agitation (10) Hypokalemia: improving with replacement follow BMP, Mag (11) Hyperglycemia: With some hyperglycemia here secondary to corticosteroids glycemic protocol in ICU (12) Elevated troponin: Patient has a mildly elevated troponin 0.062 and then down to normal range Likely myocardial demand ischemia in the setting of sepsis with underlying known severe CAD (13) Elevated lactic acid level: initial Lactate elevated 2.1, likely secondary to hypoxia and sepsis (14) Anemia: On 05/10/2020 on NGT suction there was 200 cc of bright blood appreciated Lovenox held Patient got 1 unit of PRBC 05/10 Monitor H&H, transfuse if hemoglobin less than 7 continue IV PPI hgb stable today at 7.6 again (15) UTI (urinary tract infection): noted to be growing E. coli and MRSA now with recurrent fevers change ctx to Zosyn and Linezolid on 05/14 (16) Hypophosphatemia: stable (17) Pneumonia: as above, now with VAP started Zosyn, linezolid follow CXR, fever curve, oxygenation ICU managing (18) Mood disorder: Presumably he is on Depakote, duloxetine, Seroquel, and Lyrica for some sort of mood disorder all meds continue to be on hold (19) DVT prophylaxis: Lovenox on hold for GI bleeding, SCDs Disposition-continued ICU status, continue Covid-19 precautions Overall prognosis remains grave ICU and palliative care in communication with patient's family changed to DNR on 05/10 Will soon need to make decision regarding tracheostomy. Senior Escrow Officer to speak to family as this is likely futile care Admission and Anticipated Discharge Date Admission Date: May 02, 2020 Subjective Pt remains intubated and sedated. Observed through window of room and discussed care with Senior Escrow Officer. Was started on linezolid and ZOsyn today for PNA, Ceftriaxone dcd. Remains aug. Review of Systems Review of Systems: Unobtainable due to endotracheal tube Physical Exam Constitutional: + mechanically ventilated Results & Data Results & Data ([facility]) Vital Signs (Past 12 Hours) Vital Signs Temp Pulse Resp BP Pulse Ox 05/14/20 11:55 100 H 148/54 H 05/14/20 11:39 104 H 31 H 87 L 05/14/20 11:30 105 H 85 L 05/14/20 11:01 105 H 85 L 05/14/20 10:59 106 H 171/69 H 86 L 05/14/20 10:30 107 H 86 L 05/14/20 10:01 94 H 87 L 05/14/20 10:00 91 H 153/65 H 87 L 05/14/20 09:30 88 89 L 05/14/20 09:01 90 92 05/14/20 09:00 89 170/73 H 91 05/14/20 08:30 91 H 92 05/14/20 08:00 88 174/70 H 90 05/14/20 07:30 84 92 05/14/20 07:15 87 25 H 92 05/14/20 07:01 85 91 05/14/20 07:00 85 142/69 H 92 05/14/20 06:45 85 92 05/14/20 06:01 37 C 87 92 05/14/20 06:00 85 163/65 H 92 05/14/20 05:01 83 92 05/14/20 05:00 37.6 C H 85 160/66 H 92 05/14/20 04:01 37.6 C H 84 92 05/14/20 03:59 86 173/74 H 93 11/03/20 03:30 85 28 H 92 05/14/20 02:59 37.6 C H 86 156/67 H 92 05/14/20 02:01 37.6 C H 86 91 05/14/20 02:00 84 148/59 H 91 05/14/20 01:01 85 90 Laboratory Results 05/14/20 05/14/20 05/14/20 Range/Units 11:12 09:12 04:51 WBC (4.8-10.8) K/uL RBC (4.7-6.1) M/uL Hgb (14.0-18.0) g/dL POC Hgb (14.0-18.0) g/dl Hct (42-52) % POC Hct (42-52) % MCV (80-100) fL MCH (25-34) pg MCHC (32-36) g/dL RDW Std Deviation (36.4-46.3) fL RDW Coeff of Ailin (11.5-14.5) % Plt Count (130-400) K/uL MPV (7.4-10.4) fL Immature Gran % (Auto) % Neut % (Auto) % Lymph % (Auto) % [place] % (Auto) % Eos % (Auto) % Baso % (Auto) % Neut # (Auto) (1.4-6.5) K/uL Lymph # (Auto) (1.2-3.4) K/uL [place] # (Auto) (0.11-0.59) K/uL Eos # (Auto) (0-0.5) K/uL Baso # (Auto) (0-0.2) K/uL Immature Gran # (Auto) (0.00-0.02) K/uL Absolute Nucleated RBC (0-0) K/uL Nucleated RBC % (auto) % Polychromasia Anisocytosis Sample Site POC pH (7.35-7.45) POC pCO2 (35-46) mmHg POC pO2 (80-95) mmHg POC HCO3 (19-24) tracey/L POC Total CO2 (24-31) mmol/L POC Base Excess (-9-1.8) tracey/L ABG pH (Temp Correct) (7.35-7.45) ABG pCO2 (Temp Corrct (35-46) mmHg POC ABG pO2 at Pt Temp POC ABG O2 Sat (90-95) % Vaibhav Test O2 Delivery Device POC O2 Rate Minute Ventilation Tidal Volume PEEP POC Sodium (135-144) mmol/L Sodium 147 H (136-145) mmol/L POC Potassium (3.3-5.0) mmol/L Potassium 3.5 (3.5-5.1) mmol/L Chloride 114 H (98-107) mmol/L Carbon Dioxide 25 (21-32) mmol/L Anion Gap 8.0 (3-11) BUN 74 H (7-18) mg/dl Creatinine 1.72 H D (0.6-1.4) mg/dl Est Cr Clr Drug Dosing 43.4 ml/min Est GFR ( Amer) 42.6 Est GFR (Non-Af Amer) 36.7 BUN/Creatinine Ratio 42.8 H (10-20) Glucose 142 H (70-99) mg/dl POC Glucose 133 H 140 H (70-99) mg/dl Calcium 7.6 L (8.5-10.1) mg/dl Phosphorus 4.9 (2.5-4.9) mg/dl Magnesium 2.8 H (1.8-2.4) mg/dl Crossmatch 05/14/20 05/14/20 05/14/20 Range/Units 04:51 03:46 03:41 WBC 14.80 H (4.8-10.8) K/uL RBC 2.40 L (4.7-6.1) M/uL Hgb 7.6 L (14.0-18.0) g/dL POC Hgb 9.2 L (14.0-18.0) g/dl Hct 24.4 L (42-52) % POC Hct 27 L (42-52) % MCV 101.7 H (80-100) fL MCH 31.7 (25-34) pg MCHC 31.1 L (32-36) g/dL RDW Std Deviation 73.1 H (36.4-46.3) fL RDW Coeff of Ailin 21.0 H (11.5-14.5) % Plt Count 132 (130-400) K/uL MPV 11.0 H (7.4-10.4) fL Immature Gran % (Auto) 0.4 % Neut % (Auto) 93.2 % Lymph % (Auto) 4.7 % [place] % (Auto) 1.5 % Eos % (Auto) 0.1 % Baso % (Auto) 0.1 % Neut # (Auto) 13.80 H (1.4-6.5) K/uL Lymph # (Auto) 0.69 L (1.2-3.4) K/uL [place] # (Auto) 0.22 (0.11-0.59) K/uL Eos # (Auto) 0.02 (0-0.5) K/uL Baso # (Auto) 0.01 (0-0.2) K/uL Immature Gran # (Auto) 0.06 H (0.00-0.02) K/uL Absolute Nucleated RBC 0.09 H (0-0) K/uL Nucleated RBC % (auto) 0.6 % Polychromasia 1+ Anisocytosis Present Sample Site Art Line POC pH 7.47 H (7.35-7.45) POC pCO2 33 L (35-46) mmHg POC pO2 69 L (80-95) mmHg POC HCO3 24 (19-24) tracey/L POC Total CO2 25 (24-31) mmol/L POC Base Excess 0.0 (-9-1.8) tracey/L ABG pH (Temp Correct) 7.456 H (7.35-7.45) ABG pCO2 (Temp Corrct 34 L (35-46) mmHg POC ABG pO2 at Pt Temp 72 POC ABG O2 Sat 95.0 (90-95) % Vaibhav Test NA O2 Delivery Device Ventilator POC O2 Rate 22 Minute Ventilation 18 Tidal Volume 450 PEEP 10 POC Sodium 146 H (135-144) mmol/L Sodium (136-145) mmol/L POC Potassium 3.6 (3.3-5.0) mmol/L Potassium (3.5-5.1) mmol/L Chloride (98-107) mmol/L Carbon Dioxide (21-32) mmol/L Anion Gap (3-11) BUN (7-18) mg/dl Creatinine (0.6-1.4) mg/dl Est Cr Clr Drug Dosing ml/min Est GFR ( Amer) Est GFR (Non-Af Amer) BUN/Creatinine Ratio (10-20) Glucose (70-99) mg/dl POC Glucose 173 H (70-99) mg/dl Calcium (8.5-10.1) mg/dl Phosphorus (2.5-4.9) mg/dl Magnesium (1.8-2.4) mg/dl Crossmatch 05/14/20 05/13/20 05/13/20 Range/Units 00:14 19:57 15:58 WBC (4.8-10.8) K/uL RBC (4.7-6.1) M/uL Hgb (14.0-18.0) g/dL POC Hgb (14.0-18.0) g/dl Hct (42-52) % POC Hct (42-52) % MCV (80-100) fL MCH (25-34) pg MCHC (32-36) g/dL RDW Std Deviation (36.4-46.3) fL RDW Coeff of Ailin (11.5-14.5) % Plt Count (130-400) K/uL MPV (7.4-10.4) fL Immature Gran % (Auto) % Neut % (Auto) % Lymph % (Auto) % [place] % (Auto) % Eos % (Auto) % Baso % (Auto) % Neut # (Auto) (1.4-6.5) K/uL Lymph # (Auto) (1.2-3.4) K/uL [place] # (Auto) (0.11-0.59) K/uL Eos # (Auto) (0-0.5) K/uL Baso # (Auto) (0-0.2) K/uL Immature Gran # (Auto) (0.00-0.02) K/uL Absolute Nucleated RBC (0-0) K/uL Nucleated RBC % (auto) % Polychromasia Anisocytosis Sample Site POC pH (7.35-7.45) POC pCO2 (35-46) mmHg POC pO2 (80-95) mmHg POC HCO3 (19-24) tracey/L POC Total CO2 (24-31) mmol/L POC Base Excess (-9-1.8) tracey/L ABG pH (Temp Correct) (7.35-7.45) ABG pCO2 (Temp Corrct (35-46) mmHg POC ABG pO2 at Pt Temp POC ABG O2 Sat (90-95) % Vaibhav Test O2 Delivery Device POC O2 Rate Minute Ventilation Tidal Volume PEEP POC Sodium (135-144) mmol/L Sodium (136-145) mmol/L POC Potassium (3.3-5.0) mmol/L Potassium (3.5-5.1) mmol/L Chloride (98-107) mmol/L Carbon Dioxide (21-32) mmol/L Anion Gap (3-11) BUN (7-18) mg/dl Creatinine (0.6-1.4) mg/dl Est Cr Clr Drug Dosing ml/min Est GFR ( Amer) Est GFR (Non-Af Amer) BUN/Creatinine Ratio (10-20) Glucose (70-99) mg/dl POC Glucose 145 H 131 H 123 H (70-99) mg/dl Calcium (8.5-10.1) mg/dl Phosphorus (2.5-4.9) mg/dl Magnesium (1.8-2.4) mg/dl Crossmatch 05/13/20 05/10/20 Range/Units 12:26 13:09 WBC (4.8-10.8) K/uL RBC (4.7-6.1) M/uL Hgb (14.0-18.0) g/dL POC Hgb (14.0-18.0) g/dl Hct (42-52) % POC Hct (42-52) % MCV (80-100) fL MCH (25-34) pg MCHC (32-36) g/dL RDW Std Deviation (36.4-46.3) fL RDW Coeff of Ailin (11.5-14.5) % Plt Count (130-400) K/uL MPV (7.4-10.4) fL Immature Gran % (Auto) % Neut % (Auto) % Lymph % (Auto) % [place] % (Auto) % Eos % (Auto) % Baso % (Auto) % Neut # (Auto) (1.4-6.5) K/uL Lymph # (Auto) (1.2-3.4) K/uL [place] # (Auto) (0.11-0.59) K/uL Eos # (Auto) (0-0.5) K/uL Baso # (Auto) (0-0.2) K/uL Immature Gran # (Auto) (0.00-0.02) K/uL Absolute Nucleated RBC (0-0) K/uL Nucleated RBC % (auto) % Polychromasia Anisocytosis Sample Site POC pH (7.35-7.45) POC pCO2 (35-46) mmHg POC pO2 (80-95) mmHg POC HCO3 (19-24) tracey/L POC Total CO2 (24-31) mmol/L POC Base Excess (-9-1.8) tracey/L ABG pH (Temp Correct) (7.35-7.45) ABG pCO2 (Temp Corrct (35-46) mmHg POC ABG pO2 at Pt Temp POC ABG O2 Sat (90-95) % Vaibhav Test O2 Delivery Device POC O2 Rate Minute Ventilation Tidal Volume PEEP POC Sodium (135-144) mmol/L Sodium (136-145) mmol/L POC Potassium (3.3-5.0) mmol/L Potassium (3.5-5.1) mmol/L Chloride (98-107) mmol/L Carbon Dioxide (21-32) mmol/L Anion Gap (3-11) BUN (7-18) mg/dl Creatinine (0.6-1.4) mg/dl Est Cr Clr Drug Dosing ml/min Est GFR ( Amer) Est GFR (Non-Af Amer) BUN/Creatinine Ratio (10-20) Glucose (70-99) mg/dl POC Glucose (70-99) mg/dl Calcium (8.5-10.1) mg/dl Phosphorus 4.0 D (2.5-4.9) mg/dl Magnesium 2.8 H (1.8-2.4) mg/dl Crossmatch See Detail PG Care Time/CCT Total # of Minutes Spent Total Time Spent with Patient: Total time spent is greater than 50% in coordination of care (as documented) at patient's floor/unit and/or counseling patient: Coding Level of Care Code 27690 Subseq Hosp Care Lvl 1 Diagnoses Acute respiratory failure with hypoxia J96.01 COVID-19 U07.1 Acute metabolic encephalopathy G93.41 Sepsis A41.9 SHERRIE (acute kidney injury) N17.9 Acute hypernatremia E87.0 Coronary artery disease I25.10 Hypertension I10 Alzheimer disease G30.9; F02.80 Hypokalemia E87.6 Hyperglycemia R73.9 Elevated troponin R77.8 Elevated lactic acid level R79.89 Anemia D64.9 UTI (urinary tract infection) N39.0 Hypophosphatemia E83.39 Pneumonia J18.9 Mood disorder F39 DVT prophylaxis Z29.9
[2020-05-14] MEDS: PIPERACILLIN/TAZOBACTAM 4.5 GM in DEXTROSE 5% 100 ML IV SCH ×2 (15:22→23:23)
[2020-05-14] MEDS ORDERED: ACETAMINOPHEN SUSP 325 MG/10.15 ML UDC PO PRN (17:07)
[2020-05-14] MEDS: PEPTAMEN INTENSE VHP 1.0 CAL 1,000 ML BAG OG SCH (17:49)
[2020-05-14] MEDS ORDERED: VANCOMYCIN CONSULT ACTIVE PRN (19:18)
[2020-05-14] MEDS ORDERED: VANCOMYCIN HCL 2,500 MG in SODIUM CHLORIDE 0.9% 500 ML IV ONE (20:00)
[2020-05-14] MEDS: MIDAZOLAM HCL 125 MG/250 ML BAG IV SCH (21:42)
[2020-05-15 03:47] LABS: Basophils # (auto) 0.01 K/uL (0-0.2); Basophils % (auto) 0.1 %; Eosinophils # (auto) 0.04 K/uL (0-0.5); Eosinophils % (auto) 0.3 %; Hematocrit (blood only) 22.9 % (42-52); Hemoglobin 7.1 g/dL (14.0-18.0); Immature Granulocytes # (auto) 0.04 K/uL (0.00-0.02); Immature Granulocytes % (auto) 0.3 %; Lymphocytes # (auto) 0.65 K/uL (1.2-3.4); Mean Corpuscular Hemoglobin 31.6 pg (25-34); Mean Corpuscular Volume 101.8 fL (80-100); Mean Platelet Volume 11.3 fL (7.4-10.4); Monocytes # (auto) 0.22 K/uL (0.11-0.59); Monocytes % (auto) 1.7 %; Neutrophils # (auto) 12.06 K/uL (1.4-6.5); Neutrophils % (auto) 92.6 %; Platelet Count 121 K/uL (130-400); RDW Coefficient of Variation 21.3 % (11.5-14.5); RDW Standard Deviation 75.8 fL (36.4-46.3); Red Blood Count 2.25 M/uL (4.7-6.1); White Blood Count 13.02 K/uL (4.8-10.8)
[2020-05-15 04:10] LABS: Anisocytosis Present; Polychromasia 1+
[2020-05-15 04:11] LABS: BUN Creatinine Ratio 38.3 (10-20); Calcium 7.4 mg/dl (8.5-10.1); Creatinine Clr Calc Pharmacy 37.7 ml/min; Est GFR (African American) 37.3; Est GFR (Non-African American) 32.2; Magnesium 2.8 mg/dl (1.8-2.4); Phosphorus 5.1 mg/dl (2.5-4.9); Potassium 3.5 mmol/L (3.5-5.1)
[2020-05-15] MEDS: INSULIN ASPART 100 UNITS/ML 3 ML PEN SC SCH ×3 (04:15→11:30)
--- NOTE | 2020-05-15 06:32 | XRay Report ---
XR chest 1V portable CLINICAL HISTORY: f/u COMPARISON STUDY: Chest radiograph May 14, 2020. FINDINGS: Tip of nasogastric tube is below lower aspect of this image but at least within the body of the stomach. Tip of endotracheal tube is 2.8 cm above the elke. There is no pneumothorax. Extensiv e bilateral airspace opacities persist. Cardiomediastinal silhouette is stable. There is subtle lucen cy along the left heart border. IMPRESSION: 1. Satisfactory positioning of lines and tubes. 2. Persistent extensive bilateral airspace opacities. 3. Subtle lucency along the left heart border. This is likely artifactual although pneumomediastinum could this appearance. ACT 112: Negative or not required by law. Electronically signed by: Grant Fields M.D. 05/15/2020 6:30 AM
[2020-05-15] MEDS ORDERED: POTASSIUM CHLORIDE 20 MEQ/15 ML UDC NG SCH (08:00)
[2020-05-15] MEDS: PANTOprazole 40 MG in SYRINGE 0 ML IV SCH (08:10)
[2020-05-15] MEDS: SENNA 8.6 MG TAB PO SCH (08:11)
[2020-05-15] MEDS: FUROSEMIDE 60 MG in SYRINGE 0 ML IV SCH (08:11)
[2020-05-15] MEDS: amLODIPine BESYLATE 5 MG TAB PO SCH (08:11)
[2020-05-15] MEDS: PIPERACILLIN/TAZOBACTAM 4.5 GM in DEXTROSE 5% 100 ML IV SCH (08:11)
[2020-05-15] MEDS: hydrALAZINE TAB 50 MG TAB PO SCH (08:11)
[2020-05-15] MEDS ORDERED: CEFEPIME 2,000 MG in SYRINGE 0 ML IV SCH (09:00)
--- NOTE | 2020-05-15 09:12 | Critical Care Progress Note ---
Date of Service May 15, 2020 Assessment & Plan (1) COVID-19: -- Acute Hypoxic respiratory failure Likely sec to COVID-19 pneumonia Patient was initially on the floor high flow but was desaturating and was subsequently intubated on 05/06/2020, s/p proning (18 hours) and paralysis because of severe agitation and asynchrony with vent. Off paralysis since 05/10/2020 Patient was initially on propofol which was discontinued because of elevated triglycerides. It was changed to midazolam. Patient was on ARDS protocol, keep O2 saturation greater than 88% For COVID-19 Patient was not a candidate for remdesivir because of CKD He received 1 dose of convalescent plasma on 05/03 s/p total 10 doses of dexamethasone. last dose 05/11/20 --Possible pneumomediastinum Likely because of patient asynchrony with the vent while being on PEEP No intervention needed Continue with conservative management Resolved --Blood culture from 1031 showing gram-positive cocci in clusters Antibiotics changed to vancomycin Follow-up culture and sensitivity --New onset fever from UTI Patient has been in the hospital since 05/03 CRP 13.8, procalcitonin 1.79 Antibiotic started on 05/11 Urine culture: E. coli pansensitive Kasper catheter changed 05/12 --Metabolic encephalopathy Patient does have underlying Alzheimer's dementia to begin with Patient was on Nimbex and then sedation could be playing a role on top of above Covid encephalopathy has also been found but I doubt that is playing a role h ere. Continue with aspiration precautions --SHERRIE on CKD Monitor BUN/creatinine Avoid nephrotoxic medication Strict in and out --Upper GI bleed On 05/10/2020 on NGT suction there was 200 cc of bright blood appreciated Lovenox on hold Patient got 1 unit of PRBC 05/10 Monitor H&H, transfuse if hemoglobin less than 7 --History of coronary artery disease and hypertension Continue with home medication --DNR --Overall prognosis is grave --Prophylaxis VTE: Lovenox on hold GI: Protonix twice daily Lines: Right IJ 05/09, right radial 05/09, positive Kasper changed 05/12 Diet: OGT feeding Plan: In/out: +373, urine output 1975 Diffuse alveolar infiltrates are again appreciated bilaterally on the chest x-ray from today. Continue with vancomycin, change Zosyn to cefepime Give 40 of potassium. Hyperventilation syndrome most likely from underlying dementia on top of sepsis. We will try to get peripheral IVs today and take the central line out. We will try to reach out family again today to discuss the goals of care. I have personally spent 36 minutes of critical care time in the direct management of this patient. This is a life/limb threatening event. This includes time spent evaluating patient, direct bedside care, chart review, placing orders, interpretation of diagnostic studies, discussion with consultants, patient, and family members, as well as other required patient management activities. This time is exclusive of all separately billable procedures, and teaching time and separate from and in addition to any other critical care service time. Please note the above document was generated using voice recognition software. It may contain grammatical, syntax or spelling errors. (2) Acute hypernatremia: (3) Elevated lactic acid level: (4) Acute respiratory failure with hypoxia: (5) Coronary artery disease: Admission and Anticipated Discharge Date Admission Date: May 02, 2020 Subjective Patient seen and examined at bedside. No acute distress. Patient's breathing with 1. In the time of examination patient is on 4 of midazolam, 75 fentanyl. Respiratory rate is around 28-30. T-max 38.4 PEEP of 10, FiO2 60% saturating around 91-92% Review of Systems Review of Systems: Unobtainable due to cognitive status and Unobtainable due to endotracheal tube Physical Exam Physical Exam: Constitutional: No acute distress HEENT: PERRLA, positive ETT, no subcu emphysema on physical exam Respiratory system: Decreased air entry bilaterally, no wheeze, rhonchi, minimal crackles bilateral lower lobes CVS: S1-S2 positive Abdomen: Soft, nontender, nondistended, positive bowel sounds x4 Extremities: +2 pulses bilaterally radialis/ dorsalis pedis, +2 pitting edema bilateral lower extremity, +1 pitting edema bilateral upper extremity, anasarca Neuro: Sluggish pupillary, positive gag on ETT suction, no response on painful stimuli, no corneal Psych: Unable to assess G/U: Positive Kasper Skin: no rashes, warm and dry Lymphatic: no cervical or axillary lymphadenopathy Results & Data Results & Data ([facility]) Vital Signs (Past 12 Hours) Vital Signs Temp Pulse Resp BP Pulse Ox 05/15/20 07:37 87 26 H 94 05/15/20 06:00 83 151/63 H 100 05/15/20 05:45 79 29 H 92 05/15/20 05:01 83 140/64 100 05/15/20 04:00 86 162/61 H 100 05/15/20 03:00 82 136/58 L 91 05/15/20 02:20 84 28 H 92 05/15/20 02:00 79 135/64 91 05/15/20 01:00 78 143/59 H 89 L 05/15/20 00:00 36.5 C 79 143/61 H 93 05/14/20 23:01 75 131/58 L 87 L 05/14/20 22:15 72 24 92 05/14/20 22:00 70 142/63 H 90 05/15/20 03:29 05/15/20 03:29 Coding Level of Care Code Critical Care 1st 30-74 mins Diagnoses COVID-19 U07.1 Acute hypernatremia E87.0 Elevated lactic acid level R79.89 Acute respiratory failure with hypoxia J96.01 Coronary artery disease I25.10 Time Spent (min) 36
--- NOTE | 2020-05-15 09:44 | Palliative Care Progress Note ---
Date of Service May 15, 2020 Assessment & Plan (1) Palliative care encounter: The patient remains intubated and ventilated in the ICU. He has been intubated for 10 days with no real clinical improvements noted. He was prone for 18 hours on 05/06 and received Nimbex as a paralytic due to agitation and asynchronous ventilation. He has been off of paralysis since 05/10/20. His FiO2 remains at 0.70 and PEEP is 10. To review, the patient is being treated for acute on chronic respiratory failure, related to exacerbation from COVID-19 infection. He has received 10 doses of Dexamethasone with the last dose on 05/11/20. He received one dose of convalescent plasma on 05/03. Unfortunately, this patient is not a candidate for Remdesivir due to chronic kidney disease. The patient is not a candidate for a second dose of convalescent plasma as we have not seen improvement since the first dose. I reviewed this information with Dr. Cardoso this morning and agreed to discuss goals of care and compassionate extubation with the son and SPRING Monk Jr. Dr. Cardoso mentioned the son would be available from 9AM-11AM to discuss. I called the patients son, Lacho Bassett at [phone]. We talked at length regarding his current prognosis and details about his current treatment plan. Lacho did say that his father has told him he would not want a tracheostomy or permanent feeding tube, but also said his quality of life was really good prior to this event, aside from having some hallucinations. I reiterated that it is unlikely that he would return to his baseline and if we removed the ventilator he would likely pass within minutes to hours. The son was not angry on the phone; however, wanted to make sure that if the tube was removed it was for medical reasons, which I reassured him the complications of continued ventilation and poor prognosis. He asked if we would call him when the tube was out, or not. I said that if they wanted to come and see him through the window again, we can wait. He said all family has said their good-byes. I said that I would notify Dr. Cardoso and we could remove the ETT today if he so supported that. He said 'yeah, whatever, just call me when its done' and hung up. I discussed the above with Dr. Cardoso. I feel the son is in support of compassionate extubation; however, would feel better if he called to confirm this since he did hang up at the end of the call. Dr. Cardoso said he would call the patients son again and then move forward with terminal extubation. Patient can remain on Fentanyl gtt when extubated. Will place Robinul for secretions. LIkely patient will within minutes to a few hours, maybe a day or so. (2) COVID-19: (3) SHERRIE (acute kidney injury): (4) Mood disorder: Admission and Anticipated Discharge Date Admission Date: May 02, 2020 Subjective No real signs of clinical improvement. Pt remains intubated FiO2 0.70, PEEP [address] Cardoso See A/P for further details Review of Systems Review of Systems: deferred assessment as patient is covid + Physical Exam Physical Exam: Deferred as patient is COVID + . Discussed assessment with the hospitalist and jukebox route driver Results & Data ([facility]) Vital Signs (Past 12 Hours) Vital Signs Temp Pulse Resp BP Pulse Ox 05/15/20 09:01 37.4 C 93 H 94 05/15/20 09:00 92 H 154/65 H 93 05/15/20 08:30 91 H 93 05/15/20 08:01 89 93 05/15/20 08:00 88 158/64 H 94 05/15/20 07:37 87 26 H 94 05/15/20 07:30 83 100 05/15/20 07:01 85 100 05/15/20 07:00 86 146/58 H 100 05/15/20 06:45 84 100 05/15/20 06:00 83 151/63 H 100 05/15/20 05:45 79 29 H 92 05/15/20 05:01 83 140/64 100 05/15/20 04:00 86 162/61 H 100 05/15/20 03:00 82 136/58 L 91 05/15/20 02:20 84 28 H 92 05/15/20 02:00 79 135/64 91 05/15/20 01:00 78 143/59 H 89 L 05/15/20 00:00 36.5 C 79 143/61 H 93 05/14/20 23:01 75 131/58 L 87 L 05/14/20 22:15 72 24 92 05/14/20 22:00 70 142/63 H 90 PG Care Time/CCT Total # of Minutes Spent Total Time Spent with Patient: Total time spent is greater than 50% in coordination of care (as documented) at patient's floor/unit and/or counseling patient: 45 Coding Level of Care Code 01873 Subseq Hosp Care Lvl 3 Diagnoses Palliative care encounter Z51.5 COVID-19 U07.1 SHERRIE (acute kidney injury) N17.9 Mood disorder F39 Time Spent (min) 45 Time Spent Midlevel Total time spent 45 minutes with > 50% of that time spent assessing the patient, discussing goals of care with family and collaborating with the IDT.
--- NOTE | 2020-05-15 10:23 | Communication Note ---
Date of Service: May 15, 2020 Critical CARE addendum: Rocio Dillard from palliative care had talked with patient's son in the morning today and he she briefed me about the talk. I spoke with Mr. Glenroy Monk Junior at [phone]. I personally discussed the current condition of the patient. Patient has been requiring high FiO2 and higher PEEP. He has been intubated since 05/06/2020 and we are not making any headway in extubation given his poor mental status. He is spiking fever. He is being treated with antibiotics with no significant improvement. His renal function is deteriorating now. Discussed the overall poor prognosis of the patient. If they would be willing to continue with the care that he will most likely need trach and PEG. Lacho Dunlap was very clear that his father never wanted a tracheostomy or a PEG placed. The son understands and is agreeable to keep the patient comfortable. I did ask if they were wanting to come and see the father prior to her take the tube out. He stated that they already have said their goodbyes. All questions inquiries of the of the son were answered in depth. We will continue with taking the ET tube out and keep the patient comfortable. Please note the above document was generated using voice recognition software. It may contain grammatical, syntax or spelling errors.Any formal questions or concerns about the content, text or information contained within the body of this dictation should be directly addressed to the provider for clarification. Coding Level of Care Code Critical Care ea addt'l 30 min Time Spent (min) 15
[2020-05-15] MEDS: fentaNYL DRIP 1,250 MCG/250 ML BAG IV SCH (10:59)
[2020-05-15] MEDS ORDERED: LACTULOSE SYRUP 30 GM/45 ML UDP OG ONE (12:00)
--- NOTE | 2020-05-15 13:00 | Communication Note ---
Date of Service: May 15, 2020 PRONOUNCEMENT NOTE:- Date: 05/15/2020 Time: 12:46 PM Plan was to terminally extubate the patient and keep the patient comfortable. At 12:46 PM asystole was appreciated on the telemetry strip. No heart sounds, patient not breathing. No reflexes Assessment: I presented to the patients room for evaluation. Upon assessment, the patient was found to be in a terminal state. Pupils were fixed and dilated without response. No palpable pulses appreciated. No spontaneous breaths noted. Heart sounds were absent. No response to painful stimuli. Time of : 1246 as pronounced by myself. Patient's son who is the POA Lacho Romeo called and informed about the demise. Appropriate response to grief appreciated. Condolences prov ided. Questions were addressed and emotional support was provided. Patients primary service was contacted and made aware of patient demise. Coding Level of Care Code Critical Care kristal addt'l 30 min Time Spent (min) 10
[2020-05-15] MEDS ORDERED: VANCOMYCIN HCL 1,500 MG in SODIUM CHLORIDE 0.9% 500 ML IV SCH (14:00)
--- NOTE | 2020-05-15 18:38 | Discharge Summary ---
Date of Service May 15, 2020 Admission HPI Per Admitting Provider 79-year-old [facility] who was diagnosed with Covid 04/26. According to the family did not start exhibiting symptoms until 04/29. Unclear why was tested so much earlier. He presents tonight with profound hypoxic respiratory failure is now on high flow oxygen 40 L 100% does have some bibasilar chest infiltrates got marked hypernatremia of 154 and creatinine 3.1 with previous creatinine in February of this year of 1.3 troponin is elevated 0.062 early pending D-dimer Principal Diagnosis Covid-19 pneumonia, acute respiratory failure with hypoxia, ARDS, suspected secondary bacterial pneumonia Discharge Exam Please see sleeve tailor pronouncement and physical exam from the day of Discharge Data Allergies Allergy/AdvReac Type Severity Reaction Status Date / Time sulfadiazine Allergy Unknown Unknown Verified 05/02/20 17:55 Consultations 05/02/20 18:11 ED Decision to Admit Stat 05/03/20 09:11 Consult Pulmonology Routine 05/03/20 09:23 Consult Palliative Care Routine 05/05/20 16:57 Consult Human Services Worker Routine Ordered Studies 05/09/20 18:27 US point of care ultrasound Stat Chest x-ray x11 KUB x-ray Hospital Course (1) Acute respiratory failure with hypoxia: Patient with acute hypoxic respiratory failure secondary to COVID-19 pneumonia. With ARDS -Worsened on the morning of 05/03 with pulse ox of 82% on high flow nasal cannula 40 L with 100% FiO2 Transitioned to BiPAP initially and then CPAP at 14 cm H2O patient intubated by Dr. Milner morning of 05/06, transferred to ICU, remained on vent ever since then until the day of his terminal extubation on 05/15 after which he lung protective ventilation, very hypoxic, difficult to maintain oxygen saturation > 90% Then developed ventilator associated pneumonia apparent on CXR and with persistent fevers-abx added 05/14 with linezolid and Zosyn, then switched to cefepime from Zosyn palliative care and ICU involved in speaking with patient's sons about goals of care patient is critically ill, not improving, unlikely to survive hospitalization changed to DNR on 05/10, and decision was made for terminal extubation on 05/15 due to grave prognosis He shortly after (2) COVID-19: Diagnosed with Covid-19 on 04/26 on a screening test [facility]- he was asymptomatic at that time Developed symptoms of shortness of breath and hypoxia at the jail on 04/29 Presented to the hospital on 05/02 with altered mental status and worsening hypoxia requiring 15 L nonrebreather/CPAP With pneumonia present on chest x-ray on admission, now worsening with VAP as above As above, was ventilated for 10 days With acute kidney injury, not a candidate for remdesivir Received 1 dose of convalescent plasma on 05/03 Completed dexamethasone 6 mg IV once daily x10-day course -was on enoxaparin 30 mg SQ every 12 hours for high-dose DVT prophylaxis but stopped due to UGI bleeding (3) Acute metabolic encephalopathy: Metabolic encephalopathy in setting of COVID pneumonia, acute hypoxic respiratory failure and sepsis. Also with underlying dementia (4) Sepsis: Sepsis in setting of COVID19 pneumonia e/b a SOFA score >4 With fevers again, then treating for UTI and also now VAP as well as some bacteremia prior to (5) SHERRIE (acute kidney injury): Creatinine up to 3 on admission, BUN 73, along with hypernatremia with sodium 154 likely secondary to severe dehydration, prerenal SHERRIE Creatinine only improved slightly and then worsened again on the day of (6) Acute hypernatremia: (7) Coronary artery disease: Family reports patient had cardiac catheterization several years ago which showed severe coronary artery disease and stents were not able to be placed at that time (8) Hypertension: (9) Alzheimer disease: Moderate to severe nature at baseline (10) Hypokalemia: Potassium was replaced (11) Hyperglycemia: Was treated with insulin (12) Elevated troponin: Patient has a mildly elevated troponin 0.062 and then down to normal range Likely myocardial demand ischemia in the setting of sepsis with underlying known severe CAD (13) Elevated lactic acid level: initial Lactate elevated 2.1, likely secondary to hypoxia and sepsis (14) Anemia: On 05/10/2020 on NGT suction there was 200 cc of bright blood appreciated Lovenox held Patient got 1 unit of PRBC 05/10 Was treated with IV Protonix (15) UTI (urinary tract infection): noted to be growing E. coli and MRSA now with recurrent fevers Treated with antibiotics (16) Hypophosphatemia: Replaced (17) Pneumonia: as above, now with ventilator associated pneumonia Treated with antibiotics, did not improve Contributed to worsening ventilator dependent respiratory failure with hypoxia (18) Mood disorder: Presumably he is on Depakote, duloxetine, Seroquel, and Lyrica for some sort of mood disorder Medications were on hold while intubated (19) DVT prophylaxis: Lovenox initially and then was placed on hold for GI bleeding, SCDs at 1246 and 05/15/2020 Total Time Total Time Spent Total Time Spent (In Minutes): 20 minutes Discharge Plan Discharge Items Patient Disposition: Coding Level of Care Code None Diagnoses Acute respiratory failure with hypoxia J96.01 COVID-19 U07.1 Acute metabolic encephalopathy G93.41 Sepsis A41.9 SHERRIE (acute kidney injury) N17.9 Acute hypernatremia E87.0 Coronary artery disease I25.10 Hypertension I10 Alzheimer disease G30.9; F02.80 Hypokalemia E87.6 Hyperglycemia R73.9 Elevated troponin R77.8 Elevated lactic acid level R79.89 Anemia D64.9 UTI (urinary tract infection) N39.0 Hypophosphatemia E83.39 Pneumonia J18.9 Mood disorder F39 DVT prophylaxis Z29.9
[2020-05-15] MEDS ORDERED: LACTULOSE SYRUP 30 GM/45 ML UDP OG SCH (21:00)
== END 2020-05-15 13:55 | disposition expired | DRG 870 ==
LOC: ED 16:29 → 2S 18:24 → SUATTDRO 18:24 → 2S 21:58 → 2E 05-05 16:55 → 1E 05-06 12:08